=== PATIENT | male | born 1930 | race Caucasian/White ===

== ENCOUNTER 2016-12-23 16:12 | Emergency (ER) | payer MEDICARE, OTHER ==
[~2016-12-23] VITALS: Ht 170.2 cm; Wt 94.3 kg
--- NOTE | 2016-12-23 16:17 | ED Neurological Problem ---
General Stated Complaint: LOSING BALANCE/NAUSEA Source: patient Exam Limitations: no limitations History of Present Illness Time seen by provider: 16:16 Initial Comments This is external male presents with dizziness and nausea that began 2 days ago. The patient states that it is worse when he attempts to get out of bed. The patient's dizziness was so severe that he was unable to walk to the bathroom on Saturday morning (2 days ago). The patient has had 2 employer Walker for ambulation. He's had no chest pain, palpitations, shortness of breath, fever, chills, headache, stiff neck, or numbness or tingling in his extremities. Past medical history significant includes previous stent placement in the early . He has had no subsequent significant cardiac disease. To the best of his knowledge he has been in a regular rhythm. Allergies and Home Medications Allergies Coded Allergies: No Known Drug Allergies (Unverified , 12/23/16) Constitutional: No chills, No fever Eyes: Denies Blindness, Denies Blurred Vision Ears, Nose, Mouth, Throat: denies ear pain, denies nose discharge, denies epistaxis Respiratory: No cough Cardiovascular: No chest pain, Hx of Intervention (stent placement 2 in the early .), No palpitations Gastrointestinal: No abdominal pain, No diarrhea, nausea, No vomiting Genitourinary: no symptoms reported Musculoskeletal: joint pain Skin: No change in color, No rash Psychiatric/Neurological: No Symptoms Reported Endocrine: No Symptoms Reported Hematologic/Lymphatic: No Symptoms Reported Past Fkzymgy-Mcjyph-Yrljkb Hx Patient Social History Recent Foreign Travel: No Contact w/Someone Who Travel: No Reviewed Nursing Assessment Reviewed/Agree w Nursing PMH: Yes Physical Exam Vital Signs Vital Sign - Last 12Hours 12/23/16 16:25 Temp 97.2 Pulse 100 Resp 20 B/P (MAP) 183/100 Pulse Ox 98 O2 Delivery Room Air Capillary Refill : General Appearance: WD/WN, no apparent distress HEENT: other (lateral gaze nystatin [place] was noted to the patient's right.) Neck: non-tender, full range of motion, supple, No carotid bruit Respiratory: chest non-tender, lungs clear Cardiovascular: irregularly irregular Gastrointestinal: normal bowel sounds, non tender, soft Back: normal inspection, no CVA tenderness Extremities: normal range of motion, non-tender Neurologic/Psychiatric: no motor/sensory deficits, alert, normal mood/affect Crainal Nerves: normal hearing, normal speech, PERRL Motor/Sensory: no motor deficit, no sensory deficit Skin: normal color, warm/dry Stroke Onset of Symptoms Date of Onset of Symptoms: Dec 21, 2016 Time of Symptom Onset: 07:00 Onset of Symptoms: Yes NIH Stroke Scale Assessment Select: Initial Level of Consciousness: 0=Alert Level of Consciousness-Questio: 0=Answers both month/age LOC Commands: 0=Performs both tasks Gaze: 0=Normal Visual [place]: 0=No visual loss Facial Movement (Facial Paresi: 0=Normal symmetrical mnt Motor Function-Arms Right: 0=No drift Motor Function-Arms Left: 0=No drift Motor Function-Legs Right: 0=No drift Motor Function-Legs Left: 0=No drift Limb Ataxia: 0=Absent Sensory: 0=Normal:no loss Best Language: 0=No aphasia Dysarthria: 1=Mild to moderate loss Extinction & Inattention: 0=No abnormality NIH Stroke Scale Score: 0 Progress/Results/Core Measures Results/Orders Lab Results Laboratory Tests Test 12/23/16 16:40 12/23/16 17:01 Range/Units White Blood Count 10.4 4.3-11.0 10^3/uL Red Blood Count 4.24 L 4.35-5.85 10^6/uL Hemoglobin 11.7 L 13.3-17.7 G/DL Hematocrit 37 L 40-54 % Mean Corpuscular Volume 87 80-99 FL Mean Corpuscular Hemoglobin 28 25-34 PG Mean Corpuscular Hemoglobin Concent 32 32-36 G/DL Red Cell Distribution Width 13.7 10.0-14.5 % Platelet Count 143 130-400 10^3/uL Mean Platelet Volume 10.7 H 7.4-10.4 FL Neutrophils (%) (Auto) 77 H 42-75 % Lymphocytes (%) (Auto) 17 12-44 % Monocytes (%) (Auto) 6 0-12 % Eosinophils (%) (Auto) 0 0-10 % Basophils (%) (Auto) 0 0-10 % Neutrophils # (Auto) 8.0 H 1.8-7.8 X 10^3 Lymphocytes # (Auto) 1.8 1.0-4.0 X 10^3 Monocytes # (Auto) 0.6 0.0-1.0 X 10^3 Eosinophils # (Auto) 0.0 0.0-0.3 10^3/uL Basophils # (Auto) 0.0 0.0-0.1 10^3/uL Sodium Level 139 135-145 MMOL/L Potassium Level 4.5 3.6-5.0 MMOL/L Chloride Level 105 98-107 MMOL/L Carbon Dioxide Level 23 21-32 MMOL/L Anion Gap 11 5-14 MMOL/L Blood Urea Nitrogen 19 H 7-18 MG/DL Creatinine 0.96 0.60-1.30 MG/DL Estimat Glomerular Filtration Rate > 60 BUN/Creatinine Ratio 20 Glucose Level 154 H 70-105 MG/DL Calcium Level 9.6 8.5-10.1 MG/DL Total Bilirubin 0.6 0.1-1.0 MG/DL Aspartate Amino Transf (AST/SGOT) 21 5-34 U/L Alanine Aminotransferase (ALT/SGPT) 18 0-55 U/L Alkaline Phosphatase 102 40-136 U/L Troponin I < 0.30 <0.30 NG/ML Total Protein 7.3 6.4-8.2 GM/DL Albumin 3.9 3.2-4.5 GM/DL Urine Color YELLOW Urine Clarity CLEAR Urine pH 6.5 5-9 Urine Specific [place] 1.010 L 1.016-1.022 Urine Protein 3+ H NEGATIVE Urine Glucose (UA) NEGATIVE NEGATIVE Urine Ketones NEGATIVE NEGATIVE Urine Nitrite NEGATIVE NEGATIVE Urine Bilirubin NEGATIVE NEGATIVE Urine Urobilinogen NORMAL NORMAL MG/DL Urine Leukocyte Esterase NEGATIVE NEGATIVE Urine RBC (Auto) NEGATIVE NEGATIVE Urine RBC 0-2 /HPF Urine WBC 0-2 /HPF Urine Crystals NONE /LPF Urine Bacteria NEGATIVE /HPF Urine Casts NONE /LPF Urine Mucus NEGATIVE /LPF Urine Culture Indicated NO My Orders Orders - DAVID VALERIO MD Ct Head Wo (12/23/16 16:14) Cbc With Automated Diff (12/23/16 16:14) Comprehensive Metabolic Panel (12/23/16 16:14) Ua Culture If Indicated (12/23/16 16:14) Ekg Tracing (12/23/16 16:14) Chest Pa/Lat (2 View) (12/23/16 16:14) Troponin I (12/23/16 16:23) Apixaban Tablet (Eliquis Tablet) (12/23/16 17:45) Meclizine Tablet (Antivert Tablet) (12/23/16 17:45) Medications Given in ED Current Medications Medications Dose Ordered Sig/Lois Route Start Time Stop Time Status Last Admin Dose Admin Apixaban 2.5 mg ONCE ONCE PO 12/23/16 17:45 12/23/16 17:46 12/23/16 17:45 2.5 MG Meclizine HCl 12.5 mg ONCE PRN PO 12/23/16 17:45 12/23/16 17:45 12.5 MG Vital Signs/I&O Vital Sign - Last 12Hours 12/23/16 16:25 Temp 97.2 Pulse 100 Resp 20 B/P (MAP) 183/100 Pulse Ox 98 O2 Delivery Room Air Progress Note : Time: 17:40 Progress Note The patient's CT of the head was unremarkable. The patient's EKG demonstrated atrial fibrillation which is new from the patient's previous EKG tracing here and was new information for the patient as well. The patient is under the care of a medical imaging specialist, Dr. Robbins, in [place]. He last saw his medical imaging specialist approximately a year and a half ago. I recommended the patient that he stay in the hospital and had initiated an admission with Dr. Garcia in consultation with Dr. Kc and Dr. Noland. The patient however refused admission because he has to take care of his with Alzheimer's. I visit with Dr. Garcia again and we will initiate meclizine 12 and half milligrams every 6 hours as needed for dizziness and I placed the patient on [place] 2.5 mg twice a day. I will refer him to Ludin Pierson, and Yamini Departure Impression Impression: Primary Impression: Vertigo Additional Impression: Atrial fibrillation Qualified Codes: I48.91 - Unspecified atrial fibrillation Disposition: Condition: Against Medical Advice Departure-Patient Inst. Decision time for Depature: 17:47 Referrals: TIFFANY BRIAN MD (PCP) Primary Care Physician MILTON KC MD, M RIZWAN MD Patient Instructions: Atrial Fibrillation (DC), Vertigo (a Type of Dizziness) ( DC) Add. Discharge Instructions: Meclizine for dizziness. Eliquis for atrial fibrillation. Follow-up with Dr. Brian, cardiology, and ENT as needed. DAVID VALERIO MD 16, 2017 16:17
[2016-12-23 16:50] LABS: BASOPHILS % (AUTO) 0 % (0-10); EOSINOPHILS % (AUTO) 0 % (0-10); LYMPHOCYTES # (AUTO) 1.8 X 10^3 (1.0-4.0); LYMPHOCYTES % (AUTO) 17 % (12-44); MEAN CORPUSCULAR HEMOGLOBIN 28 PG (25-34); MEAN CORPUSCULAR HGB CONC 32 G/DL (32-36); MEAN CORPUSCULAR VOLUME 87 FL (80-99); MEAN PLATELET VOLUME 10.7 FL (7.4-10.4); MONOCYTES # (AUTO) 0.6 X 10^3 (0.0-1.0); MONOCYTES % (AUTO) 6 % (0-12); NEUTROPHILS % (AUTO) 77 % (42-75); PLATELET COUNT 143 10^3/uL (130-400); RED BLOOD COUNT 4.24 10^6/uL (4.35-5.85); RED CELL DISTRIBUTION WIDTH 13.7 % (10.0-14.5); WHITE BLOOD COUNT 10.4 10^3/uL (4.3-11.0)
--- NOTE | 2016-12-23 17:01 | Diagnostic Imaging Report ---
PROCEDURE: CT head without contrast. TECHNIQUE: Multiple contiguous axial images were obtained through the brain without the use of intravenous contrast. INDICATION: Dizziness. Unsteady gait. Nausea. COMPARISON: None. FINDINGS: No intracranial hemorrhage, mass effect, hydrocephalus or extra-axial fluid collections. Moderate generalized parenchymal volume loss. No CT evidence of acute infarction. Osseous structures are intact. The visualized paranasal sinuses and mastoids are clear. Orbits are unremarkable. IMPRESSION: No acute intracranial CT findings. Dictated by: Dictated on workstation # [id number]
--- NOTE | 2016-12-23 17:02 | Diagnostic Imaging Report ---
EXAM: CHEST PA/LAT (2 VIEW) INDICATION: Dizziness. Unsteady gait. Nausea. COMPARISON: None. FINDINGS: Normal heart size and pulmonary vascularity. Calcified aorta. Calcified granulomas in both lungs. No dense consolidation, pleural effusion, or pneumothorax. Sternotomy. CABG. Mediastinal clips. Moderate degenerative changes in the visualized spine. No acute osseous findings. IMPRESSION: No acute cardiopulmonary findings. Dictated by: Dictated on workstation # [id number]
[2016-12-23 17:09] LABS: BILIRUBIN,URINE NEGATIVE (NEGATIVE); KETONES,URINE NEGATIVE (NEGATIVE); LEUKOCYTE ESTERASE ,URINE NEGATIVE (NEGATIVE); NITRITE,URINE NEGATIVE (NEGATIVE); PH,URINE 6.5 (5-9); PROTEIN,URINE 3+ (NEGATIVE); UROBILINOGEN,URINE NORMAL (NORMAL)
[2016-12-23 17:12] LABS: ALANINE AMINOTRANSFERASE 18 U/L (0-55); ALBUMIN 3.9 GM/DL (3.2-4.5); ANION GAP 11 MMOL/L (5-14); ASPARTATE AMINO TRANSFERASE 21 U/L (5-34); BILIRUBIN,TOTAL 0.6 MG/DL (0.1-1.0); BLOOD UREA NITROGEN 19 MG/DL (7-18); BUN/CREATININE RATIO 20; CALCIUM 9.6 MG/DL (8.5-10.1); CARBON DIOXIDE 23 MMOL/L (21-32); CHLORIDE 105 MMOL/L (98-107); CREATININE SERUM 0.96 MG/DL (0.60-1.30); GFR ESTIMATED > 60; GLUCOSE 154 MG/DL (70-105); POTASSIUM 4.5 MMOL/L (3.6-5.0); SODIUM 139 MMOL/L (135-145); TOTAL PROTEIN 7.3 GM/DL (6.4-8.2)
[2016-12-23 17:13] LABS: TROPONIN I < 0.30 NG/ML (<0.30)
[2016-12-23 17:25] LABS: WBC,URINE 0-2 /HPF
[2016-12-23] MEDS ORDERED: ENOXAPARIN 100 MG/1 ML (LOVENOX) SYR SC ONE (17:30)
[2016-12-23] MEDS ORDERED: DIAZEPAM INJ 10 MG/2 ML (VALIUM) SYR IV ONE (17:30)
[2016-12-23] MEDS ORDERED: APIXABAN 2.5 MG (ELIQUIS) TABLET PO ONE (17:45)
[2016-12-23] MEDS ORDERED: MECLIZINE 25 MG (ANTIVERT) TAB PO PRN (17:45)
[2016-12-23 18:02] VITALS: BP 183/100
== END 2016-12-23 18:00 | disposition left against medical advice (07) ==
LOC: EDUNIT# 16:12 → ER 16:15
DX: I48.91 Unspecified atrial fibrillation (principal); Z95.5 Presence of coronary angioplasty implant and graft
CPT/HCPCS: 36415; 70450; 71020; 80053; 81000; 84484; 85025; 93005

== ENCOUNTER → 2017-03-19 | Outpatient (CLI) | payer MEDICARE, OTHER ==
--- NOTE | 2017-03-19 16:35 | Diagnostic Imaging Report ---
PROCEDURE: US Carotid Duplex Bilateral. TECHNIQUE: Multiple real-time grayscale images were obtained over the carotid arteries in various projections bilaterally. Additional duplex Doppler and color Doppler images were also obtained. INDICATION: Carotid artery stenosis. FINDINGS: There is mild atherosclerotic plaque seen in the carotid arteries based on grayscale images. There is color-flow demonstrating patency in the common, internal and external carotid arteries on both sides. The vertebral arteries demonstrate antegrade flow bilaterally. Peak systolic velocities in the right ICA are 90, 83 and 115 cm/s from proximal to distal and on the left 123, 73 and 82 cm/s. ICA/CCA ratios are up to 1.4 on the right side and up to 1.1 on the left. IMPRESSION: Atherosclerotic plaque in the proximal internal carotid arteries bilaterally are seen and around the bifurcation with estimated underlying stenosis in the range of 0-50% bilaterally. Dictated by: Dictated on workstation # [id number]
== END ==
LOC: RAD 14:58
PROVIDERS: ATTEND Family Medicine
DX: I65.23 Occlusion and stenosis of bilateral carotid arteries (principal); I48.2 Chronic atrial fibrillation
CPT/HCPCS: 93880

== ENCOUNTER → 2018-07-09 | Outpatient (CLI) | payer MEDICARE ==
[~2018-07-09] VITALS: Ht 167.6 cm; Wt 98.0 kg
[~2018-07-09] MED LIST: ACET325T38 PO; ALPR0.5T PO; ALPR0.5T7 PO; APIX2.5T PO; ATOR40TA70 PO; CATHETER FLUSH 10 ML SYR IV PRN; DILT180C54 PO; DILT240C97 PO; FURO40TA4 PO; LOSA100T57 PO; METO-387 PO; MULT-1029 PO; NYST15CR TOP; OMG1KC PO; POLY17PO31 PO; POTA-51 PO; RANI150T11 PO; REGADENOSON 0.4 MG/5 ML SYR (LEXISCAN) IV ONE; TRAM50TA2 PO
[2018-07-09 13:18] VITALS: BP 156/68
[2018-07-09 13:24] VITALS: BP 168/70
--- NOTE | 2018-07-09 20:08 | STRESS TEST ---
DATE OF SERVICE: 07/09/2018 LEXISCAN MYOVIEW STRESS TEST REPORT REFERRING PHYSICIAN: Carolyne Brian MD. Baseline heart rate is 78. Baseline blood pressure was 63/70. Baseline EKG is atrial fibrillation with right bundle branch block. In summary, the patient was injected with 10.49 mCi of technetium-99 Myoview and the resting images were obtained. Then, the patient received 0.4 mg of Lexiscan followed by 30.7 mCi of technetium-99 Myoview. Throughout the test, there were no EKG changes. The resting and stressed images were reviewed and compared in the short axis, horizontal long axis, and vertical long axis views. Review of the images showed reversible ischemia involving the mid to apical anterolateral wall, anterior wall and inferolateral wall. SSS is 6. SDS 6. TID value of 1.1. On the gated images, the left ventricle appeared to be in normal size with normal contractility. Calculated ejection fraction 65%, gated images are unreliable due to underlying atrial fibrillation. CONCLUSION: 1. The patient tolerated Lexiscan well. 2. Reversible ischemia involving the mid to apical anterior wall, anterolateral and inferolateral wall. 3. Normal left ventricular size with normal contractility. Calculated ejection fraction 65%, gated images are unreliable due to underlying atrial fibrillation. Job ID: [id number] DocumentID: [id number] Dictated Date: 07/09/2018 16:31:16 Transitional Studies Instructor Date: 07/09/2018 20:06:03 Dictated By: PAVEL BATISTA MD
== END ==
LOC: CARD 11:47
PROVIDERS: ATTEND Physician Assistant
DX: I48.2 Chronic atrial fibrillation (principal); I11.0 Hypertensive heart disease with heart failure; I50.32 Chronic diastolic (congestive) heart failure; I27.20 Pulmonary hypertension, unspecified; I45.10 Unspecified right bundle-branch block
CPT/HCPCS: 78452; 93017

== ENCOUNTER 2018-07-24 15:20 | Inpatient (IN) | payer MEDICARE ==
[~2018-07-24] VITALS: Ht 167.6 cm; Wt 96.2 kg
[2018-07-24] VITALS (9 sets, daily range): BP systolic 126–147; BP diastolic 58–71
[~2018-07-24 15:20] MED LIST changes: -CATHETER FLUSH 10 ML SYR IV PRN; -REGADENOSON 0.4 MG/5 ML SYR (LEXISCAN) IV ONE
[2018-07-24 15:57] LABS: BASOPHILS % (AUTO) 0 % (0-10); EOSINOPHILS # (AUTO) 0.1 10^3/uL (0.0-0.3); EOSINOPHILS % (AUTO) 1 % (0-10); HEMATOCRIT 23 % (40-54); LYMPHOCYTES # (AUTO) 2.5 X 10^3 (1.0-4.0); LYMPHOCYTES % (AUTO) 20 % (12-44); MEAN CORPUSCULAR HEMOGLOBIN 24 PG (25-34); MEAN CORPUSCULAR HGB CONC 30 G/DL (32-36); MEAN CORPUSCULAR VOLUME 81 FL (80-99); MEAN PLATELET VOLUME 11.1 FL (7.4-10.4); MONOCYTES # (AUTO) 1.1 X 10^3 (0.0-1.0); MONOCYTES % (AUTO) 9 % (0-12); NEUTROPHILS # (AUTO) 8.7 X 10^3 (1.8-7.8); NEUTROPHILS % (AUTO) 71 % (42-75); PLATELET COUNT 257 10^3/uL (130-400); RED CELL DISTRIBUTION WIDTH 16.4 % (10.0-14.5); WHITE BLOOD COUNT 12.4 10^3/uL (4.3-11.0)
[2018-07-24 16:00] LABS: HEMOGLOBIN 6.8 G/DL (13.3-17.7); INR 2.7 (0.8-1.4); PROTHROMBIN TIME PATIENT 28.9 SEC (12.2-14.7)
[2018-07-24 16:09] LABS: ALANINE AMINOTRANSFERASE 11 U/L (0-55); ALBUMIN 3.7 GM/DL (3.2-4.5); ALKALINE PHOSPHATASE 103 U/L (40-136); BILIRUBIN,TOTAL 0.7 MG/DL (0.1-1.0); BUN/CREATININE RATIO 17; CALCIUM 9.4 MG/DL (8.5-10.1); CARBON DIOXIDE 28 MMOL/L (21-32); CHLORIDE 95 MMOL/L (98-107); CREATININE SERUM 2.03 MG/DL (0.60-1.30); GFR ESTIMATED 31; GLUCOSE 198 MG/DL (70-105); MAGNESIUM 1.9 MG/DL (1.8-2.4); POTASSIUM 4.2 MMOL/L (3.6-5.0); SODIUM 132 MMOL/L (135-145); TOTAL PROTEIN 7.1 GM/DL (6.4-8.2)
--- NOTE | 2018-07-24 16:26 | ED General ---
General Chief Complaint: Respiratory Problems Stated Complaint: SOB Nursing Triage Note: PT PRESENTS TO ER WITHCOMPLAINT OF SOA FOR THE LAST 3 DAYS. PT STATES HE WAS IN THE HOSPITAL A MONTH AGO FOR PNEUMONIA. Nursing Sepsis Screen: No Definite Risk Source of Information: Patient Exam Limitations: No Limitations History of Present Illness Date Seen by Provider: Jul 24, 2018 Time Seen by Provider: 16:23 Initial Comments To ER with reports of shortness of breath for the past 3 days. He also has generalized fatigue. He was admitted to the hospital for over a month, released one month ago. He has a history of atrial fibrillation treated with Xarelto which according to external medication history it appears to me that he is still on. History of upper GI bleed evaluated with EGD by Dr. Ignacio last month. He denies chest pain but does have shortness of breath on exertion. Timing/Duration: 2-3 Days Severity: Moderate Associated Systoms: No Chest Pain, No Nausea/Vomiting; Shortness of Air, Weakness Allergies and Home Medications Allergies Coded Allergies: No Known Drug Allergies (Unverified , 12/23/16) Home Medications Acetaminophen 325 Mg Tablet, 650 MG PO TID, (Reported) Alprazolam 0.5 Mg Tablet, 0.5 MG PO BID PRN for ANXIETY, (Reported) Alprazolam 0.5 Mg Tablet, 0.5 MG PO HS, (Reported) Atorvastatin Calcium 40 Mg Tablet, 20 MG PO HS, (Reported) TAKES 1/2 (40MG) TABLET Diltiazem HCl 240 Mg Cap.er.24h, 240 MG PO DAILY Prescribed by: TIFFANY BRIAN on 05/21/18919 Furosemide 40 Mg Tablet, 40 MG PO UD take 1 pill in at 7am and 1/2 pill at 2pm Prescribed by: TIFFANY BRIAN on 05/21/18919 Metoprolol Succinate 25 Mg Tab.er.24h, 25 MG PO DAILY Prescribed by: TIFFANY BRIAN on 05/21/18919 Multivit-Min/FA/Lycopene/Lut 1 Each Tablet, 1 TAB PO DAILY, (Reported) Nystatin 15 Gm Cream..g., TOP TID PRN for RASH, (Reported) [place] 3 Polyunsat Fatty Acids 1,000 Mg Cap, 1,000 MG PO BID, (Reported) Polyethylene Glycol 3350 17 Gm Powd.pack, 17 GM PO DAILY hold if having loose stools Prescribed by: TIFFANY BRIAN on 05/21/18919 Potassium Chloride 20 Meq Tablet.er, 20 MEQ PO DAILY Prescribed by: TIFFANY BRIAN on 05/21/18919 Ranitidine HCl 150 Mg Tablet, 150 MG PO BID Prescribed by: TIFFANY BRIAN on 05/21/18922 Tramadol HCl 50 Mg Tablet, 50 MG PO Q4H PRN for PAIN-MODERATE, (Reported) Patient Home Medication List Home Medication List Reviewed: Yes Review of Systems Review of Systems Constitutional: see HPI EENTM: see HPI Respiratory: see HPI, dyspnea on exertion, short of breath Cardiovascular: no symptoms reported Genitourinary: no symptoms reported Musculoskeletal: no symptoms reported Skin: no symptoms reported Psychiatric/Neurological: No Symptoms Reported Past Xuaqnja-Hbhjbt-Czbbiw Hx Patient Social History Alcohol Use: Denies Use Recreational Drug Use: No Smoking Status: Former Smoker Recent Foreign Travel: No Contact w/Someone Who Travel: No Recent Infectious Disease Expo: No Recent Hopitalizations: No Immunizations Up To Date Tetanus Booster (TDap): Unknown PED Vaccines UTD: No Date of Pneumonia Vaccine: Apr 10, 2014 Date of Influenza Vaccine: Apr 10, 2018 Seasonal Allergies Seasonal Allergies: No Past Medical History Surgeries: Yes CABG Respiratory: No Currently Using CPAP: No Currently Using BIPAP: No Cardiac: Yes Atrial Fibrillation, Heart Attack, High Cholesterol, Hypertension Neurological: No Sexually Transmitted Disease: No HIV/AIDS: No Genitourinary: No Gastrointestinal: No Musculoskeletal: No Endocrine: No HEENT: No Cancer: No Psychosocial: No Integumentary: No Blood Disorders: No Adverse Reaction/Blood Tranf: No Family Medical History Myocardial infarction (FATHER) Heart Disease, Hypertension Physical Exam Vital Signs Vital Signs - First Documented 07/24/18 15:24 Temp 97.0 Pulse 95 Resp 20 B/P (MAP) 162/68 (99) Pulse Ox 100 O2 Delivery Room Air Capillary Refill : Less Than 3 Seconds Height, Weight, BMI Height: 5'6.00" Weight: 212lbs. 0.0oz. 96.332161ul; 34.9 BMI Method:Stated General Appearance: No Apparent Distress, WD/WN, Other (speaks in full sentences, no distress, alert and oriented very pleasant gentleman.) Eyes: Bilateral Eye Normal Inspection, Bilateral Eye PERRL, Bilateral Eye EOMI HEENT: PERRL/EOMI, TMs Normal Neck: Full Range of Motion, Normal Inspection Respiratory: No Accessory Muscle Use, No Respiratory Distress Cardiovascular: Regular Rate, Rhythm, Normal Peripheral Pulses Gastrointestinal: Normal Bowel Sounds, Non Tender, Soft Extremity: Normal Capillary Refill, Normal Inspection Neurologic/Psychiatric: Alert, Oriented x3, No Motor/Sensory Deficits Skin: Warm/Dry, Pallor Progress/Results/Core Measures Suspected Sepsis Recent Fever Within 48 Hours: No Infection Criteria Present: None New/Unexplained Altered Menta: No Sepsis Screen: No Definite Risk SIRS Temperature:97.0 Pulse: 95 Respiratory Rate: 20 Laboratory Tests 07/24/18 15:36: White Blood Count 12.4H Blood Pressure 162 /68 Mean: 99 Laboratory Tests 07/24/18 15:36: Creatinine 2.03H, INR Comment 2.7H, Platelet Count 257, Total Bilirubin 0.7 Results/Orders Lab Results Laboratory Tests Test 07/24/18 15:36 Range/Units White Blood Count 12.4 H 4.3-11.0 10^3/uL Red Blood Count 2.82 L 4.35-5.85 10^6/uL Hemoglobin 6.8 *L 13.3-17.7 G/DL Hematocrit 23 L 40-54 % Mean Corpuscular Volume 81 80-99 FL Mean Corpuscular Hemoglobin 24 L 25-34 PG Mean Corpuscular Hemoglobin Concent 30 L 32-36 G/DL Red Cell Distribution Width 16.4 H 10.0-14.5 % Platelet Count 257 130-400 10^3/uL Mean Platelet Volume 11.1 H 7.4-10.4 FL Neutrophils (%) (Auto) 71 42-75 % Lymphocytes (%) (Auto) 20 12-44 % Monocytes (%) (Auto) 9 0-12 % Eosinophils (%) (Auto) 1 0-10 % Basophils (%) (Auto) 0 0-10 % Neutrophils # (Auto) 8.7 H 1.8-7.8 X 10^3 Lymphocytes # (Auto) 2.5 1.0-4.0 X 10^3 Monocytes # (Auto) 1.1 H 0.0-1.0 X 10^3 Eosinophils # (Auto) 0.1 0.0-0.3 10^3/uL Basophils # (Auto) 0.0 0.0-0.1 10^3/uL Prothrombin Time 28.9 H 12.2-14.7 SEC INR Comment 2.7 H 0.8-1.4 Sodium Level 132 L 135-145 MMOL/L Potassium Level 4.2 3.6-5.0 MMOL/L Chloride Level 95 L 98-107 MMOL/L Carbon Dioxide Level 28 21-32 MMOL/L Anion Gap 9 5-14 MMOL/L Blood Urea Nitrogen 35 H 7-18 MG/DL Creatinine 2.03 H 0.60-1.30 MG/DL Estimat Glomerular Filtration Rate 31 BUN/Creatinine Ratio 17 Glucose Level 198 H 70-105 MG/DL Calcium Level 9.4 8.5-10.1 MG/DL Corrected Calcium 9.6 8.5-10.1 MG/DL Magnesium Level 1.9 1.8-2.4 MG/DL Total Bilirubin 0.7 0.1-1.0 MG/DL Aspartate Amino Transf (AST/SGOT) 24 5-34 U/L Alanine Aminotransferase (ALT/SGPT) 11 0-55 U/L Alkaline Phosphatase 103 40-136 U/L Troponin I < 0.028 <0.028 NG/ML B-Type Natriuretic Peptide 752.5 H <100.0 PG/ML Total Protein 7.1 6.4-8.2 GM/DL Albumin 3.7 3.2-4.5 GM/DL My Orders Orders - UZAIR LINARES APRN Ua Culture If Indicated (07/24/18 15:48) BNP (07/24/18 15:48) Troponin I (07/24/18 15:48) Ekg Tracing (07/24/18 15:48) Magnesium (07/24/18 15:48) Protime With Inr (07/24/18 15:48) Cbc With Automated Diff (07/24/18 15:48) Comprehensive Metabolic Panel (07/24/18 15:48) Blood Culture (07/24/18 15:48) Lactic Acid Analyzer (07/24/18 15:48) Red Cells Leukocytes Reduced (07/24/18 16:03) Type And Screen (07/24/18 16:03) Vital Signs/I&O 07/24/18 15:24 Temp 97.0 Pulse 95 Resp 20 B/P (MAP) 162/68 (99) Pulse Ox 100 O2 Delivery Room Air Capillary Refill : Less Than 3 Seconds Blood Pressure Mean: 99 Departure Communication (Admissions) Time/Spoke to Admitting Phy: 16:[address] Brian. We will admit, consult surgery. I spoke with Dr. Ignacio who saw this gentleman last month. He agrees to consult. Impression Primary Impression: Symptomatic anemia Additional Impression: Anemia in chronic kidney disease Qualified Codes: N18.9 - Chronic kidney disease, unspecified; D63.1 - Anemia in chronic kidney disease Disposition: ADMITTED INPATIENT Condition: Stable Admissions Decision to Admit Reason: Admit from ER (General) Decision to Admit/Date: Jul 24, 2018 Time/Decision to Admit Time: 17:34 Departure-Patient Inst. Referrals: TIFFANY BRIAN MD (PCP/Family) Primary Care Physician UZAIR LINARES APRN Jul 24, 2018 16:26
--- OUTSIDE RECORDS SUMMARY | 2018-07-24 16:38 | XMS REPORT | CCD ---
Author Author [facility] Organization [facility] Address [address] [place] [address] Phone Care Team Providers Care Balloon Tester Name Role Phone PP Unavailable CCM Unavailable Summary Purpose Interface Exchange Insurance Providers Payer name Policy type / Coverage type Covered republican ID Effective Begin Date Effective End Date [facility] Medicare Part B [id number] Unknown WPS Medicare Part B Medicare Part B [id number] Unknown Family history Father Diagnosis Age At Onset Heart Attack Unknown Son Diagnosis Age At Onset Alcoholism Unknown Social History Social History Element Codes Description Effective Dates Employment Unknown 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 Marital status Unknown [place] 08/08/2016 Number of children Unknown 2 12/08/[address]: 9309075 Former smoker quit 1990 12/08/[address]: 875677774 Never drinks alcohol 12/08/2014 Allergies, Adverse Reactions, Alerts Substance Reaction Codes Entered Date Inactivated Date Status * NO KNOWN FOOD ALLERGIES Unknown 12/08/2014 No Inactive Date Active CODEINE RxNorm: 2670 12/08/2014 No Inactive Date Active FERNANDO INHIBITORS cough Unknown 10/19/2015 No Inactive Date Active Past Medical History Illness Codes Condition Status Onset Date Resolved Date Chronic atrial fibrillation ICD-9: 427.31 ICD-10: I48.2 Active 01/01/2017 Unknown Encounter for follow-up examination after completed treatment for conditions other than malignant neoplasm ICD-9: V67.59 ICD-10: Z09 Active 06/04/2018 Unknown Essential (primary) hypertension ICD-9: 401.9 ICD-10: I10 Active 12/07/2014 Unknown Localized edema ICD-9 : 782.3 ICD-10: R60.0 Active 02/19/2018 Unknown Encounter for immunization ICD-9: V04.81 ICD-10: Z23 Active 03/13/2016 Unknown Other specified cardiac arrhythmias ICD-9: 427.89 ICD-10: I49.8 Active 02/19/2018 Unknown Chronic pain syndrome ICD-9: 338.4 ICD-10: G89.4 Active 04/17/2016 Unknown 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 Active 12/18/2017 Unknown Mixed hyperlipidemia ICD-9: 272.4 ICD-10: E78.2 Active 12/07/2014 Unknown 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 ICD-10: I65.23 Active 03/12/2017 Unknown Rash and other nonspecific skin eruption ICD-9: 782.1 ICD-10: R21 Active 03/12/2017 Unknown Generalized anxiety disorder ICD-9: 308.0 ICD-10: F41.1 Active 04/17/2016 Unknown Cough ICD-9: 786.2 ICD-10: R05 Active 10/18/2015 Unknown Myalgia ICD-9: 729.1 ICD-10: M79.1 Active 10/18/2015 Unknown Hyperlipidemia Unknown Active 12/08/2014 Unknown Hypertension Unknown Active 12/08/2014 Unknown ESSENTIAL HYPERTENSION ICD-9: 401.9 Active 12/07/2014 Unknown HYPERLIPIDEMIA ICD-9: 272.4 Active 12/07/2014 Unknown Problems Condition Codes Effective Dates Condition Status Chronic atrial fibrillation ICD-9: 427.31 ICD-10: I48.2 01/01/2017 Active Encounter for follow-up examination after completed treatment for conditions other than malignant neoplasm ICD-9: V67.59 ICD-10: Z09 06/04/2018 Active Essential (primary) hypertension ICD-9: 401.9 ICD-10: I10 12/07/2014 Active Localized edema ICD-9 : 782.3 ICD-10: R60.0 02/19/2018 Active Encounter for immunization ICD-9: V04.81 ICD-10: Z23 03/13/2016 Active Other specified cardiac arrhythmias ICD-9: 427.89 ICD-10: I49.8 02/19/2018 Active Chronic pain syndrome ICD-9: 338.4 ICD-10: G89.4 04/17/2016 Active 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 12/18/2017 Active Mixed hyperlipidemia ICD-9: 272.4 ICD-10: E78.2 12/07/2014 Active 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 ICD-10: I65.23 03/12/2017 Active Rash and other nonspecific skin eruption ICD-9: 782.1 ICD-10: R21 03/12/2017 Active Generalized anxiety disorder ICD-9: 308.0 ICD-10: F41.1 04/17/2016 Active Cough ICD-9: 786.2 ICD-10: R05 10/18/2015 Active Myalgia ICD-9: 729.1 ICD-10: M79.1 10/18/2015 Active Hyperlipidemia Unknown 12/08/2014 Active Hypertension Unknown 12/08/2014 Active ESSENTIAL HYPERTENSION ICD-9: 401.9 12/07/2014 Active HYPERLIPIDEMIA ICD-9: 272.4 12/07/2014 Active Medications Medication Codes Instructions Start Date Stop Date Status Fill Instructions tramadol 50 mg tablet RxNorm: 320338 Tablet(s) TAKE 1 TABLET BY MOUTH FOUR TIMES DAILY NEEDED 07/21/2018 09/02/2018 Active alprazolam 0.5 mg tablet RxNorm: 571454 Tablet(s) TAKE 1 TABLET BY MOUTH EVERY 8 HOURS NEEDED FOR ANXIETY 07/21/2018 Active alprazolam 0.5 mg tablet RxNorm: 610331 TAKE 1 TABLET BY MOUTH EVERY 8 HOURS NEEDED FOR ANXIETY 06/09/2018 06/27/2018 Inactive Lipitor 40 mg tablet RxNorm: 767595 TAKE 1/2 TABLET BY MOUTH ONCE DAILY 04/24/2018 04/18/2019 Active tramadol 50 mg tablet RxNorm: 038240 Tablet(s) TAKE 1 TABLET BY MOUTH FOUR TIMES DAILY NEEDED 04/17/2018 06/20/2018 Inactive Cardizem CD 180 mg capsule,extended release RxNorm: 500075 1 Capsule(s) PO daily 03/20/2018 10/15/2018 Active Eliquis 2.5 mg tablet RxNorm: 2934291 1 Tablet(s) PO BID 201704/16/2018 Inactive Eliquis 2.5 mg tablet RxNorm: 6794099 1 TABLET(S) PO BID 201701/15/2019 Active alprazolam 0.5 mg tablet RxNorm: 878080 Tablet(s) TAKE 1 TABLET BY MOUTH EVERY 8 HOURS NEEDED FOR ANXIETY OR INSOMNIA 02/20/2018 05/10/2018 Inactive losartan 100 mg tablet RxNorm: 534395 1/2 Tablet(s) 02/19/2018 02/13/2019 Active Cardizem CD 120 mg capsule,extended release RxNorm: 881697 1 Capsule(s) PO daily 02/19/2018 03/19/2018 Inactive nystatin 100,000 unit/gram topical cream RxNorm: 028068 APPLY TO THE SKIN THREE TIMES DAILY NEEDED FOR RASH Gram(s) TOP 12/23/2017 No Stop Date Active losartan 100 mg tablet RxNorm: 273321 TAKE 1 TABLET BY MOUTH EVERY DAY 11/05/2017 02/18/2018 Inactive alprazolam 0.5 mg tablet RxNorm: 787715 Tablet(s) TAKE 1 TABLET BY MOUTH EVERY 8 HOURS NEEDED FOR ANXIETY OR INSOMNIA 10/09/2017 12/26/2017 Inactive tramadol 50 mg tablet RxNorm: 797377 Tablet(s) TAKE 1 TABLET BY MOUTH FOUR TIMES DAILY NEEDED 09/17/2017 11/20/2017 Inactive Lipitor 40 mg tablet RxNorm: 652250 TAKE 1/2 TABLET BY MOUTH ONCE DAILY 07/30/2017 04/23/2018 Inactive tramadol 50 mg tablet RxNorm: 863278 Tablet(s) TAKE 1 TABLET BY MOUTH FOUR TIMES DAILY NEEDED 07/12/2017 04/16/2018 Inactive alprazolam 0.5 mg tablet RxNorm: 995332 TAKE 1 TABLET BY MOUTH EVERY 8 HOURS NEEDED FOR ANXIETY OR INSOMNIA 05/13/2017 12/17/2017 Inactive tramadol 50 mg tablet RxNorm: 007165 TAKE 1 TABLET BY MOUTH FOUR TIMES DAILY NEEDED 05/06/2017 09/16/2017 Inactive losartan 100 mg tablet RxNorm: 694019 TAKE 1 TABLET BY MOUTH EVERY DAY 04/09/2017 11/04/2017 Inactive betamethasone dipropionate 0.05 % topical ointment RxNorm: 720361 1 Application TOP BID 03/12/2017 03/11/2017 Inactive betamethasone dipropionate 0.05 % topical ointment RxNorm: 335538 1 Application TOP BID 03/12/2017 03/21/2017 Inactive alprazolam 0.5 mg tablet RxNorm: 557105 Tablet(s) TAKE 1 TABLET BY MOUTH EVERY 6 HOURS NEEDED FOR ANXIETY 02/20/201709/2016 Inactive tramadol 50 mg tablet RxNorm: 589211 1 Tablet(s) PO QID as needed 02/20/2017 04/29/2017 Inactive Eliquis 2.5 mg tablet RxNorm: 1253263 1 Tablet(s) PO BID 201601/25/2018 Inactive Eliquis 2.5 mg tablet RxNorm: 6348343 1 Tablet(s) PO BID 201601/30/2017 Inactive meclizine 12.5 mg tablet RxNorm: 419481 1 Tablet(s) PO Q6 as needed 01/01/2017 01/30/2017 Inactive alprazolam 0.5 mg tablet RxNorm: 702035 TAKE 1 TABLET BY MOUTH EVERY 6 HOURS NEEDED FOR ANXIETY 11/08/2016 11/19/2016 Inactive Lipitor 40 mg tablet RxNorm: 258465 TAKE 1/2 TABLET BY MOUTH ONCE DAILY 10/29/2016 10/28/2016 Inactive Lipitor 40 mg tablet RxNorm: 808118 TAKE 1/2 TABLET BY MOUTH ONCE DAILY 10/29/2016 12/17/2017 Inactive nystatin 100,000 unit/gram topical powder RxNorm: 657775 1 APPLICATION TOP TID NEEDED TO AFFECTED AREA 10/19/20162016 Inactive nystatin 100,000 unit/gram topical powder RxNorm: 215389 1 Application TOP TID as needed to affected area 10/17/20162016 Inactive nystatin 100,000 unit/gram topical powder RxNorm: 712024 1 Application TOP TID as needed to affected area 10/17/20162016 Inactive losartan 100 mg tablet RxNorm: 438281 TAKE 1 TABLET BY MOUTH EVERY DAY 09/06/2016 04/03/2017 Inactive Nitrostat 0.4 mg sublingual tablet RxNorm: 808729 1 Tablet(s) SL q 30 min PRN for chest pain max 3 in 2 hours 08/09/2016 No Stop Date Active Nitrostat 0.4 mg sublingual tablet RxNorm: 170737 1 Tablet(s) SL q 30 min PRN for chest pain max 3 in 2 hours 08/08/201606/2016 Inactive tramadol 50 mg tablet RxNorm: 801327 1 Tablet(s) PO QID as needed 08/08/2016 10/13/2016 Inactive Nitrostat 0.4 mg sublingual tablet RxNorm: 995819 1 Tablet(s) SL q 30 min PRN for chest pain max 3 in 2 hours 08/03/2016 Inactive losartan 100 mg tablet RxNorm: 204190 TAKE 1 TABLET BY MOUTH EVERY DAY 05/14/2016 09/05/2016 Inactive alprazolam 0.5 mg tablet RxNorm: 843656 1 Tablet(s) PO daily and q 6 hours prn anxiety 03/07/2016 11/08/2016 Inactive losartan 100 mg tablet RxNorm: 117438 1 Tablet(s) PO daily 04/201605/13/2016 Inactive Lipitor 40 mg tablet RxNorm: 805585 1/2 Tablet(s) PO daily 04/201610/28/2016 Inactive alprazolam 0.5 mg tablet RxNorm: 675699 1 Tablet(s) PO daily and q 6 hours prn anxiety 10/19/2015 02/19/2017 Inactive lisinopril 40 mg tablet RxNorm: 966964 1 Tablet(s) PO daily 10/18/2015 Inactive alprazolam 0.5 mg tablet RxNorm: 426896 1 Tablet(s) PO daily 10/18/2015 Inactive tramadol 50 mg tablet RxNorm: 908873 1 Tablet(s) PO QID as needed 04/20/2015 08/07/2016 Inactive tramadol 50 mg tablet RxNorm: 133446 1 Tablet(s) PO QID as needed 02/17/2015 04/19/2015 Inactive alprazolam 0.5 mg tablet RxNorm: 119977 1 Tablet(s) PO daily 07/11/2015 Inactive tramadol 50 mg tablet RxNorm: 306472 1 Tablet(s) PO QID as needed 01/05/2015 02/16/2015 Inactive tramadol 50 mg tablet RxNorm: 964388 2 Tablet(s) PO daily 201401/04/2015 Inactive aspirin 81 mg tablet RxNorm: 194330 1 Tablet(s) PO daily No Start Date Active Centrum Silver tablet RxNorm: oral No Start Date Active coenzyme Q10 200 mg capsule RxNorm: 471237 1 Capsule(s) PO daily No Start Date Active Fish Oil 360 mg-1,200 mg capsule RxNorm: 474559 2 Capsule(s) PO daily No Start Date Active Nitrostat 0.4 mg sublingual tablet RxNorm: 225924 1 Tablet(s) SL q 30 min PRN for chest pain max 3 in 2 hours No Start Date 08/02/2016 Inactive lisinopril 40 mg tablet RxNorm: 511242 1 Tablet(s) PO daily No Start Date 09/07/2015 Inactive meclizine 12.5 mg tablet RxNorm: 234551 1 Tablet(s) PO Q6 No Start Date 12/31/2016 Inactive alprazolam 0.5 mg tablet RxNorm: 472447 1/2 Tablet(s) PO daily No Start Date 02/02/2015 Inactive Ecotrin Low Strength 81 mg tablet,enteric coated RxNorm: 5234983 1 Tablet(s) PO daily No Start Date 01/30/2017 Inactive acetaminophen 650 mg tablet RxNorm: 006139 2 Tablet(s) PO BID No Start Date 05/14/2017 Inactive nystatin 100,000 unit/gram topical cream RxNorm: 515306 APPLY TO THE SKIN THREE TIMES DAILY NEEDED FOR RASH Gram(s) TOP No Start Date 12/22/2017 Inactive tramadol 50 mg tablet RxNorm: 093772 2 Tablet(s) PO daily No Start Date 01/03/2015 Inactive Eliquis 2.5 mg tablet RxNorm: 5683627 1 Tablet(s) PO daily No Start Date 12/31/2016 Inactive Lipitor 40 mg tablet RxNorm: 318694 1 Tablet(s) PO daily No Start Date 10/18/2015 Inactive Medication Administered No Medication Administered data Immunizations Vaccine Codes Date Status Influenza CVX: 141 03/31/2018 completed Influenza CVX: 141 03/12/2017 completed Influenza CVX: 141 03/14/2016 completed Assessments Condition Codes Effective Dates Chronic atrial fibrillation ICD-10: I48.2 ICD-9: 427.31 06/04/2018 Essential (primary) hypertension ICD-10: I10 ICD-9: 401.9 06/04/2018 Encounter for follow-up examination after completed treatment for conditions other than malignant neoplasm ICD-10: Z09 ICD-9: V67.59 06/04/2018 Encounter for immunization ICD-10: Z23 ICD-9: V04.81 03/31/2018 Localized edema ICD-10: R60.0 ICD-9: 782.3 03/20/2018 Other specified cardiac arrhythmias ICD-10: I49.8 ICD-9: 427.89 02/19/2018 Insomnia due to medical condition ICD-10: G47.01 ICD-9: 327.01 12/18/2017 Chronic pain syndrome ICD-10: G89.4 ICD-9: 338.4 12/18/2017 Mixed hyperlipidemia ICD-10: E78.2 ICD-9: 272.4 05/15/2017 Occlusion and stenosis of bilateral carotid arteries ICD-10 : I65.23 ICD-9: 433.10 03/12/2017 Rash and other nonspecific skin eruption ICD-10: R21 ICD-9: 782.1 03/12/2017 Generalized anxiety disorder ICD-10: F41.1 ICD-9: 308.0 08/08/2016 Cough ICD-10: R05 ICD-9: 786.2 10/19/2015 Myalgia ICD-10: M79.1 ICD-9: 729.1 10/19/2015 ESSENTIAL HYPERTENSION ICD-9: 401.9 12/08 HYPERLIPIDEMIA ICD-9: 272.4 12/08/2014 Reason For Visit Reason For Visit Effective Dates Notes hypertension 06/04/2018 vaccination against influenza 03/31/2018 arrhythmia 03/20/2018 shortness of breath 02/19/2018 hypertension 12/18/2017 hypertension 05/15/2017 vaccination against influenza 03/12/2017 hypertension 01/31/2017 Hospital Follow Up 01/01/2017 hypertension 08/08/2016 hypertension 04/18/2016 vaccination against influenza 03/14/2016 hypertension 10/19/2015 hypertension 12/08/2014 Results Observation Observation Code Item Item Code Result Date Comp Metabolic Kqc111 NA 135 mEq/L 05/27/2018 Comp Metabolic Hjx809 K 3.7 mEq/L 05/27/2018 Comp Metabolic Otb672 CL 97 mEq/L 05/27/2018 Comp Metabolic Vdm902 CO2 28.0 mEq/L 05/27/2018 Comp Metabolic Auv052 ANION GAP 14 05/27/2018 Comp Metabolic Fae973 GLUCOSE 128 mg/dL 05/27/2018 Comp Metabolic Zqz443 Creat 1.9 mg/dL 05/27/2018 Comp Metabolic Ugg267 eGFR 36 ml/min/1.73m2 05/27/2018 Comp Metabolic Cbx140 BUN 46 mg/dL 05/27/2018 Comp Metabolic Jpz663 B/C Ratio 24.5 Ratio 05/27/2018 Comp Metabolic Hug909 CALCIUM 8.7 mg/dL 05/27/2018 Comp Metabolic Vsp616 ALK PHOS 99 U/L 05/27/2018 Comp Metabolic Gcl447 AST(SGOT) 23 U/L 05/27/2018 Comp Metabolic Hbv995 ALT(SGPT) 20 U/L 05/27/2018 Comp Metabolic Tqv558 BILI T 0.7 mg/dL 05/27/2018 Comp Metabolic Pza477 ALBUMIN 3.6 g/dL 05/27/2018 Comp Metabolic Oot717 TPRO 6.2 g/dL 05/27/2018 Comp Metabolic Ixr779 GLOB 2.6 g/dL 05/27/2018 Comp Metabolic Lgt650 A/G Ratio 1.4 Ratio 05/27/2018 Comp Metabolic Yxo165 Osmo 284 mOsmo 05/27/2018 Cbc With Differential Ord2 WBC 7.92 K/ul 05/27/2018 Cbc With Differential Ord2 RBC 3.34 M/ul 05/27/2018 Cbc With Differential Ord2 HGB 8.9 g/dl 05/27/2018 Cbc With Differential Ord2 Neut% 71.2 % 05/27/2018 Cbc With Differential Ord2 HCT 29.2 % 05/27/2018 Cbc With Differential Ord2 MCV 87.4 fl 05/27/2018 Cbc With Differential Ord2 Lymph% 16.4 % 05/27/2018 Cbc With Differential Ord2 [place]% 9.6 % 05/27/2018 Cbc With Differential Ord2 MCH 26.6 pg 05/27/2018 Cbc With Differential Ord2 MCHC 30.5 pg 05/27/2018 Cbc With Differential Ord2 Eos% 2.5 % 05/27/2018 Cbc With Differential Ord2 PLT 233 K/ul 05/27/2018 Cbc With Differential Ord2 Baso% 0.3 % 05/27/2018 Cbc With Differential Ord2 RDW 20.9 % 05/27/2018 Cbc With Differential Ord2 Neut ABS# 5.64 K/ul 05/27/2018 Cbc With Differential Ord2 Lymph ABS# 1.30 K/ul 05/27/2018 Cbc With Differential Ord2 [place] ABS# 0.8 K/ul 05/27/2018 Cbc With Differential Ord2 Eos ABS# 0.2 K/ul 05/27/2018 Cbc With Differential Ord2 Baso ABS# 0.0 K/ul 05/27/2018 Tsh Ord6 hTSH II 2.54 uIU/mL 05/16/2017 Lipid Ord30 CHOL 135 mg/dL 05/16/2017 Lipid Ord30 HDL 45.0 mg/dl 05/16/2017 Lipid Ord30 TRIG 127 mg/dL 05/16/2017 Lipid Ord30 LDL 65 mg/dL 05/16/2017 Lipid Ord30 C/HDL 3.0 Ratio 05/16/2017 Cbc With Differential Ord2 WBC 8.83 K/ul 05/16/2017 Cbc With Differential Ord2 RBC 4.28 M/ul 05/16/2017 Cbc With Differential Ord2 HGB 12.2 g/dl 05/16/2017 Cbc With Differential Ord2 Neut% 53.7 % 05/16/2017 Cbc With Differential Ord2 HCT 38.7 % 05/16/2017 Cbc With Differential Ord2 MCV 90.4 fl 05/16/2017 Cbc With Differential Ord2 Lymph% 33.5 % 05/16/2017 Cbc With Differential Ord2 MCH 28.5 pg 05/16/2017 Cbc With Differential Ord2 [place]% 9.1 % 05/16/2017 Cbc With Differential Ord2 MCHC 31.5 pg 05/16/2017 Cbc With Differential Ord2 Eos% 3.5 % 05/16/2017 Cbc With Differential Ord2 Baso% 0.2 % 05/16/2017 Cbc With Differential Ord2 PLT 152 K/ul 05/16/2017 Cbc With Differential Ord2 RDW 14.8 % 05/16/2017 Cbc With Differential Ord2 Neut ABS# 4.74 K/ul 05/16/2017 Cbc With Differential Ord2 Lymph ABS# 2.96 K/ul 05/16/2017 Cbc With Differential Ord2 [place] ABS# 0.8 K/ul 05/16/2017 Cbc With Differential Ord2 Eos ABS# 0.3 K/ul 05/16/2017 Cbc With Differential Ord2 Baso ABS# 0.0 K/ul 05/16/2017 Comp Metabolic Rrt708 NA 140 mEq/L 05/16/2017 Comp Metabolic Wgt996 K 4.6 mEq/L 05/16/2017 Comp Metabolic Ava790 CL 106 mEq/L 05/16/2017 Comp Metabolic Yjo930 CO2 29.0 mEq/L 05/16/2017 Comp Metabolic Jcn885 ANION GAP 10 05/16/2017 Comp Metabolic Wsl151 GLUCOSE 119 mg/dL 05/16/2017 Comp Metabolic Etw352 Creat 1.1 mg/dL 05/16/2017 Comp Metabolic Uss014 eGFR 66 ml/min/1.73m2 05/16/2017 Comp Metabolic Dja353 BUN 23 mg/dL 05/16/2017 Comp Metabolic Xuz665 B/C Ratio 20.5 Ratio 05/16/2017 Comp Metabolic Zgt565 CALCIUM 9.5 mg/dL 05/16/2017 Comp Metabolic Yuj796 ALK PHOS 104 U/L 05/16/2017 Comp Metabolic Ibj539 AST(SGOT) 25 U/L 05/16/2017 Comp Metabolic Hxi726 ALT(SGPT) 16 U/L 05/16/2017 Comp Metabolic Ajj357 BILI T 0.5 mg/dL 05/16/2017 Comp Metabolic Ibd402 ALBUMIN 4.2 g/dL 05/16/2017 Comp Metabolic Esf250 TPRO 7.1 g/dL 05/16/2017 Comp Metabolic Oza231 GLOB 2.9 g/dL 05/16/2017 Comp Metabolic Tuf973 A/G Ratio 1.5 Ratio 05/16/2017 Comp Metabolic Hue669 Osmo 284 mOsmo 05/16/2017 Lipid Ord30 CHOL 128 mg/dL 10/17/2015 Lipid Ord30 HDL 46.0 mg/dl 10/17/2015 Lipid Ord30 TRIG 100 mg/dL 10/17/2015 Lipid Ord30 LDL 62 mg/dL 10/17/2015 Lipid Ord30 C/HDL 2.8 Ratio 10/17/2015 Tsh Ord6 hTSH II 1.13 uIU/mL 10/17/2015 Cbc With Differential Ord2 WBC 7.71 K/ul 10/17/2015 Cbc With Differential Ord2 RBC 3.86 M/ul 10/17/2015 Cbc With Differential Ord2 HGB 11.2 g/dl 10/17/2015 Cbc With Differential Ord2 Neut% 59.0 % 10/17/2015 Cbc With Differential Ord2 HCT 35.0 % 10/17/2015 Cbc With Differential Ord2 Lymph% 28.7 % 10/17/2015 Cbc With Differential Ord2 MCV 90.7 fl 10/17/2015 Cbc With Differential Ord2 MCH 29.0 pg 10/17/2015 Cbc With Differential Ord2 [place]% 7.0 % 10/17/2015 Cbc With Differential Ord2 Eos% 5.2 % 10/17/2015 Cbc With Differential Ord2 MCHC 32.0 pg 10/17/2015 Cbc With Differential Ord2 Baso% 0.1 % 10/17/2015 Cbc With Differential Ord2 PLT 161 K/ul 10/17/2015 Cbc With Differential Ord2 RDW 14.0 % 10/17/2015 Cbc With Differential Ord2 Neut ABS# 4.55 K/ul 10/17/2015 Cbc With Differential Ord2 Lymph ABS# 2.21 K/ul 10/17/2015 Cbc With Differential Ord2 [place] ABS# 0.5 K/ul 10/17/2015 Cbc With Differential Ord2 Eos ABS# 0.4 K/ul 10/17/2015 Cbc With Differential Ord2 Baso ABS# 0.0 K/ul 10/17/2015 Cbc With Differential Ord2 New Analyzer Notice Please note new ref ranges starting 06-22-2015 due to implemntation of new five part differential hematolgy analyzer. 10/17/2015 Comp Metabolic Erv820 NA 139 mEq/L 10/17/2015 Comp Metabolic Vfj661 K 5.1 mEq/L 10/17/2015 Comp Metabolic Rgb780 CL 109 mEq/L 10/17/2015 Comp Metabolic Ycz476 CO2 23.0 mEq/L 10/17/2015 Comp Metabolic Zjj019 ANION GAP 12 10/17/2015 Comp Metabolic Dtj472 GLUCOSE 103 mg/dL 10/17/2015 Comp Metabolic Iik956 Creat 1.2 mg/dL 10/17/2015 Comp Metabolic Jnc934 eGFR 62 ml/min/1.73m2 10/17/2015 Comp Metabolic Phy889 BUN 30 mg/dL 10/17/2015 Comp Metabolic Bmf408 B/C Ratio 25.4 Ratio 10/17/2015 Comp Metabolic Kis018 CALCIUM 8.9 mg/dL 10/17/2015 Comp Metabolic Mpf918 ALK PHOS 71 U/L 10/17/2015 Comp Metabolic Vwn305 AST(SGOT) 21 U/L 10/17/2015 Comp Metabolic Vib279 ALT(SGPT) 18 U/L 10/17/2015 Comp Metabolic Lug612 BILI T 0.3 mg/dL 10/17/2015 Comp Metabolic Bnu082 ALBUMIN 4.2 g/dL 10/17/2015 Comp Metabolic Rly013 TPRO 6.7 g/dL 10/17/2015 Comp Metabolic Uud210 GLOB 2.6 g/dL 10/17/2015 Comp Metabolic Tau621 A/G Ratio 1.6 Ratio 10/17/2015 Comp Metabolic Jaj479 Osmo 284 mOsmo 10/17/2015 Review of Systems System Result Effective Dates Constitutional No recent illness 2017 Constitutional No chills 06/04/2018 Constitutional fatigue 06/04/2018 Constitutional No fever 06/04/2018 Constitutional No insomnia 06/04/2018 Constitutional No malaise 06/04/2018 Eyes No eye erythema 06/04/2018 Eyes No vision change 06/04/2018 Ears/Nose/Throat/Neck No dental pain Ears/Nose/Throat/Neck No dizziness 2017 Ears/Nose/Throat/Neck No dysphagia 2017 Ears/Nose/Throat/Neck No headache 2017 Ears/Nose/Throat/Neck No hearing loss Ears/Nose/Throat/Neck No nasal allergies 06/04/2018 Ears/Nose/Throat/Neck No sore throat Ears/Nose/Throat/Neck No postnasal drip 06/04/2018 Ears/Nose/Throat/Neck No sinus congestion 06/04/2018 Cardiovascular No chest pain/pressure Cardiovascular No dyspnea 06/04/2018 Cardiovascular edema 06/04/2018 Cardiovascular No exercise intolerance Cardiovascular fatigue 06/04/2018 Cardiovascular hypertension 06/04/2018 Respiratory No chest tightness 2017 Respiratory No cough 06/04/2018 Respiratory No dyspnea 06/04/2018 Respiratory No pedal edema 06/04/2018 Gastrointestinal No abdominal pain 2017 Gastrointestinal No constipation 2017 Gastrointestinal No diarrhea 06/04/2018 Gastrointestinal No gastroesophageal reflux 06/04/2018 Gastrointestinal No nausea 06/04/2018 Gastrointestinal No vomiting 06/04/2018 Musculoskeletal No stiffness 06/04/2018 Musculoskeletal No swelling 06/04/2018 Musculoskeletal No muscle weakness 2017 Musculoskeletal No myalgias 06/04/2018 Dermatologic No rash 06/04/2018 Dermatologic No sores 06/04/2018 Dermatologic No scar 06/04/2018 Neurologic No dizziness 06/04/2018 Neurologic No headache 06/04/2018 Neurologic No neck pain 06/04/2018 Neurologic No syncope 06/04/2018 Psychiatric No anxiety 06/04/2018 Psychiatric No depression 06/04/2018 Constitutional No recent illness 2017 Constitutional No chills 03/20/2018 Constitutional fatigue 03/20/2018 Constitutional No fever 03/20/2018 Constitutional No insomnia 03/20/2018 Constitutional No malaise 03/20/2018 Eyes No blindness 03/20/2018 Eyes No vision change 03/20/2018 Ears/Nose/Throat/Neck No dental pain 04/2018 Ears/Nose/Throat/Neck No dizziness 2017 Ears/Nose/Throat/Neck No dysphagia 2017 Ears/Nose/Throat/Neck No headache 2017 Ears/Nose/Throat/Neck No hearing loss 04/2018 Ears/Nose/Throat/Neck No nasal allergies 03/20/2018 Ears/Nose/Throat/Neck No sore throat 04/2018 Ears/Nose/Throat/Neck No postnasal drip 03/20/2018 Ears/Nose/Throat/Neck No sinus congestion 03/20/2018 Cardiovascular No chest pain/pressure 04/2018 Cardiovascular No dyspnea 03/20/2018 Cardiovascular edema 03/20/2018 Cardiovascular No exercise intolerance Cardiovascular fatigue 03/20/2018 Cardiovascular hypertension 03/20/2018 Respiratory No chest tightness 2017 Respiratory No cough 03/20/2018 Respiratory No dyspnea 03/20/2018 Respiratory No pedal edema 03/20/2018 Gastrointestinal No abdominal pain 2017 Gastrointestinal No constipation 2017 Gastrointestinal No diarrhea 03/20/2018 Gastrointestinal No gastroesophageal reflux 03/20/2018 Gastrointestinal No nausea 03/20/2018 Gastrointestinal No vomiting 03/20/2018 Musculoskeletal No stiffness 03/20/2018 Musculoskeletal No swelling 03/20/2018 Musculoskeletal No muscle weakness 2017 Musculoskeletal No myalgias 03/20/2018 Dermatologic No rash 03/20/2018 Dermatologic No sores 03/20/2018 Dermatologic No scar 03/20/2018 Neurologic No dizziness 03/20/2018 Neurologic No headache 03/20/2018 Neurologic No neck pain 03/20/2018 Neurologic No syncope 03/20/2018 Psychiatric No anxiety 03/20/2018 Psychiatric No depression 03/20/2018 Constitutional No recent illness 2017 Constitutional fatigue 02/19/2018 Constitutional No fever 02/19/2018 Constitutional No insomnia 02/19/2018 Constitutional No malaise 02/19/2018 Constitutional obesity 02/19/2018 Ears/Nose/Throat/Neck No dizziness 2017 Ears/Nose/Throat/Neck No hearing loss 05/2018 Ears/Nose/Throat/Neck No nasal allergies 02/19/2018 Ears/Nose/Throat/Neck No sinus congestion 02/19/2018 Cardiovascular No chest pain/pressure 05/2018 Cardiovascular dyspnea 02/19/2018 Cardiovascular edema 02/19/2018 Cardiovascular exercise intolerance 02/19 Cardiovascular fatigue 02/19/2018 Cardiovascular hypertension 02/19/2018 Cardiovascular No near-syncope/dizziness 02/19/2018 Respiratory No chest tightness 2017 Respiratory No cough 02/19/2018 Respiratory dyspnea 02/19/2018 Respiratory pedal edema 02/19/2018 Gastrointestinal No abdominal pain 2017 Gastrointestinal No constipation 2017 Gastrointestinal No diarrhea 02/19/2018 Gastrointestinal No gastroesophageal reflux 02/19/2018 Musculoskeletal No stiffness 02/19/2018 Musculoskeletal No swelling 02/19/2018 Musculoskeletal No muscle weakness 2017 Musculoskeletal No myalgias 02/19/2018 Dermatologic No rash 02/19/2018 Dermatologic No sores 02/19/2018 Neurologic No dizziness 02/19/2018 Neurologic No headache 02/19/2018 Neurologic No neck pain 02/19/2018 Neurologic No syncope 02/19/2018 Psychiatric No anxiety 02/19/2018 Psychiatric No depression 02/19/2018 Dermatologic scar 02/19/2018 Constitutional obesity 12/18/2017 Cardiovascular exercise intolerance 12/18 Cardiovascular fatigue 12/18/2017 Cardiovascular hypertension 12/18/2017 Constitutional No recent illness 2017 Constitutional No chills 12/18/2017 Constitutional No fatigue 12/18/2017 Constitutional No fever 12/18/2017 Constitutional insomnia 12/18/2017 Constitutional No malaise 12/18/2017 Ears/Nose/Throat/Neck No dental pain 04/2018 Ears/Nose/Throat/Neck No dizziness 2017 Ears/Nose/Throat/Neck No dysphagia 2017 Ears/Nose/Throat/Neck No headache 2017 Ears/Nose/Throat/Neck No hearing loss 04/2018 Ears/Nose/Throat/Neck No nasal allergies 12/18/2017 Ears/Nose/Throat/Neck No sore throat 04/2018 Ears/Nose/Throat/Neck No postnasal drip 12/18/2017 Ears/Nose/Throat/Neck No sinus congestion 12/18/2017 Cardiovascular No chest pain/pressure 04/2018 Cardiovascular No dyspnea 12/18/2017 Cardiovascular No edema 12/18/2017 Cardiovascular No near-syncope/dizziness 12/18/2017 Respiratory No chest tightness 2017 Respiratory No cigarette smoking 2017 Respiratory No cough 12/18/2017 Respiratory No dyspnea 12/18/2017 Respiratory No pedal edema 12/18/2017 Respiratory No snoring 12/18/2017 Respiratory No wheezing 12/18/2017 Gastrointestinal No hemorrhoids 2017 Gastrointestinal No abdominal pain 2017 Gastrointestinal No constipation 2017 Gastrointestinal No diarrhea 12/18/2017 Gastrointestinal No gastroesophageal reflux 12/18/2017 Gastrointestinal No melena 12/18/2017 Gastrointestinal No nausea 12/18/2017 Gastrointestinal No vomiting 12/18/2017 Musculoskeletal No stiffness 12/18/2017 Musculoskeletal No swelling 12/18/2017 Musculoskeletal No muscle weakness 2017 Musculoskeletal No myalgias 12/18/2017 Dermatologic No rash 12/18/2017 Dermatologic No sores 12/18/2017 Dermatologic No scar 12/18/2017 Neurologic No dizziness 12/18/2017 Neurologic No headache 12/18/2017 Neurologic No neck pain 12/18/2017 Neurologic No syncope 12/18/2017 Psychiatric No anxiety 12/18/2017 Psychiatric No depression 12/18/2017 Constitutional No recent illness 2016 Constitutional No chills 05/15/2017 Constitutional No fatigue 05/15/2017 Constitutional No fever 05/15/2017 Constitutional No insomnia 05/15/2017 Constitutional No malaise 05/15/2017 Constitutional obesity 05/15/2017 Ears/Nose/Throat/Neck No dental pain 11/2016 Ears/Nose/Throat/Neck No dizziness 2016 Ears/Nose/Throat/Neck No dysphagia 2016 Ears/Nose/Throat/Neck No headache 2016 Ears/Nose/Throat/Neck No hearing loss 11/2016 Ears/Nose/Throat/Neck No nasal allergies 05/15/2017 Ears/Nose/Throat/Neck No sore throat 11/2016 Ears/Nose/Throat/Neck No postnasal drip 05/15/2017 Ears/Nose/Throat/Neck No sinus congestion 05/15/2017 Cardiovascular No chest pain/pressure 11/2016 Cardiovascular No dyspnea 05/15/2017 Cardiovascular No edema 05/15/2017 Cardiovascular exercise intolerance 05/15 Cardiovascular fatigue 05/15/2017 Cardiovascular hypertension 05/15/2017 Cardiovascular No near-syncope/dizziness 05/15/2017 Respiratory No chest tightness 2016 Respiratory No cigarette smoking 2016 Respiratory No cough 05/15/2017 Respiratory No dyspnea 05/15/2017 Respiratory No pedal edema 05/15/2017 Respiratory No snoring 05/15/2017 Respiratory No wheezing 05/15/2017 Gastrointestinal No hemorrhoids 2016 Gastrointestinal No abdominal pain 2016 Gastrointestinal No constipation 2016 Gastrointestinal No diarrhea 05/15/2017 Gastrointestinal No gastroesophageal reflux 05/15/2017 Gastrointestinal No melena 05/15/2017 Gastrointestinal No nausea 05/15/2017 Gastrointestinal No vomiting 05/15/2017 Musculoskeletal No stiffness 05/15/2017 Musculoskeletal No swelling 05/15/2017 Musculoskeletal No muscle weakness 2016 Musculoskeletal No myalgias 05/15/2017 Dermatologic No rash 05/15/2017 Dermatologic No sores 05/15/2017 Dermatologic No scar 05/15/2017 Neurologic No dizziness 05/15/2017 Neurologic No headache 05/15/2017 Neurologic No neck pain 05/15/2017 Neurologic No syncope 05/15/2017 Psychiatric No anxiety 05/15/2017 Psychiatric No depression 05/15/2017 Constitutional No recent illness 2016 Constitutional No chills 03/12/2017 Constitutional No fatigue 03/12/2017 Constitutional No fever 03/12/2017 Constitutional No insomnia 03/12/2017 Constitutional No malaise 03/12/2017 Dermatologic No rash 03/12/2017 Psychiatric No anxiety 03/12/2017 Psychiatric No depression 03/12/2017 Cardiovascular No chest pain/pressure 08/2016 Cardiovascular No dyspnea 03/12/2017 Cardiovascular No edema 03/12/2017 Cardiovascular exercise intolerance 03/12 Cardiovascular fatigue 03/12/2017 Cardiovascular No near-syncope/dizziness 03/12/2017 Constitutional obesity 03/12/2017 Respiratory No chest tightness 2016 Respiratory No cigarette smoking 2016 Respiratory No cough 03/12/2017 Respiratory No dyspnea 03/12/2017 Respiratory No pedal edema 03/12/2017 Respiratory No snoring 03/12/2017 Respiratory No wheezing 03/12/2017 Gastrointestinal No hemorrhoids 2016 Gastrointestinal No abdominal pain 2016 Gastrointestinal No constipation 2016 Gastrointestinal No diarrhea 03/12/2017 Gastrointestinal No gastroesophageal reflux 03/12/2017 Gastrointestinal No melena 03/12/2017 Gastrointestinal No nausea 03/12/2017 Gastrointestinal No vomiting 03/12/2017 Musculoskeletal No stiffness 03/12/2017 Musculoskeletal No swelling 03/12/2017 Musculoskeletal No muscle weakness 2016 Musculoskeletal No myalgias 03/12/2017 Ears/Nose/Throat/Neck No dental pain 08/2016 Ears/Nose/Throat/Neck No dizziness 2016 Ears/Nose/Throat/Neck No dysphagia 2016 Ears/Nose/Throat/Neck No headache 2016 Ears/Nose/Throat/Neck No hearing loss 08/2016 Ears/Nose/Throat/Neck No nasal allergies 03/12/2017 Ears/Nose/Throat/Neck No sore throat 08/2016 Ears/Nose/Throat/Neck No postnasal drip 03/12/2017 Ears/Nose/Throat/Neck No sinus congestion 03/12/2017 Cardiovascular hypertension 03/12/2017 Dermatologic No sores 03/12/2017 Dermatologic No scar 03/12/2017 Neurologic No dizziness 03/12/2017 Neurologic No headache 03/12/2017 Neurologic No neck pain 03/12/2017 Neurologic No syncope 03/12/2017 Constitutional No recent illness 2016 Constitutional No chills 01/31/2017 Constitutional No fatigue 01/31/2017 Constitutional No fever 01/31/2017 Constitutional No insomnia 01/31/2017 Constitutional No malaise 01/31/2017 Eyes No blindness 01/31/2017 Eyes No vision change 01/31/2017 Ears/Nose/Throat/Neck No dental pain Ears/Nose/Throat/Neck No dizziness 2016 Ears/Nose/Throat/Neck No dysphagia 2016 Ears/Nose/Throat/Neck No headache 2016 Ears/Nose/Throat/Neck No hearing loss Ears/Nose/Throat/Neck No nasal allergies 01/31/2017 Ears/Nose/Throat/Neck No sore throat Ears/Nose/Throat/Neck No postnasal drip 01/31/2017 Ears/Nose/Throat/Neck No sinus congestion 01/31/2017 Cardiovascular No chest pain/pressure Cardiovascular No dyspnea 01/31/2017 Cardiovascular No edema 01/31/2017 Cardiovascular No exercise intolerance Cardiovascular No fatigue 01/31/2017 Cardiovascular No near-syncope/dizziness 01/31/2017 Respiratory No chest tightness 2016 Respiratory No cough 01/31/2017 Respiratory No dyspnea 01/31/2017 Respiratory No pedal edema 01/31/2017 Gastrointestinal No abdominal pain 2016 Gastrointestinal No constipation 2016 Gastrointestinal No diarrhea 01/31/2017 Gastrointestinal No gastroesophageal reflux 01/31/2017 Gastrointestinal No nausea 01/31/2017 Gastrointestinal No vomiting 01/31/2017 Genitourinary/Nephrology No dysuria 01/31 Genitourinary/Nephrology No nocturia Genitourinary/Nephrology No urinary incontinence 01/31/2017 Musculoskeletal No stiffness 01/31/2017 Musculoskeletal No swelling 01/31/2017 Musculoskeletal No muscle weakness 2016 Musculoskeletal No myalgias 01/31/2017 Dermatologic No rash 01/31/2017 Dermatologic No sores 01/31/2017 Dermatologic No scar 01/31/2017 Neurologic No dizziness 01/31/2017 Neurologic No headache 01/31/2017 Neurologic No neck pain 01/31/2017 Neurologic No syncope 01/31/2017 Psychiatric No anxiety 01/31/2017 Psychiatric No depression 01/31/2017 Constitutional No recent illness 2016 Constitutional No chills 01/01/2017 Constitutional No fatigue 01/01/2017 Constitutional No fever 01/01/2017 Constitutional No insomnia 01/01/2017 Constitutional No malaise 01/01/2017 Eyes No blindness 01/01/2017 Eyes No vision change 01/01/2017 Ears/Nose/Throat/Neck No dental pain Ears/Nose/Throat/Neck No dizziness 2016 Ears/Nose/Throat/Neck No dysphagia 2016 Ears/Nose/Throat/Neck No headache 2016 Ears/Nose/Throat/Neck No hearing loss Ears/Nose/Throat/Neck No nasal allergies 01/01/2017 Ears/Nose/Throat/Neck No sore throat Ears/Nose/Throat/Neck No postnasal drip 01/01/2017 Ears/Nose/Throat/Neck No sinus congestion 01/01/2017 Cardiovascular No chest pain/pressure Cardiovascular No dyspnea 01/01/2017 Cardiovascular No edema 01/01/2017 Cardiovascular No exercise intolerance Cardiovascular fatigue 01/01/2017 Cardiovascular No near-syncope/dizziness 01/01/2017 Respiratory No chest tightness 2016 Respiratory No cough 01/01/2017 Respiratory No dyspnea 01/01/2017 Respiratory No pedal edema 01/01/2017 Gastrointestinal No abdominal pain 2016 Gastrointestinal No constipation 2016 Gastrointestinal No diarrhea 01/01/2017 Gastrointestinal No gastroesophageal reflux 01/01/2017 Gastrointestinal No nausea 01/01/2017 Gastrointestinal No vomiting 01/01/2017 Musculoskeletal No stiffness 01/01/2017 Musculoskeletal No swelling 01/01/2017 Musculoskeletal No muscle weakness 2016 Musculoskeletal No myalgias 01/01/2017 Dermatologic No rash 01/01/2017 Dermatologic No sores 01/01/2017 Dermatologic No scar 01/01/2017 Neurologic No dizziness 01/01/2017 Neurologic No headache 01/01/2017 Neurologic No neck pain 01/01/2017 Neurologic No syncope 01/01/2017 Psychiatric No anxiety 01/01/2017 Psychiatric No depression 01/01/2017 Cardiovascular hypertension 01/01/2017 Constitutional No recent illness 2016 Constitutional No chills 08/08/2016 Constitutional No fatigue 08/08/2016 Constitutional No fever 08/08/2016 Constitutional No insomnia 08/08/2016 Constitutional No malaise 08/08/2016 Eyes No blindness 08/08/2016 Eyes No vision change 08/08/2016 Ears/Nose/Throat/Neck No dental pain 06/2016 Ears/Nose/Throat/Neck No dizziness 2016 Ears/Nose/Throat/Neck No dysphagia 2016 Ears/Nose/Throat/Neck No headache 2016 Ears/Nose/Throat/Neck No hearing loss 06/2016 Ears/Nose/Throat/Neck No nasal allergies 08/08/2016 Ears/Nose/Throat/Neck No sore throat 06/2016 Ears/Nose/Throat/Neck No postnasal drip 08/08/2016 Ears/Nose/Throat/Neck No sinus congestion 08/08/2016 Cardiovascular No chest pain/pressure 06/2016 Cardiovascular No dyspnea 08/08/2016 Cardiovascular No edema 08/08/2016 Cardiovascular No exercise intolerance Cardiovascular No fatigue 08/08/2016 Cardiovascular No near-syncope/dizziness 08/08/2016 Respiratory No chest tightness 2016 Respiratory No cough 08/08/2016 Respiratory No dyspnea 08/08/2016 Respiratory No pedal edema 08/08/2016 Gastrointestinal No abdominal pain 2016 Gastrointestinal No constipation 2016 Gastrointestinal No diarrhea 08/08/2016 Gastrointestinal No gastroesophageal reflux 08/08/2016 Gastrointestinal No nausea 08/08/2016 Gastrointestinal No vomiting 08/08/2016 Genitourinary/Nephrology No dysuria 08/08 Genitourinary/Nephrology No nocturia 06/2016 Genitourinary/Nephrology No urinary incontinence 08/08/2016 Musculoskeletal No stiffness 08/08/2016 Musculoskeletal No swelling 08/08/2016 Musculoskeletal No muscle weakness 2016 Musculoskeletal No myalgias 08/08/2016 Dermatologic No rash 08/08/2016 Dermatologic No sores 08/08/2016 Dermatologic No scar 08/08/2016 Neurologic No dizziness 08/08/2016 Neurologic No headache 08/08/2016 Neurologic No neck pain 08/08/2016 Neurologic No syncope 08/08/2016 Psychiatric No anxiety 08/08/2016 Psychiatric No depression 08/08/2016 Constitutional No recent illness 2015 Constitutional No chills 04/18/2016 Constitutional No fatigue 04/18/2016 Constitutional No fever 04/18/2016 Constitutional No insomnia 04/18/2016 Constitutional No malaise 04/18/2016 Eyes No blindness 04/18/2016 Eyes No vision change 04/18/2016 Ears/Nose/Throat/Neck No dental pain 02/2016 Ears/Nose/Throat/Neck No dizziness 2015 Ears/Nose/Throat/Neck No dysphagia 2015 Ears/Nose/Throat/Neck No headache 2015 Ears/Nose/Throat/Neck No hearing loss 02/2016 Ears/Nose/Throat/Neck No nasal allergies 04/18/2016 Ears/Nose/Throat/Neck No sore throat 02/2016 Ears/Nose/Throat/Neck No postnasal drip 04/18/2016 Ears/Nose/Throat/Neck No sinus congestion 04/18/2016 Cardiovascular No chest pain/pressure 02/2016 Cardiovascular No dyspnea 04/18/2016 Cardiovascular No edema 04/18/2016 Cardiovascular No exercise intolerance Cardiovascular No fatigue 04/18/2016 Cardiovascular No near-syncope/dizziness 04/18/2016 Respiratory No chest tightness 2015 Respiratory No cough 04/18/2016 Respiratory No dyspnea 04/18/2016 Respiratory No pedal edema 04/18/2016 Gastrointestinal No abdominal pain 2015 Gastrointestinal No constipation 2015 Gastrointestinal No diarrhea 04/18/2016 Gastrointestinal No gastroesophageal reflux 04/18/2016 Gastrointestinal No nausea 04/18/2016 Gastrointestinal No vomiting 04/18/2016 Genitourinary/Nephrology No dysuria 04/18 Genitourinary/Nephrology No nocturia 02/2016 Genitourinary/Nephrology No urinary incontinence 04/18/2016 Musculoskeletal No stiffness 04/18/2016 Musculoskeletal No swelling 04/18/2016 Musculoskeletal No muscle weakness 2015 Musculoskeletal No myalgias 04/18/2016 Dermatologic No rash 04/18/2016 Dermatologic No sores 04/18/2016 Dermatologic No scar 04/18/2016 Neurologic No dizziness 04/18/2016 Neurologic No headache 04/18/2016 Neurologic No neck pain 04/18/2016 Neurologic No syncope 04/18/2016 Psychiatric No anxiety 04/18/2016 Psychiatric No depression 04/18/2016 Constitutional No recent illness 2015 Constitutional No chills 10/19/2015 Constitutional No fatigue 10/19/2015 Constitutional No fever 10/19/2015 Constitutional No insomnia 10/19/2015 Constitutional No malaise 10/19/2015 Eyes No blindness 10/19/2015 Eyes No vision change 10/19/2015 Ears/Nose/Throat/Neck No dental pain 04/2016 Ears/Nose/Throat/Neck No dizziness 2015 Ears/Nose/Throat/Neck No dysphagia 2015 Ears/Nose/Throat/Neck No headache 2015 Ears/Nose/Throat/Neck No hearing loss 04/2016 Ears/Nose/Throat/Neck No nasal allergies 10/19/2015 Ears/Nose/Throat/Neck No sore throat 04/2016 Ears/Nose/Throat/Neck No postnasal drip 10/19/2015 Ears/Nose/Throat/Neck No sinus congestion 10/19/2015 Cardiovascular No chest pain/pressure 04/2016 Cardiovascular No dyspnea 10/19/2015 Cardiovascular No edema 10/19/2015 Cardiovascular No exercise intolerance Cardiovascular No fatigue 10/19/2015 Cardiovascular No near-syncope/dizziness 10/19/2015 Respiratory No chest tightness 2015 Respiratory cough 10/19/2015 Respiratory No dyspnea 10/19/2015 Respiratory No pedal edema 10/19/2015 Gastrointestinal No abdominal pain 2015 Gastrointestinal No constipation 2015 Gastrointestinal No diarrhea 10/19/2015 Gastrointestinal No gastroesophageal reflux 10/19/2015 Gastrointestinal No nausea 10/19/2015 Gastrointestinal No vomiting 10/19/2015 Genitourinary/Nephrology No dysuria 10/18 Genitourinary/Nephrology No nocturia 04/2016 Genitourinary/Nephrology No urinary incontinence 10/19/2015 Musculoskeletal No stiffness 10/19/2015 Musculoskeletal No swelling 10/19/2015 Musculoskeletal No muscle weakness 2015 Musculoskeletal myalgias 10/19/2015 Dermatologic No rash 10/19/2015 Dermatologic No sores 10/19/2015 Dermatologic No scar 10/19/2015 Neurologic No dizziness 10/19/2015 Neurologic No headache 10/19/2015 Neurologic No neck pain 10/19/2015 Neurologic No syncope 10/19/2015 Psychiatric No anxiety 10/19/2015 Psychiatric No depression 10/19/2015 Constitutional No recent illness 2014 Constitutional No chills 12/08/2014 Constitutional No fatigue 12/08/2014 Constitutional No fever 12/08/2014 Constitutional No insomnia 12/08/2014 Constitutional No malaise 12/08/2014 Eyes No blindness 12/08/2014 Eyes No vision change 12/08/2014 Ears/Nose/Throat/Neck No dental pain 06/2014 Ears/Nose/Throat/Neck No dizziness 2014 Ears/Nose/Throat/Neck No dysphagia 2014 Ears/Nose/Throat/Neck No headache 2014 Ears/Nose/Throat/Neck No hearing loss 06/2014 Ears/Nose/Throat/Neck No nasal allergies 12/08/2014 Ears/Nose/Throat/Neck No sore throat 06/2014 Ears/Nose/Throat/Neck No postnasal drip 12/08/2014 Ears/Nose/Throat/Neck No sinus congestion 12/08/2014 Cardiovascular No chest pain/pressure 06/2014 Cardiovascular No dyspnea 12/08/2014 Cardiovascular No edema 12/08/2014 Cardiovascular No exercise intolerance Cardiovascular No fatigue 12/08/2014 Cardiovascular No near-syncope/dizziness 12/08/2014 Respiratory No chest tightness 2014 Respiratory No cough 12/08/2014 Respiratory No dyspnea 12/08/2014 Respiratory No pedal edema 12/08/2014 Gastrointestinal No abdominal pain 2014 Gastrointestinal No constipation 2014 Gastrointestinal No diarrhea 12/08/2014 Gastrointestinal No gastroesophageal reflux 12/08/2014 Gastrointestinal No nausea 12/08/2014 Gastrointestinal No vomiting 12/08/2014 Genitourinary/Nephrology No dysuria 12/08 Genitourinary/Nephrology No nocturia 06/2014 Genitourinary/Nephrology No urinary incontinence 12/08/2014 Musculoskeletal No stiffness 12/08/2014 Musculoskeletal No swelling 12/08/2014 Musculoskeletal No muscle weakness 2014 Musculoskeletal No myalgias 12/08/2014 Dermatologic No rash 12/08/2014 Dermatologic No sores 12/08/2014 Dermatologic No scar 12/08/2014 Neurologic No dizziness 12/08/2014 Neurologic No headache 12/08/2014 Neurologic No neck pain 12/08/2014 Neurologic No syncope 12/08/2014 Psychiatric No anxiety 12/08/2014 Psychiatric No depression 12/08/2014 Physical Exam Exam Name System Name Item Name Status Result Effective Dates Notes Full Exam - General 1994 Constitutional general appearance Hygiene/Attention to Grooming: good hygiene 06/04/2018 None Full Exam - General 1994 Eyes conjunctiva /eyelids Overall: conjunctiva clear 06/04/2018 None Full Exam - General 1994 Eyes conjunctiva /eyelids Overall: cornea clear 06/04/2018 None Full Exam - General 1994 Eyes conjunctiva /eyelids Overall: eyelids normal 06/04/2018 None Full Exam - General 1994 Eyes pupils and irises Overall: pupils equal, round, reactive to light and accomodation 06/04/2018 None Full Exam - General 1994 Ears/Nose/Throat lips/teeth/gingiva Overall: benign lips 06/04/2018 None Full Exam - General 1994 Ears/Nose/Throat oral cavity/pharynx/larynx Overall: oral mucosa clear 06/04/2018 None Full Exam - General 1994 Respiratory auscultation Overall: breath sounds clear bilaterally 06/04/2018 None Full Exam - General 1994 Respiratory respiratory effort/rhythm Overall: no retractions 06/04/2018 None Full Exam - General 1994 Respiratory respiratory effort/rhythm Overall: normal rate 06/04/2018 None Full Exam - General 1994 Cardiovascular extremities Edema present: pitting 06/04/2018 2+ pitting at ankles Full Exam - General 1994 Cardiovascular auscultation of heart Rate: tachycardia 06/04/2018 None Full Exam - General 1994 Cardiovascular auscultation of heart Rhythm: irregularly irregular rhythm 06/04/2018 None Full Exam - General 1994 Cardiovascular auscultation of heart Systolic murmur grade: II/ 06/04/2018 None Full Exam - General 1994 Abdomen abdominal exam Overall: no tenderness 06/04/2018 None Full Exam - General 1994 Abdomen abdominal exam Overall: normal bowel sounds 06/04/2018 None Full Exam - General 1994 Musculoskeletal spine, ribs and pelvis Overall: good posture 06/04/2018 None Full Exam - General 1994 Musculoskeletal head and neck Overall: head atraumatic 06/04/2018 None Full Exam - General 1994 Neurologic cranial nerves Overall: crainial nerves 2 - 12 grossly intact 06/04/2018 None Full Exam - General 1994 Psychiatric orientation/consciousness Overall: oriented to person, place and time 06/04/2018 None Full Exam - General 1994 Psychiatric mood and affect Overall: normal mood and affect 06/04/2018 None Full Exam - General 1994 Constitutional general appearance Overall: well developed 06/04/2018 None Full Exam - General 1994 Constitutional general appearance Overall: in no acute distress 06/04/2018 None Full Exam - General 1994 Constitutional general appearance Overall: well nourished 06/04/2018 None Full Exam - General 1994 Ears/Nose/Throat oral cavity/pharynx/larynx Overall: oropharyngeal mucosa clear 06/04/2018 None Full Exam - General 1994 Constitutional general appearance Development: well developed 03/20/2018 None Full Exam - General 1994 Constitutional general appearance Development: appears stated age 1003/20/2018 None Full Exam - General 1994 Constitutional general appearance Hygiene/Attention to Grooming: good hygiene 03/20/2018 None Full Exam - General 1994 Eyes conjunctiva /eyelids Overall: conjunctiva clear 03/20/2018 None Full Exam - General 1994 Eyes conjunctiva /eyelids Overall: cornea clear 03/20/2018 None Full Exam - General 1994 Eyes conjunctiva /eyelids Overall: eyelids normal 03/20/2018 None Full Exam - General 1994 Eyes pupils and irises Overall: pupils equal, round, reactive to light and accomodation 03/20/2018 None Full Exam - General 1994 Ears/Nose/Throat otoscopic exam Overall: external auditory canals clear 03/20/2018 None Full Exam - General 1994 Ears/Nose/Throat otoscopic exam Overall: tympanic membranes clear 03/20/2018 None Full Exam - General 1994 Ears/Nose/Throat lips/teeth/gingiva Overall: benign lips 03/20/2018 None Full Exam - General 1994 Ears/Nose/Throat lips/teeth/gingiva Overall: normal dentition 03/20/2018 None Full Exam - General 1994 Ears/Nose/Throat oral cavity/pharynx/larynx Overall: oral mucosa clear 03/20/2018 None Full Exam - General 1994 Ears/Nose/Throat oral cavity/pharynx/larynx Overall: oropharyngeal mucosa clear 03/20/2018 None Full Exam - General 1994 Ears/Nose/Throat oral cavity/pharynx/larynx Overall: hypopharynx benign 03/20/2018 None Full Exam - General 1994 Ears/Nose/Throat oral cavity/pharynx/larynx Overall: no masses 03/20/2018 None Full Exam - General 1994 Respiratory auscultation Overall: breath sounds clear bilaterally 03/20/2018 None Full Exam - General 1994 Respiratory respiratory effort/rhythm Overall: no retractions 03/20/2018 None Full Exam - General 1994 Respiratory respiratory effort/rhythm Overall: normal rate 03/20/2018 None Full Exam - General 1994 Abdomen abdominal exam Overall: no tenderness 03/20/2018 None Full Exam - General 1994 Abdomen abdominal exam Overall: normal bowel sounds 03/20/2018 None Full Exam - General 1994 Musculoskeletal spine, ribs and pelvis Overall: spine benign 03/20/2018 None Full Exam - General 1994 Musculoskeletal spine, ribs and pelvis Overall: sacroiliac joint benign 03/20/2018 None Full Exam - General 1994 Musculoskeletal spine, ribs and pelvis Overall: good posture 03/20/2018 None Full Exam - General 1994 Musculoskeletal head and neck Overall: head atraumatic 03/20/2018 None Full Exam - General 1994 Musculoskeletal head and neck Overall: cervical spine benign 03/20/2018 None Full Exam - General 1994 Integument inspection of skin Overall: few scattered moles, no gross abnormalities 03/20/2018 None Full Exam - General 1994 Neurologic cranial nerves Overall: crainial nerves 2 - 12 grossly intact 03/20/2018 None Full Exam - General 1994 Psychiatric orientation/consciousness Overall: oriented to person, place and time 03/20/2018 None Full Exam - General 1994 Psychiatric mood and affect Overall: normal mood and affect 03/20/2018 None Full Exam - General 1994 Cardiovascular auscultation of heart Rate: tachycardia 03/20/2018 None Full Exam - General 1994 Cardiovascular auscultation of heart Rhythm: irregularly irregular rhythm 03/20/2018 None Full Exam - General 1994 Cardiovascular auscultation of heart Systolic murmur grade: II/ 03/20/2018 None Full Exam - General 1994 Cardiovascular extremities Edema present: pitting 03/20/2018 2+ pitting at ankles Full Exam - General 1994 Constitutional general appearance Development: well developed 02/19/2018 None Full Exam - General 1994 Constitutional general appearance Development: appears stated age 0902/19/2018 None Full Exam - General 1994 Constitutional general appearance Hygiene/Attention to Grooming: good hygiene 02/19/2018 None Full Exam - General 1994 Eyes pupils and irises Overall: pupils equal, round, reactive to light and accomodation 02/19/2018 None Full Exam - General 1994 Ears/Nose/Throat lips/teeth/gingiva Overall: benign lips 02/19/2018 None Full Exam - General 1994 Ears/Nose/Throat lips/teeth/gingiva Overall: normal dentition 02/19/2018 None Full Exam - General 1994 Ears/Nose/Throat oral cavity/pharynx/larynx Overall: oral mucosa clear 02/19/2018 None Full Exam - General 1994 Ears/Nose/Throat oral cavity/pharynx/larynx Overall: oropharyngeal mucosa clear 02/19/2018 None Full Exam - General 1994 Ears/Nose/Throat oral cavity/pharynx/larynx Overall: hypopharynx benign 02/19/2018 None Full Exam - General 1994 Ears/Nose/Throat oral cavity/pharynx/larynx Overall: no masses 02/19/2018 None Full Exam - General 1994 Respiratory auscultation Overall: breath sounds clear bilaterally 02/19/2018 None Full Exam - General 1994 Respiratory respiratory effort/rhythm Overall: no retractions 02/19/2018 None Full Exam - General 1994 Respiratory respiratory effort/rhythm Overall: normal rate 02/19/2018 None Full Exam - General 1994 Cardiovascular extremities Overall: no clubbing 02/19/2018 None Full Exam - General 1994 Cardiovascular auscultation of heart Overall: normal heart sounds 02/19/2018 None Full Exam - General 1994 Musculoskeletal spine, ribs and pelvis Overall: good posture 02/19/2018 None Full Exam - General 1994 Musculoskeletal head and neck Overall: head atraumatic 02/19/2018 None Full Exam - General 1994 Musculoskeletal head and neck Overall: cervical spine benign 02/19/2018 None Full Exam - General 1994 Psychiatric orientation/consciousness Overall: oriented to person, place and time 02/19/2018 None Full Exam - General 1994 Psychiatric mood and affect Overall: normal mood and affect 02/19/2018 None Full Exam - General 1994 Cardiovascular auscultation of heart Rhythm: irregularly irregular rhythm 02/19/2018 None Full Exam - General 1994 Cardiovascular auscultation of heart Systolic murmur: midsystolic 02/19/2018 None Full Exam - General 1994 Cardiovascular extremities Edema present: pitting 02/19/2018 None Full Exam - General 1994 Cardiovascular extremities Edema present: severity 2+ 02/19/2018 None Full Exam - General 1994 Lymphatic neck nodes Overall: anterior cervical chain benign 02/19/2018 None Full Exam - General 1994 Lymphatic neck nodes Overall: posterior cervical chain benign 02/19/2018 None Full Exam - General 1994 Constitutional general appearance Development: well developed 12/18/2017 None Full Exam - General 1994 Constitutional general appearance Development: appears stated age 0712/18/2017 None Full Exam - General 1994 Constitutional general appearance Hygiene/Attention to Grooming: good hygiene 12/18/2017 None Full Exam - General 1994 Eyes pupils and irises Overall: pupils equal, round, reactive to light and accomodation 12/18/2017 None Full Exam - General 1994 Ears/Nose/Throat lips/teeth/gingiva Overall: benign lips 12/18/2017 None Full Exam - General 1994 Ears/Nose/Throat lips/teeth/gingiva Overall: normal dentition 12/18/2017 None Full Exam - General 1994 Ears/Nose/Throat oral cavity/pharynx/larynx Overall: oral mucosa clear 12/18/2017 None Full Exam - General 1994 Ears/Nose/Throat oral cavity/pharynx/larynx Overall: oropharyngeal mucosa clear 12/18/2017 None Full Exam - General 1994 Ears/Nose/Throat oral cavity/pharynx/larynx Overall: hypopharynx benign 12/18/2017 None Full Exam - General 1994 Ears/Nose/Throat oral cavity/pharynx/larynx Overall: no masses 12/18/2017 None Full Exam - General 1994 Respiratory auscultation Overall: breath sounds clear bilaterally 12/18/2017 None Full Exam - General 1994 Respiratory respiratory effort/rhythm Overall: no retractions 12/18/2017 None Full Exam - General 1994 Respiratory respiratory effort/rhythm Overall: normal rate 12/18/2017 None Full Exam - General 1994 Cardiovascular extremities Overall: no clubbing 12/18/2017 None Full Exam - General 1994 Cardiovascular auscultation of heart Overall: regular rate 12/18/2017 None Full Exam - General 1994 Cardiovascular auscultation of heart Overall: normal heart sounds 12/18/2017 None Full Exam - General 1994 Abdomen abdominal exam Overall: no tenderness 12/18/2017 None Full Exam - General 1994 Abdomen abdominal exam Overall: normal bowel sounds 12/18/2017 None Full Exam - General 1994 Musculoskeletal spine, ribs and pelvis Overall: good posture 12/18/2017 None Full Exam - General 1994 Musculoskeletal head and neck Overall: head atraumatic 12/18/2017 None Full Exam - General 1994 Musculoskeletal head and neck Overall: cervical spine benign 12/18/2017 None Full Exam - General 1994 Neurologic gait Overall: no ataxia, no unsteadiness 12/18/2017 None Full Exam - General 1994 Psychiatric orientation/consciousness Overall: oriented to person, place and time 12/18/2017 None Full Exam - General 1994 Psychiatric mood and affect Overall: normal mood and affect 12/18/2017 None Full Exam - General 1994 Constitutional general appearance Development: well developed 05/15/2017 None Full Exam - General 1994 Constitutional general appearance Development: appears stated age 1205/15/2017 None Full Exam - General 1994 Constitutional general appearance Hygiene/Attention to Grooming: good hygiene 05/15/2017 None Full Exam - General 1994 Eyes pupils and irises Overall: pupils equal, round, reactive to light and accomodation 05/15/2017 None Full Exam - General 1994 Ears/Nose/Throat lips/teeth/gingiva Overall: benign lips 05/15/2017 None Full Exam - General 1994 Ears/Nose/Throat lips/teeth/gingiva Overall: normal dentition 05/15/2017 None Full Exam - General 1994 Ears/Nose/Throat oral cavity/pharynx/larynx Overall: oral mucosa clear 05/15/2017 None Full Exam - General 1994 Ears/Nose/Throat oral cavity/pharynx/larynx Overall: oropharyngeal mucosa clear 05/15/2017 None Full Exam - General 1994 Ears/Nose/Throat oral cavity/pharynx/larynx Overall: hypopharynx benign 05/15/2017 None Full Exam - General 1994 Ears/Nose/Throat oral cavity/pharynx/larynx Overall: no masses 05/15/2017 None Full Exam - General 1994 Respiratory auscultation Overall: breath sounds clear bilaterally 05/15/2017 None Full Exam - General 1994 Respiratory respiratory effort/rhythm Overall: no retractions 05/15/2017 None Full Exam - General 1994 Respiratory respiratory effort/rhythm Overall: normal rate 05/15/2017 None Full Exam - General 1994 Cardiovascular extremities Overall: no clubbing 05/15/2017 None Full Exam - General 1994 Cardiovascular auscultation of heart Overall: regular rate 05/15/2017 None Full Exam - General 1994 Cardiovascular auscultation of heart Overall: normal heart sounds 05/15/2017 None Full Exam - General 1994 Musculoskeletal spine, ribs and pelvis Overall: good posture 05/15/2017 None Full Exam - General 1994 Musculoskeletal head and neck Overall: head atraumatic 05/15/2017 None Full Exam - General 1994 Musculoskeletal head and neck Overall: cervical spine benign 05/15/2017 None Full Exam - General 1994 Psychiatric orientation/consciousness Overall: oriented to person, place and time 05/15/2017 None Full Exam - General 1994 Psychiatric mood and affect Overall: normal mood and affect 05/15/2017 None Full Exam - General 1994 Abdomen abdominal exam Overall: no tenderness 05/15/2017 None Full Exam - General 1994 Abdomen abdominal exam Overall: normal bowel sounds 05/15/2017 None Full Exam - General 1994 Integument inspection of skin Overall: no rash, lesions 05/15/2017 None Full Exam - General 1994 Neurologic gait Overall: no ataxia, no unsteadiness 05/15/2017 None Full Exam - General 1994 Constitutional general appearance Development: well developed 03/12/2017 None Full Exam - General 1994 Constitutional general appearance Development: appears stated age 1003/12/2017 None Full Exam - General 1994 Constitutional general appearance Hygiene/Attention to Grooming: good hygiene 03/12/2017 None Full Exam - General 1994 Eyes pupils and irises Overall: pupils equal, round, reactive to light and accomodation 03/12/2017 None Full Exam - General 1994 Ears/Nose/Throat lips/teeth/gingiva Overall: benign lips 03/12/2017 None Full Exam - General 1994 Ears/Nose/Throat lips/teeth/gingiva Overall: normal dentition 03/12/2017 None Full Exam - General 1994 Ears/Nose/Throat oral cavity/pharynx/larynx Overall: oral mucosa clear 03/12/2017 None Full Exam - General 1994 Ears/Nose/Throat oral cavity/pharynx/larynx Overall: oropharyngeal mucosa clear 03/12/2017 None Full Exam - General 1994 Ears/Nose/Throat oral cavity/pharynx/larynx Overall: hypopharynx benign 03/12/2017 None Full Exam - General 1994 Ears/Nose/Throat oral cavity/pharynx/larynx Overall: no masses 03/12/2017 None Full Exam - General 1994 Respiratory auscultation Overall: breath sounds clear bilaterally 03/12/2017 None Full Exam - General 1994 Respiratory respiratory effort/rhythm Overall: no retractions 03/12/2017 None Full Exam - General 1994 Respiratory respiratory effort/rhythm Overall: normal rate 03/12/2017 None Full Exam - General 1994 Cardiovascular extremities Overall: no clubbing 03/12/2017 None Full Exam - General 1994 Cardiovascular auscultation of heart Overall: regular rate 03/12/2017 None Full Exam - General 1994 Cardiovascular auscultation of heart Overall: normal heart sounds 03/12/2017 None Full Exam - General 1994 Musculoskeletal spine, ribs and pelvis Overall: good posture 03/12/2017 None Full Exam - General 1994 Musculoskeletal head and neck Overall: head atraumatic 03/12/2017 None Full Exam - General 1994 Musculoskeletal head and neck Overall: cervical spine benign 03/12/2017 None Full Exam - General 1994 Psychiatric orientation/consciousness Overall: oriented to person, place and time 03/12/2017 None Full Exam - General 1994 Psychiatric mood and affect Overall: normal mood and affect 03/12/2017 None Full Exam - General 1994 Integument inspection of skin Rash/Lesions: patch 03/12/2017 on left hand - irritated skin lesion over entire dorsum of left hand Full Exam - General 1994 Constitutional general appearance Development: well developed 01/31/2017 None Full Exam - General 1994 Constitutional general appearance Development: appears stated age 0801/31/2017 None Full Exam - General 1994 Constitutional general appearance Hygiene/Attention to Grooming: good hygiene 01/31/2017 None Full Exam - General 1994 Eyes conjunctiva /eyelids Overall: conjunctiva clear 01/31/2017 None Full Exam - General 1994 Eyes conjunctiva /eyelids Overall: cornea clear 01/31/2017 None Full Exam - General 1994 Eyes conjunctiva /eyelids Overall: eyelids normal 01/31/2017 None Full Exam - General 1994 Eyes pupils and irises Overall: pupils equal, round, reactive to light and accomodation 01/31/2017 None Full Exam - General 1994 Ears/Nose/Throat otoscopic exam Overall: external auditory canals clear 01/31/2017 None Full Exam - General 1994 Ears/Nose/Throat otoscopic exam Overall: tympanic membranes clear 01/31/2017 None Full Exam - General 1994 Ears/Nose/Throat lips/teeth/gingiva Overall: benign lips 01/31/2017 None Full Exam - General 1994 Ears/Nose/Throat lips/teeth/gingiva Overall: normal dentition 01/31/2017 None Full Exam - General 1994 Ears/Nose/Throat oral cavity/pharynx/larynx Overall: oral mucosa clear 01/31/2017 None Full Exam - General 1994 Ears/Nose/Throat oral cavity/pharynx/larynx Overall: oropharyngeal mucosa clear 01/31/2017 None Full Exam - General 1994 Ears/Nose/Throat oral cavity/pharynx/larynx Overall: hypopharynx benign 01/31/2017 None Full Exam - General 1994 Ears/Nose/Throat oral cavity/pharynx/larynx Overall: no masses 01/31/2017 None Full Exam - General 1994 Respiratory auscultation Overall: breath sounds clear bilaterally 01/31/2017 None Full Exam - General 1994 Respiratory respiratory effort/rhythm Overall: no retractions 01/31/2017 None Full Exam - General 1994 Respiratory respiratory effort/rhythm Overall: normal rate 01/31/2017 None Full Exam - General 1994 Cardiovascular extremities Overall: no clubbing 01/31/2017 None Full Exam - General 1994 Cardiovascular auscultation of heart Overall: regular rate 01/31/2017 None Full Exam - General 1994 Cardiovascular auscultation of heart Overall: normal heart sounds 01/31/2017 None Full Exam - General 1994 Abdomen abdominal exam Overall: no tenderness 01/31/2017 None Full Exam - General 1994 Abdomen abdominal exam Overall: normal bowel sounds 01/31/2017 None Full Exam - General 1994 Musculoskeletal spine, ribs and pelvis Overall: good posture 01/31/2017 None Full Exam - General 1994 Musculoskeletal head and neck Overall: head atraumatic 01/31/2017 None Full Exam - General 1994 Musculoskeletal head and neck Overall: cervical spine benign 01/31/2017 None Full Exam - General 1994 Psychiatric orientation/consciousness Overall: oriented to person, place and time 01/31/2017 None Full Exam - General 1994 Psychiatric mood and affect Overall: normal mood and affect 01/31/2017 None Full Exam - General 1994 Constitutional general appearance Development: well developed 01/01/2017 None Full Exam - General 1994 Constitutional general appearance Development: appears stated age 0701/01/2017 None Full Exam - General 1994 Constitutional general appearance Hygiene/Attention to Grooming: good hygiene 01/01/2017 None Full Exam - General 1994 Eyes conjunctiva /eyelids Overall: conjunctiva clear 01/01/2017 None Full Exam - General 1994 Eyes conjunctiva /eyelids Overall: cornea clear 01/01/2017 None Full Exam - General 1994 Eyes conjunctiva /eyelids Overall: eyelids normal 01/01/2017 None Full Exam - General 1994 Eyes pupils and irises Overall: pupils equal, round, reactive to light and accomodation 01/01/2017 None Full Exam - General 1994 Ears/Nose/Throat otoscopic exam Overall: external auditory canals clear 01/01/2017 None Full Exam - General 1994 Ears/Nose/Throat otoscopic exam Overall: tympanic membranes clear 01/01/2017 None Full Exam - General 1994 Ears/Nose/Throat lips/teeth/gingiva Overall: benign lips 01/01/2017 None Full Exam - General 1994 Ears/Nose/Throat lips/teeth/gingiva Overall: normal dentition 01/01/2017 None Full Exam - General 1994 Ears/Nose/Throat oral cavity/pharynx/larynx Overall: oral mucosa clear 01/01/2017 None Full Exam - General 1994 Ears/Nose/Throat oral cavity/pharynx/larynx Overall: oropharyngeal mucosa clear 01/01/2017 None Full Exam - General 1994 Ears/Nose/Throat oral cavity/pharynx/larynx Overall: hypopharynx benign 01/01/2017 None Full Exam - General 1994 Ears/Nose/Throat oral cavity/pharynx/larynx Overall: no masses 01/01/2017 None Full Exam - General 1994 Respiratory auscultation Overall: breath sounds clear bilaterally 01/01/2017 None Full Exam - General 1994 Respiratory respiratory effort/rhythm Overall: no retractions 01/01/2017 None Full Exam - General 1994 Respiratory respiratory effort/rhythm Overall: normal rate 01/01/2017 None Full Exam - General 1994 Cardiovascular extremities Overall: no clubbing 01/01/2017 None Full Exam - General 1994 Cardiovascular auscultation of heart Overall: regular rate 01/01/2017 None Full Exam - General 1994 Cardiovascular auscultation of heart Overall: normal heart sounds 01/01/2017 None Full Exam - General 1994 Abdomen abdominal exam Overall: no tenderness 01/01/2017 None Full Exam - General 1994 Abdomen abdominal exam Overall: normal bowel sounds 01/01/2017 None Full Exam - General 1994 Lymphatic neck nodes Overall: anterior cervical chain benign 01/01/2017 None Full Exam - General 1994 Lymphatic neck nodes Overall: posterior cervical chain benign 01/01/2017 None Full Exam - General 1994 Musculoskeletal spine, ribs and pelvis Overall: spine benign 01/01/2017 None Full Exam - General 1994 Musculoskeletal spine, ribs and pelvis Overall: sacroiliac joint benign 01/01/2017 None Full Exam - General 1994 Musculoskeletal spine, ribs and pelvis Overall: good posture 01/01/2017 None Full Exam - General 1994 Musculoskeletal head and neck Overall: head atraumatic 01/01/2017 None Full Exam - General 1994 Musculoskeletal head and neck Overall: cervical spine benign 01/01/2017 None Full Exam - General 1994 Integument inspection of skin Overall: few scattered moles, no gross abnormalities 01/01/2017 None Full Exam - General 1994 Neurologic deep tendon reflexes Overall: deep tendon reflexes intact 01/01/2017 None Full Exam - General 1994 Neurologic cranial nerves Overall: crainial nerves 2 - 12 grossly intact 01/01/2017 None Full Exam - General 1994 Psychiatric orientation/consciousness Overall: oriented to person, place and time 01/01/2017 None Full Exam - General 1994 Psychiatric mood and affect Overall: normal mood and affect 01/01/2017 None Full Exam - General 1994 Constitutional general appearance Development: well developed 08/08/2016 None Full Exam - General 1994 Constitutional general appearance Development: appears stated age 0308/08/2016 None Full Exam - General 1994 Constitutional general appearance Hygiene/Attention to Grooming: good hygiene 08/08/2016 None Full Exam - General 1994 Eyes conjunctiva /eyelids Overall: conjunctiva clear 08/08/2016 None Full Exam - General 1994 Eyes conjunctiva /eyelids Overall: cornea clear 08/08/2016 None Full Exam - General 1994 Eyes conjunctiva /eyelids Overall: eyelids normal 08/08/2016 None Full Exam - General 1994 Eyes pupils and irises Overall: pupils equal, round, reactive to light and accomodation 08/08/2016 None Full Exam - General 1995 Ears/Nose/Throat otoscopic exam Overall: external auditory canals clear 08/08/2016 None Full Exam - General 1995 Ears/Nose/Throat otoscopic exam Overall: tympanic membranes clear 08/08/2016 None Full Exam - General 1995 Ears/Nose/Throat lips/teeth/gingiva Overall: benign lips 08/08/2016 None Full Exam - General 1995 Ears/Nose/Throat lips/teeth/gingiva Overall: normal dentition 08/08/2016 None Full Exam - General 1994 Ears/Nose/Throat oral cavity/pharynx/larynx Overall: oral mucosa clear 08/08/2016 None Full Exam - General 1995 Ears/Nose/Throat oral cavity/pharynx/larynx Overall: oropharyngeal mucosa clear 08/08/2016 None Full Exam - General 1995 Ears/Nose/Throat oral cavity/pharynx/larynx Overall: hypopharynx benign 08/08/2016 None Full Exam - General 1994 Ears/Nose/Throat oral cavity/pharynx/larynx Overall: no masses 08/08/2016 None Full Exam - General 1994 Respiratory auscultation Overall: breath sounds clear bilaterally 08/08/2016 None Full Exam - General 1994 Respiratory respiratory effort/rhythm Overall: no retractions 08/08/2016 None Full Exam - General 1994 Respiratory respiratory effort/rhythm Overall: normal rate 08/08/2016 None Full Exam - General 1994 Cardiovascular extremities Overall: no clubbing 08/08/2016 None Full Exam - General 1994 Cardiovascular auscultation of heart Overall: regular rate 08/08/2016 None Full Exam - General 1994 Cardiovascular auscultation of heart Overall: normal heart sounds 08/08/2016 None Full Exam - General 1994 Abdomen abdominal exam Overall: no tenderness 08/08/2016 None Full Exam - General 1994 Abdomen abdominal exam Overall: normal bowel sounds 08/08/2016 None Full Exam - General 1994 Lymphatic neck nodes Overall: anterior cervical chain benign 08/08/2016 None Full Exam - General 1994 Lymphatic neck nodes Overall: posterior cervical chain benign 08/08/2016 None Full Exam - General 1994 Musculoskeletal spine, ribs and pelvis Overall: spine benign 08/08/2016 None Full Exam - General 1994 Musculoskeletal spine, ribs and pelvis Overall: sacroiliac joint benign 08/08/2016 None Full Exam - General 1994 Musculoskeletal spine, ribs and pelvis Overall: good posture 08/08/2016 None Full Exam - General 1994 Musculoskeletal head and neck Overall: head atraumatic 08/08/2016 None Full Exam - General 1994 Musculoskeletal head and neck Overall: cervical spine benign 08/08/2016 None Full Exam - General 1994 Integument inspection of skin Overall: few scattered moles, no gross abnormalities 08/08/2016 None Full Exam - General 1994 Neurologic deep tendon reflexes Overall: deep tendon reflexes intact 08/08/2016 None Full Exam - General 1994 Neurologic cranial nerves Overall: crainial nerves 2 - 12 grossly intact 08/08/2016 None Full Exam - General 1994 Psychiatric orientation/consciousness Overall: oriented to person, place and time 08/08/2016 None Full Exam - General 1994 Psychiatric mood and affect Overall: normal mood and affect 08/08/2016 None Full Exam - General 1994 Constitutional general appearance Development: well developed 04/18/2016 None Full Exam - General 1994 Constitutional general appearance Development: appears stated age 1104/18/2016 None Full Exam - General 1994 Constitutional general appearance Hygiene/Attention to Grooming: good hygiene 04/18/2016 None Full Exam - General 1994 Eyes conjunctiva /eyelids Overall: conjunctiva clear 04/18/2016 None Full Exam - General 1994 Eyes conjunctiva /eyelids Overall: cornea clear 04/18/2016 None Full Exam - General 1994 Eyes conjunctiva /eyelids Overall: eyelids normal 04/18/2016 None Full Exam - General 1994 Eyes pupils and irises Overall: pupils equal, round, reactive to light and accomodation 04/18/2016 None Full Exam - General 1994 Ears/Nose/Throat otoscopic exam Overall: external auditory canals clear 04/18/2016 None Full Exam - General 1994 Ears/Nose/Throat otoscopic exam Overall: tympanic membranes clear 04/18/2016 None Full Exam - General 1994 Ears/Nose/Throat lips/teeth/gingiva Overall: benign lips 04/18/2016 None Full Exam - General 1994 Ears/Nose/Throat lips/teeth/gingiva Overall: normal dentition 04/18/2016 None Full Exam - General 1994 Ears/Nose/Throat oral cavity/pharynx/larynx Overall: oral mucosa clear 04/18/2016 None Full Exam - General 1994 Ears/Nose/Throat oral cavity/pharynx/larynx Overall: oropharyngeal mucosa clear 04/18/2016 None Full Exam - General 1994 Ears/Nose/Throat oral cavity/pharynx/larynx Overall: hypopharynx benign 04/18/2016 None Full Exam - General 1994 Ears/Nose/Throat oral cavity/pharynx/larynx Overall: no masses 04/18/2016 None Full Exam - General 1994 Respiratory auscultation Overall: breath sounds clear bilaterally 04/18/2016 None Full Exam - General 1994 Respiratory respiratory effort/rhythm Overall: no retractions 04/18/2016 None Full Exam - General 1994 Respiratory respiratory effort/rhythm Overall: normal rate 04/18/2016 None Full Exam - General 1994 Cardiovascular extremities Overall: no clubbing 04/18/2016 None Full Exam - General 1994 Cardiovascular auscultation of heart Overall: regular rate 04/18/2016 None Full Exam - General 1994 Cardiovascular auscultation of heart Overall: normal heart sounds 04/18/2016 None Full Exam - General 1994 Abdomen abdominal exam Overall: no tenderness 04/18/2016 None Full Exam - General 1994 Abdomen abdominal exam Overall: normal bowel sounds 04/18/2016 None Full Exam - General 1994 Lymphatic neck nodes Overall: anterior cervical chain benign 04/18/2016 None Full Exam - General 1994 Lymphatic neck nodes Overall: posterior cervical chain benign 04/18/2016 None Full Exam - General 1994 Musculoskeletal spine, ribs and pelvis Overall: spine benign 04/18/2016 None Full Exam - General 1994 Musculoskeletal spine, ribs and pelvis Overall: sacroiliac joint benign 04/18/2016 None Full Exam - General 1994 Musculoskeletal spine, ribs and pelvis Overall: good posture 04/18/2016 None Full Exam - General 1994 Musculoskeletal head and neck Overall: head atraumatic 04/18/2016 None Full Exam - General 1994 Musculoskeletal head and neck Overall: cervical spine benign 04/18/2016 None Full Exam - General 1994 Integument inspection of skin Overall: few scattered moles, no gross abnormalities 04/18/2016 None Full Exam - General 1994 Neurologic deep tendon reflexes Overall: deep tendon reflexes intact 04/18/2016 None Full Exam - General 1994 Neurologic cranial nerves Overall: crainial nerves 2 - 12 grossly intact 04/18/2016 None Full Exam - General 1994 Psychiatric orientation/consciousness Overall: oriented to person, place and time 04/18/2016 None Full Exam - General 1994 Psychiatric mood and affect Overall: normal mood and affect 04/18/2016 None Full Exam - General 1994 Constitutional general appearance Development: well developed 10/19/2015 None Full Exam - General 1994 Constitutional general appearance Development: appears stated age 0510/19/2015 None Full Exam - General 1994 Constitutional general appearance Hygiene/Attention to Grooming: good hygiene 10/19/2015 None Full Exam - General 1994 Eyes conjunctiva /eyelids Overall: conjunctiva clear 10/19/2015 None Full Exam - General 1994 Eyes conjunctiva /eyelids Overall: cornea clear 10/19/2015 None Full Exam - General 1994 Eyes conjunctiva /eyelids Overall: eyelids normal 10/19/2015 None Full Exam - General 1994 Eyes pupils and irises Overall: pupils equal, round, reactive to light and accomodation 10/19/2015 None Full Exam - General 1994 Ears/Nose/Throat otoscopic exam Overall: external auditory canals clear 10/19/2015 None Full Exam - General 1994 Ears/Nose/Throat otoscopic exam Overall: tympanic membranes clear 10/19/2015 None Full Exam - General 1994 Ears/Nose/Throat lips/teeth/gingiva Overall: benign lips 10/19/2015 None Full Exam - General 1994 Ears/Nose/Throat lips/teeth/gingiva Overall: normal dentition 10/19/2015 None Full Exam - General 1994 Ears/Nose/Throat oral cavity/pharynx/larynx Overall: oral mucosa clear 10/19/2015 None Full Exam - General 1994 Ears/Nose/Throat oral cavity/pharynx/larynx Overall: oropharyngeal mucosa clear 10/19/2015 None Full Exam - General 1994 Ears/Nose/Throat oral cavity/pharynx/larynx Overall: hypopharynx benign 10/19/2015 None Full Exam - General 1994 Ears/Nose/Throat oral cavity/pharynx/larynx Overall: no masses 10/19/2015 None Full Exam - General 1994 Respiratory auscultation Overall: breath sounds clear bilaterally 10/19/2015 None Full Exam - General 1994 Respiratory respiratory effort/rhythm Overall: no retractions 10/19/2015 None Full Exam - General 1994 Respiratory respiratory effort/rhythm Overall: normal rate 10/19/2015 None Full Exam - General 1994 Cardiovascular extremities Overall: no clubbing 10/19/2015 None Full Exam - General 1994 Cardiovascular auscultation of heart Overall: regular rate 10/19/2015 None Full Exam - General 1994 Cardiovascular auscultation of heart Overall: normal heart sounds 10/19/2015 None Full Exam - General 1994 Abdomen abdominal exam Overall: no tenderness 10/19/2015 None Full Exam - General 1994 Abdomen abdominal exam Overall: normal bowel sounds 10/19/2015 None Full Exam - General 1994 Lymphatic neck nodes Overall: anterior cervical chain benign 10/19/2015 None Full Exam - General 1994 Lymphatic neck nodes Overall: posterior cervical chain benign 10/19/2015 None Full Exam - General 1994 Musculoskeletal spine, ribs and pelvis Overall: spine benign 10/19/2015 None Full Exam - General 1994 Musculoskeletal spine, ribs and pelvis Overall: sacroiliac joint benign 10/19/2015 None Full Exam - General 1994 Musculoskeletal spine, ribs and pelvis Overall: good posture 10/19/2015 None Full Exam - General 1994 Musculoskeletal head and neck Overall: head atraumatic 10/19/2015 None Full Exam - General 1994 Musculoskeletal head and neck Overall: cervical spine benign 10/19/2015 None Full Exam - General 1994 Integument inspection of skin Overall: few scattered moles, no gross abnormalities 10/19/2015 None Full Exam - General 1994 Neurologic deep tendon reflexes Overall: deep tendon reflexes intact 10/19/2015 None Full Exam - General 1994 Neurologic cranial nerves Overall: crainial nerves 2 - 12 grossly intact 10/19/2015 None Full Exam - General 1994 Psychiatric orientation/consciousness Overall: oriented to person, place and time 10/19/2015 None Full Exam - General 1994 Psychiatric mood and affect Overall: normal mood and affect 10/19/2015 None Full Exam - General 1994 Constitutional general appearance Development: well developed 12/08/2014 None Full Exam - General 1994 Constitutional general appearance Development: appears stated age 0712/08/2014 None Full Exam - General 1994 Constitutional general appearance Hygiene/Attention to Grooming: good hygiene 12/08/2014 None Full Exam - General 1994 Eyes conjunctiva /eyelids Overall: conjunctiva clear 12/08/2014 None Full Exam - General 1994 Eyes conjunctiva /eyelids Overall: cornea clear 12/08/2014 None Full Exam - General 1994 Eyes conjunctiva /eyelids Overall: eyelids normal 12/08/2014 None Full Exam - General 1994 Eyes pupils and irises Overall: pupils equal, round, reactive to light and accomodation 12/08/2014 None Full Exam - General 1994 Ears/Nose/Throat otoscopic exam Overall: external auditory canals clear 12/08/2014 None Full Exam - General 1994 Ears/Nose/Throat otoscopic exam Overall: tympanic membranes clear 12/08/2014 None Full Exam - General 1994 Ears/Nose/Throat lips/teeth/gingiva Overall: benign lips 12/08/2014 None Full Exam - General 1994 Ears/Nose/Throat lips/teeth/gingiva Overall: normal dentition 12/08/2014 None Full Exam - General 1994 Ears/Nose/Throat oral cavity/pharynx/larynx Overall: oral mucosa clear 12/08/2014 None Full Exam - General 1994 Ears/Nose/Throat oral cavity/pharynx/larynx Overall: oropharyngeal mucosa clear 12/08/2014 None Full Exam - General 1994 Ears/Nose/Throat oral cavity/pharynx/larynx Overall: hypopharynx benign 12/08/2014 None Full Exam - General 1994 Ears/Nose/Throat oral cavity/pharynx/larynx Overall: no masses 12/08/2014 None Full Exam - General 1994 Respiratory auscultation Overall: breath sounds clear bilaterally 12/08/2014 None Full Exam - General 1994 Respiratory respiratory effort/rhythm Overall: no retractions 12/08/2014 None Full Exam - General 1994 Respiratory respiratory effort/rhythm Overall: normal rate 12/08/2014 None Full Exam - General 1994 Cardiovascular extremities Overall: no clubbing 12/08/2014 None Full Exam - General 1994 Cardiovascular auscultation of heart Overall: regular rate 12/08/2014 None Full Exam - General 1994 Cardiovascular auscultation of heart Overall: normal heart sounds 12/08/2014 None Full Exam - General 1994 Abdomen abdominal exam Overall: no tenderness 12/08/2014 None Full Exam - General 1994 Abdomen abdominal exam Overall: normal bowel sounds 12/08/2014 None Full Exam - General 1994 Lymphatic neck nodes Overall: anterior cervical chain benign 12/08/2014 None Full Exam - General 1994 Lymphatic neck nodes Overall: posterior cervical chain benign 12/08/2014 None Full Exam - General 1994 Musculoskeletal spine, ribs and pelvis Overall: spine benign 12/08/2014 None Full Exam - General 1994 Musculoskeletal spine, ribs and pelvis Overall: sacroiliac joint benign 12/08/2014 None Full Exam - General 1994 Musculoskeletal spine, ribs and pelvis Overall: good posture 12/08/2014 None Full Exam - General 1994 Musculoskeletal head and neck Overall: head atraumatic 12/08/2014 None Full Exam - General 1994 Musculoskeletal head and neck Overall: cervical spine benign 12/08/2014 None Full Exam - General 1994 Integument inspection of skin Overall: few scattered moles, no gross abnormalities 12/08/2014 None Full Exam - General 1994 Neurologic deep tendon reflexes Overall: deep tendon reflexes intact 12/08/2014 None Full Exam - General 1994 Neurologic cranial nerves Overall: crainial nerves 2 - 12 grossly intact 12/08/2014 None Full Exam - General 1994 Psychiatric orientation/consciousness Overall: oriented to person, place and time 12/08/2014 None Full Exam - General 1994 Psychiatric mood and affect Overall: normal mood and affect 12/08/2014 None Procedures Procedure Codes Date ADMIN INFLUENZA VIRUS VAC CPT-4: G0008 03/31/2018 FLU VACC PRSV FREE INC ANTIG CPT-4: 37762 03/31/2018 ADMIN INFLUENZA VIRUS VAC CPT-4: G0008 03/12/2017 FLU VACC PRSV FREE INC ANTIG CPT-4: 78773 03/12/2017 PRESCRIP TRANSMIT VIA ERX SY CPT-4: G8553 01/31/2017 PRESCRIP TRANSMIT VIA ERX SY CPT-4: G8553 01/01/2017 PRESCRIP TRANSMIT VIA ERX SY CPT-4: G8553 08/08/2016 ADMIN INFLUENZA VIRUS VAC CPT-4: G0008 03/14/2016 FLU VACC 4 KRANTHI 3 YRS PLUS IM Formatting Model/CDA Sections, Assigned to/Fiordaliza Tadeo CT: [id number] CPT-4: [id number] 03/14/2016 Vital Signs Date Vital 06/04/2018 Blood Pressure 1: 138/62 Code : 8480-6 BMI: 43.6 Code : 70210-5 Heart Rate 1 : 78 bpm Height: 5' SpO2: 94% Weight: 223 lbs 03/20/2018 Blood Pressure 1: 146/76 Code : 8480-6 BMI: 46.7 Code : 01292-9 Heart Rate 1 : 107 bpm Height: 5' SpO2: 98% Weight: 239 lbs 02/19/2018 Blood Pressure 1: 116/60 Code : 8480-6 BMI: 46.9 Code : 68775-4 Heart Rate 1 : 113 bpm Height: 5' SpO2: 96% Weight: 240 lbs 12/18/2017 Blood Pressure 1: 110/66 Code : 8480-6 BMI: 46.5 Code : 29055-4 Heart Rate 1 : 89 bpm Height: 5' SpO2: 98% Weight: 238 lbs 05/15/2017 Blood Pressure 1: 126/78 Code : 8480-6 BMI: 44.9 Code : 94158-7 Heart Rate 1 : 76 bpm Height: 5' SpO2: 98% Weight: 230 lbs 03/12/2017 Blood Pressure 1: 132/72 Code : 8480-6 BMI: 44.9 Code : 33118-2 Heart Rate 1 : 88 bpm Height: 5' SpO2: 96% Weight: 230 lbs 01/31/2017 Blood Pressure 1: 128/68 Code : 8480-6 BMI: 44.7 Code : 65452-3 Heart Rate 1 : 90 bpm Height: 5' SpO2: 96% Weight: 229 lbs 01/01/2017 Blood Pressure 1: 138/88 Code : 8480-6 BMI: 44.1 Code : 87482-0 Heart Rate 1 : 89 bpm Height: 5' SpO2: 93% Weight: 226 lbs 08/08/2016 Blood Pressure 1: 130/78 Code : 8480-6 BMI: 45.1 Code : 38562-7 Heart Rate 1 : 97 bpm Height: 5' SpO2: 97% Weight: 231 lbs 04/18/2016 Blood Pressure 1: 128/62 Code : 8480-6 BMI: 44.3 Code : 42739-4 Heart Rate 1 : 94 bpm Height: 5' SpO2: 98% Weight: 227 lbs 10/19/2015 Blood Pressure 1: 128/70 Code : 8480-6 BMI: 44.7 Code : 83015-5 Heart Rate 1 : 76 bpm Height: 5' SpO2: 97% Weight: 229 lbs 12/08/2014 Blood Pressure 1: 132/68 Code : 8480-6 BMI: 42.6 Code : 08742-6 Heart Rate 1 : 80 bpm Height: 5' Weight: 218 lbs Functional Status No Functional Status data History of Present Illness Symptom Name Status Result Effective Date Notes Quality chronic 06/04 None Onset and Resolution ongoing 06/04/2018 None _ pneumonia 2017 None Quality acute illness 06/04/2018 None Onset and Resolution resolved 06/04/2018 None Pertinent Findings Denies fever 06/04/2018 None arrhythmia Quality chronic 03/20/2018 None arrhythmia Quality irregular beats 03/20/2018 (atrial fibrillation) arrhythmia Alleviating Factors medication 03/20/2018 None edema Location on both legs 03/20/2018 None hypertension Quality primary hypertension 03/20/2018 None hypertension Quality chronic 03/20/2018 None hypertension Onset and Resolution ongoing 03/20/2018 None hypertension Onset of Symptom during adulthood 03/20/2018 None hypertension Blood Pressure Values patient checking blood pressure at home - did not bring in readings 03/20/2018 None hypertension Alleviating Factors medication 03/20/2018 None hypertension Pertinent Findings dyspnea 03/20/2018 None hypertension Pertinent Findings edema 03/20/2018 -improved edema Quality improving 03/20/2018 None edema Alleviating Factors medication 03/20/2018 None hypertension Severity mild 03/20/2018 None shortness of breath Quality breathlessness 02/19/2018 None shortness of breath Quality intermittent 02/19/2018 None shortness of breath Onset and Resolution sudden in onset 02/19/2018 None shortness of breath Onset of Symptom 2 weeks ago 02/19/2018 None shortness of breath Frequency of Episodes increasing 02/19/2018 None edema Quality constant 02/19/2018 None edema Onset and Resolution sudden in onset 02/19/2018 None edema Onset of Symptom 2 weeks ago 02/19/2018 None edema Frequency of Episodes daily 02/19/2018 None shortness of breath Alleviating Factors rest 02/19/2018 None shortness of breath Exacerbating Factors exertion 02/19/2018 None edema Triggers no known associated factors 02/19/2018 None edema Alleviating Factors recumbency 02/19/2018 None hypertension Quality chronic 12/18/2017 None hypertension Quality primary hypertension 12/18/2017 None hypertension Onset and Resolution ongoing 12/18/2017 None hypertension Onset of Symptom during adulthood 12/18/2017 None hypertension Severity mild 12/18/2017 None hypertension Alleviating Factors medication 12/18/2017 None hypertension Exacerbating Factors stress 12/18/2017 None hypertension Pertinent Findings Denies dizziness 12/18/2017 None hypertension Pertinent Findings Denies dyspnea 12/18/2017 None hypertension Pertinent Findings Denies edema 12/18/2017 None hyperlipidemia Onset and Resolution gradual in onset 12/18/2017 None hyperlipidemia Onset of Symptom during adulthood 12/18/2017 None hyperlipidemia Alleviating Factors medication 12/18/2017 None hyperlipidemia Exacerbating Factors diet 12/18/2017 None insomnia Quality difficulty falling asleep 12/18/2017 None insomnia Quality disrupted sleep 12/18/2017 None insomnia Onset and Resolution ongoing 12/18/2017 None insomnia Onset of Symptom 1-1.5 months ago 12/18/2017 None insomnia Quality acute 12/18/2017 None hypertension Quality chronic 05/15/2017 None hypertension Onset and Resolution ongoing 05/15/2017 None hypertension Onset of Symptom during adulthood 05/15/2017 None hypertension Severity mild 05/15/2017 None hypertension Alleviating Factors medication 05/15/2017 None hypertension Exacerbating Factors stress 05/15/2017 None hypertension Pertinent Findings Denies dizziness 05/15/2017 None hypertension Pertinent Findings Denies dyspnea 05/15/2017 None hypertension Pertinent Findings Denies edema 05/15/2017 None hypertension Quality primary hypertension 05/15/2017 None rash Location-Major on the hands 03/12/2017 None rash Color erythematous 03/12/2017 None rash Quality acute 08/2016 None rash Quality worsening 03/12/2017 None rash Quality burning 03/12/2017 None rash Quality enlarging 03/12/2017 None rash Onset and Resolution gradual in onset 03/12/2017 None hypertension Quality chronic 01/31/2017 None hypertension Onset and Resolution ongoing 01/31/2017 None hypertension Onset of Symptom during adulthood 01/31/2017 None hypertension Severity mild 01/31/2017 None hypertension Alleviating Factors medication 01/31/2017 None hypertension Exacerbating Factors stress 01/31/2017 None hypertension Pertinent Findings Denies dizziness 01/31/2017 None hypertension Pertinent Findings Denies dyspnea 01/31/2017 None hypertension Pertinent Findings Denies edema 01/31/2017 None hyperlipidemia Onset and Resolution gradual in onset 01/31/2017 None hyperlipidemia Onset and Resolution ongoing 01/31/2017 None hyperlipidemia Onset of Symptom during adulthood 01/31/2017 None hyperlipidemia Alleviating Factors medication 01/31/2017 None hyperlipidemia Exacerbating Factors diet 01/31/2017 None Hospital Follow Up _ cardiac disease 01/01/2017 None Hospital Follow Up Quality acute 01/01/2017 None Hospital Follow Up Onset of Symptom 1 weeks ago 01/01/2017 None Hospital Follow Up Pertinent Findings Denies pain 01/01/2017 None hypertension Quality chronic 08/08/2016 None hypertension Onset and Resolution ongoing 08/08/2016 None hypertension Onset of Symptom during adulthood 08/08/2016 None hypertension Severity mild 08/08/2016 None hypertension Alleviating Factors medication 08/08/2016 None hypertension Exacerbating Factors stress 08/08/2016 None hypertension Pertinent Findings Denies dizziness 08/08/2016 None hypertension Pertinent Findings Denies dyspnea 08/08/2016 None hypertension Pertinent Findings Denies edema 08/08/2016 None hyperlipidemia Onset and Resolution gradual in onset 08/08/2016 None hyperlipidemia Onset and Resolution ongoing 08/08/2016 None hyperlipidemia Onset of Symptom during adulthood 08/08/2016 None hyperlipidemia Alleviating Factors medication 08/08/2016 None hyperlipidemia Exacerbating Factors diet 08/08/2016 None joint complaint Location diffusely 08/08/2016 None joint complaint Location in both hips 08/08/2016 None joint complaint Quality intermittent 08/08/2016 None joint complaint Onset and Resolution ongoing 08/08/2016 None joint complaint Alleviating Factors medication 08/08/2016 None hypertension Quality chronic 04/18/2016 None hypertension Onset and Resolution ongoing 04/18/2016 None hypertension Onset of Symptom during adulthood 04/18/2016 None hypertension Severity mild 04/18/2016 None hypertension Alleviating Factors medication 04/18/2016 None hypertension Exacerbating Factors stress 04/18/2016 None hypertension Pertinent Findings Denies dizziness 04/18/2016 None hypertension Pertinent Findings Denies dyspnea 04/18/2016 None hypertension Pertinent Findings Denies edema 04/18/2016 None hyperlipidemia Onset and Resolution ongoing 04/18/2016 None hyperlipidemia Onset of Symptom during adulthood 04/18/2016 None hyperlipidemia Alleviating Factors medication 04/18/2016 None hyperlipidemia Exacerbating Factors diet 04/18/2016 None joint complaint Location diffusely 04/18/2016 None joint complaint Quality intermittent 04/18/2016 None joint complaint Onset and Resolution ongoing 04/18/2016 None hyperlipidemia Onset and Resolution gradual in onset 04/18/2016 None joint complaint Location in both hips 04/18/2016 None joint complaint Onset of Symptom months ago 04/18/2016 None joint complaint Alleviating Factors medication 04/18/2016 None hypertension Quality chronic 10/19/2015 None hypertension Onset and Resolution ongoing 10/19/2015 None hypertension Severity mild 10/19/2015 None hypertension Triggers no known associated factors 10/19/2015 None hypertension Alleviating Factors medication 10/19/2015 None hypertension Exacerbating Factors stress 10/19/2015 None hyperlipidemia Onset and Resolution ongoing 10/19/2015 None insomnia Quality difficulty falling asleep 10/19/2015 None insomnia Onset and Resolution ongoing 10/19/2015 None insomnia Onset of Symptom 2 months ago 10/19/2015 None insomnia Alleviating Factors medication 10/19/2015 alprazolam joint complaint Onset and Resolution ongoing 10/19/2015 None joint complaint Onset of Symptom 2-3 months ago 10/19/2015 None myalgias Location on both legs 10/19/2015 None myalgias Quality cramping 10/19/2015 None myalgias Quality intermittent 10/19/2015 None myalgias Onset and Resolution ongoing 10/19/2015 None myalgias Onset of Symptom 6 weeks ago 10/19/2015 None myalgias Frequency of Episodes weekly 10/19/2015 None myalgias Alleviating Factors position change 10/19/2015 None myalgias Alleviating Factors activity 10/19/2015 None hypertension Onset of Symptom during adulthood 10/19/2015 None hypertension Pertinent Findings Denies dizziness 10/19/2015 None hypertension Pertinent Findings Denies dyspnea 10/19/2015 None hypertension Pertinent Findings Denies edema 10/19/2015 None hyperlipidemia Onset of Symptom during adulthood 10/19/2015 None hyperlipidemia Alleviating Factors medication 10/19/2015 None hyperlipidemia Exacerbating Factors diet 10/19/2015 None joint complaint Location diffusely 10/19/2015 None joint complaint Quality intermittent 10/19/2015 None hypertension Onset and Resolution ongoing 12/08/2014 None hyperlipidemia Onset and Resolution ongoing 12/08/2014 None hypertension Quality chronic 12/08/2014 None hypertension Severity mild 12/08/2014 None hypertension Triggers no known associated factors 12/08/2014 None hypertension Alleviating Factors medication 12/08/2014 None hypertension Exacerbating Factors stress 12/08/2014 None hypertension Exacerbating Factors change in dietary habits 12/08/2014 None Advance Directives No Advance Directive data Encounters Encounter Performer Location Codes Date 03025 EST. PATIENT, LEVEL III Diagnosis: Chronic atrial fibrillation[ICD10: I48.2] Diagnosis: Essential (primary) hypertension[ICD10: I10] Diagnosis: Encounter for follow-up examination after completed treatment for conditions other than malignant neoplasm[ICD10: Z09] [facility] CPT-4: 79249 06/04/2018 [id number]) [id number] EST. PATIENT, LEVEL IV Diagnosis: Chronic atrial fibrillation[ICD10: I48.2] Diagnosis: Essential (primary) hypertension[ICD10: I10] Diagnosis: Localized edema[ICD10: R60.0] Carolyne Brian MD [facility] CPT- 4: 36760 03/20/2018 ([id number]) [id number] EST. PATIENT, LEVEL IV Diagnosis: Chronic atrial fibrillation[ICD10: I48.2] Diagnosis: Localized edema[ICD10: R60.0] Diagnosis: Other specified cardiac arrhythmias[ICD10: I49.8] Carolyne Brian MD [facility] CPT-4: 01805 02/19/2018 ([id number]) [id number] EST. 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 PATIENT, LEVEL IV Diagnosis: Essential (primary) hypertension[ICD10: I10] Diagnosis: Mixed hyperlipidemia[ICD10: E78.2] Diagnosis: Chronic atrial fibrillation[ICD10: I48.2] Carolyne Brian MD [facility] CPT-4: 66982 05/15/2017 ([id number]) [id number] EST. PATIENT, LEVEL IV Diagnosis: Chronic atrial fibrillation[ICD10: I48.2] Diagnosis: Rash and other nonspecific skin eruption[ICD10: R21] Diagnosis: Occlusion and stenosis of bilateral carotid arteries[ICD10: I65.23] Diagnosis: Encounter for immunization[ICD10: Z23] Carolyne Brian MD, [facility] CPT-4: 96925 03/12/2017 [id number]) 63873 EST. PATIENT, LEVEL III Diagnosis: Essential (primary) hypertension[ICD10: I10] Diagnosis: Chronic atrial fibrillation[ICD10: I48.2] Carolyne Brian MD [facility] CPT-4: 73688 01/31/2017 [id number]) [id number] EST. PATIENT, LEVEL IV Diagnosis: Essential (primary) hypertension[ICD10: I10] Diagnosis: Chronic atrial fibrillation[ICD10: I48.2] Carolyne Brian MD, [facility] CPT-4: 55922 01/01/2017 ([id number]) [id number] EST. PATIENT, LEVEL IV Diagnosis: Essential (primary) hypertension[ICD10: I10] Diagnosis: Chronic pain syndrome[ICD10: G89.4] Diagnosis: Generalized anxiety disorder[ICD10: F41.1] Carolyne Brian MD, [facility] CPT-4: 79650 08/08/2016 ([id number]) 73675 EST. PATIENT, LEVEL IV Diagnosis: Essential (primary) hypertension[ICD10: I10] Diagnosis: Mixed hyperlipidemia[ICD10: E78.2] Diagnosis: Chronic pain syndrome[ICD10: G89.4] Diagnosis: Generalized anxiety disorder[ICD10: F41.1] Carolyne Brian MD, [facility] CPT-4: 16596 04/18/2016 ([id number]) 22665 EST. PATIENT, LEVEL IV Diagnosis: Essential (primary) hypertension[ICD10: I10] Diagnosis: Mixed hyperlipidemia[ICD10: E78.2] Diagnosis: Myalgia[ICD10: M79.1] Diagnosis: Cough[ICD10: R05] Carolyne Brian MD, [facility] CPT-4: 36471 10/19/2015 ([id number]) OFFICE VISIT, NEW - LEVEL 4 Diagnosis: ESSENTIAL HYPERTENSION[ICD9: 401.9] Diagnosis: HYPERLIPIDEMIA[ICD9: 272.4] Carolyne Brian MD, [facility] CPT- 4: 26881 12/08/2014 Plan of Care Planned Activity Notes Codes Status Date Visit Plan: Hypertension - well controlled - continue with current medications, continue with no added salt diet. Pt has been encouraged to exercise daily. The pt has been advised to call the office if there are any acute concerns about change in blood pressure readings at home. Atrial Fibrillation - pt on chronic anticoagulation and is currently rate controlled. The pt is to have labs done as appropriate to monitor medication levels and is to report if they start to feel as if their heart rate is becoming uncontrolled. Hospital follow up - This was a follow up appointment from the patient's hospitalization during which time Dr. Brian formulated the assessment and plan for the follow up on this patient's medical condition. 06/04/2018 Appointment: Keara Brown WPtel: [address] [place], [place] [phone] [place] (30 min) Complex 06/04/2018 Patient Education: Patient Medication Summary Completed 06/04/2018 Patient Education: Hypertension Completed 06/04/2018 Appointment: [facility] Brian [facility] [phone] [id number] [place] (15 min) Moderate 04/23/2018 Appointment: Carolyne Brian [facility]Ptel: [id number] (15 min) Moderate 04/08/2018 Appointment: Injection 03/31/2018 Patient Education: Patient Medication Summary Completed 03/31/2018 Visit Plan: Atrial Fibrillation - pt on chronic anticoagulation and is currently rate controlled. The pt is to have labs done as appropriate to monitor medication levels and is to report if they start to feel as if their heart rate is becoming uncontrolled. Hypertension - uncontrolled - the patient's medications have been modified as documented in the visit note. The patient has been counseled to cut back on salt in diet for a no added salt diet, low fat diet, start an exercise program with low weight bearing exercises and higher aerobic activity for heart health. The patient is to check blood pressure readings as an outpatient and either fax, call, or email the readings to the office next week for practitioner to review. The pt is to call for acute concerns. Increase cardizem from 120mg to 180mg daily, continue with eliquis. Edema - compression of legs and elevation. 03/20/2018 Visit Plan: Atrial Fibrillation - pt on chronic anticoagulation and is currently rate controlled. The pt is to have labs done as appropriate to monitor medication levels and is to report if they start to feel as if their heart rate is becoming uncontrolled. Hypertension - uncontrolled - the patient's medications have been modified as documented in the visit note. The patient has been counseled to cut back on salt in diet for a no added salt diet, low fat diet, start an exercise program with low weight bearing exercises and higher aerobic activity for heart health. The patient is to check blood pressure readings as an outpatient and either fax, call, or email the readings to the office next week for practitioner to review. The pt is to call for acute concerns. Increase cardizem from 120mg to 180mg daily, continue with eliquis. Edema - compression of legs and elevation. 03/20/2018 Appointment: Carolyne Brian WPtel: [id number] (15 min) Moderate 03/20/2018 Patient Education: Patient Medication Summary Completed 03/20/2018 Patient Education: Hypertension Completed 03/20/2018 Appointment: Carolyne Brian WPtel: [id number] (15 min) Moderate 03/11/2018 Visit Plan: Atrial Fibrillation - pt on chronic anticoagulation and is currently not optimally rate controlled. The pt is to have labs done as appropriate to monitor medication levels and is to report if they start to feel as if their heart rate is becoming uncontrolled. Start on Cardizem CD 120mg daily. HTN - controlled - however due to low blood pressure and need for Calcium Channel Sunil - I have recommended pt to decrease dose of losartan to 50mg daily. Monitor blood pressure. Edema - due to tachycardia - control heart rate and the edema should improve. Discussed flu shot today - pt to wait until appt in 2 weeks for flu shot - he can get the shot at the same time as his . 02/19/2018 Visit Plan: Atrial Fibrillation - pt on chronic anticoagulation and is currently not optimally rate controlled. The pt is to have labs done as appropriate to monitor medication levels and is to report if they start to feel as if their heart rate is becoming uncontrolled. Start on Cardizem CD 120mg daily. HTN - controlled - however due to low blood pressure and need for Calcium Channel Sunil - I have recommended pt to decrease dose of losartan to 50mg daily. Monitor blood pressure. Edema - due to tachycardia - control heart rate and the edema should improve. Discussed flu shot today - pt to wait until appt in 2 weeks for flu shot - he can get the shot at the same time as his . 02/19/2018 Appointment: Carolyne Brian WPtel: [id number] (15 min) Moderate 02/19/2018 Patient Education: Patient Medication Summary Completed 02/19/2018 Visit Plan: Hypertension - well controlled - continue with current medications, continue with no added salt diet. Pt has been encouraged to exercise daily. The pt has been advised to call the office if there are any acute concerns about change in blood pressure readings at home. Atrial Fibrillation - pt on chronic anticoagulation and is currently rate controlled. The pt is to have labs done as appropriate to monitor medication levels and is to report if they start to feel as if their heart rate is becoming uncontrolled. Insomnia - Pt has been advised to increase the light in the house during the day, and start dimming the lights during the evening hours. Pt has been advised to cut out caffeine after 5pm. Daytime napping worsens night time insomnia. Chronic Pain Syndrome - pt has chronic pain - has been maintained on current medications, has not sought out other medications, only uses PRN pain medications as directed, and understands the consequences of over-medication. 12/18/2017 Appointment: Carolyne Brian WPtel: [id number] (15 min) Moderate 12/18/2017 Patient Education: Patient Medication Summary Completed 12/18/2017 Visit Plan: Hypertension - well controlled - continue with current medications, continue with no added salt diet. Pt has been encouraged to exercise daily. The pt has been advised to call the office if there are any acute concerns about change in blood pressure readings at home. Hyperlipidemia - pt has been counseled about appropriate diet, exercise, and need for low fat food choices. I have discussed the need for the patient to take medications as prescribed. If the patient has negative side effects from the medication, they are to CALL the office and not abruptly discontinue the medication without discussion with a practitioner in the office. We will check labs in 3-6 months for follow up on the patient's chronic medical problem and to assure normal liver response to medications. Chronic Afib - monitor symptoms - continue current medication. 05/15/2017 Appointment: Carolyne Brian WPtel: [phone] [id number] [place] (15 min) Moderate 05/15/2017 Patient Education: Patient Medication Summary Completed 05/15/2017 Patient Education: Obesity Completed 05/15/2017 Patient Education: Hypertension Completed 05/15/2017 Visit Plan: Atrial Fibrillation - pt on chronic anticoagulation and is currently rate controlled. The pt is to have labs done as appropriate to monitor medication levels and is to report if they start to feel as if their heart rate is becoming uncontrolled. hx carotid stenosis - orders for ultrasound Rash on hand - rx for betamethasone cream flu shot today 03/12/2017 Patient Education: Patient Medication Summary Completed 03/12/2017 Patient Education: Obesity Completed 03/12/2017 Care Plan: US EXAM OF HEAD AND NECK Pending 03/12/2017 Visit Plan: Hypertension - well controlled - continue with current medications, continue with no added salt diet. Pt has been encouraged to exercise daily. The pt has been advised to call the office if there are any acute concerns about change in blood pressure readings at home. Atrial Fibrillation - pt on chronic anticoagulation and is currently rate controlled. The pt is to have labs done as appropriate to monitor medication levels and is to report if they start to feel as if their heart rate is becoming uncontrolled. Refilled eliquis today 01/31/2017 Appointment: Carolyne Brian WPtel: [phone] [facility] (15 min) Moderate 01/31/2017 Patient Education: Patient Medication Summary Completed 01/31/2017 Visit Plan: Hypertension - well controlled - continue with current medications, continue with no added salt diet. Pt has been encouraged to exercise daily. The pt has been advised to call the office if there are any acute concerns about change in blood pressure readings at home. Atrial Fibrillation - called to Dr. Wang office to see if we can get Sandro scheduled for an Echo since he recently went into atrial fibrillation. - he would like to have this done at [facility] in [place]. Continue with Eliquis , rate controlling medication. 01/01/2017 Appointment: Carolyne Brian WPtel: [id number] [place] (15 min) Moderate 01/01/2017 Patient Education: Patient Medication Summary Completed 01/01/2017 Patient Education: Obesity Completed 01/01/2017 Patient Education: Hypertension Completed 01/01/2017 Appointment: Carolyne Brian WPtel: [phone] [id number] [place] (30 min) Complex 12/24/2016 Visit Plan: Hypertension - well controlled - continue with current medications, continue with no added salt diet. Pt has been encouraged to exercise daily. The pt has been advised to call the office if there are any acute concerns about change in blood pressure readings at home. Hyperlipidemia - pt has been counseled about appropriate diet, exercise, and need for low fat food choices. I have discussed the need for the patient to take medications as prescribed. If the patient has negative side effects from the medication, they are to CALL the office and not abruptly discontinue the medication without discussion with a practitioner in the office. We will check labs in 3-6 months for follow up on the patient's chronic medical problem and to assure normal liver response to medications. Chronic Pain Syndrome - pt has chronic pain - has been maintained on current medications, has not sought out other medications , only uses PRN pain medications as directed, and understands the consequences of over-medication. - Anxiety - refilled alprazolam 08/08/2016 Appointment: Carolyne Brian WPtel: [phone] [facility] (15 min) Moderate 08/08/2016 Patient Education: Patient Medication Summary Completed 08/08/2016 Patient Education: Obesity Completed 08/08/2016 Patient Education: Hypertension Completed 08/08/2016 Visit Plan: Hypertension - well controlled - continue with current medications, continue with no added salt diet. Pt has been encouraged to exercise daily. The pt has been advised to call the office if there are any acute concerns about change in blood pressure readings at home. Hyperlipidemia - pt has been counseled about appropriate diet, exercise, and need for low fat food choices. I have discussed the need for the patient to take medications as prescribed. If the patient has negative side effects from the medication, they are to CALL the office and not abruptly discontinue the medication without discussion with a practitioner in the office. We will check labs in 3-6 months for follow up on the patient's chronic medical problem and to assure normal liver response to medications. Chronic Pain Syndrome - pt has chronic pain - has been maintained on current medications, has not sought out other medications , only uses PRN pain medications as directed, and understands the consequences of over-medication. - Refilled Tramadol. Anxiety - refilled alprazolam 04/18/2016 Appointment: Carolyne Brian WPtel: [phone] [facility] (15 min) Moderate 04/18/2016 Patient Education: Patient Medication Summary Completed 04/18/2016 Patient Education: Obesity Completed 04/18/2016 Patient Education: Hypertension Completed 04/18/2016 Appointment: Injection 03/14/2016 Patient Education: Patient Medication Summary Completed 03/14/2016 Appointment: Keara Brown WPtel: [phone] - Annual Wellness Visit 11/17/2015 Visit Plan: Hypertension - well controlled - however, due to cough, must change lisinopril to losartan and monitor pressure closely at home., continue with no added salt diet. Pt has been encouraged to exercise daily. The pt has been advised to call the office if there are any acute concerns about change in blood pressure readings at home. Cough - due to lisinopril - this medication was stopped and pt was started on losartan. Myalgia - hold the lipitor x 1 week then when you restart it, start it at a decreased dose - the lipitor to 1/2 of the 40mg pill daily - START co enzyme Q10 - take this pill daily - it is over the counter - and should help to decrease the aching in the muscle and joints that the cholesterol medication can cause. Hyperlipidemia - controlled - started decreased dose of lipitor. 10/19/2015 Patient Education: Patient Medication Summary Completed 10/19/2015 Patient Education: Obesity Completed 10/19/2015 Patient Education: Hypertension Completed 10/19/2015 Appointment: (30 min) Complex 08/30/2015 Appointment: Carolyne Brian WPtel: [facility] (15 min) Moderate 04/13/2015 Visit Plan: Hypertension - well controlled - continue with current medications, continue with no added salt diet. Pt has been encouraged to exercise daily. The pt has been advised to call the office if there are any acute concerns about change in blood pressure readings at home. Hyperlipidemia - pt has been counseled about appropriate diet, exercise, and need for low fat food choices. I have discussed the need for the patient to take medications as prescribed. If the patient has negative side effects from the medication, they are to CALL the office and not abruptly discontinue the medication without discussion with a practitioner in the office. We will check labs in 3-6 months for follow up on the patient's chronic medical problem and to assure normal liver response to medications. 12/08/2014 Appointment: Carolyne Brian WPtel: [id number] [place] (S) New Patient 12/08/2014 Patient Education: Patient Medication Summary Completed 12/08/2014 Patient Education: Hypertension Completed 12/08/2014 Instructions Comment . Hypertension - well controlled - continue with current medications, continue with no added salt diet. Pt has been encouraged to exercise daily. The pt has been advised to call the office if there are any acute concerns about change in blood pressure readings at home. Atrial Fibrillation - pt on chronic anticoagulation and is currently rate controlled. The pt is to have labs done as appropriate to monitor medication levels and is to report if they start to feel as if their heart rate is becoming uncontrolled. Refilled eliquis today try EXTENDED RELEASE MELATONIN . Hypertension - well controlled - continue with current medications, continue with no added salt diet. Pt has been encouraged to exercise daily. The pt has been advised to call the office if there are any acute concerns about change in blood pressure readings at home. Atrial Fibrillation - pt on chronic anticoagulation and is currently rate controlled. The pt is to have labs done as appropriate to monitor medication levels and is to report if they start to feel as if their heart rate is becoming uncontrolled. Insomnia - Pt has been advised to increase the light in the house during the day , and start dimming the lights during the evening hours. Pt has been advised to cut out caffeine after 5pm. Daytime napping worsens night time insomnia. Chronic Pain Syndrome - pt has chronic pain - has been maintained on current medications, has not sought out other medications, only uses PRN pain medications as directed, and understands the consequences of over-medication. . Atrial Fibrillation - pt on chronic anticoagulation and is currently rate controlled. The pt is to have labs done as appropriate to monitor medication levels and is to report if they start to feel as if their heart rate is becoming uncontrolled. hx carotid stenosis - orders for ultrasound Rash on hand - rx for betamethasone cream flu shot today have your kids help you get on the [employer] website for Eliquis and they may send you the Eliquis for FREE!!! . Atrial Fibrillation - pt on chronic anticoagulation and is currently rate controlled. The pt is to have labs done as appropriate to monitor medication levels and is to report if they start to feel as if their heart rate is becoming uncontrolled. Hypertension - uncontrolled - the patient's medications have been modified as documented in the visit note. The patient has been counseled to cut back on salt in diet for a no added salt diet, low fat diet, start an exercise program with low weight bearing exercises and higher aerobic activity for heart health. The patient is to check blood pressure readings as an outpatient and either fax , call, or email the readings to the office next week for practitioner to review. The pt is to call for acute concerns. Increase cardizem from 120mg to 180mg daily, continue with eliquis. Edema - compression of legs and elevation. have your kids help you get on the [employer] website for Eliquis and they may send you the Eliquis for FREE!!! . Atrial Fibrillation - pt on chronic anticoagulation and is currently rate controlled. The pt is to have labs done as appropriate to monitor medication levels and is to report if they start to feel as if their heart rate is becoming uncontrolled. Hypertension - uncontrolled - the patient's medications have been modified as documented in the visit note. The patient has been counseled to cut back on salt in diet for a no added salt diet, low fat diet, start an exercise program with low weight bearing exercises and higher aerobic activity for heart health. The patient is to check blood pressure readings as an outpatient and either fax , call, or email the readings to the office next week for practitioner to review. The pt is to call for acute concerns. Increase cardizem from 120mg to 180mg daily, continue with eliquis. Edema - compression of legs and elevation. . Hypertension - well controlled - continue with current medications, continue with no added salt diet. Pt has been encouraged to exercise daily. The pt has been advised to call the office if there are any acute concerns about change in blood pressure readings at home. Atrial Fibrillation - called to Dr. Wang office to see if we can get Sandro scheduled for an Echo since he recently went into atrial fibrillation. - he would like to have this done at [facility] in [place]. Continue with Eliquis, rate controlling medication. . Hypertension - well controlled - continue with current medications, continue with no added salt diet. Pt has been encouraged to exercise daily. The pt has been advised to call the office if there are any acute concerns about change in blood pressure readings at home. Hyperlipidemia - pt has been counseled about appropriate diet, exercise, and need for low fat food choices. I have discussed the need for the patient to take medications as prescribed. If the patient has negative side effects from the medication, they are to CALL the office and not abruptly discontinue the medication without discussion with a practitioner in the office. We will check labs in 3-6 months for follow up on the patient's chronic medical problem and to assure normal liver response to medications. Chronic Afib - monitor symptoms - continue current medication. . Hypertension - well controlled - continue with current medications, continue with no added salt diet. Pt has been encouraged to exercise daily. The pt has been advised to call the office if there are any acute concerns about change in blood pressure readings at home. Atrial Fibrillation - pt on chronic anticoagulation and is currently rate controlled. The pt is to have labs done as appropriate to monitor medication levels and is to report if they start to feel as if their heart rate is becoming uncontrolled. Hospital follow up - This was a follow up appointment from the patient's hospitalization during which time Dr. Brian formulated the assessment and plan for the follow up on this patient's medical condition. . Hypertension - well controlled - continue with current medications, continue with no added salt diet. Pt has been encouraged to exercise daily. The pt has been advised to call the office if there are any acute concerns about change in blood pressure readings at home. Hyperlipidemia - pt has been counseled about appropriate diet, exercise, and need for low fat food choices. I have discussed the need for the patient to take medications as prescribed. If the patient has negative side effects from the medication, they are to CALL the office and not abruptly discontinue the medication without discussion with a practitioner in the office. We will check labs in 3-6 months for follow up on the patient's chronic medical problem and to assure normal liver response to medications. Chronic Pain Syndrome - pt has chronic pain - has been maintained on current medications, has not sought out other medications, only uses PRN pain medications as directed, and understands the consequences of over-medication. - Refilled Tramadol. Anxiety - refilled alprazolam decrease losartan to 50mg daily (1/2 of your current pill) - Cardizem CD 120mg daily . Atrial Fibrillation - pt on chronic anticoagulation and is currently not optimally rate controlled. The pt is to have labs done as appropriate to monitor medication levels and is to report if they start to feel as if their heart rate is becoming uncontrolled. Start on Cardizem CD 120mg daily. HTN - controlled - however due to low blood pressure and need for Calcium Channel Sunil - I have recommended pt to decrease dose of losartan to 50mg daily. Monitor blood pressure. Edema - due to tachycardia - control heart rate and the edema should improve. Discussed flu shot today - pt to wait until appt in 2 weeks for flu shot - he can get the shot at the same time as his . decrease losartan to 50mg daily (1/2 of your current pill) - Cardizem CD 120mg daily . Atrial Fibrillation - pt on chronic anticoagulation and is currently not optimally rate controlled. The pt is to have labs done as appropriate to monitor medication levels and is to report if they start to feel as if their heart rate is becoming uncontrolled. Start on Cardizem CD 120mg daily. HTN - controlled - however due to low blood pressure and need for Calcium Channel Sunil - I have recommended pt to decrease dose of losartan to 50mg daily. Monitor blood pressure. Edema - due to tachycardia - control heart rate and the edema should improve. Discussed flu shot today - pt to wait until appt in 2 weeks for flu shot - he can get the shot at the same time as his . do labs the week before next appt . Hypertension - well controlled - continue with current medications, continue with no added salt diet. Pt has been encouraged to exercise daily. The pt has been advised to call the office if there are any acute concerns about change in blood pressure readings at home. Hyperlipidemia - pt has been counseled about appropriate diet, exercise, and need for low fat food choices. I have discussed the need for the patient to take medications as prescribed. If the patient has negative side effects from the medication, they are to CALL the office and not abruptly discontinue the medication without discussion with a practitioner in the office. We will check labs in 3-6 months for follow up on the patient's chronic medical problem and to assure normal liver response to medications. Chronic Pain Syndrome - pt has chronic pain - has been maintained on current medications, has not sought out other medications, only uses PRN pain medications as directed, and understands the consequences of over-medication. - Anxiety - refilled alprazolam hold the lipitor x 1 week then when you restart it, start it at a decreased dose - the lipitor to 1/2 of the 40mg pill daily - START co enzyme Q10 - take this pill daily - it is over the counter - and should help to decrease the aching in the muscle and joints that the cholesterol medication can cause. STOP lisinopril start losartan 100mg daily - for blood pressure control . Hypertension - well controlled - however, due to cough, must change lisinopril to losartan and monitor pressure closely at home., continue with no added salt diet. Pt has been encouraged to exercise daily. The pt has been advised to call the office if there are any acute concerns about change in blood pressure readings at home. Cough - due to lisinopril - this medication was stopped and pt was started on losartan. Myalgia - hold the lipitor x 1 week then when you restart it, start it at a decreased dose - the lipitor to 1/2 of the 40mg pill daily - START co enzyme Q10 - take this pill daily - it is over the counter - and should help to decrease the aching in the muscle and joints that the cholesterol medication can cause. Hyperlipidemia - controlled - started decreased dose of lipitor. . Hypertension - well controlled - continue with current medications, continue with no added salt diet. Pt has been encouraged to exercise daily. The pt has been advised to call the office if there are any acute concerns about change in blood pressure readings at home. Hyperlipidemia - pt has been counseled about appropriate diet, exercise, and need for low fat food choices. I have discussed the need for the patient to take medications as prescribed. If the patient has negative side effects from the medication, they are to CALL the office and not abruptly discontinue the medication without discussion with a practitioner in the office. We will check labs in 3-6 months for follow up on the patient's chronic medical problem and to assure normal liver response to medications.
--- OUTSIDE RECORDS SUMMARY | 2018-07-24 16:39 | XMS REPORT | CCD ---
Author Author [facility] Organization [facility] Address [address] [place] [address] Phone Care Team Providers Care Sound Effects Technician Name Role Phone PP Unavailable CCM Unavailable Summary Purpose Interface Exchange Insurance Providers Payer name Policy type / Coverage type Covered republican ID Effective Begin Date Effective End Date [facility] Medicare Part B [id number] Unknown WPS Medicare Part B Medicare Part B [id number] Unknown Family history Father Diagnosis Age At Onset Heart Attack Unknown Son Diagnosis Age At Onset Alcoholism Unknown Social History Social History Element Codes Description Effective Dates Employment Unknown 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 Marital status Unknown [place] 08/08/2016 Number of children Unknown 2 12/08/[address]: 5007528 Former smoker quit 1990 12/08/[address]: 689524233 Never drinks alcohol 12/08/2014 Allergies, Adverse Reactions, [...] Start Date Stop Date Status Fill Instructions alprazolam 0.5 mg tablet RxNorm: 976545 TAKE 1 TABLET BY MOUTH EVERY 8 HOURS NEEDED FOR ANXIETY 06/09/2018 06/28/2018 Active Lipitor 40 mg tablet RxNorm: 827356 TAKE 1/2 TABLET BY MOUTH ONCE DAILY 04/24/2018 04/18/2019 Active tramadol 50 mg tablet RxNorm: 101120 Tablet(s) TAKE 1 TABLET BY MOUTH FOUR TIMES DAILY NEEDED 04/17/2018 06/21/2018 Active Cardizem CD 180 mg capsule,extended release RxNorm: 357085 1 Capsule(s) PO daily 03/20/2018 10/15/2018 Active Eliquis 2.5 mg tablet RxNorm: 4825326 1 Tablet(s) PO BID 201704/16/2018 Inactive Eliquis 2.5 mg tablet RxNorm: 5786973 1 TABLET(S) PO BID 201701/15/2019 Active alprazolam 0.5 mg tablet RxNorm: 543997 Tablet(s) TAKE 1 TABLET BY MOUTH EVERY 8 HOURS NEEDED FOR ANXIETY OR INSOMNIA 02/20/2018 05/10/2018 Inactive losartan 100 mg tablet RxNorm: 882158 1/2 Tablet(s) 02/19/2018 02/13/2019 Active Cardizem CD 120 mg capsule,extended release RxNorm: 205335 1 Capsule(s) PO daily 02/19/2018 03/19/2018 Inactive nystatin 100,000 unit/gram topical cream RxNorm: 831058 APPLY TO THE SKIN THREE TIMES DAILY NEEDED FOR RASH Gram(s) TOP 12/23/2017 No Stop Date Active losartan 100 mg tablet RxNorm: 292910 TAKE 1 TABLET BY MOUTH EVERY DAY 11/05/2017 02/18/2018 Inactive alprazolam 0.5 mg tablet RxNorm: 771328 Tablet(s) TAKE 1 TABLET BY MOUTH EVERY 8 HOURS NEEDED FOR ANXIETY OR INSOMNIA 10/09/2017 12/26/2017 Inactive tramadol 50 mg tablet RxNorm: 609759 Tablet(s) TAKE 1 TABLET BY MOUTH FOUR TIMES DAILY NEEDED 09/17/2017 11/20/2017 Inactive Lipitor 40 mg tablet RxNorm: 745061 TAKE 1/2 TABLET BY MOUTH ONCE DAILY 07/30/2017 04/23/2018 Inactive tramadol 50 mg tablet RxNorm: 659802 Tablet(s) TAKE 1 TABLET BY MOUTH FOUR TIMES DAILY NEEDED 07/12/2017 04/16/2018 Inactive alprazolam 0.5 mg tablet RxNorm: 105026 TAKE 1 TABLET BY MOUTH EVERY 8 HOURS NEEDED FOR ANXIETY OR INSOMNIA 05/13/2017 12/17/2017 Inactive tramadol 50 mg tablet RxNorm: 107302 TAKE 1 TABLET BY MOUTH FOUR TIMES DAILY NEEDED 05/06/2017 09/16/2017 Inactive losartan 100 mg tablet RxNorm: 193095 TAKE 1 TABLET BY MOUTH EVERY DAY 04/09/2017 11/04/2017 Inactive betamethasone dipropionate 0.05 % topical ointment RxNorm: 843730 1 Application TOP BID 03/12/2017 03/11/2017 Inactive betamethasone dipropionate 0.05 % topical ointment RxNorm: 169260 1 Application TOP BID 03/12/2017 03/21/2017 Inactive alprazolam 0.5 mg tablet RxNorm: 535939 Tablet(s) TAKE 1 TABLET BY MOUTH EVERY 6 HOURS NEEDED FOR ANXIETY 02/20/201709/2016 Inactive tramadol 50 mg tablet RxNorm: 066849 1 Tablet(s) PO QID as needed 02/20/2017 04/29/2017 Inactive Eliquis 2.5 mg tablet RxNorm: 9530231 1 Tablet(s) PO BID 201601/25/2018 Inactive Eliquis 2.5 mg tablet RxNorm: 3027997 1 Tablet(s) PO BID 201601/30/2017 Inactive meclizine 12.5 mg tablet RxNorm: 170339 1 Tablet(s) PO Q6 as needed 01/01/2017 01/30/2017 Inactive alprazolam 0.5 mg tablet RxNorm: 305333 TAKE 1 TABLET BY MOUTH EVERY 6 HOURS NEEDED FOR ANXIETY 11/08/2016 11/19/2016 Inactive Lipitor 40 mg tablet RxNorm: 003421 TAKE 1/2 TABLET BY MOUTH ONCE DAILY 10/29/2016 10/28/2016 Inactive Lipitor 40 mg tablet RxNorm: 043600 TAKE 1/2 TABLET BY MOUTH ONCE DAILY 10/29/2016 12/17/2017 Inactive nystatin 100,000 unit/gram topical powder RxNorm: 430653 1 APPLICATION TOP TID NEEDED TO AFFECTED AREA 10/19/20162016 Inactive nystatin 100,000 unit/gram topical powder RxNorm: 395616 1 Application TOP TID as needed to affected area 10/17/20162016 Inactive nystatin 100,000 unit/gram topical powder RxNorm: 001195 1 Application TOP TID as needed to affected area 10/17/20162016 Inactive losartan 100 mg tablet RxNorm: 593963 TAKE 1 TABLET BY MOUTH EVERY DAY 09/06/2016 04/03/2017 Inactive Nitrostat 0.4 mg sublingual tablet RxNorm: 331368 1 Tablet(s) SL q 30 min PRN for chest pain max 3 in 2 hours 08/09/2016 No Stop Date Active Nitrostat 0.4 mg sublingual tablet RxNorm: 566641 1 Tablet(s) SL q 30 min PRN for chest pain max 3 in 2 hours 08/08/201606/2016 Inactive tramadol 50 mg tablet RxNorm: 287557 1 Tablet(s) PO QID as needed 08/08/2016 10/13/2016 Inactive Nitrostat 0.4 mg sublingual tablet RxNorm: 823001 1 Tablet(s) SL q 30 min PRN for chest pain max 3 in 2 hours 08/03/2016 Inactive losartan 100 mg tablet RxNorm: 758844 TAKE 1 TABLET BY MOUTH EVERY DAY 05/14/2016 09/05/2016 Inactive alprazolam 0.5 mg tablet RxNorm: 399175 1 Tablet(s) PO daily and q 6 hours prn anxiety 03/07/2016 11/08/2016 Inactive losartan 100 mg tablet RxNorm: 853594 1 Tablet(s) PO daily 04/201605/13/2016 Inactive Lipitor 40 mg tablet RxNorm: 737153 1/2 Tablet(s) PO daily 04/201610/28/2016 Inactive alprazolam 0.5 mg tablet RxNorm: 642117 1 Tablet(s) PO daily and q 6 hours prn anxiety 10/19/2015 02/19/2017 Inactive lisinopril 40 mg tablet RxNorm: 590005 1 Tablet(s) PO daily 10/18/2015 Inactive alprazolam 0.5 mg tablet RxNorm: 779335 1 Tablet(s) PO daily 10/18/2015 Inactive tramadol 50 mg tablet RxNorm: 288935 1 Tablet(s) PO QID as needed 04/20/2015 08/07/2016 Inactive tramadol 50 mg tablet RxNorm: 669532 1 Tablet(s) PO QID as needed 02/17/2015 04/19/2015 Inactive alprazolam 0.5 mg tablet RxNorm: 209873 1 Tablet(s) PO daily 07/11/2015 Inactive tramadol 50 mg tablet RxNorm: 479635 1 Tablet(s) PO QID as needed 01/05/2015 02/16/2015 Inactive tramadol 50 mg tablet RxNorm: 669389 2 Tablet(s) PO daily 201401/04/2015 Inactive aspirin 81 mg tablet RxNorm: 154935 1 Tablet(s) PO daily No Start Date Active Centrum Silver tablet RxNorm: oral No Start Date Active coenzyme Q10 200 mg capsule RxNorm: 100451 1 Capsule(s) PO daily No Start Date Active Fish Oil 360 mg-1,200 mg capsule RxNorm: 771128 2 Capsule(s) PO daily No Start Date Active Nitrostat 0.4 mg sublingual tablet RxNorm: 065960 1 Tablet(s) SL q 30 min PRN for chest pain max 3 in 2 hours No Start Date 08/02/2016 Inactive lisinopril 40 mg tablet RxNorm: 986259 1 Tablet(s) PO daily No Start Date 09/07/2015 Inactive meclizine 12.5 mg tablet RxNorm: 214323 1 Tablet(s) PO Q6 No Start Date 12/31/2016 Inactive alprazolam 0.5 mg tablet RxNorm: 617169 1/2 Tablet(s) PO daily No Start Date 02/02/2015 Inactive Ecotrin Low Strength 81 mg tablet,enteric coated RxNorm: 8471213 1 Tablet(s) PO daily No Start Date 01/30/2017 Inactive acetaminophen 650 mg tablet RxNorm: 542207 2 Tablet(s) PO BID No Start Date 05/14/2017 Inactive nystatin 100,000 unit/gram topical cream RxNorm: 135081 APPLY TO THE SKIN THREE TIMES DAILY NEEDED FOR RASH Gram(s) TOP No Start Date 12/22/2017 Inactive tramadol 50 mg tablet RxNorm: 984140 2 Tablet(s) PO daily No Start Date 01/03/2015 Inactive Eliquis 2.5 mg tablet RxNorm: 5376436 1 Tablet(s) PO daily No Start Date 12/31/2016 Inactive Lipitor 40 mg tablet RxNorm: 482645 1 Tablet(s) PO daily No Start Date [...] Observation Code Item Item Code Result Date Cbc With Differential Ord2 WBC 7.92 K/ul 05/27/2018 Cbc With Differential Ord2 RBC 3.34 M/ul 05/27/2018 Cbc With Differential Ord2 HGB 8.9 g/dl 05/27/2018 Cbc With Differential Ord2 Neut% 71.2 % 05/27/2018 Cbc With Differential Ord2 HCT 29.2 % 05/27/2018 Cbc With Differential Ord2 Lymph% 16.4 % 05/27/2018 Cbc With Differential Ord2 MCV 87.4 fl 05/27/2018 Cbc With Differential Ord2 MCH 26.6 pg 05/27/2018 Cbc With Differential Ord2 Kleberg% 9.6 % 05/27/2018 Cbc With Differential Ord2 Eos% 2.5 % 05/27/2018 Cbc With Differential Ord2 MCHC 30.5 pg 05/27/2018 Cbc With Differential Ord2 Baso% 0.3 % 05/27/2018 Cbc With Differential Ord2 PLT 233 K/ul 05/27/2018 Cbc With Differential Ord2 Neut ABS# 5.64 K/ul 05/27/2018 Cbc With Differential Ord2 RDW 20.9 % 05/27/2018 Cbc With Differential Ord2 Lymph ABS# 1.30 K/ul 05/27/2018 Cbc With Differential Ord2 Kleberg ABS# 0.8 K/ul 05/27/2018 Cbc With Differential Ord2 Eos ABS# 0.2 K/ul 05/27/2018 Cbc With Differential Ord2 Baso ABS# 0.0 K/ul 05/27/2018 Comp Metabolic Xga210 NA 135 mEq/L 05/27/2018 Comp Metabolic Zhn446 K 3.7 mEq/L 05/27/2018 Comp Metabolic Hmy817 CL 97 mEq/L 05/27/2018 Comp Metabolic Dlm499 CO2 28.0 mEq/L 05/27/2018 Comp Metabolic Mps768 ANION GAP 14 05/27/2018 Comp Metabolic Jbp787 GLUCOSE 128 mg/dL 05/27/2018 Comp Metabolic Ubo536 Creat 1.9 mg/dL 05/27/2018 Comp Metabolic Mwr805 eGFR 36 ml/min/1.73m2 05/27/2018 Comp Metabolic Rii172 BUN 46 mg/dL 05/27/2018 Comp Metabolic Azc796 B/C Ratio 24.5 Ratio 05/27/2018 Comp Metabolic Kna111 CALCIUM 8.7 mg/dL 05/27/2018 Comp Metabolic Ihz413 ALK PHOS 99 U/L 05/27/2018 Comp Metabolic Gyo537 AST(SGOT) 23 U/L 05/27/2018 Comp Metabolic Reg857 ALT(SGPT) 20 U/L 05/27/2018 Comp Metabolic Iqd131 BILI T 0.7 mg/dL 05/27/2018 Comp Metabolic Dfm639 ALBUMIN 3.6 g/dL 05/27/2018 Comp Metabolic Dsi448 TPRO 6.2 g/dL 05/27/2018 Comp Metabolic Gzi562 GLOB 2.6 g/dL 05/27/2018 Comp Metabolic Izp045 A/G Ratio 1.4 Ratio 05/27/2018 Comp Metabolic Yoz833 Osmo 284 mOsmo 05/27/2018 Tsh Ord6 hTSH II 2.54 uIU/mL [...] 12.2 g/dl 05/16/2017 Cbc With Differential Ord2 HCT 38.7 % 05/16/2017 Cbc With Differential Ord2 Neut% 53.7 % 05/16/2017 Cbc With Differential Ord2 Lymph% 33.5 % 05/16/2017 Cbc With Differential Ord2 MCV 90.4 fl 05/16/2017 Cbc With Differential Ord2 MCH 28.5 pg 05/16/2017 Cbc With Differential Ord2 Kleberg% 9.1 % 05/16/2017 Cbc With Differential Ord2 MCHC 31.5 pg 05/16/2017 Cbc With Differential Ord2 Eos% 3.5 % 05/16/2017 Cbc With Differential Ord2 PLT 152 K/ul 05/16/2017 Cbc With Differential Ord2 Baso% 0.2 % 05/16/2017 Cbc With Differential Ord2 RDW 14.8 % 05/16/2017 Cbc With Differential Ord2 Neut ABS# 4.74 K/ul 05/16/2017 Cbc With Differential Ord2 Lymph ABS# 2.96 K/ul 05/16/2017 Cbc With Differential Ord2 Kleberg ABS# 0.8 K/ul 05/16/2017 Cbc With Differential Ord2 Eos ABS# 0.3 K/ul 05/16/2017 Cbc With Differential Ord2 Baso ABS# 0.0 K/ul 05/16/2017 Comp Metabolic Joc209 NA 140 mEq/L 05/16/2017 Comp Metabolic Vje801 K 4.6 mEq/L 05/16/2017 Comp Metabolic Kxu384 CL 106 mEq/L 05/16/2017 Comp Metabolic Bgn334 CO2 29.0 mEq/L 05/16/2017 Comp Metabolic Kbd931 ANION GAP 10 05/16/2017 Comp Metabolic Tuu034 GLUCOSE 119 mg/dL 05/16/2017 Comp Metabolic Dxj736 Creat 1.1 mg/dL 05/16/2017 Comp Metabolic Lwo756 eGFR 66 ml/min/1.73m2 05/16/2017 Comp Metabolic Jlk780 BUN 23 mg/dL 05/16/2017 Comp Metabolic Aem213 B/C Ratio 20.5 Ratio 05/16/2017 Comp Metabolic Ypw857 CALCIUM 9.5 mg/dL 05/16/2017 Comp Metabolic Kai947 ALK PHOS 104 U/L 05/16/2017 Comp Metabolic Dag045 AST(SGOT) 25 U/L 05/16/2017 Comp Metabolic Npc283 ALT(SGPT) 16 U/L 05/16/2017 Comp Metabolic Hgh571 BILI T 0.5 mg/dL 05/16/2017 Comp Metabolic Pui749 ALBUMIN 4.2 g/dL 05/16/2017 Comp Metabolic Ptd249 TPRO 7.1 g/dL 05/16/2017 Comp Metabolic Pdd081 GLOB 2.9 g/dL 05/16/2017 Comp Metabolic Mye255 A/G Ratio 1.5 Ratio 05/16/2017 Comp Metabolic Tyy977 Osmo 284 mOsmo 05/16/2017 Comp Metabolic Evu477 NA 139 mEq/L 10/17/2015 Comp Metabolic Sev704 K 5.1 mEq/L 10/17/2015 Comp Metabolic Iec730 CL 109 mEq/L 10/17/2015 Comp Metabolic Jrx020 CO2 23.0 mEq/L 10/17/2015 Comp Metabolic Xnr431 ANION GAP 12 10/17/2015 Comp Metabolic Toy679 GLUCOSE 103 mg/dL 10/17/2015 Comp Metabolic Fpg946 Creat 1.2 mg/dL 10/17/2015 Comp Metabolic Mux350 eGFR 62 ml/min/1.73m2 10/17/2015 Comp Metabolic Ywd087 BUN 30 mg/dL 10/17/2015 Comp Metabolic Osk655 B/C Ratio 25.4 Ratio 10/17/2015 Comp Metabolic Rcf899 CALCIUM 8.9 mg/dL 10/17/2015 Comp Metabolic Jhs429 ALK PHOS 71 U/L 10/17/2015 Comp Metabolic Rpf670 AST(SGOT) 21 U/L 10/17/2015 Comp Metabolic Ayl441 ALT(SGPT) 18 U/L 10/17/2015 Comp Metabolic Log188 BILI T 0.3 mg/dL 10/17/2015 Comp Metabolic Rze069 ALBUMIN 4.2 g/dL 10/17/2015 Comp Metabolic Cnm697 TPRO 6.7 g/dL 10/17/2015 Comp Metabolic Bzs433 GLOB 2.6 g/dL 10/17/2015 Comp Metabolic Okr323 A/G Ratio 1.6 Ratio 10/17/2015 Comp Metabolic Wgf278 Osmo 284 mOsmo 10/17/2015 Cbc With Differential Ord2 WBC 7.71 K/ul 10/17/2015 Cbc With Differential Ord2 RBC 3.86 M/ul 10/17/2015 Cbc With Differential Ord2 HGB 11.2 g/dl 10/17/2015 Cbc With Differential Ord2 HCT 35.0 % 10/17/2015 Cbc With Differential Ord2 Neut% 59.0 % 10/17/2015 Cbc With Differential Ord2 MCV 90.7 fl 10/17/2015 Cbc With Differential Ord2 Lymph% 28.7 % 10/17/2015 Cbc With Differential Ord2 MCH 29.0 pg 10/17/2015 Cbc With Differential Ord2 Kleberg% 7.0 % 10/17/2015 Cbc With Differential Ord2 MCHC 32.0 pg 10/17/2015 Cbc With Differential Ord2 Eos% 5.2 % 10/17/2015 Cbc With Differential Ord2 Baso% 0.1 % 10/17/2015 Cbc With Differential Ord2 PLT 161 K/ul 10/17/2015 Cbc With Differential Ord2 Neut ABS# 4.55 K/ul 10/17/2015 Cbc With Differential Ord2 RDW 14.0 % 10/17/2015 Cbc With Differential Ord2 Lymph ABS# 2.21 K/ul 10/17/2015 Cbc With Differential Ord2 Kleberg ABS# 0.5 K/ul 10/17/2015 Cbc With Differential Ord2 Eos ABS# 0.4 K/ul 10/17/2015 Cbc With Differential Ord2 Baso ABS# 0.0 K/ul 10/17/2015 Cbc With Differential Ord2 New Analyzer Notice Please note new ref ranges starting 06-22-2015 due to implemntation of new five part differential hematolgy analyzer. 10/17/2015 Lipid Ord30 CHOL 128 mg/dL 10/17/2015 Lipid Ord30 HDL 46.0 mg/dl 10/17/2015 Lipid Ord30 TRIG 100 mg/dL 10/17/2015 Lipid Ord30 LDL 62 mg/dL 10/17/2015 Lipid Ord30 C/HDL 2.8 Ratio 10/17/2015 Tsh Ord6 hTSH II 1.13 uIU/mL 10/17/2015 Review of Systems System Result Effective [...] accomodation 08/08/2016 None Full Exam - General 1994 Ears/Nose/Throat otoscopic exam Overall: external auditory canals clear 08/08/2016 None Full Exam - General 1994 Ears/Nose/Throat otoscopic exam Overall: tympanic membranes clear 08/08/2016 None Full Exam - General 1994 Ears/Nose/Throat lips/teeth/gingiva Overall: benign lips 08/08/2016 None Full Exam - General 1994 Ears/Nose/Throat lips/teeth/gingiva Overall: normal dentition 08/08/2016 None Full Exam - General 1994 Ears/Nose/Throat oral cavity/pharynx/larynx Overall: oral mucosa clear 08/08/2016 None Full Exam - General 1994 Ears/Nose/Throat oral cavity/pharynx/larynx Overall: oropharyngeal mucosa clear 08/08/2016 None Full Exam - General 1994 Ears/Nose/Throat oral cavity/pharynx/larynx Overall: hypopharynx benign 08/08/2016 [...] FLU VACC PRSV FREE INC ANTIG CPT-4: 09197 03/31/2018 ADMIN INFLUENZA VIRUS VAC CPT-4: G0008 03/12/2017 FLU VACC PRSV FREE INC ANTIG CPT-4: 10835 03/12/2017 PRESCRIP TRANSMIT VIA ERX SY CPT-4: G8553 01/31/2017 PRESCRIP TRANSMIT VIA ERX SY CPT-4: G8553 01/01/2017 PRESCRIP TRANSMIT VIA ERX SY CPT-4: G8553 08/08/2016 ADMIN INFLUENZA VIRUS VAC CPT-4: G0008 03/14/2016 FLU VACC 4 KRANTHI 3 YRS PLUS IM Formatting Model/CDA Sections, Assigned to/Fiordaliza Tadeo CT: [id number] CPT-4: 42076Rdqlqoa 03/14/2016 Vital Signs Date Vital 06/04/2018 Blood Pressure 1: 138/62 Code : 8480-6 BMI: 43.6 Code : 50442-3 Heart Rate 1 : 78 bpm Height: 5' SpO2: 94% Weight: 223 lbs 03/20/2018 Blood Pressure 1: 146/76 Code : 8480-6 BMI: 46.7 Code : 36335-2 Heart Rate 1 : 107 bpm Height: 5' SpO2: 98% Weight: 239 lbs 02/19/2018 Blood Pressure 1: 116/60 Code : 8480-6 BMI: 46.9 Code : 69616-5 Heart Rate 1 : 113 bpm Height: 5' SpO2: 96% Weight: 240 lbs 12/18/2017 Blood Pressure 1: 110/66 Code : 8480-6 BMI: 46.5 Code : 76606-2 Heart Rate 1 : 89 bpm Height: 5' SpO2: 98% Weight: 238 lbs 05/15/2017 Blood Pressure 1: 126/78 Code : 8480-6 BMI: 44.9 Code : 87251-4 Heart Rate 1 : 76 bpm Height: 5' SpO2: 98% Weight: 230 lbs 03/12/2017 Blood Pressure 1: 132/72 Code : 8480-6 BMI: 44.9 Code : 77804-4 Heart Rate 1 : 88 bpm Height: 5' SpO2: 96% Weight: 230 lbs 01/31/2017 Blood Pressure 1: 128/68 Code : 8480-6 BMI: 44.7 Code : 63477-4 Heart Rate 1 : 90 bpm Height: 5' SpO2: 96% Weight: 229 lbs 01/01/2017 Blood Pressure 1: 138/88 Code : 8480-6 BMI: 44.1 Code : 86969-7 Heart Rate 1 : 89 bpm Height: 5' SpO2: 93% Weight: 226 lbs 08/08/2016 Blood Pressure 1: 130/78 Code : 8480-6 BMI: 45.1 Code : 28490-9 Heart Rate 1 : 97 bpm Height: 5' SpO2: 97% Weight: 231 lbs 04/18/2016 Blood Pressure 1: 128/62 Code : 8480-6 BMI: 44.3 Code : 57995-5 Heart Rate 1 : 94 bpm Height: 5' SpO2: 98% Weight: 227 lbs 10/19/2015 Blood Pressure 1: 128/70 Code : 8480-6 BMI: 44.7 Code : 21416-2 Heart Rate 1 : 76 bpm Height: 5' SpO2: 97% Weight: 229 lbs 12/08/2014 Blood Pressure 1: 132/68 Code : 8480-6 BMI: 42.6 Code : 97618-0 Heart Rate 1 : 80 bpm Height: [...] data Encounters Encounter Performer Location Codes Date EST. PATIENT, LEVEL III Diagnosis: Chronic atrial fibrillation[ICD10: I48.2] Diagnosis: Essential (primary) hypertension[ICD10: I10] Diagnosis: Encounter for follow-up examination after completed treatment for conditions other than malignant neoplasm[ICD10: Z09] Keara Brian MD, [facility] CPT-4: 14676 06/04/2018 ([id number]) 88344 EST. PATIENT, LEVEL IV Diagnosis: Chronic atrial fibrillation[ICD10: I48.2] Diagnosis: Essential (primary) hypertension[ICD10: I10] Diagnosis: Localized edema[ICD10: R60.0] Carolyne Brian MD, [facility] CPT- 4: 52802 03/20/2018 ([id number]) 39118 EST. PATIENT, LEVEL IV Diagnosis: Chronic atrial fibrillation[ICD10: I48.2] Diagnosis: Localized edema[ICD10: R60.0] Diagnosis: Other specified cardiac arrhythmias[ICD10: I49.8] Carolyne Brian MD [facility] CPT-4: 59317 02/19/2018 ([id number]) 30342 EST. 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 PATIENT, LEVEL IV Diagnosis: Essential (primary) hypertension[ICD10: I10] Diagnosis: Mixed hyperlipidemia[ICD10: E78.2] Diagnosis: Chronic atrial fibrillation[ICD10: I48.2] Carolyne Brian MD [facility] CPT-4: 38682 05/15/2017 ([id number]) 75136 EST. 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 PATIENT, LEVEL III Diagnosis: Essential (primary) hypertension[ICD10: I10] Diagnosis: Chronic atrial fibrillation[ICD10: I48.2] Carolyne Brian MD [facility] CPT-4: 93901 01/31/2017 ([id number]) 97720 EST. PATIENT, LEVEL IV Diagnosis: Essential (primary) hypertension[ICD10: I10] Diagnosis: Chronic atrial fibrillation[ICD10: I48.2] Carolyne Brian MD [facility] CPT-4: 80553 01/01/2017 ([id number]) 85977 EST. PATIENT, LEVEL IV Diagnosis: Essential (primary) hypertension[ICD10: I10] Diagnosis: Chronic pain syndrome[ICD10: G89.4] Diagnosis: Generalized anxiety disorder[ICD10: F41.1] Carolyne Brian MD, [facility] CPT-4: 72665 08/08/2016 ([id number]) 87701 EST. PATIENT, LEVEL IV Diagnosis: Essential (primary) hypertension[ICD10: I10] Diagnosis: Mixed hyperlipidemia[ICD10: E78.2] Diagnosis: Chronic pain syndrome[ICD10: G89.4] Diagnosis: Generalized anxiety disorder[ICD10: F41.1] [facility] CPT-4: 54765 04/18/2016 ([id number]) 35976 EST. PATIENT, LEVEL IV Diagnosis: Essential (primary) hypertension[ICD10: I10] Diagnosis: Mixed hyperlipidemia[ICD10: E78.2] Diagnosis: Myalgia[ICD10: M79.1] Diagnosis: Cough[ICD10: R05] Carolyne Brian MD, [facility] CPT-4: 04771 10/19/2015 ([id number]) OFFICE VISIT, NEW - LEVEL 4 Diagnosis: ESSENTIAL HYPERTENSION[ICD9: 401.9] Diagnosis: HYPERLIPIDEMIA[ICD9: 272.4] Carolyne Brian MD, [facility] CPT- 4: 85066 12/08/2014 Plan of Care Planned Activity Notes [...] medical condition. 06/04/2018 [facility]ment[phone] [facility] ([facility] min[facility] Complex 06/04/2018 Patient Education: Patient Medication Summary Completed 06/04/2018 Patient Education: Hypertension Completed 06/04/2018 [facility] [phone] [facility] (15 min) Moderate 04/23/2018 [facility]ment: [facility] [phone] [facility] (15 min) Moderate 04/08/2018 Appointment: [place] 03/31/2018 Patient Education: Patient Medication Summary Completed [...] and elevation. 03/20/2018 Appointment: Carolyne Brian [facility] (15 min) Moderate 03/20/2018 Patient Education: Patient Medication Summary Completed 03/20/2018 Patient Education: Hypertension Completed 03/20/2018 [facility]: [facility] [phone] [facility] (15 min) Moderate 03/11/2018 Visit Plan: Atrial [...] his . 02/19/2018 App[facility]ment: [facility] [phone] [facility] (15 min) Moderate 02/19/2018 Patient Education: Patient [...] of over-medication. 12/18/2017 App[facility]ment: [facility] [phone] [facility] (15 min) Moderate 12/18/2017 Patient Education: Patient [...] current medication. 05/15/2017 App[facility]ment: [facility] [phone] [facility] (15 min) Moderate 05/15/2017 Patient Education: Patient [...] eliquis today 01/31/2017 App[facility]ment: [facility] [phone] [facility] (15 min) Moderate 01/31/2017 Patient Education: Patient [...] would like to have this done at [facility] in [place]. Continue with Eliquis , rate controlling medication. 01/01/2017 Appointment: Carolyne Brian [facility] [phone] [facility] (15 min) Moderate 01/01/2017 Patient Education: Patient Medication Summary Completed 01/01/2017 Patient Education: Obesity Completed 01/01/2017 Patient Education: Hypertension Completed 01/01/2017 App[facility]ment: [facility] Brian [facility] [phone] [facility] (30 min) Complex 12/24/2016 Visit Plan: Hypertension [...] alprazolam 08/08/2016 App[facility]ment: [facility] [phone] [facility] (15 min) Moderate 08/08/2016 Patient Education: Patient [...] alprazolam 04/18/2016 [facility]ment: [facility] [phone] [facility] (15 min) Moderate 04/18/2016 Patient Education: Patient Medication Summary Completed 04/18/2016 Patient Education: Obesity Completed 04/18/2016 Patient Education: Hypertension Completed 04/18/2016 Appointment: Injection 03/14/2016 Patient Education: Patient Medication Summary Completed 03/14/2016 [facility] [phone] [facility] [facility] - Annual Wellness Visit 11/17/2015 Visit Plan: [...] min) Complex 08/30/2015 Appointment: Carolyne Brian WPtel: [phone] [facility] (15 min) Moderate 04/13/2015 Visit Plan: Hypertension [...] to medications. 12/08/2014 Appointment: [facility] [phone] [facility] [place] New Patient 12/08/2014 Patient Education: [...] your kids help you get on the [employer] website for Eliquis and they may send [...] your kids help you get on the [employer] website for Eliquis and they may send [...] would like to have this done at [facility] in [place]. Continue with Eliquis, rate controlling medication. . [...]
--- OUTSIDE RECORDS SUMMARY | 2018-07-24 16:41 | XMS REPORT | CCD ---
Author Author [facility]yne Brian Organization [facility] Address [address] [place] [address] Phone Care Team Providers Care Insights Manager Name Role Phone PP Unavailable CCM Unavailable Summary Purpose Interface Exchange Insurance Providers Payer name Policy type / Coverage type Covered republican ID Effective Begin Date Effective End Date [facility] Medicare Part B [id number] Unknown WPS Medicare Part B Medicare Part B [id number] Unknown Family history Father Diagnosis Age At Onset Heart Attack Unknown Son Diagnosis Age At Onset Alcoholism Unknown Social History Social History Element Codes Description Effective Dates Employment Unknown 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 Marital status Unknown [place] 08/08/2016 Number of children Unknown 2 12/08/[address]: 5264322 Former smoker quit 1990 12/08/[address]: 012126716 Never drinks alcohol 12/08/2014 Allergies, Adverse Reactions, [...] Start Date Stop Date Status Fill Instructions Lipitor 40 mg tablet RxNorm: 067134 TAKE 1/2 TABLET BY MOUTH ONCE DAILY 04/24/2018 04/18/2019 Active tramadol 50 mg tablet RxNorm: 698605 Tablet(s) TAKE 1 TABLET BY MOUTH FOUR TIMES DAILY NEEDED 04/17/2018 06/21/2018 Active Cardizem CD 180 mg capsule,extended release RxNorm: 530195 1 Capsule(s) PO daily 03/20/2018 10/15/2018 Active Eliquis 2.5 mg tablet RxNorm: 0171193 1 Tablet(s) PO BID 201704/16/2018 Inactive alprazolam 0.5 mg tablet RxNorm: 118449 Tablet(s) TAKE 1 TABLET BY MOUTH EVERY 8 HOURS NEEDED FOR ANXIETY OR INSOMNIA 02/20/2018 05/10/2018 Inactive Eliquis 2.5 mg tablet RxNorm: 7647469 1 TABLET(S) PO BID 201701/15/2019 Active losartan 100 mg tablet RxNorm: 444361 1/2 Tablet(s) 02/19/2018 02/13/2019 Active Cardizem CD 120 mg capsule,extended release RxNorm: 214717 1 Capsule(s) PO daily 02/19/2018 03/19/2018 Inactive nystatin 100,000 unit/gram topical cream RxNorm: 263787 APPLY TO THE SKIN THREE TIMES DAILY NEEDED FOR RASH Gram(s) TOP 12/23/2017 No Stop Date Active losartan 100 mg tablet RxNorm: 234965 TAKE 1 TABLET BY MOUTH EVERY DAY 11/05/2017 02/18/2018 Inactive alprazolam 0.5 mg tablet RxNorm: 937118 Tablet(s) TAKE 1 TABLET BY MOUTH EVERY 8 HOURS NEEDED FOR ANXIETY OR INSOMNIA 10/09/2017 12/26/2017 Inactive tramadol 50 mg tablet RxNorm: 994092 Tablet(s) TAKE 1 TABLET BY MOUTH FOUR TIMES DAILY NEEDED 09/17/2017 11/20/2017 Inactive Lipitor 40 mg tablet RxNorm: 244267 TAKE 1/2 TABLET BY MOUTH ONCE DAILY 07/30/2017 04/23/2018 Inactive tramadol 50 mg tablet RxNorm: 331502 Tablet(s) TAKE 1 TABLET BY MOUTH FOUR TIMES DAILY NEEDED 07/12/2017 04/16/2018 Inactive alprazolam 0.5 mg tablet RxNorm: 260611 TAKE 1 TABLET BY MOUTH EVERY 8 HOURS NEEDED FOR ANXIETY OR INSOMNIA 05/13/2017 12/17/2017 Inactive tramadol 50 mg tablet RxNorm: 803343 TAKE 1 TABLET BY MOUTH FOUR TIMES DAILY NEEDED 05/06/2017 09/16/2017 Inactive losartan 100 mg tablet RxNorm: 575437 TAKE 1 TABLET BY MOUTH EVERY DAY 04/09/2017 11/04/2017 Inactive betamethasone dipropionate 0.05 % topical ointment RxNorm: 775680 1 Application TOP BID 03/12/2017 03/11/2017 Inactive betamethasone dipropionate 0.05 % topical ointment RxNorm: 280408 1 Application TOP BID 03/12/2017 03/21/2017 Inactive alprazolam 0.5 mg tablet RxNorm: 289361 Tablet(s) TAKE 1 TABLET BY MOUTH EVERY 6 HOURS NEEDED FOR ANXIETY 02/20/201709/2016 Inactive tramadol 50 mg tablet RxNorm: 962127 1 Tablet(s) PO QID as needed 02/20/2017 04/29/2017 Inactive Eliquis 2.5 mg tablet RxNorm: 9090613 1 Tablet(s) PO BID 201601/25/2018 Inactive Eliquis 2.5 mg tablet RxNorm: 5994640 1 Tablet(s) PO BID 201601/30/2017 Inactive meclizine 12.5 mg tablet RxNorm: 563003 1 Tablet(s) PO Q6 as needed 01/01/2017 01/30/2017 Inactive alprazolam 0.5 mg tablet RxNorm: 497429 TAKE 1 TABLET BY MOUTH EVERY 6 HOURS NEEDED FOR ANXIETY 11/08/2016 11/19/2016 Inactive Lipitor 40 mg tablet RxNorm: 220821 TAKE 1/2 TABLET BY MOUTH ONCE DAILY 10/29/2016 10/28/2016 Inactive Lipitor 40 mg tablet RxNorm: 867692 TAKE 1/2 TABLET BY MOUTH ONCE DAILY 10/29/2016 12/17/2017 Inactive nystatin 100,000 unit/gram topical powder RxNorm: 274840 1 APPLICATION TOP TID NEEDED TO AFFECTED AREA 10/19/20162016 Inactive nystatin 100,000 unit/gram topical powder RxNorm: 247544 1 Application TOP TID as needed to affected area 10/17/20162016 Inactive nystatin 100,000 unit/gram topical powder RxNorm: 449255 1 Application TOP TID as needed to affected area 10/17/20162016 Inactive losartan 100 mg tablet RxNorm: 960214 TAKE 1 TABLET BY MOUTH EVERY DAY 09/06/2016 04/03/2017 Inactive Nitrostat 0.4 mg sublingual tablet RxNorm: 127166 1 Tablet(s) SL q 30 min PRN for chest pain max 3 in 2 hours 08/09/2016 No Stop Date Active Nitrostat 0.4 mg sublingual tablet RxNorm: 311863 1 Tablet(s) SL q 30 min PRN for chest pain max 3 in 2 hours 08/08/201606/2016 Inactive tramadol 50 mg tablet RxNorm: 171758 1 Tablet(s) PO QID as needed 08/08/2016 10/13/2016 Inactive Nitrostat 0.4 mg sublingual tablet RxNorm: 366037 1 Tablet(s) SL q 30 min PRN for chest pain max 3 in 2 hours 08/03/2016 Inactive losartan 100 mg tablet RxNorm: 683471 TAKE 1 TABLET BY MOUTH EVERY DAY 05/14/2016 09/05/2016 Inactive alprazolam 0.5 mg tablet RxNorm: 121191 1 Tablet(s) PO daily and q 6 hours prn anxiety 03/07/2016 11/08/2016 Inactive losartan 100 mg tablet RxNorm: 133571 1 Tablet(s) PO daily 04/201605/13/2016 Inactive Lipitor 40 mg tablet RxNorm: 975631 1/2 Tablet(s) PO daily 04/201610/28/2016 Inactive alprazolam 0.5 mg tablet RxNorm: 373820 1 Tablet(s) PO daily and q 6 hours prn anxiety 10/19/2015 02/19/2017 Inactive lisinopril 40 mg tablet RxNorm: 636724 1 Tablet(s) PO daily 10/18/2015 Inactive alprazolam 0.5 mg tablet RxNorm: 001895 1 Tablet(s) PO daily 10/18/2015 Inactive tramadol 50 mg tablet RxNorm: 027484 1 Tablet(s) PO QID as needed 04/20/2015 08/07/2016 Inactive tramadol 50 mg tablet RxNorm: 193250 1 Tablet(s) PO QID as needed 02/17/2015 04/19/2015 Inactive alprazolam 0.5 mg tablet RxNorm: 208585 1 Tablet(s) PO daily 07/11/2015 Inactive tramadol 50 mg tablet RxNorm: 639125 1 Tablet(s) PO QID as needed 01/05/2015 02/16/2015 Inactive tramadol 50 mg tablet RxNorm: 444234 2 Tablet(s) PO daily 201401/04/2015 Inactive aspirin 81 mg tablet RxNorm: 873397 1 Tablet(s) PO daily No Start Date Active Centrum Silver tablet RxNorm: oral No Start Date Active coenzyme Q10 200 mg capsule RxNorm: 585690 1 Capsule(s) PO daily No Start Date Active Fish Oil 360 mg-1,200 mg capsule RxNorm: 646109 2 Capsule(s) PO daily No Start Date Active Nitrostat 0.4 mg sublingual tablet RxNorm: 094958 1 Tablet(s) SL q 30 min PRN for chest pain max 3 in 2 hours No Start Date 08/02/2016 Inactive lisinopril 40 mg tablet RxNorm: 262357 1 Tablet(s) PO daily No Start Date 09/07/2015 Inactive meclizine 12.5 mg tablet RxNorm: 643134 1 Tablet(s) PO Q6 No Start Date 12/31/2016 Inactive alprazolam 0.5 mg tablet RxNorm: 663832 1/2 Tablet(s) PO daily No Start Date 02/02/2015 Inactive Ecotrin Low Strength 81 mg tablet,enteric coated RxNorm: 3961409 1 Tablet(s) PO daily No Start Date 01/30/2017 Inactive acetaminophen 650 mg tablet RxNorm: 216480 2 Tablet(s) PO BID No Start Date 05/14/2017 Inactive nystatin 100,000 unit/gram topical cream RxNorm: 782210 APPLY TO THE SKIN THREE TIMES DAILY NEEDED FOR RASH Gram(s) TOP No Start Date 12/22/2017 Inactive tramadol 50 mg tablet RxNorm: 518649 2 Tablet(s) PO daily No Start Date 01/03/2015 Inactive Eliquis 2.5 mg tablet RxNorm: 8740762 1 Tablet(s) PO daily No Start Date 12/31/2016 Inactive Lipitor 40 mg tablet RxNorm: 914462 1 Tablet(s) PO daily No Start Date [...] 26.6 pg 05/27/2018 Cbc With Differential Ord2 [place]% 9.6 % 05/27/2018 Cbc With Differential Ord2 [...] 1.30 K/ul 05/27/2018 Cbc With Differential Ord2 [place] ABS# 0.8 K/ul 05/27/2018 Cbc With Differential Ord2 Eos ABS# 0.2 K/ul 05/27/2018 Cbc With Differential Ord2 Baso ABS# 0.0 K/ul 05/27/2018 Comp Metabolic Pmn924 NA 135 mEq/L 05/27/2018 Comp Metabolic Dud776 K 3.7 mEq/L 05/27/2018 Comp Metabolic Xij922 CL 97 mEq/L 05/27/2018 Comp Metabolic Wpd417 CO2 28.0 mEq/L 05/27/2018 Comp Metabolic Rqr141 ANION GAP 14 05/27/2018 Comp Metabolic Qlz340 GLUCOSE 128 mg/dL 05/27/2018 Comp Metabolic Ncx319 Creat 1.9 mg/dL 05/27/2018 Comp Metabolic Bql842 eGFR 36 ml/min/1.73m2 05/27/2018 Comp Metabolic Xfx993 BUN 46 mg/dL 05/27/2018 Comp Metabolic Thb556 B/C Ratio 24.5 Ratio 05/27/2018 Comp Metabolic Rbe824 CALCIUM 8.7 mg/dL 05/27/2018 Comp Metabolic Nho671 ALK PHOS 99 U/L 05/27/2018 Comp Metabolic Vik251 AST(SGOT) 23 U/L 05/27/2018 Comp Metabolic Bgb134 ALT(SGPT) 20 U/L 05/27/2018 Comp Metabolic Vve938 BILI T 0.7 mg/dL 05/27/2018 Comp Metabolic Saf929 ALBUMIN 3.6 g/dL 05/27/2018 Comp Metabolic Hdj295 TPRO 6.2 g/dL 05/27/2018 Comp Metabolic Ahs211 GLOB 2.6 g/dL 05/27/2018 Comp Metabolic Til453 A/G Ratio 1.4 Ratio 05/27/2018 Comp Metabolic Ngg297 Osmo 284 mOsmo 05/27/2018 Tsh Ord6 hTSH [...] 28.5 pg 05/16/2017 Cbc With Differential Ord2 [place]% 9.1 % 05/16/2017 Cbc With Differential Ord2 [...] 2.96 K/ul 05/16/2017 Cbc With Differential Ord2 [place] ABS# 0.8 K/ul 05/16/2017 Cbc With Differential Ord2 Eos ABS# 0.3 K/ul 05/16/2017 Cbc With Differential Ord2 Baso ABS# 0.0 K/ul 05/16/2017 Comp Metabolic Ujo161 NA 140 mEq/L 05/16/2017 Comp Metabolic Mvc737 K 4.6 mEq/L 05/16/2017 Comp Metabolic Isv508 CL 106 mEq/L 05/16/2017 Comp Metabolic Yfw894 CO2 29.0 mEq/L 05/16/2017 Comp Metabolic Psj413 ANION GAP 10 05/16/2017 Comp Metabolic Wqz937 GLUCOSE 119 mg/dL 05/16/2017 Comp Metabolic Qbn254 Creat 1.1 mg/dL 05/16/2017 Comp Metabolic Ixi871 eGFR 66 ml/min/1.73m2 05/16/2017 Comp Metabolic Gnx469 BUN 23 mg/dL 05/16/2017 Comp Metabolic Sjk567 B/C Ratio 20.5 Ratio 05/16/2017 Comp Metabolic Eqh708 CALCIUM 9.5 mg/dL 05/16/2017 Comp Metabolic Iwy762 ALK PHOS 104 U/L 05/16/2017 Comp Metabolic Ldz732 AST(SGOT) 25 U/L 05/16/2017 Comp Metabolic Qbm092 ALT(SGPT) 16 U/L 05/16/2017 Comp Metabolic Rub635 BILI T 0.5 mg/dL 05/16/2017 Comp Metabolic Vmv247 ALBUMIN 4.2 g/dL 05/16/2017 Comp Metabolic Amf001 TPRO 7.1 g/dL 05/16/2017 Comp Metabolic Lzp654 GLOB 2.9 g/dL 05/16/2017 Comp Metabolic Uds848 A/G Ratio 1.5 Ratio 05/16/2017 Comp Metabolic Vsj601 Osmo 284 mOsmo 05/16/2017 Comp Metabolic Fgt891 NA 139 mEq/L 10/17/2015 Comp Metabolic Caw200 K 5.1 mEq/L 10/17/2015 Comp Metabolic Amr891 CL 109 mEq/L 10/17/2015 Comp Metabolic Tin141 CO2 23.0 mEq/L 10/17/2015 Comp Metabolic Hfn848 ANION GAP 12 10/17/2015 Comp Metabolic Nwb467 GLUCOSE 103 mg/dL 10/17/2015 Comp Metabolic Frm276 Creat 1.2 mg/dL 10/17/2015 Comp Metabolic Rcm560 eGFR 62 ml/min/1.73m2 10/17/2015 Comp Metabolic Jtf312 BUN 30 mg/dL 10/17/2015 Comp Metabolic Joz185 B/C Ratio 25.4 Ratio 10/17/2015 Comp Metabolic Hlt397 CALCIUM 8.9 mg/dL 10/17/2015 Comp Metabolic Lmp242 ALK PHOS 71 U/L 10/17/2015 Comp Metabolic Ftx494 AST(SGOT) 21 U/L 10/17/2015 Comp Metabolic Arx183 ALT(SGPT) 18 U/L 10/17/2015 Comp Metabolic Hpq965 BILI T 0.3 mg/dL 10/17/2015 Comp Metabolic Tyw415 ALBUMIN 4.2 g/dL 10/17/2015 Comp Metabolic Qui092 TPRO 6.7 g/dL 10/17/2015 Comp Metabolic Ypv760 GLOB 2.6 g/dL 10/17/2015 Comp Metabolic Duk418 A/G Ratio 1.6 Ratio 10/17/2015 Comp Metabolic Hfw883 Osmo 284 mOsmo 10/17/2015 Cbc With Differential [...] 29.0 pg 10/17/2015 Cbc With Differential Ord2 [place]% 7.0 % 10/17/2015 Cbc With Differential Ord2 [...] 2.21 K/ul 10/17/2015 Cbc With Differential Ord2 [place] ABS# 0.5 K/ul 10/17/2015 Cbc With Differential [...] FLU VACC PRSV FREE INC ANTIG CPT-4: 40727 03/31/2018 ADMIN INFLUENZA VIRUS VAC CPT-4: G0008 03/12/2017 FLU VACC PRSV FREE INC ANTIG CPT-4: 31788 03/12/2017 PRESCRIP TRANSMIT VIA ERX SY CPT-4: G8553 01/31/2017 PRESCRIP TRANSMIT VIA ERX SY CPT-4: G8553 01/01/2017 PRESCRIP TRANSMIT VIA ERX SY CPT-4: G8553 08/08/2016 ADMIN INFLUENZA VIRUS VAC CPT-4: G0008 03/14/2016 FLU VACC 4 KRANTHI 3 YRS PLUS IM Formatting Model/CDA Sections, Assigned to/Fiordaliza Tadeo SNBEAU CT: [id number] CPT-4: 08655Wjofirl 03/14/2016 Vital Signs Date Vital 06/04/2018 Blood Pressure 1: 138/62 Code : 8480-6 BMI: 43.6 Code : 99430-2 Heart Rate 1 : 78 bpm Height: 5' SpO2: 94% Weight: 223 lbs 03/20/2018 Blood Pressure 1: 146/76 Code : 8480-6 BMI: 46.7 Code : 60050-3 Heart Rate 1 : 107 bpm Height: 5' SpO2: 98% Weight: 239 lbs 02/19/2018 Blood Pressure 1: 116/60 Code : 8480-6 BMI: 46.9 Code : 06431-9 Heart Rate 1 : 113 bpm Height: 5' SpO2: 96% Weight: 240 lbs 12/18/2017 Blood Pressure 1: 110/66 Code : 8480-6 BMI: 46.5 Code : 85430-1 Heart Rate 1 : 89 bpm Height: 5' SpO2: 98% Weight: 238 lbs 05/15/2017 Blood Pressure 1: 126/78 Code : 8480-6 BMI: 44.9 Code : 82524-6 Heart Rate 1 : 76 bpm Height: 5' SpO2: 98% Weight: 230 lbs 03/12/2017 Blood Pressure 1: 132/72 Code : 8480-6 BMI: 44.9 Code : 51579-9 Heart Rate 1 : 88 bpm Height: 5' SpO2: 96% Weight: 230 lbs 01/31/2017 Blood Pressure 1: 128/68 Code : 8480-6 BMI: 44.7 Code : 12328-2 Heart Rate 1 : 90 bpm Height: 5' SpO2: 96% Weight: 229 lbs 01/01/2017 Blood Pressure 1: 138/88 Code : 8480-6 BMI: 44.1 Code : 18730-5 Heart Rate 1 : 89 bpm Height: 5' SpO2: 93% Weight: 226 lbs 08/08/2016 Blood Pressure 1: 130/78 Code : 8480-6 BMI: 45.1 Code : 20286-4 Heart Rate 1 : 97 bpm Height: 5' SpO2: 97% Weight: 231 lbs 04/18/2016 Blood Pressure 1: 128/62 Code : 8480-6 BMI: 44.3 Code : 09921-4 Heart Rate 1 : 94 bpm Height: 5' SpO2: 98% Weight: 227 lbs 10/19/2015 Blood Pressure 1: 128/70 Code : 8480-6 BMI: 44.7 Code : 52345-1 Heart Rate 1 : 76 bpm Height: 5' SpO2: 97% Weight: 229 lbs 12/08/2014 Blood Pressure 1: 132/68 Code : 8480-6 BMI: 42.6 Code : 31025-0 Heart Rate 1 : 80 bpm Height: [...] than malignant neoplasm[ICD10: Z09] Keara Brian MD, [facility] CPT-4: 89285 06/04/2018 ([id number]) 83974 EST. PATIENT, LEVEL IV Diagnosis: Chronic atrial fibrillation[ICD10: I48.2] Diagnosis: Essential (primary) hypertension[ICD10: I10] Diagnosis: Localized edema[ICD10: R60.0] [facility] CPT- 4: 55387 03/20/2018 ([id number]) 50070 EST. PATIENT, LEVEL IV Diagnosis: Chronic atrial fibrillation[ICD10: I48.2] Diagnosis: Localized edema[ICD10: R60.0] Diagnosis: Other specified cardiac arrhythmias[ICD10: I49.8] Carolyne Brian MD, [facility] CPT-4: 43040 02/19/2018 ([id number]) 51492 EST. 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 PATIENT, LEVEL IV Diagnosis: Essential (primary) hypertension[ICD10: I10] Diagnosis: Mixed hyperlipidemia[ICD10: E78.2] Diagnosis: Chronic atrial fibrillation[ICD10: I48.2] [facility] CPT-4: 68864 05/15/2017 ([id number]) 03482 EST. 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 PATIENT, LEVEL III Diagnosis: Essential (primary) hypertension[ICD10: I10] Diagnosis: Chronic atrial fibrillation[ICD10: I48.2] [facility]yne Brian MD, [facility] CPT-4: 44973 01/31/2017 [id number]) 20819 EST. PATIENT, LEVEL IV Diagnosis: Essential (primary) hypertension[ICD10: I10] Diagnosis: Chronic atrial fibrillation[ICD10: I48.2] Carolyne Brian MD, [facility] CPT-4: 22629 01/01/2017 [id number]) 18212 EST. PATIENT, LEVEL IV Diagnosis: Essential (primary) hypertension[ICD10: I10] Diagnosis: Chronic pain syndrome[ICD10: G89.4] Diagnosis: Generalized anxiety disorder[ICD10: F41.1] Carolyne Brian MD, [facility] CPT-4: 88474 08/08/2016 [id number] 83403 EST. PATIENT, LEVEL IV Diagnosis: Essential (primary) hypertension[ICD10: I10] Diagnosis: Mixed hyperlipidemia[ICD10: E78.2] Diagnosis: Chronic pain syndrome[ICD10: G89.4] Diagnosis: Generalized anxiety disorder[ICD10: F41.1] [facility] CPT-4: 48286 04/18/2016 ([id number]) 89615 EST. PATIENT, LEVEL IV Diagnosis: Essential (primary) hypertension[ICD10: I10] Diagnosis: Mixed hyperlipidemia[ICD10: E78.2] Diagnosis: Myalgia[ICD10: M79.1] Diagnosis: Cough[ICD10: R05] [facility] CPT-4: 01213 10/19/2015 ([id number]) OFFICE VISIT, NEW - LEVEL 4 Diagnosis: ESSENTIAL HYPERTENSION[ICD9: 401.9] Diagnosis: HYPERLIPIDEMIA[ICD9: 272.4] [facility] CPT- 4: 38885 12/08/2014 Plan of Care Planned Activity Notes [...] condition. 06/04/2018 Appointment[facility] [facility] [place] (30 min) Complex 06/04/2018 Patient Education: Patient Medication Summary Completed 06/04/2018 Patient Education: Hypertension Completed 06/04/2018 Appointment: [facility] [phone] [facility] [place] (15 min) Moderate 04/23/2018 Appointment: Carolyne Brian WPtel: [facility] [place] (15 min) Moderate 04/08/2018 Appointment: Injection 03/31/2018 [...] and elevation. 03/20/2018 Appointment: Carolyne Brian WPtel: [facility] [place] (15 min) Moderate 03/20/2018 Patient Education: Patient Medication Summary Completed 03/20/2018 Patient Education: Hypertension Completed 03/20/2018 Appointment: Carolyne Brian WPtel: [facility] [place] (15 min) Moderate 03/11/2018 Visit Plan: Atrial [...] his . 02/19/2018 Appointment: Carolyne Brian WPtel: [address] [place] [id number] (15 min) Moderate 02/19/2018 Patient Education: Patient [...] over-medication. 12/18/2017 Appointment: Carolyne Brian [facility]Ptel[facility] [phone] [facility] (15 min) Moderate 12/18/2017 Patient Education: Patient [...] medication. 05/15/2017 Appointment: Carolyne Brian WPtel[facility] [phone] [facility] (15 min) Moderate 05/15/2017 Patient Education: Patient [...] eliquis today 01/31/2017 Appointment: Carolyne Brian WPtel[facility] [phone] [facility] (15 min) Moderate 01/31/2017 Patient Education: Patient [...] would like to have this done at [facility] in [place]. Continue with Eliquis , rate controlling medication. 01/01/2017 Appointment: Carolyne Brian WPtel: [phone] [facility] (15 min) Moderate 01/01/2017 Patient Education: Patient Medication Summary Completed 01/01/2017 Patient Education: Obesity Completed 01/01/2017 Patient Education: Hypertension Completed 01/01/2017 Appointment: Carolyne Brian WPtel[facility] [phone] [facility] (30 min) Complex 12/24/2016 Visit Plan: Hypertension [...] refilled alprazolam 08/08/2016 Appointment: Carolyne Brian WPtel: [address] [place] [address] (15 min) Moderate 08/08/2016 Patient Education: Patient [...] refilled alprazolam 04/18/2016 Appointment: Carolyne Brian WPtel: [address] [place] [address] (15 min) Moderate 04/18/2016 Patient Education: Patient Medication Summary Completed 04/18/2016 Patient Education: Obesity Completed 04/18/2016 Patient Education: Hypertension Completed 04/18/2016 Appointment: Injection 03/14/2016 Patient Education: Patient Medication Summary Completed 03/14/2016 Appointment: Keara Brown WPtel: [address] [place], [place] [phone] [place] [address] - Annual Wellness Visit 11/17/2015 Visit Plan: [...] min) Complex 08/30/2015 Appointment: Carolyne Brian WPtel[facility] [phone] [facility] (15 min) Moderate 04/13/2015 Visit Plan: Hypertension [...] to medications. 12/08/2014 Appointment: Carolyne Brian WPtel: [phone] [facility] [place] ([place] New Patient 12/08/2014 Patient Education: [...] your kids help you get on the [employer] website for Eliquis and they may send [...] your kids help you get on the [employer] website for Eliquis and they may send [...] would like to have this done at [facility] in [place]. Continue with Eliquis, rate controlling medication. . [...]
--- OUTSIDE RECORDS SUMMARY | 2018-07-24 16:43 | XMS REPORT | CCD ---
Author Author [facility]yne [facility] Organization [facility] Address [address] [place] [address] Phone Care Team Providers Care Fire Sprinkler Fitter Name Role Phone PP Unavailable CCM Unavailable Summary Purpose Interface Exchange Insurance Providers Payer name Policy type / Coverage type Covered republican ID Effective Begin Date Effective End Date [facility] Medicare Part B [id number] Unknown WPS Medicare Part B Medicare Part B [id number] Unknown Family history Father Diagnosis Age At Onset Heart Attack Unknown Son Diagnosis Age At Onset Alcoholism Unknown Social History Social History Element Codes Description Effective Dates Employment Unknown 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 Marital status Unknown [place] 08/08/2016 Number of children Unknown 2 12/08/[address]: 3303474 Former smoker quit 1990 12/08/[address]: 037476226 Never drinks alcohol 12/08/2014 Allergies, Adverse Reactions, [...] Fill Instructions Lipitor 40 mg tablet RxNorm: 296587 TAKE 1/2 TABLET BY MOUTH ONCE DAILY 04/24/2018 04/18/2019 Active tramadol 50 mg tablet RxNorm: 568915 Tablet(s) TAKE 1 TABLET BY MOUTH FOUR TIMES DAILY NEEDED 04/17/2018 06/21/2018 Active Cardizem CD 180 mg capsule,extended release RxNorm: 371420 1 Capsule(s) PO daily 03/20/2018 10/15/2018 Active Eliquis 2.5 mg tablet RxNorm: 2432837 1 Tablet(s) PO BID 201704/16/2018 Inactive alprazolam 0.5 mg tablet RxNorm: 227729 Tablet(s) TAKE 1 TABLET BY MOUTH EVERY 8 HOURS NEEDED FOR ANXIETY OR INSOMNIA 02/20/2018 05/10/2018 Inactive Eliquis 2.5 mg tablet RxNorm: 7859444 1 TABLET(S) PO BID 201701/15/2019 Active losartan 100 mg tablet RxNorm: 087391 1/2 Tablet(s) 02/19/2018 02/13/2019 Active Cardizem CD 120 mg capsule,extended release RxNorm: 061047 1 Capsule(s) PO daily 02/19/2018 03/19/2018 Inactive nystatin 100,000 unit/gram topical cream RxNorm: 197901 APPLY TO THE SKIN THREE TIMES DAILY NEEDED FOR RASH Gram(s) TOP 12/23/2017 No Stop Date Active losartan 100 mg tablet RxNorm: 934014 TAKE 1 TABLET BY MOUTH EVERY DAY 11/05/2017 02/18/2018 Inactive alprazolam 0.5 mg tablet RxNorm: 924227 Tablet(s) TAKE 1 TABLET BY MOUTH EVERY 8 HOURS NEEDED FOR ANXIETY OR INSOMNIA 10/09/2017 12/26/2017 Inactive tramadol 50 mg tablet RxNorm: 770652 Tablet(s) TAKE 1 TABLET BY MOUTH FOUR TIMES DAILY NEEDED 09/17/2017 11/20/2017 Inactive Lipitor 40 mg tablet RxNorm: 421055 TAKE 1/2 TABLET BY MOUTH ONCE DAILY 07/30/2017 04/23/2018 Inactive tramadol 50 mg tablet RxNorm: 084162 Tablet(s) TAKE 1 TABLET BY MOUTH FOUR TIMES DAILY NEEDED 07/12/2017 04/16/2018 Inactive alprazolam 0.5 mg tablet RxNorm: 855768 TAKE 1 TABLET BY MOUTH EVERY 8 HOURS NEEDED FOR ANXIETY OR INSOMNIA 05/13/2017 12/17/2017 Inactive tramadol 50 mg tablet RxNorm: 575279 TAKE 1 TABLET BY MOUTH FOUR TIMES DAILY NEEDED 05/06/2017 09/16/2017 Inactive losartan 100 mg tablet RxNorm: 162734 TAKE 1 TABLET BY MOUTH EVERY DAY 04/09/2017 11/04/2017 Inactive betamethasone dipropionate 0.05 % topical ointment RxNorm: 486579 1 Application TOP BID 03/12/2017 03/11/2017 Inactive betamethasone dipropionate 0.05 % topical ointment RxNorm: 693664 1 Application TOP BID 03/12/2017 03/21/2017 Inactive alprazolam 0.5 mg tablet RxNorm: 658262 Tablet(s) TAKE 1 TABLET BY MOUTH EVERY 6 HOURS NEEDED FOR ANXIETY 02/20/201709/2016 Inactive tramadol 50 mg tablet RxNorm: 411101 1 Tablet(s) PO QID as needed 02/20/2017 04/29/2017 Inactive Eliquis 2.5 mg tablet RxNorm: 1576858 1 Tablet(s) PO BID 201601/25/2018 Inactive Eliquis 2.5 mg tablet RxNorm: 5843910 1 Tablet(s) PO BID 201601/30/2017 Inactive meclizine 12.5 mg tablet RxNorm: 106521 1 Tablet(s) PO Q6 as needed 01/01/2017 01/30/2017 Inactive alprazolam 0.5 mg tablet RxNorm: 432706 TAKE 1 TABLET BY MOUTH EVERY 6 HOURS NEEDED FOR ANXIETY 11/08/2016 11/19/2016 Inactive Lipitor 40 mg tablet RxNorm: 481574 TAKE 1/2 TABLET BY MOUTH ONCE DAILY 10/29/2016 10/28/2016 Inactive Lipitor 40 mg tablet RxNorm: 614941 TAKE 1/2 TABLET BY MOUTH ONCE DAILY 10/29/2016 12/17/2017 Inactive nystatin 100,000 unit/gram topical powder RxNorm: 057221 1 APPLICATION TOP TID NEEDED TO AFFECTED AREA 10/19/20162016 Inactive nystatin 100,000 unit/gram topical powder RxNorm: 819582 1 Application TOP TID as needed to affected area 10/17/20162016 Inactive nystatin 100,000 unit/gram topical powder RxNorm: 639140 1 Application TOP TID as needed to affected area 10/17/20162016 Inactive losartan 100 mg tablet RxNorm: 784274 TAKE 1 TABLET BY MOUTH EVERY DAY 09/06/2016 04/03/2017 Inactive Nitrostat 0.4 mg sublingual tablet RxNorm: 013947 1 Tablet(s) SL q 30 min PRN for chest pain max 3 in 2 hours 08/09/2016 No Stop Date Active Nitrostat 0.4 mg sublingual tablet RxNorm: 027835 1 Tablet(s) SL q 30 min PRN for chest pain max 3 in 2 hours 08/08/201606/2016 Inactive tramadol 50 mg tablet RxNorm: 675228 1 Tablet(s) PO QID as needed 08/08/2016 10/13/2016 Inactive Nitrostat 0.4 mg sublingual tablet RxNorm: 918740 1 Tablet(s) SL q 30 min PRN for chest pain max 3 in 2 hours 08/03/2016 Inactive losartan 100 mg tablet RxNorm: 881404 TAKE 1 TABLET BY MOUTH EVERY DAY 05/14/2016 09/05/2016 Inactive alprazolam 0.5 mg tablet RxNorm: 787879 1 Tablet(s) PO daily and q 6 hours prn anxiety 03/07/2016 11/08/2016 Inactive losartan 100 mg tablet RxNorm: 554334 1 Tablet(s) PO daily 04/201605/13/2016 Inactive Lipitor 40 mg tablet RxNorm: 392102 1/2 Tablet(s) PO daily 04/201610/28/2016 Inactive alprazolam 0.5 mg tablet RxNorm: 571201 1 Tablet(s) PO daily and q 6 hours prn anxiety 10/19/2015 02/19/2017 Inactive lisinopril 40 mg tablet RxNorm: 002052 1 Tablet(s) PO daily 10/18/2015 Inactive alprazolam 0.5 mg tablet RxNorm: 853293 1 Tablet(s) PO daily 10/18/2015 Inactive tramadol 50 mg tablet RxNorm: 762572 1 Tablet(s) PO QID as needed 04/20/2015 08/07/2016 Inactive tramadol 50 mg tablet RxNorm: 637060 1 Tablet(s) PO QID as needed 02/17/2015 04/19/2015 Inactive alprazolam 0.5 mg tablet RxNorm: 068053 1 Tablet(s) PO daily 07/11/2015 Inactive tramadol 50 mg tablet RxNorm: 471222 1 Tablet(s) PO QID as needed 01/05/2015 02/16/2015 Inactive tramadol 50 mg tablet RxNorm: 828514 2 Tablet(s) PO daily 201401/04/2015 Inactive aspirin 81 mg tablet RxNorm: 714969 1 Tablet(s) PO daily No Start Date Active Centrum Silver tablet RxNorm: oral No Start Date Active coenzyme Q10 200 mg capsule RxNorm: 175176 1 Capsule(s) PO daily No Start Date Active Fish Oil 360 mg-1,200 mg capsule RxNorm: 711531 2 Capsule(s) PO daily No Start Date Active Nitrostat 0.4 mg sublingual tablet RxNorm: 120320 1 Tablet(s) SL q 30 min PRN for chest pain max 3 in 2 hours No Start Date 08/02/2016 Inactive lisinopril 40 mg tablet RxNorm: 768529 1 Tablet(s) PO daily No Start Date 09/07/2015 Inactive meclizine 12.5 mg tablet RxNorm: 690904 1 Tablet(s) PO Q6 No Start Date 12/31/2016 Inactive alprazolam 0.5 mg tablet RxNorm: 417701 1/2 Tablet(s) PO daily No Start Date 02/02/2015 Inactive Ecotrin Low Strength 81 mg tablet,enteric coated RxNorm: 0639447 1 Tablet(s) PO daily No Start Date 01/30/2017 Inactive acetaminophen 650 mg tablet RxNorm: 077155 2 Tablet(s) PO BID No Start Date 05/14/2017 Inactive nystatin 100,000 unit/gram topical cream RxNorm: 295075 APPLY TO THE SKIN THREE TIMES DAILY NEEDED FOR RASH Gram(s) TOP No Start Date 12/22/2017 Inactive tramadol 50 mg tablet RxNorm: 894797 2 Tablet(s) PO daily No Start Date 01/03/2015 Inactive Eliquis 2.5 mg tablet RxNorm: 1252748 1 Tablet(s) PO daily No Start Date 12/31/2016 Inactive Lipitor 40 mg tablet RxNorm: 831971 1 Tablet(s) PO daily No Start Date [...] 26.6 pg 05/27/2018 Cbc With Differential Ord2 [place]% 9.6 % 05/27/2018 Cbc With Differential Ord2 [...] 1.30 K/ul 05/27/2018 Cbc With Differential Ord2 [place] ABS# 0.8 K/ul 05/27/2018 Cbc With Differential Ord2 Eos ABS# 0.2 K/ul 05/27/2018 Cbc With Differential Ord2 Baso ABS# 0.0 K/ul 05/27/2018 Comp Metabolic Cjg327 NA 135 mEq/L 05/27/2018 Comp Metabolic Cfd342 K 3.7 mEq/L 05/27/2018 Comp Metabolic Gpf442 CL 97 mEq/L 05/27/2018 Comp Metabolic Hpc501 CO2 28.0 mEq/L 05/27/2018 Comp Metabolic Cye212 ANION GAP 14 05/27/2018 Comp Metabolic Blh076 GLUCOSE 128 mg/dL 05/27/2018 Comp Metabolic Fin523 Creat 1.9 mg/dL 05/27/2018 Comp Metabolic Jna386 eGFR 36 ml/min/1.73m2 05/27/2018 Comp Metabolic Kui253 BUN 46 mg/dL 05/27/2018 Comp Metabolic Ihk804 B/C Ratio 24.5 Ratio 05/27/2018 Comp Metabolic Adv234 CALCIUM 8.7 mg/dL 05/27/2018 Comp Metabolic Pjo366 ALK PHOS 99 U/L 05/27/2018 Comp Metabolic Iwm419 AST(SGOT) 23 U/L 05/27/2018 Comp Metabolic Tzq346 ALT(SGPT) 20 U/L 05/27/2018 Comp Metabolic Jdl342 BILI T 0.7 mg/dL 05/27/2018 Comp Metabolic Qef943 ALBUMIN 3.6 g/dL 05/27/2018 Comp Metabolic Dim087 TPRO 6.2 g/dL 05/27/2018 Comp Metabolic Xof244 GLOB 2.6 g/dL 05/27/2018 Comp Metabolic Uhg412 A/G Ratio 1.4 Ratio 05/27/2018 Comp Metabolic Jeh545 Osmo 284 mOsmo 05/27/2018 Tsh Ord6 hTSH [...] 28.5 pg 05/16/2017 Cbc With Differential Ord2 [place]% 9.1 % 05/16/2017 Cbc With Differential Ord2 [...] 2.96 K/ul 05/16/2017 Cbc With Differential Ord2 [place] ABS# 0.8 K/ul 05/16/2017 Cbc With Differential Ord2 Eos ABS# 0.3 K/ul 05/16/2017 Cbc With Differential Ord2 Baso ABS# 0.0 K/ul 05/16/2017 Comp Metabolic Dqf260 NA 140 mEq/L 05/16/2017 Comp Metabolic Rsk711 K 4.6 mEq/L 05/16/2017 Comp Metabolic Ukq328 CL 106 mEq/L 05/16/2017 Comp Metabolic Xae523 CO2 29.0 mEq/L 05/16/2017 Comp Metabolic Lhp779 ANION GAP 10 05/16/2017 Comp Metabolic Tmq101 GLUCOSE 119 mg/dL 05/16/2017 Comp Metabolic Zyn231 Creat 1.1 mg/dL 05/16/2017 Comp Metabolic Hws383 eGFR 66 ml/min/1.73m2 05/16/2017 Comp Metabolic Fht571 BUN 23 mg/dL 05/16/2017 Comp Metabolic Qmr123 B/C Ratio 20.5 Ratio 05/16/2017 Comp Metabolic Ncs220 CALCIUM 9.5 mg/dL 05/16/2017 Comp Metabolic Kym653 ALK PHOS 104 U/L 05/16/2017 Comp Metabolic Qoo587 AST(SGOT) 25 U/L 05/16/2017 Comp Metabolic Wvj810 ALT(SGPT) 16 U/L 05/16/2017 Comp Metabolic Nrz894 BILI T 0.5 mg/dL 05/16/2017 Comp Metabolic Wfu201 ALBUMIN 4.2 g/dL 05/16/2017 Comp Metabolic Cjl600 TPRO 7.1 g/dL 05/16/2017 Comp Metabolic Avm732 GLOB 2.9 g/dL 05/16/2017 Comp Metabolic Jng361 A/G Ratio 1.5 Ratio 05/16/2017 Comp Metabolic Xqk610 Osmo 284 mOsmo 05/16/2017 Comp Metabolic Fxh455 NA 139 mEq/L 10/17/2015 Comp Metabolic Bhr260 K 5.1 mEq/L 10/17/2015 Comp Metabolic Zed650 CL 109 mEq/L 10/17/2015 Comp Metabolic Wjq946 CO2 23.0 mEq/L 10/17/2015 Comp Metabolic Kfv785 ANION GAP 12 10/17/2015 Comp Metabolic Ibg221 GLUCOSE 103 mg/dL 10/17/2015 Comp Metabolic Fqh409 Creat 1.2 mg/dL 10/17/2015 Comp Metabolic Nyu191 eGFR 62 ml/min/1.73m2 10/17/2015 Comp Metabolic Inq063 BUN 30 mg/dL 10/17/2015 Comp Metabolic Yju958 B/C Ratio 25.4 Ratio 10/17/2015 Comp Metabolic Auv647 CALCIUM 8.9 mg/dL 10/17/2015 Comp Metabolic Dft850 ALK PHOS 71 U/L 10/17/2015 Comp Metabolic Nvy959 AST(SGOT) 21 U/L 10/17/2015 Comp Metabolic Kcm585 ALT(SGPT) 18 U/L 10/17/2015 Comp Metabolic Vym003 BILI T 0.3 mg/dL 10/17/2015 Comp Metabolic Obq427 ALBUMIN 4.2 g/dL 10/17/2015 Comp Metabolic Lll898 TPRO 6.7 g/dL 10/17/2015 Comp Metabolic Igm176 GLOB 2.6 g/dL 10/17/2015 Comp Metabolic Qkk998 A/G Ratio 1.6 Ratio 10/17/2015 Comp Metabolic Zqo308 Osmo 284 mOsmo 10/17/2015 Cbc With Differential [...] 29.0 pg 10/17/2015 Cbc With Differential Ord2 [place]% 7.0 % 10/17/2015 Cbc With Differential Ord2 [...] 2.21 K/ul 10/17/2015 Cbc With Differential Ord2 [place] ABS# 0.5 K/ul 10/17/2015 Cbc With Differential [...] FLU VACC PRSV FREE INC ANTIG CPT-4: 27651 03/31/2018 ADMIN INFLUENZA VIRUS VAC CPT-4: G0008 03/12/2017 FLU VACC PRSV FREE INC ANTIG CPT-4: 45777 03/12/2017 PRESCRIP TRANSMIT VIA ERX SY CPT-4: G8553 01/31/2017 PRESCRIP TRANSMIT VIA ERX SY CPT-4: G8553 01/01/2017 PRESCRIP TRANSMIT VIA ERX SY CPT-4: G8553 08/08/2016 ADMIN INFLUENZA VIRUS VAC CPT-4: G0008 03/14/2016 FLU VACC 4 KRANTHI 3 YRS PLUS IM Formatting Model/CDA Sections, Assigned to/Fiordaliza Tadeo SNBEAU CT: [id number] CPT-4: 93993Nqcyepc 03/14/2016 Vital Signs Date Vital 06/04/2018 Blood Pressure 1: 138/62 Code : 8480-6 BMI: 43.6 Code : 16554-7 Heart Rate 1 : 78 bpm Height: 5' SpO2: 94% Weight: 223 lbs 03/20/2018 Blood Pressure 1: 146/76 Code : 8480-6 BMI: 46.7 Code : 16506-7 Heart Rate 1 : 107 bpm Height: 5' SpO2: 98% Weight: 239 lbs 02/19/2018 Blood Pressure 1: 116/60 Code : 8480-6 BMI: 46.9 Code : 67914-9 Heart Rate 1 : 113 bpm Height: 5' SpO2: 96% Weight: 240 lbs 12/18/2017 Blood Pressure 1: 110/66 Code : 8480-6 BMI: 46.5 Code : 12139-9 Heart Rate 1 : 89 bpm Height: 5' SpO2: 98% Weight: 238 lbs 05/15/2017 Blood Pressure 1: 126/78 Code : 8480-6 BMI: 44.9 Code : 29772-1 Heart Rate 1 : 76 bpm Height: 5' SpO2: 98% Weight: 230 lbs 03/12/2017 Blood Pressure 1: 132/72 Code : 8480-6 BMI: 44.9 Code : 30549-0 Heart Rate 1 : 88 bpm Height: 5' SpO2: 96% Weight: 230 lbs 01/31/2017 Blood Pressure 1: 128/68 Code : 8480-6 BMI: 44.7 Code : 69691-9 Heart Rate 1 : 90 bpm Height: 5' SpO2: 96% Weight: 229 lbs 01/01/2017 Blood Pressure 1: 138/88 Code : 8480-6 BMI: 44.1 Code : 83809-2 Heart Rate 1 : 89 bpm Height: 5' SpO2: 93% Weight: 226 lbs 08/08/2016 Blood Pressure 1: 130/78 Code : 8480-6 BMI: 45.1 Code : 91909-1 Heart Rate 1 : 97 bpm Height: 5' SpO2: 97% Weight: 231 lbs 04/18/2016 Blood Pressure 1: 128/62 Code : 8480-6 BMI: 44.3 Code : 37223-0 Heart Rate 1 : 94 bpm Height: 5' SpO2: 98% Weight: 227 lbs 10/19/2015 Blood Pressure 1: 128/70 Code : 8480-6 BMI: 44.7 Code : 57706-8 Heart Rate 1 : 76 bpm Height: 5' SpO2: 97% Weight: 229 lbs 12/08/2014 Blood Pressure 1: 132/68 Code : 8480-6 BMI: 42.6 Code : 65232-7 Heart Rate 1 : 80 bpm Height: [...] than malignant neoplasm[ICD10: Z09] Keara Brian MD, [facility] CPT-4: 85941 06/04/2018 ([id number]) 45347 EST. PATIENT, LEVEL IV Diagnosis: Chronic atrial fibrillation[ICD10: I48.2] Diagnosis: Essential (primary) hypertension[ICD10: I10] Diagnosis: Localized edema[ICD10: R60.0] [facility] CPT- 4: 51670 03/20/2018 ([id number]) 76620 EST. PATIENT, LEVEL IV Diagnosis: Chronic atrial fibrillation[ICD10: I48.2] Diagnosis: Localized edema[ICD10: R60.0] Diagnosis: Other specified cardiac arrhythmias[ICD10: I49.8] [facility] MD, [facility] CPT-4: 44281 02/19/2018 ([id number]) 58179 EST. 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 PATIENT, LEVEL IV Diagnosis: Essential (primary) hypertension[ICD10: I10] Diagnosis: Mixed hyperlipidemia[ICD10: E78.2] Diagnosis: Chronic atrial fibrillation[ICD10: I48.2] [facility] CPT-4: 12189 05/15/2017 ([id number]) 54374 EST. 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 PATIENT, LEVEL III Diagnosis: Essential (primary) hypertension[ICD10: I10] Diagnosis: Chronic atrial fibrillation[ICD10: I48.2] Carolyne Brian MD, [facility] CPT-4: 52591 01/31/2017 [id number]) 25515 EST. PATIENT, LEVEL IV Diagnosis: Essential (primary) hypertension[ICD10: I10] Diagnosis: Chronic atrial fibrillation[ICD10: I48.2] Carolyne Brian MD, [facility] CPT-4: 49101 01/01/2017 [id number]) 34473 EST. PATIENT, LEVEL IV Diagnosis: Essential (primary) hypertension[ICD10: I10] Diagnosis: Chronic pain syndrome[ICD10: G89.4] Diagnosis: Generalized anxiety disorder[ICD10: F41.1] Carolyne Brian MD, [facility] CPT-4: 84051 08/08/2016 [id number] 59456 EST. PATIENT, LEVEL IV Diagnosis: Essential (primary) hypertension[ICD10: I10] Diagnosis: Mixed hyperlipidemia[ICD10: E78.2] Diagnosis: Chronic pain syndrome[ICD10: G89.4] Diagnosis: Generalized anxiety disorder[ICD10: F41.1] [facility] CPT-4: 43105 04/18/2016 ([id number]) 71744 EST. PATIENT, LEVEL IV Diagnosis: Essential (primary) hypertension[ICD10: I10] Diagnosis: Mixed hyperlipidemia[ICD10: E78.2] Diagnosis: Myalgia[ICD10: M79.1] Diagnosis: Cough[ICD10: R05] [facility] CPT-4: 02082 10/19/2015 ([id number]) OFFICE VISIT, NEW - LEVEL 4 Diagnosis: ESSENTIAL HYPERTENSION[ICD9: 401.9] Diagnosis: HYPERLIPIDEMIA[ICD9: 272.4] [facility] CPT- 4: 67886 12/08/2014 Plan of Care Planned Activity Notes [...] condition. 06/04/2018 App[facility]ment[facility] [phone] [facility] [place] (30 min) Complex 06/04/2018 Patient Education: Patient Medication Summary Completed 06/04/2018 Patient Education: Hypertension Completed 06/04/2018 [phone] [facility] [place] ([facility] min) Moderate 04/23/2018 Appointment: Carolyne Brian [facility] [place] (15 min) Moderate 04/08/2018 Appointment: Injection [...] elevation. 03/20/2018 Appointment: Carolyne Brian [facility]Ptel[facility] [place] (15 min) Moderate 03/20/2018 Patient Education: Patient Medication Summary Completed 03/20/2018 Patient Education: Hypertension Completed 03/20/2018 Appointment: Carolyne Brian [facility]Ptel[facility] [place] (15 min) Moderate 03/11/2018 Visit Plan: [...] his . 02/19/2018 Appointment: Carolyne Brian WPtel: [address] [place], [place] [address] (15 min) Moderate 02/19/2018 Patient Education: Patient [...] over-medication. 12/18/2017 [facility]ment: [facility] [phone] [facility] (15 min) Moderate 12/18/2017 Patient Education: [...] medication. 05/15/2017 [facility]ment: [facility] [phone] [facility] (15 min) Moderate 05/15/2017 Patient Education: [...] eliquis today 01/31/2017 App[facility]ment: [facility] [phone] [facility] (15 min) Moderate 01/31/2017 Patient Education: [...] would like to have this done at [facility] in [place]. Continue with Eliquis , rate controlling medication. 01/01/2017 Appointment: Carolyne Brian WPtel: [phone] [facility] (15 min) Moderate 01/01/2017 Patient Education: Patient Medication Summary Completed 01/01/2017 Patient Education: Obesity Completed 01/01/2017 Patient Education: Hypertension Completed 01/01/2017 [facility]ment: [facility] [phone] [facility] (30 min) Complex 12/24/2016 Visit Plan: [...] refilled alprazolam 08/08/2016 Appointment: Carolyne Brian WPtel: [address] [place] [address] (15 min) Moderate 08/08/2016 Patient Education: Patient [...] refilled alprazolam 04/18/2016 Appointment: Carolyne Brian WPtel: [address] [place] [address] (15 min) Moderate 04/18/2016 Patient Education: Patient Medication Summary Completed 04/18/2016 Patient Education: Obesity Completed 04/18/2016 Patient Education: Hypertension Completed 04/18/2016 Appointment: Injection 03/14/2016 Patient Education: Patient Medication Summary Completed 03/14/2016 Appointment: Keara Brown WPtel: [address] [place], [place] [id number] [place] [address] - Annual Wellness Visit 11/17/2015 Visit Plan: [...] Complex 08/30/2015 App[facility]ment: [phone] [facility] (15 min) Moderate 04/13/2015 Visit Plan: Hypertension [...] medications. 12/08/2014 Appointment: [phone] [facility] [place] ([place] New Patient 12/08/2014 Patient [...] your kids help you get on the GitHub website for Eliquis and they may send [...] your kids help you get on the GitHub website for Eliquis and they may send [...] would like to have this done at [facility] in [place]. Continue with Eliquis, rate controlling medication. . [...]
--- OUTSIDE RECORDS SUMMARY | 2018-07-24 16:45 | XMS REPORT | CCD ---
Author Author [facility]yne Brian Organization [facility] Address [address] [place] [address] Phone Care Team Providers Care Industrial Hygenist Name Role Phone PP Unavailable CCM Unavailable Summary Purpose Interface Exchange Insurance Providers Payer name Policy type / Coverage type Covered republican ID Effective Begin Date Effective End Date [facility] Medicare Part B [id number] 2017 Unknown WPS Medicare Part B Medicare Part B [id number] 2017 Unknown Family history Father Diagnosis Age At Onset Heart Attack Unknown Son Diagnosis Age At Onset Alcoholism Unknown Social History Social History Element Codes Description Effective Dates Employment Unknown 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 Marital status Unknown [place] 08/08/2016 Number of children Unknown 2 12/08/[address]: 3207935 Former smoker quit 1990 12/08/[address]: 026916388 Never drinks alcohol 12/08/2014 Allergies, Adverse Reactions, Alerts Substance Reaction Codes Entered Date Inactivated Date Status * NO KNOWN FOOD ALLERGIES Unknown 12/08/2014 No Inactive Date Active CODEINE RxNorm: 2670 12/08/2014 No Inactive Date Active FERNANDO INHIBITORS cough Unknown 10/19/2015 No Inactive Date Active Past Medical History Illness Codes Condition Status Onset Date Resolved Date Encounter for immunization ICD-9: V04.81 ICD-10: Z23 Active 03/13/2016 Unknown Chronic atrial fibrillation ICD-9: 427.31 ICD-10: I48.2 Active 01/01/2017 Unknown Essential (primary) hypertension ICD-9: 401.9 ICD-10: I10 Active 12/07/2014 Unknown Localized edema ICD-9 : 782.3 ICD-10: R60.0 Active 02/19/2018 Unknown Other specified cardiac arrhythmias ICD-9: 427.89 [...] Problems Condition Codes Effective Dates Condition Status Encounter for immunization ICD-9: V04.81 ICD-10: Z23 03/13/2016 Active Chronic atrial fibrillation ICD-9: 427.31 ICD-10: I48.2 01/01/2017 Active Essential (primary) hypertension ICD-9: 401.9 ICD-10: I10 12/07/2014 Active Localized edema ICD-9 : 782.3 ICD-10: R60.0 02/19/2018 Active Other specified cardiac arrhythmias ICD-9: 427.89 [...] Fill Instructions Lipitor 40 mg tablet RxNorm: 379916 TAKE 1/2 TABLET BY MOUTH ONCE DAILY 04/24/2018 04/18/2019 Active tramadol 50 mg tablet RxNorm: 008444 Tablet(s) TAKE 1 TABLET BY MOUTH FOUR TIMES DAILY NEEDED 04/17/2018 06/21/2018 Active Cardizem CD 180 mg capsule,extended release RxNorm: 335288 1 Capsule(s) PO daily 03/20/2018 10/15/2018 Active Eliquis 2.5 mg tablet RxNorm: 1202639 1 Tablet(s) PO BID 201704/16/2018 Inactive alprazolam 0.5 mg tablet RxNorm: 400548 Tablet(s) TAKE 1 TABLET BY MOUTH EVERY 8 HOURS NEEDED FOR ANXIETY OR INSOMNIA 02/20/2018 05/10/2018 Inactive Eliquis 2.5 mg tablet RxNorm: 2973914 1 TABLET(S) PO BID 201701/15/2019 Active losartan 100 mg tablet RxNorm: 696070 1/2 Tablet(s) 02/19/2018 02/13/2019 Active Cardizem CD 120 mg capsule,extended release RxNorm: 494837 1 Capsule(s) PO daily 02/19/2018 03/19/2018 Inactive nystatin 100,000 unit/gram topical cream RxNorm: 763072 APPLY TO THE SKIN THREE TIMES DAILY NEEDED FOR RASH Gram(s) TOP 12/23/2017 No Stop Date Active losartan 100 mg tablet RxNorm: 827818 TAKE 1 TABLET BY MOUTH EVERY DAY 11/05/2017 02/18/2018 Inactive alprazolam 0.5 mg tablet RxNorm: 877822 Tablet(s) TAKE 1 TABLET BY MOUTH EVERY 8 HOURS NEEDED FOR ANXIETY OR INSOMNIA 10/09/2017 12/26/2017 Inactive tramadol 50 mg tablet RxNorm: 810325 Tablet(s) TAKE 1 TABLET BY MOUTH FOUR TIMES DAILY NEEDED 09/17/2017 11/20/2017 Inactive Lipitor 40 mg tablet RxNorm: 605941 TAKE 1/2 TABLET BY MOUTH ONCE DAILY 07/30/2017 04/23/2018 Inactive tramadol 50 mg tablet RxNorm: 716292 Tablet(s) TAKE 1 TABLET BY MOUTH FOUR TIMES DAILY NEEDED 07/12/2017 04/16/2018 Inactive alprazolam 0.5 mg tablet RxNorm: 106955 TAKE 1 TABLET BY MOUTH EVERY 8 HOURS NEEDED FOR ANXIETY OR INSOMNIA 05/13/2017 12/17/2017 Inactive tramadol 50 mg tablet RxNorm: 362655 TAKE 1 TABLET BY MOUTH FOUR TIMES DAILY NEEDED 05/06/2017 09/16/2017 Inactive losartan 100 mg tablet RxNorm: 468952 TAKE 1 TABLET BY MOUTH EVERY DAY 04/09/2017 11/04/2017 Inactive betamethasone dipropionate 0.05 % topical ointment RxNorm: 638703 1 Application TOP BID 03/12/2017 03/11/2017 Inactive betamethasone dipropionate 0.05 % topical ointment RxNorm: 029247 1 Application TOP BID 03/12/2017 03/21/2017 Inactive alprazolam 0.5 mg tablet RxNorm: 667531 Tablet(s) TAKE 1 TABLET BY MOUTH EVERY 6 HOURS NEEDED FOR ANXIETY 02/20/201709/2016 Inactive tramadol 50 mg tablet RxNorm: 785900 1 Tablet(s) PO QID as needed 02/20/2017 04/29/2017 Inactive Eliquis 2.5 mg tablet RxNorm: 8778625 1 Tablet(s) PO BID 201601/25/2018 Inactive Eliquis 2.5 mg tablet RxNorm: 5053010 1 Tablet(s) PO BID 201601/30/2017 Inactive meclizine 12.5 mg tablet RxNorm: 845983 1 Tablet(s) PO Q6 as needed 01/01/2017 01/30/2017 Inactive alprazolam 0.5 mg tablet RxNorm: 091951 TAKE 1 TABLET BY MOUTH EVERY 6 HOURS NEEDED FOR ANXIETY 11/08/2016 11/19/2016 Inactive Lipitor 40 mg tablet RxNorm: 349067 TAKE 1/2 TABLET BY MOUTH ONCE DAILY 10/29/2016 10/28/2016 Inactive Lipitor 40 mg tablet RxNorm: 874502 TAKE 1/2 TABLET BY MOUTH ONCE DAILY 10/29/2016 12/17/2017 Inactive nystatin 100,000 unit/gram topical powder RxNorm: 429413 1 APPLICATION TOP TID NEEDED TO AFFECTED AREA 10/19/20162016 Inactive nystatin 100,000 unit/gram topical powder RxNorm: 273860 1 Application TOP TID as needed to affected area 10/17/20162016 Inactive nystatin 100,000 unit/gram topical powder RxNorm: 668401 1 Application TOP TID as needed to affected area 10/17/20162016 Inactive losartan 100 mg tablet RxNorm: 442548 TAKE 1 TABLET BY MOUTH EVERY DAY 09/06/2016 04/03/2017 Inactive Nitrostat 0.4 mg sublingual tablet RxNorm: 634020 1 Tablet(s) SL q 30 min PRN for chest pain max 3 in 2 hours 08/09/2016 No Stop Date Active Nitrostat 0.4 mg sublingual tablet RxNorm: 495938 1 Tablet(s) SL q 30 min PRN for chest pain max 3 in 2 hours 08/08/201606/2016 Inactive tramadol 50 mg tablet RxNorm: 635156 1 Tablet(s) PO QID as needed 08/08/2016 10/13/2016 Inactive Nitrostat 0.4 mg sublingual tablet RxNorm: 944337 1 Tablet(s) SL q 30 min PRN for chest pain max 3 in 2 hours 08/03/2016 Inactive losartan 100 mg tablet RxNorm: 913472 TAKE 1 TABLET BY MOUTH EVERY DAY 05/14/2016 09/05/2016 Inactive alprazolam 0.5 mg tablet RxNorm: 724062 1 Tablet(s) PO daily and q 6 hours prn anxiety 03/07/2016 11/08/2016 Inactive losartan 100 mg tablet RxNorm: 561582 1 Tablet(s) PO daily 04/201605/13/2016 Inactive Lipitor 40 mg tablet RxNorm: 792443 1/2 Tablet(s) PO daily 04/201610/28/2016 Inactive alprazolam 0.5 mg tablet RxNorm: 177090 1 Tablet(s) PO daily and q 6 hours prn anxiety 10/19/2015 02/19/2017 Inactive lisinopril 40 mg tablet RxNorm: 486836 1 Tablet(s) PO daily 10/18/2015 Inactive alprazolam 0.5 mg tablet RxNorm: 811877 1 Tablet(s) PO daily 10/18/2015 Inactive tramadol 50 mg tablet RxNorm: 144232 1 Tablet(s) PO QID as needed 04/20/2015 08/07/2016 Inactive tramadol 50 mg tablet RxNorm: 689926 1 Tablet(s) PO QID as needed 02/17/2015 04/19/2015 Inactive alprazolam 0.5 mg tablet RxNorm: 170834 1 Tablet(s) PO daily 07/11/2015 Inactive tramadol 50 mg tablet RxNorm: 702222 1 Tablet(s) PO QID as needed 01/05/2015 02/16/2015 Inactive tramadol 50 mg tablet RxNorm: 859492 2 Tablet(s) PO daily 201401/04/2015 Inactive aspirin 81 mg tablet RxNorm: 197768 1 Tablet(s) PO daily No Start Date Active Centrum Silver tablet RxNorm: oral No Start Date Active coenzyme Q10 200 mg capsule RxNorm: 837528 1 Capsule(s) PO daily No Start Date Active Fish Oil 360 mg-1,200 mg capsule RxNorm: 097357 2 Capsule(s) PO daily No Start Date Active Nitrostat 0.4 mg sublingual tablet RxNorm: 569513 1 Tablet(s) SL q 30 min PRN for chest pain max 3 in 2 hours No Start Date 08/02/2016 Inactive lisinopril 40 mg tablet RxNorm: 161005 1 Tablet(s) PO daily No Start Date 09/07/2015 Inactive meclizine 12.5 mg tablet RxNorm: 934965 1 Tablet(s) PO Q6 No Start Date 12/31/2016 Inactive alprazolam 0.5 mg tablet RxNorm: 758027 1/2 Tablet(s) PO daily No Start Date 02/02/2015 Inactive Ecotrin Low Strength 81 mg tablet,enteric coated RxNorm: 2135643 1 Tablet(s) PO daily No Start Date 01/30/2017 Inactive acetaminophen 650 mg tablet RxNorm: 515380 2 Tablet(s) PO BID No Start Date 05/14/2017 Inactive nystatin 100,000 unit/gram topical cream RxNorm: 342797 APPLY TO THE SKIN THREE TIMES DAILY NEEDED FOR RASH Gram(s) TOP No Start Date 12/22/2017 Inactive tramadol 50 mg tablet RxNorm: 921033 2 Tablet(s) PO daily No Start Date 01/03/2015 Inactive Eliquis 2.5 mg tablet RxNorm: 9674448 1 Tablet(s) PO daily No Start Date 12/31/2016 Inactive Lipitor 40 mg tablet RxNorm: 823515 1 Tablet(s) PO daily No Start Date 10/18/2015 Inactive Medication Administered No Medication Administered data Immunizations Vaccine Codes Date Status Influenza CVX: 141 03/31/2018 completed Influenza CVX: 141 03/12/2017 completed Influenza CVX: 141 03/14/2016 completed Assessments Condition Codes Effective Dates Encounter for immunization ICD-10: Z23 ICD-9: V04.81 03/31/2018 Essential (primary) hypertension ICD-10: I10 ICD-9: 401.9 03/20/2018 Chronic atrial fibrillation ICD-10: I48.2 ICD-9: 427.31 03/20/2018 Localized edema ICD-10: R60.0 ICD-9: 782.3 03/20/2018 [...] Visit Reason For Visit Effective Dates Notes vaccination against influenza 03/31/2018 arrhythmia 03/20/2018 shortness [...] 26.6 pg 05/27/2018 Cbc With Differential Ord2 [place]% 9.6 % 05/27/2018 Cbc With Differential Ord2 [...] 1.30 K/ul 05/27/2018 Cbc With Differential Ord2 [place] ABS# 0.8 K/ul 05/27/2018 Cbc With Differential [...] 28.5 pg 05/16/2017 Cbc With Differential Ord2 [place]% 9.1 % 05/16/2017 Cbc With Differential Ord2 [...] 2.96 K/ul 05/16/2017 Cbc With Differential Ord2 [place] ABS# 0.8 K/ul 05/16/2017 Cbc With Differential Ord2 Eos ABS# 0.3 K/ul 05/16/2017 Cbc With Differential Ord2 Baso ABS# 0.0 K/ul 05/16/2017 Comp Metabolic Emv209 NA 140 mEq/L 05/16/2017 Comp Metabolic Qmo316 K 4.6 mEq/L 05/16/2017 Comp Metabolic Miz810 CL 106 mEq/L 05/16/2017 Comp Metabolic Fqa000 CO2 29.0 mEq/L 05/16/2017 Comp Metabolic Qgh502 ANION GAP 10 05/16/2017 Comp Metabolic Xjk075 GLUCOSE 119 mg/dL 05/16/2017 Comp Metabolic Xen744 Creat 1.1 mg/dL 05/16/2017 Comp Metabolic Zkd802 eGFR 66 ml/min/1.73m2 05/16/2017 Comp Metabolic Iqs541 BUN 23 mg/dL 05/16/2017 Comp Metabolic Jao630 B/C Ratio 20.5 Ratio 05/16/2017 Comp Metabolic Sxq412 CALCIUM 9.5 mg/dL 05/16/2017 Comp Metabolic Bbl787 ALK PHOS 104 U/L 05/16/2017 Comp Metabolic Uvw703 AST(SGOT) 25 U/L 05/16/2017 Comp Metabolic Ysa427 ALT(SGPT) 16 U/L 05/16/2017 Comp Metabolic Fga681 BILI T 0.5 mg/dL 05/16/2017 Comp Metabolic Cll359 ALBUMIN 4.2 g/dL 05/16/2017 Comp Metabolic Ajx994 TPRO 7.1 g/dL 05/16/2017 Comp Metabolic Wxd109 GLOB 2.9 g/dL 05/16/2017 Comp Metabolic Qus438 A/G Ratio 1.5 Ratio 05/16/2017 Comp Metabolic Fkn987 Osmo 284 mOsmo 05/16/2017 Comp Metabolic Ygu853 NA 139 mEq/L 10/17/2015 Comp Metabolic Hjv730 K 5.1 mEq/L 10/17/2015 Comp Metabolic Tgg840 CL 109 mEq/L 10/17/2015 Comp Metabolic Adp377 CO2 23.0 mEq/L 10/17/2015 Comp Metabolic Hkz140 ANION GAP 12 10/17/2015 Comp Metabolic Bmj415 GLUCOSE 103 mg/dL 10/17/2015 Comp Metabolic Wom317 Creat 1.2 mg/dL 10/17/2015 Comp Metabolic Rrb223 eGFR 62 ml/min/1.73m2 10/17/2015 Comp Metabolic Rtu906 BUN 30 mg/dL 10/17/2015 Comp Metabolic Ial156 B/C Ratio 25.4 Ratio 10/17/2015 Comp Metabolic Wpu059 CALCIUM 8.9 mg/dL 10/17/2015 Comp Metabolic Qmb319 ALK PHOS 71 U/L 10/17/2015 Comp Metabolic Ffq219 AST(SGOT) 21 U/L 10/17/2015 Comp Metabolic Ant188 ALT(SGPT) 18 U/L 10/17/2015 Comp Metabolic Wda836 BILI T 0.3 mg/dL 10/17/2015 Comp Metabolic Wnd262 ALBUMIN 4.2 g/dL 10/17/2015 Comp Metabolic Tyf191 TPRO 6.7 g/dL 10/17/2015 Comp Metabolic Vqe581 GLOB 2.6 g/dL 10/17/2015 Comp Metabolic Sky700 A/G Ratio 1.6 Ratio 10/17/2015 Comp Metabolic Qhc881 Osmo 284 mOsmo 10/17/2015 Cbc With Differential [...] 29.0 pg 10/17/2015 Cbc With Differential Ord2 [place]% 7.0 % 10/17/2015 Cbc With Differential Ord2 [...] 2.21 K/ul 10/17/2015 Cbc With Differential Ord2 [place] ABS# 0.5 K/ul 10/17/2015 Cbc With Differential [...] FLU VACC PRSV FREE INC ANTIG CPT-4: 38803 03/31/2018 ADMIN INFLUENZA VIRUS VAC CPT-4: G0008 03/12/2017 FLU VACC PRSV FREE INC ANTIG CPT-4: 22802 03/12/2017 PRESCRIP TRANSMIT VIA ERX SY CPT-4: G8553 01/31/2017 PRESCRIP TRANSMIT VIA ERX SY CPT-4: G8553 01/01/2017 PRESCRIP TRANSMIT VIA ERX SY CPT-4: G8553 08/08/2016 ADMIN INFLUENZA VIRUS VAC CPT-4: G0008 03/14/2016 FLU VACC 4 KRANTHI 3 YRS PLUS IM Formatting Model/CDA Sections, Assigned to/Fiordaliza Tadeo CT: [id number] CPT-4: 96869Xeqnssl 03/14/2016 Vital Signs Date Vital 03/20/2018 Blood Pressure 1: 146/76 Code : 8480-6 BMI: 46.7 Code : 63057-1 Heart Rate 1 : 107 bpm Height: 5' SpO2: 98% Weight: 239 lbs 02/19/2018 Blood Pressure 1: 116/60 Code : 8480-6 BMI: 46.9 Code : 27603-3 Heart Rate 1 : 113 bpm Height: 5' SpO2: 96% Weight: 240 lbs 12/18/2017 Blood Pressure 1: 110/66 Code : 8480-6 BMI: 46.5 Code : 49672-1 Heart Rate 1 : 89 bpm Height: 5' SpO2: 98% Weight: 238 lbs 05/15/2017 Blood Pressure 1: 126/78 Code : 8480-6 BMI: 44.9 Code : 86741-5 Heart Rate 1 : 76 bpm Height: 5' SpO2: 98% Weight: 230 lbs 03/12/2017 Blood Pressure 1: 132/72 Code : 8480-6 BMI: 44.9 Code : 47576-3 Heart Rate 1 : 88 bpm Height: 5' SpO2: 96% Weight: 230 lbs 01/31/2017 Blood Pressure 1: 128/68 Code : 8480-6 BMI: 44.7 Code : 81047-7 Heart Rate 1 : 90 bpm Height: 5' SpO2: 96% Weight: 229 lbs 01/01/2017 Blood Pressure 1: 138/88 Code : 8480-6 BMI: 44.1 Code : 37709-0 Heart Rate 1 : 89 bpm Height: 5' SpO2: 93% Weight: 226 lbs 08/08/2016 Blood Pressure 1: 130/78 Code : 8480-6 BMI: 45.1 Code : 68015-8 Heart Rate 1 : 97 bpm Height: 5' SpO2: 97% Weight: 231 lbs 04/18/2016 Blood Pressure 1: 128/62 Code : 8480-6 BMI: 44.3 Code : 87924-8 Heart Rate 1 : 94 bpm Height: 5' SpO2: 98% Weight: 227 lbs 10/19/2015 Blood Pressure 1: 128/70 Code : 8480-6 BMI: 44.7 Code : 05394-1 Heart Rate 1 : 76 bpm Height: 5' SpO2: 97% Weight: 229 lbs 12/08/2014 Blood Pressure 1: 132/68 Code : 8480-6 BMI: 42.6 Code : 32969-0 Heart Rate 1 : 80 bpm Height: 5' Weight: 218 lbs Functional Status No Functional Status data History of Present Illness Symptom Name Status Result Effective Date Notes arrhythmia Quality chronic 03/20/2018 None arrhythmia Quality [...] data Encounters Encounter Performer Location Codes Date ([id number]) [id number] EST. PATIENT, LEVEL IV Diagnosis: Chronic atrial fibrillation[ICD10: I48.2] Diagnosis: Essential (primary) hypertension[ICD10: I10] Diagnosis: Localized edema[ICD10: R60.0] Carolyne Brian MD, [facility] CPT- 4: 07803 03/20/2018 ([id number]) 72959 EST. PATIENT, LEVEL IV Diagnosis: Chronic atrial fibrillation[ICD10: I48.2] Diagnosis: Localized edema[ICD10: R60.0] Diagnosis: Other specified cardiac arrhythmias[ICD10: I49.8] Carolyne Brain MD, [facility] CPT-4: 98813 02/19/2018 ([id number]) 19349 EST. 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 PATIENT, LEVEL IV Diagnosis: Essential (primary) hypertension[ICD10: I10] Diagnosis: Mixed hyperlipidemia[ICD10: E78.2] Diagnosis: Chronic atrial fibrillation[ICD10: I48.2] Carolyne Brian MD [facility] CPT-4: 15590 05/15/2017 ([id number]) 23204 EST. 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 PATIENT, LEVEL III Diagnosis: Essential (primary) hypertension[ICD10: I10] Diagnosis: Chronic atrial fibrillation[ICD10: I48.2] Carolyne Brian MD [facility] CPT-4: 21154 01/31/2017 ([id number]) 54323 EST. PATIENT, LEVEL IV Diagnosis: Essential (primary) hypertension[ICD10: I10] Diagnosis: Chronic atrial fibrillation[ICD10: I48.2] Carolyne Brian MD [facility] CPT-4: 60704 01/01/2017 ([id number]) 80866 EST. PATIENT, LEVEL IV Diagnosis: Essential (primary) hypertension[ICD10: I10] Diagnosis: Chronic pain syndrome[ICD10: G89.4] Diagnosis: Generalized anxiety disorder[ICD10: F41.1] Caroylne Brian MD [facility] CPT-4: 19180 08/08/2016 ([id number]) 98103 EST. PATIENT, LEVEL IV Diagnosis: Essential (primary) hypertension[ICD10: I10] Diagnosis: Mixed hyperlipidemia[ICD10: E78.2] Diagnosis: Chronic pain syndrome[ICD10: G89.4] Diagnosis: Generalized anxiety disorder[ICD10: F41.1] Carolyne Brian MD [facility] CPT-4: 01457 04/18/2016 ([id number]) 58363 EST. PATIENT, LEVEL IV Diagnosis: Essential (primary) hypertension[ICD10: I10] Diagnosis: Mixed hyperlipidemia[ICD10: E78.2] Diagnosis: Myalgia[ICD10: M79.1] Diagnosis: Cough[ICD10: R05] Carolyne Brian MD [facility] CPT-4: 08786 10/19/2015 ([id number]) OFFICE VISIT, NEW - LEVEL 4 Diagnosis: ESSENTIAL HYPERTENSION[ICD9: 401.9] Diagnosis: HYPERLIPIDEMIA[ICD9: 272.4] [facility] CPT- 4: 52385 12/08/2014 Plan of Care Planned Activity Notes Codes Status Date App[facility]ment: [phone] [facility] [place] ([facility] min) Moderate 04/23/2018 App[facility]: [phone] [facility] [place] (15 min) Moderate 04/08/2018 Appointment: Injection [...] and elevation. 03/20/2018 Appointment: Carolyne Brian WPtel: [address] [place], [place] [phone] (15 min) Moderate 03/20/2018 Patient Education: Patient Medication Summary Completed 03/20/2018 Patient Education: Hypertension Completed 03/20/2018 Appointment: Carolyne Brian WPtel: [address] [place], [place] [address] (15 min) Moderate 03/11/2018 Visit Plan: Atrial [...] his . 02/19/2018 Appointment: Carolyne Brian WPtel: [facility] (15 min) Moderate 02/19/2018 Patient Education: Patient [...] of over-medication. 12/18/2017 Appointment: Carolyne Brian WPtel: [facility] (15 min) Moderate 12/18/2017 Patient Education: Patient [...] current medication. 05/15/2017 Appointment: Carolyne Brian WPtel: [facility] (15 min) Moderate 05/15/2017 Patient Education: Patient [...] today 01/31/2017 Appointment: [facility] [phone] [facility] [place] (15 min) Moderate 01/31/2017 Patient Education: Patient [...] would like to have this done at [facility] in [place]. Continue with Eliquis , rate controlling medication. 01/01/2017 Appointment: [facility] [phone] [facility] [place] (15 min) Moderate 01/01/2017 Patient Education: Patient Medication Summary Completed 01/01/2017 Patient Education: Obesity Completed 01/01/2017 Patient Education: Hypertension Completed 01/01/2017 [facility]ment: [phone] [facility] [place] (30 min) Complex 12/24/2016 Visit Plan: [...] refilled alprazolam 08/08/2016 Appointment: Carolyne Brian WPtel: [phone] [facility] (15 min) Moderate 08/08/2016 Patient Education: Patient [...] alprazolam 04/18/2016 Appointment: Carolyne Brian WPtel: [phone] [facility] [place] (15 min) Moderate 04/18/2016 Patient Education: Patient Medication Summary Completed 04/18/2016 Patient Education: Obesity Completed 04/18/2016 Patient Education: Hypertension Completed 04/18/2016 Appointment: Injection 03/14/2016 Patient Education: Patient Medication Summary Completed 03/14/2016 Appointment: Keara Brown WPtel: [phone] - Annual Wellness Visit 11/17/2015 Visit [...] Appointment: (30 min) Complex 08/30/2015 Appointment: Carolyne Biran WPtel: [facility] [address] (15 min) Moderate 04/13/2015 Visit Plan: Hypertension [...] normal liver response to medications. 12/08/2014 Appointment: [phone] [facility] [place] ([place] New Patient 12/08/2014 Patient Education: [...] your kids help you get on the [employer] website for Eliquis and they may send [...] your kids help you get on the [employer] website for Eliquis and they may send [...] would like to have this done at [facility] in [place]. Continue with Eliquis, rate controlling medication. . [...]
--- OUTSIDE RECORDS SUMMARY | 2018-07-24 16:46 | XMS REPORT | CCD ---
Author Author Carolyne Brian Organization [facility] Address [address] [place] [address] Phone Care Team Providers Care Senior Cost Estimator Name Role Phone PP Unavailable CCM Unavailable Summary Purpose Interface Exchange Insurance Providers Payer name Policy type / Coverage type Covered libertarian ID Effective Begin Date Effective End Date [facility] Medicare Part B [id number] 2017 Unknown [employer]PS Medicare Part B Medicare Part B [id number] 2017 Unknown Family history Father Diagnosis Age At Onset Heart Attack Unknown Son Diagnosis Age At Onset Alcoholism Unknown Social History Social History Element Codes Description Effective Dates Employment Unknown 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 Marital status Unknown [place] 08/08/2016 Number of children Unknown 2 12/08/[address]: 7831803 Former smoker quit 1990 12/08/[address]: 854550305 Never drinks alcohol 12/08/2014 Allergies, Adverse Reactions, [...] Fill Instructions Lipitor 40 mg tablet RxNorm: 064001 TAKE 1/2 TABLET BY MOUTH ONCE DAILY 04/24/2018 04/18/2019 Active tramadol 50 mg tablet RxNorm: 053870 Tablet(s) TAKE 1 TABLET BY MOUTH FOUR TIMES DAILY NEEDED 04/17/2018 06/21/2018 Active Cardizem CD 180 mg capsule,extended release RxNorm: 836852 1 Capsule(s) PO daily 03/20/2018 10/15/2018 Active Eliquis 2.5 mg tablet RxNorm: 8453537 1 Tablet(s) PO BID 201704/16/2018 Inactive alprazolam 0.5 mg tablet RxNorm: 539123 Tablet(s) TAKE 1 TABLET BY MOUTH EVERY 8 HOURS NEEDED FOR ANXIETY OR INSOMNIA 02/20/2018 05/10/2018 Active Eliquis 2.5 mg tablet RxNorm: 3099174 1 TABLET(S) PO BID 201701/15/2019 Active losartan 100 mg tablet RxNorm: 694181 1/2 Tablet(s) 02/19/2018 02/13/2019 Active Cardizem CD 120 mg capsule,extended release RxNorm: 471517 1 Capsule(s) PO daily 02/19/2018 03/19/2018 Inactive nystatin 100,000 unit/gram topical cream RxNorm: 757784 APPLY TO THE SKIN THREE TIMES DAILY NEEDED FOR RASH Gram(s) TOP 12/23/2017 No Stop Date Active losartan 100 mg tablet RxNorm: 783105 TAKE 1 TABLET BY MOUTH EVERY DAY 11/05/2017 02/18/2018 Inactive alprazolam 0.5 mg tablet RxNorm: 650275 Tablet(s) TAKE 1 TABLET BY MOUTH EVERY 8 HOURS NEEDED FOR ANXIETY OR INSOMNIA 10/09/2017 12/26/2017 Inactive tramadol 50 mg tablet RxNorm: 454549 Tablet(s) TAKE 1 TABLET BY MOUTH FOUR TIMES DAILY NEEDED 09/17/2017 11/20/2017 Inactive Lipitor 40 mg tablet RxNorm: 234078 TAKE 1/2 TABLET BY MOUTH ONCE DAILY 07/30/2017 04/23/2018 Inactive tramadol 50 mg tablet RxNorm: 504217 Tablet(s) TAKE 1 TABLET BY MOUTH FOUR TIMES DAILY NEEDED 07/12/2017 04/16/2018 Inactive alprazolam 0.5 mg tablet RxNorm: 890431 TAKE 1 TABLET BY MOUTH EVERY 8 HOURS NEEDED FOR ANXIETY OR INSOMNIA 05/13/2017 12/17/2017 Inactive tramadol 50 mg tablet RxNorm: 738392 TAKE 1 TABLET BY MOUTH FOUR TIMES DAILY NEEDED 05/06/2017 09/16/2017 Inactive losartan 100 mg tablet RxNorm: 085047 TAKE 1 TABLET BY MOUTH EVERY DAY 04/09/2017 11/04/2017 Inactive betamethasone dipropionate 0.05 % topical ointment RxNorm: 513897 1 Application TOP BID 03/12/2017 03/11/2017 Inactive betamethasone dipropionate 0.05 % topical ointment RxNorm: 588396 1 Application TOP BID 03/12/2017 03/21/2017 Inactive alprazolam 0.5 mg tablet RxNorm: 949293 Tablet(s) TAKE 1 TABLET BY MOUTH EVERY 6 HOURS NEEDED FOR ANXIETY 02/20/201709/2016 Inactive tramadol 50 mg tablet RxNorm: 671099 1 Tablet(s) PO QID as needed 02/20/2017 04/29/2017 Inactive Eliquis 2.5 mg tablet RxNorm: 5507581 1 Tablet(s) PO BID 201601/25/2018 Inactive Eliquis 2.5 mg tablet RxNorm: 8200601 1 Tablet(s) PO BID 201601/30/2017 Inactive meclizine 12.5 mg tablet RxNorm: 516645 1 Tablet(s) PO Q6 as needed 01/01/2017 01/30/2017 Inactive alprazolam 0.5 mg tablet RxNorm: 589841 TAKE 1 TABLET BY MOUTH EVERY 6 HOURS NEEDED FOR ANXIETY 11/08/2016 11/19/2016 Inactive Lipitor 40 mg tablet RxNorm: 160909 TAKE 1/2 TABLET BY MOUTH ONCE DAILY 10/29/2016 10/28/2016 Inactive Lipitor 40 mg tablet RxNorm: 246480 TAKE 1/2 TABLET BY MOUTH ONCE DAILY 10/29/2016 12/17/2017 Inactive nystatin 100,000 unit/gram topical powder RxNorm: 742736 1 APPLICATION TOP TID NEEDED TO AFFECTED AREA 10/19/20162016 Inactive nystatin 100,000 unit/gram topical powder RxNorm: 149651 1 Application TOP TID as needed to affected area 10/17/20162016 Inactive nystatin 100,000 unit/gram topical powder RxNorm: 833982 1 Application TOP TID as needed to affected area 10/17/20162016 Inactive losartan 100 mg tablet RxNorm: 220764 TAKE 1 TABLET BY MOUTH EVERY DAY 09/06/2016 04/03/2017 Inactive Nitrostat 0.4 mg sublingual tablet RxNorm: 205272 1 Tablet(s) SL q 30 min PRN for chest pain max 3 in 2 hours 08/09/2016 No Stop Date Active Nitrostat 0.4 mg sublingual tablet RxNorm: 972431 1 Tablet(s) SL q 30 min PRN for chest pain max 3 in 2 hours 08/08/201606/2016 Inactive tramadol 50 mg tablet RxNorm: 293558 1 Tablet(s) PO QID as needed 08/08/2016 10/13/2016 Inactive Nitrostat 0.4 mg sublingual tablet RxNorm: 863564 1 Tablet(s) SL q 30 min PRN for chest pain max 3 in 2 hours 08/03/2016 Inactive losartan 100 mg tablet RxNorm: 094892 TAKE 1 TABLET BY MOUTH EVERY DAY 05/14/2016 09/05/2016 Inactive alprazolam 0.5 mg tablet RxNorm: 918080 1 Tablet(s) PO daily and q 6 hours prn anxiety 03/07/2016 11/08/2016 Inactive losartan 100 mg tablet RxNorm: 070302 1 Tablet(s) PO daily 04/201605/13/2016 Inactive Lipitor 40 mg tablet RxNorm: 008462 1/2 Tablet(s) PO daily 04/201610/28/2016 Inactive alprazolam 0.5 mg tablet RxNorm: 723756 1 Tablet(s) PO daily and q 6 hours prn anxiety 10/19/2015 02/19/2017 Inactive lisinopril 40 mg tablet RxNorm: 886541 1 Tablet(s) PO daily 10/18/2015 Inactive alprazolam 0.5 mg tablet RxNorm: 051236 1 Tablet(s) PO daily 10/18/2015 Inactive tramadol 50 mg tablet RxNorm: 914326 1 Tablet(s) PO QID as needed 04/20/2015 08/07/2016 Inactive tramadol 50 mg tablet RxNorm: 969529 1 Tablet(s) PO QID as needed 02/17/2015 04/19/2015 Inactive alprazolam 0.5 mg tablet RxNorm: 059209 1 Tablet(s) PO daily 07/11/2015 Inactive tramadol 50 mg tablet RxNorm: 049723 1 Tablet(s) PO QID as needed 01/05/2015 02/16/2015 Inactive tramadol 50 mg tablet RxNorm: 086582 2 Tablet(s) PO daily 201401/04/2015 Inactive aspirin 81 mg tablet RxNorm: 769888 1 Tablet(s) PO daily No Start Date Active Centrum Silver tablet RxNorm: oral No Start Date Active coenzyme Q10 200 mg capsule RxNorm: 476569 1 Capsule(s) PO daily No Start Date Active Fish Oil 360 mg-1,200 mg capsule RxNorm: 524833 2 Capsule(s) PO daily No Start Date Active Nitrostat 0.4 mg sublingual tablet RxNorm: 062956 1 Tablet(s) SL q 30 min PRN for chest pain max 3 in 2 hours No Start Date 08/02/2016 Inactive lisinopril 40 mg tablet RxNorm: 670716 1 Tablet(s) PO daily No Start Date 09/07/2015 Inactive meclizine 12.5 mg tablet RxNorm: 273529 1 Tablet(s) PO Q6 No Start Date 12/31/2016 Inactive alprazolam 0.5 mg tablet RxNorm: 043942 1/2 Tablet(s) PO daily No Start Date 02/02/2015 Inactive Ecotrin Low Strength 81 mg tablet,enteric coated RxNorm: 7835907 1 Tablet(s) PO daily No Start Date 01/30/2017 Inactive acetaminophen 650 mg tablet RxNorm: 750132 2 Tablet(s) PO BID No Start Date 05/14/2017 Inactive nystatin 100,000 unit/gram topical cream RxNorm: 647043 APPLY TO THE SKIN THREE TIMES DAILY NEEDED FOR RASH Gram(s) TOP No Start Date 12/22/2017 Inactive tramadol 50 mg tablet RxNorm: 030491 2 Tablet(s) PO daily No Start Date 01/03/2015 Inactive Eliquis 2.5 mg tablet RxNorm: 5832179 1 Tablet(s) PO daily No Start Date 12/31/2016 Inactive Lipitor 40 mg tablet RxNorm: 825178 1 Tablet(s) PO daily No Start Date [...] Observation Code Item Item Code Result Date Tsh Ord6 hTSH II 2.54 uIU/mL 05/16/2017 [...] 28.5 pg 05/16/2017 Cbc With Differential Ord2 [place]% 9.1 % 05/16/2017 Cbc With Differential Ord2 Eos% 3.5 % 05/16/2017 Cbc With Differential Ord2 MCHC 31.5 pg 05/16/2017 Cbc With Differential Ord2 Baso% 0.2 % 05/16/2017 Cbc With Differential Ord2 PLT 152 K/ul 05/16/2017 Cbc With Differential Ord2 RDW 14.8 % 05/16/2017 Cbc With Differential Ord2 Neut ABS# 4.74 K/ul 05/16/2017 Cbc With Differential Ord2 Lymph ABS# 2.96 K/ul 05/16/2017 Cbc With Differential Ord2 [place] ABS# 0.8 K/ul 05/16/2017 Cbc With Differential Ord2 Eos ABS# 0.3 K/ul 05/16/2017 Cbc With Differential Ord2 Baso ABS# 0.0 K/ul 05/16/2017 Comp Metabolic Gwk961 NA 140 mEq/L 05/16/2017 Comp Metabolic Kpc530 K 4.6 mEq/L 05/16/2017 Comp Metabolic Euj782 CL 106 mEq/L 05/16/2017 Comp Metabolic Dmf394 CO2 29.0 mEq/L 05/16/2017 Comp Metabolic Krw828 ANION GAP 10 05/16/2017 Comp Metabolic Aja255 GLUCOSE 119 mg/dL 05/16/2017 Comp Metabolic Qlh848 Creat 1.1 mg/dL 05/16/2017 Comp Metabolic Okk108 eGFR 66 ml/min/1.73m2 05/16/2017 Comp Metabolic Ysq631 BUN 23 mg/dL 05/16/2017 Comp Metabolic Qqm671 B/C Ratio 20.5 Ratio 05/16/2017 Comp Metabolic Vem359 CALCIUM 9.5 mg/dL 05/16/2017 Comp Metabolic Ngr546 ALK PHOS 104 U/L 05/16/2017 Comp Metabolic Eyu969 AST(SGOT) 25 U/L 05/16/2017 Comp Metabolic Ste314 ALT(SGPT) 16 U/L 05/16/2017 Comp Metabolic Xmc173 BILI T 0.5 mg/dL 05/16/2017 Comp Metabolic Xso695 ALBUMIN 4.2 g/dL 05/16/2017 Comp Metabolic Ugb449 TPRO 7.1 g/dL 05/16/2017 Comp Metabolic Edw936 GLOB 2.9 g/dL 05/16/2017 Comp Metabolic Hjx536 A/G Ratio 1.5 Ratio 05/16/2017 Comp Metabolic Llx425 Osmo 284 mOsmo 05/16/2017 Comp Metabolic Blg082 NA 139 mEq/L 10/17/2015 Comp Metabolic Oxp544 K 5.1 mEq/L 10/17/2015 Comp Metabolic Djw288 CL 109 mEq/L 10/17/2015 Comp Metabolic Anx009 CO2 23.0 mEq/L 10/17/2015 Comp Metabolic Qiq528 ANION GAP 12 10/17/2015 Comp Metabolic Abh052 GLUCOSE 103 mg/dL 10/17/2015 Comp Metabolic Pdz538 Creat 1.2 mg/dL 10/17/2015 Comp Metabolic Chn243 eGFR 62 ml/min/1.73m2 10/17/2015 Comp Metabolic Zgg136 BUN 30 mg/dL 10/17/2015 Comp Metabolic Xny547 B/C Ratio 25.4 Ratio 10/17/2015 Comp Metabolic Yks755 CALCIUM 8.9 mg/dL 10/17/2015 Comp Metabolic Pac816 ALK PHOS 71 U/L 10/17/2015 Comp Metabolic Wni265 AST(SGOT) 21 U/L 10/17/2015 Comp Metabolic Hac003 ALT(SGPT) 18 U/L 10/17/2015 Comp Metabolic Act645 BILI T 0.3 mg/dL 10/17/2015 Comp Metabolic Rky961 ALBUMIN 4.2 g/dL 10/17/2015 Comp Metabolic Jlv492 TPRO 6.7 g/dL 10/17/2015 Comp Metabolic Gut544 GLOB 2.6 g/dL 10/17/2015 Comp Metabolic Vjn002 A/G Ratio 1.6 Ratio 10/17/2015 Comp Metabolic Uda989 Osmo 284 mOsmo 10/17/2015 Cbc With Differential [...] 29.0 pg 10/17/2015 Cbc With Differential Ord2 [place]% 7.0 % 10/17/2015 Cbc With Differential Ord2 MCHC 32.0 pg 10/17/2015 Cbc With Differential Ord2 Eos% 5.2 % 10/17/2015 Cbc With Differential Ord2 PLT 161 K/ul 10/17/2015 Cbc With Differential Ord2 Baso% 0.1 % 10/17/2015 Cbc With Differential Ord2 Neut ABS# 4.55 K/ul 10/17/2015 Cbc With Differential Ord2 RDW 14.0 % 10/17/2015 Cbc With Differential Ord2 Lymph ABS# 2.21 K/ul 10/17/2015 Cbc With Differential Ord2 [place] ABS# 0.5 K/ul 10/17/2015 Cbc With Differential [...] clear 02/19/2018 None Full Exam - General 1995 Ears/Nose/Throat [...] FLU VACC PRSV FREE INC ANTIG CPT-4: 52493 03/31/2018 ADMIN INFLUENZA VIRUS VAC CPT-4: G0008 03/12/2017 FLU VACC PRSV FREE INC ANTIG CPT-4: 91707 03/12/2017 PRESCRIP TRANSMIT VIA ERX SY CPT-4: G8553 01/31/2017 PRESCRIP TRANSMIT VIA ERX SY CPT-4: G8553 01/01/2017 PRESCRIP TRANSMIT VIA ERX SY CPT-4: G8553 08/08/2016 ADMIN INFLUENZA VIRUS VAC CPT-4: G0008 03/14/2016 FLU VACC 4 KRANTHI 3 YRS PLUS IM Formatting Model/CDA Sections, Assigned to/Fiordaliza Tadeo CT: 87172760 CPT-4: 72208Sgxdpub 03/14/2016 Vital Signs Date Vital 03/20/2018 Blood Pressure 1: 146/76 Code : 8480-6 BMI: 46.7 Code : 04044-0 Heart Rate 1 : 107 bpm Height: 5' SpO2: 98% Weight: 239 lbs 02/19/2018 Blood Pressure 1: 116/60 Code : 8480-6 BMI: 46.9 Code : 92460-6 Heart Rate 1 : 113 bpm Height: 5' SpO2: 96% Weight: 240 lbs 12/18/2017 Blood Pressure 1: 110/66 Code : 8480-6 BMI: 46.5 Code : 16886-7 Heart Rate 1 : 89 bpm Height: 5' SpO2: 98% Weight: 238 lbs 05/15/2017 Blood Pressure 1: 126/78 Code : 8480-6 BMI: 44.9 Code : 46604-4 Heart Rate 1 : 76 bpm Height: 5' SpO2: 98% Weight: 230 lbs 03/12/2017 Blood Pressure 1: 132/72 Code : 8480-6 BMI: 44.9 Code : 12449-8 Heart Rate 1 : 88 bpm Height: 5' SpO2: 96% Weight: 230 lbs 01/31/2017 Blood Pressure 1: 128/68 Code : 8480-6 BMI: 44.7 Code : 33536-5 Heart Rate 1 : 90 bpm Height: 5' SpO2: 96% Weight: 229 lbs 01/01/2017 Blood Pressure 1: 138/88 Code : 8480-6 BMI: 44.1 Code : 67893-1 Heart Rate 1 : 89 bpm Height: 5' SpO2: 93% Weight: 226 lbs 08/08/2016 Blood Pressure 1: 130/78 Code : 8480-6 BMI: 45.1 Code : 80304-0 Heart Rate 1 : 97 bpm Height: 5' SpO2: 97% Weight: 231 lbs 04/18/2016 Blood Pressure 1: 128/62 Code : 8480-6 BMI: 44.3 Code : 84529-5 Heart Rate 1 : 94 bpm Height: 5' SpO2: 98% Weight: 227 lbs 10/19/2015 Blood Pressure 1: 128/70 Code : 8480-6 BMI: 44.7 Code : 95750-0 Heart Rate 1 : 76 bpm Height: 5' SpO2: 97% Weight: 229 lbs 12/08/2014 Blood Pressure 1: 132/68 Code : 8480-6 BMI: 42.6 Code : 60571-6 Heart Rate 1 : 80 bpm Height: [...] data Encounters Encounter Performer Location Codes Date ([id number]) [id number] EST. PATIENT, LEVEL IV Diagnosis: Chronic atrial fibrillation[ICD10: I48.2] Diagnosis: Essential (primary) hypertension[ICD10: I10] Diagnosis: Localized edema[ICD10: R60.0] [facility] CPT- 4: 49702 03/20/2018 ([id number]) 36735 EST. PATIENT, LEVEL IV Diagnosis: Chronic atrial fibrillation[ICD10: I48.2] Diagnosis: Localized edema[ICD10: R60.0] Diagnosis: Other specified cardiac arrhythmias[ICD10: I49.8] Carolyne Brina MD [facility] CPT-4: 91115 02/19/2018 [id number]) 67814 EST. 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 PATIENT, LEVEL IV Diagnosis: Essential (primary) hypertension[ICD10: I10] Diagnosis: Mixed hyperlipidemia[ICD10: E78.2] Diagnosis: Chronic atrial fibrillation[ICD10: I48.2] Carolyne Brian MD [facility] CPT-4: 42964 05/15/2017 [id number]) 78605 EST. 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 PATIENT, LEVEL III Diagnosis: Essential (primary) hypertension[ICD10: I10] Diagnosis: Chronic atrial fibrillation[ICD10: I48.2] Carolyne Brian MD [facility] CPT-4: 72756 01/31/2017 [id number]) 57723 EST. PATIENT, LEVEL IV Diagnosis: Essential (primary) hypertension[ICD10: I10] Diagnosis: Chronic atrial fibrillation[ICD10: I48.2] Carolyne Brian MD [facility] CPT-4: 74363 01/01/2017 [id number]) 90948 EST. PATIENT, LEVEL IV Diagnosis: Essential (primary) hypertension[ICD10: I10] Diagnosis: Chronic pain syndrome[ICD10: G89.4] Diagnosis: Generalized anxiety disorder[ICD10: F41.1] Carolyne Brian MD, [facility] CPT-4: 02782 08/08/2016 ([id number]) 15634 EST. PATIENT, LEVEL IV Diagnosis: Essential (primary) hypertension[ICD10: I10] Diagnosis: Mixed hyperlipidemia[ICD10: E78.2] Diagnosis: Chronic pain syndrome[ICD10: G89.4] Diagnosis: Generalized anxiety disorder[ICD10: F41.1] Carolyne Brian MD, [facility] CPT-4: 79631 04/18/2016 ([id number]) 39492 EST. PATIENT, LEVEL IV Diagnosis: Essential (primary) hypertension[ICD10: I10] Diagnosis: Mixed hyperlipidemia[ICD10: E78.2] Diagnosis: Myalgia[ICD10: M79.1] Diagnosis: Cough[ICD10: R05] Carolyne Brian MD, [facility] CPT-4: 46763 10/19/2015 ([id number]) OFFICE VISIT, NEW - LEVEL 4 Diagnosis: ESSENTIAL HYPERTENSION[ICD9: 401.9] Diagnosis: HYPERLIPIDEMIA[ICD9: 272.4] Carolyne Brian MD, [facility] CPT- 4: 10238 12/08/2014 Plan of Care Planned Activity Notes Codes Status Date Appointment: [facility] (15 min) Moderate 04/23/2018 Appointment: Carolyne Brian [facility] (15 min) Moderate 04/08/2018 Appointment: Injection 03/31/2018 [...] elevation. 03/20/2018 Appointment: Carolyne Brian [facility]el[facility] (15 min) Moderate 03/20/2018 Patient Education: Patient Medication Summary Completed 03/20/2018 Patient Education: Hypertension Completed 03/20/2018 [facility]ment: [facility] [phone] [facility] (15 min) Moderate 03/11/2018 Visit Plan: [...] same time as his . 02/19/2018 Appointment: aCrolyne Brian [facility] [phone] [facility] (15 min) Moderate 02/19/2018 Patient Education: [...] over-medication. 12/18/2017 [facility]ment: [facility] [phone] [facility] (15 min) Moderate 12/18/2017 Patient Education: [...] medication. 05/15/2017 App[facility]ment: [facility] [phone] [facility] [place] (15 min) Moderate 05/15/2017 Patient Education: [...] today 01/31/2017 App[facility]ment: [facility] [phone] [facility] [place] (15 min) Moderate 01/31/2017 Patient Education: [...] would like to have this done at [facility] in [place]. Continue with Eliquis , rate controlling medication. 01/01/2017 Appointment: Panther Carolyne WPtel: [phone] [facility] (15 min) Moderate 01/01/2017 Patient Education: Patient Medication Summary Completed 01/01/2017 Patient Education: Obesity Completed 01/01/2017 Patient Education: Hypertension Completed 01/01/2017 Appointment: Carolyne Brian WPtel: [phone] [facility] (30 min) Complex 12/24/2016 Visit Plan: Hypertension [...] refilled alprazolam 08/08/2016 [facility]ment: [facility] [phone] [facility] (15 min) Moderate 08/08/2016 Patient Education: [...] refilled alprazolam 04/18/2016 Appointment: Carolyne Brian WPtel: [phone] [facility] (15 min) Moderate 04/18/2016 Patient Education: Patient Medication Summary Completed 04/18/2016 Patient Education: Obesity Completed 04/18/2016 Patient Education: Hypertension Completed 04/18/2016 Appointment: Injection 03/14/2016 Patient Education: Patient Medication Summary Completed 03/14/2016 Appointment: Keara Brown [facility]el[facility] [phone] [facility] [facility] - Annual Wellness Visit 11/17/2015 Visit Plan: [...] min) Complex 08/30/2015 Appointment: Carolyne Brian WPtel: [phone] [facility] (15 min) Moderate 04/13/2015 Visit Plan: [...] to medications. 12/08/2014 App[facility]ment: [facility] [phone] [facility] ([facility] New Patient 12/08/2014 Patient Education: Patient [...] your kids help you get on the [employer] website for Eliquis and they may send [...] your kids help you get on the [employer] website for Eliquis and they may send [...] would like to have this done at [facility] in [place]. Continue with Eliquis, rate controlling medication. . [...]
--- OUTSIDE RECORDS SUMMARY | 2018-07-24 16:48 | XMS REPORT | CCD ---
Author Author [facility] Organization [facility] Address [address] [place] [address] Phone Care Team Providers Care Electrical/Instrument Technician Name Role Phone PP Unavailable CCM Unavailable Summary Purpose Interface Exchange Insurance Providers Payer name Policy type / Coverage type Covered libertarian ID Effective Begin Date Effective End Date [facility] Medicare Part B [id number] 2017 Unknown WPS Medicare Part B Medicare Part B [id number] 2017 Unknown Family history Father Diagnosis Age At Onset Heart Attack Unknown Son Diagnosis Age At Onset Alcoholism Unknown Social History Social History Element Codes Description Effective Dates Employment Unknown 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 Marital status Unknown [place] 08/08/2016 Number of children Unknown 2 12/08/[address]: 7615751 Former smoker quit 1990 12/08/[address]: 580538025 Never drinks alcohol 12/08/2014 Allergies, Adverse Reactions, [...] Fill Instructions tramadol 50 mg tablet RxNorm: 656152 Tablet(s) TAKE 1 TABLET BY MOUTH FOUR TIMES DAILY NEEDED 04/17/2018 06/21/2018 Active Cardizem CD 180 mg capsule,extended release RxNorm: 788134 1 Capsule(s) PO daily 03/20/2018 10/15/2018 Active Eliquis 2.5 mg tablet RxNorm: 6747312 1 Tablet(s) PO BID 201704/16/2018 Inactive alprazolam 0.5 mg tablet RxNorm: 569618 Tablet(s) TAKE 1 TABLET BY MOUTH EVERY 8 HOURS NEEDED FOR ANXIETY OR INSOMNIA 02/20/2018 05/10/2018 Active Eliquis 2.5 mg tablet RxNorm: 4015648 1 TABLET(S) PO BID 201701/15/2019 Active losartan 100 mg tablet RxNorm: 226449 1/2 Tablet(s) 02/19/2018 02/13/2019 Active Cardizem CD 120 mg capsule,extended release RxNorm: 003330 1 Capsule(s) PO daily 02/19/2018 03/19/2018 Inactive nystatin 100,000 unit/gram topical cream RxNorm: 718534 APPLY TO THE SKIN THREE TIMES DAILY NEEDED FOR RASH Gram(s) TOP 12/23/2017 No Stop Date Active losartan 100 mg tablet RxNorm: 678364 TAKE 1 TABLET BY MOUTH EVERY DAY 11/05/2017 02/18/2018 Inactive alprazolam 0.5 mg tablet RxNorm: 505204 Tablet(s) TAKE 1 TABLET BY MOUTH EVERY 8 HOURS NEEDED FOR ANXIETY OR INSOMNIA 10/09/2017 12/26/2017 Inactive tramadol 50 mg tablet RxNorm: 627141 Tablet(s) TAKE 1 TABLET BY MOUTH FOUR TIMES DAILY NEEDED 09/17/2017 11/21/2017 Inactive Lipitor 40 mg tablet RxNorm: 286317 TAKE 1/2 TABLET BY MOUTH ONCE DAILY 07/30/2017 04/25/2018 Active tramadol 50 mg tablet RxNorm: 348258 Tablet(s) TAKE 1 TABLET BY MOUTH FOUR TIMES DAILY NEEDED 07/12/2017 04/16/2018 Inactive alprazolam 0.5 mg tablet RxNorm: 568221 TAKE 1 TABLET BY MOUTH EVERY 8 HOURS NEEDED FOR ANXIETY OR INSOMNIA 05/13/2017 12/17/2017 Inactive tramadol 50 mg tablet RxNorm: 786602 TAKE 1 TABLET BY MOUTH FOUR TIMES DAILY NEEDED 05/06/2017 09/16/2017 Inactive losartan 100 mg tablet RxNorm: 256378 TAKE 1 TABLET BY MOUTH EVERY DAY 04/09/2017 11/04/2017 Inactive betamethasone dipropionate 0.05 % topical ointment RxNorm: 804894 1 Application TOP BID 03/12/2017 03/11/2017 Inactive betamethasone dipropionate 0.05 % topical ointment RxNorm: 348650 1 Application TOP BID 03/12/2017 03/21/2017 Inactive alprazolam 0.5 mg tablet RxNorm: 761310 Tablet(s) TAKE 1 TABLET BY MOUTH EVERY 6 HOURS NEEDED FOR ANXIETY 02/20/201709/2016 Inactive tramadol 50 mg tablet RxNorm: 413955 1 Tablet(s) PO QID as needed 02/20/2017 04/29/2017 Inactive Eliquis 2.5 mg tablet RxNorm: 6023861 1 Tablet(s) PO BID 201601/25/2018 Inactive Eliquis 2.5 mg tablet RxNorm: 6405952 1 Tablet(s) PO BID 201601/30/2017 Inactive meclizine 12.5 mg tablet RxNorm: 138975 1 Tablet(s) PO Q6 as needed 01/01/2017 01/30/2017 Inactive alprazolam 0.5 mg tablet RxNorm: 566786 TAKE 1 TABLET BY MOUTH EVERY 6 HOURS NEEDED FOR ANXIETY 11/08/2016 11/19/2016 Inactive Lipitor 40 mg tablet RxNorm: 689887 TAKE 1/2 TABLET BY MOUTH ONCE DAILY 10/29/2016 10/28/2016 Inactive Lipitor 40 mg tablet RxNorm: 337294 TAKE 1/2 TABLET BY MOUTH ONCE DAILY 10/29/2016 12/17/2017 Inactive nystatin 100,000 unit/gram topical powder RxNorm: 919073 1 APPLICATION TOP TID NEEDED TO AFFECTED AREA 10/19/20162016 Inactive nystatin 100,000 unit/gram topical powder RxNorm: 995520 1 Application TOP TID as needed to affected area 10/17/20162016 Inactive nystatin 100,000 unit/gram topical powder RxNorm: 544610 1 Application TOP TID as needed to affected area 10/17/20162016 Inactive losartan 100 mg tablet RxNorm: 328537 TAKE 1 TABLET BY MOUTH EVERY DAY 09/06/2016 04/03/2017 Inactive Nitrostat 0.4 mg sublingual tablet RxNorm: 752387 1 Tablet(s) SL q 30 min PRN for chest pain max 3 in 2 hours 08/09/2016 No Stop Date Active Nitrostat 0.4 mg sublingual tablet RxNorm: 161163 1 Tablet(s) SL q 30 min PRN for chest pain max 3 in 2 hours 08/08/201606/2016 Inactive tramadol 50 mg tablet RxNorm: 830569 1 Tablet(s) PO QID as needed 08/08/2016 10/13/2016 Inactive Nitrostat 0.4 mg sublingual tablet RxNorm: 297834 1 Tablet(s) SL q 30 min PRN for chest pain max 3 in 2 hours 08/03/2016 Inactive losartan 100 mg tablet RxNorm: 596819 TAKE 1 TABLET BY MOUTH EVERY DAY 05/14/2016 09/05/2016 Inactive alprazolam 0.5 mg tablet RxNorm: 909838 1 Tablet(s) PO daily and q 6 hours prn anxiety 03/07/2016 11/08/2016 Inactive losartan 100 mg tablet RxNorm: 115406 1 Tablet(s) PO daily 04/201605/13/2016 Inactive Lipitor 40 mg tablet RxNorm: 630343 1/2 Tablet(s) PO daily 04/201610/28/2016 Inactive alprazolam 0.5 mg tablet RxNorm: 398133 1 Tablet(s) PO daily and q 6 hours prn anxiety 10/19/2015 02/19/2017 Inactive lisinopril 40 mg tablet RxNorm: 735452 1 Tablet(s) PO daily 10/18/2015 Inactive alprazolam 0.5 mg tablet RxNorm: 437847 1 Tablet(s) PO daily 10/18/2015 Inactive tramadol 50 mg tablet RxNorm: 351795 1 Tablet(s) PO QID as needed 04/20/2015 08/07/2016 Inactive tramadol 50 mg tablet RxNorm: 783637 1 Tablet(s) PO QID as needed 02/17/2015 04/19/2015 Inactive alprazolam 0.5 mg tablet RxNorm: 836976 1 Tablet(s) PO daily 07/11/2015 Inactive tramadol 50 mg tablet RxNorm: 435629 1 Tablet(s) PO QID as needed 01/05/2015 02/16/2015 Inactive tramadol 50 mg tablet RxNorm: 545562 2 Tablet(s) PO daily 201401/04/2015 Inactive aspirin 81 mg tablet RxNorm: 345630 1 Tablet(s) PO daily No Start Date Active Centrum Silver tablet RxNorm: oral No Start Date Active coenzyme Q10 200 mg capsule RxNorm: 171475 1 Capsule(s) PO daily No Start Date Active Fish Oil 360 mg-1,200 mg capsule RxNorm: 412797 2 Capsule(s) PO daily No Start Date Active Nitrostat 0.4 mg sublingual tablet RxNorm: 370676 1 Tablet(s) SL q 30 min PRN for chest pain max 3 in 2 hours No Start Date 08/02/2016 Inactive lisinopril 40 mg tablet RxNorm: 938724 1 Tablet(s) PO daily No Start Date 09/07/2015 Inactive meclizine 12.5 mg tablet RxNorm: 995698 1 Tablet(s) PO Q6 No Start Date 12/31/2016 Inactive alprazolam 0.5 mg tablet RxNorm: 173516 1/2 Tablet(s) PO daily No Start Date 02/02/2015 Inactive Ecotrin Low Strength 81 mg tablet,enteric coated RxNorm: 5706008 1 Tablet(s) PO daily No Start Date 01/30/2017 Inactive acetaminophen 650 mg tablet RxNorm: 987592 2 Tablet(s) PO BID No Start Date 05/14/2017 Inactive nystatin 100,000 unit/gram topical cream RxNorm: 570486 APPLY TO THE SKIN THREE TIMES DAILY NEEDED FOR RASH Gram(s) TOP No Start Date 12/22/2017 Inactive tramadol 50 mg tablet RxNorm: 423265 2 Tablet(s) PO daily No Start Date 01/03/2015 Inactive Eliquis 2.5 mg tablet RxNorm: 7047197 1 Tablet(s) PO daily No Start Date 12/31/2016 Inactive Lipitor 40 mg tablet RxNorm: 669066 1 Tablet(s) PO daily No Start Date [...] 28.5 pg 05/16/2017 Cbc With Differential Ord2 Braxton% 9.1 % 05/16/2017 Cbc With Differential Ord2 MCHC 31.5 pg 05/16/2017 Cbc With Differential Ord2 Eos% 3.5 % 05/16/2017 Cbc With Differential Ord2 PLT 152 K/ul 05/16/2017 Cbc With Differential Ord2 Baso% 0.2 % 05/16/2017 Cbc With Differential Ord2 Neut ABS# 4.74 K/ul 05/16/2017 Cbc With Differential Ord2 RDW 14.8 % 05/16/2017 Cbc With Differential Ord2 Lymph ABS# 2.96 K/ul 05/16/2017 Cbc With Differential Ord2 Braxton ABS# 0.8 K/ul 05/16/2017 Cbc With Differential Ord2 Eos ABS# 0.3 K/ul 05/16/2017 Cbc With Differential Ord2 Baso ABS# 0.0 K/ul 05/16/2017 Comp Metabolic Wet462 NA 140 mEq/L 05/16/2017 Comp Metabolic Rwf217 K 4.6 mEq/L 05/16/2017 Comp Metabolic Fyl856 CL 106 mEq/L 05/16/2017 Comp Metabolic Ozg109 CO2 29.0 mEq/L 05/16/2017 Comp Metabolic Qvh838 ANION GAP 10 05/16/2017 Comp Metabolic Xrl233 GLUCOSE 119 mg/dL 05/16/2017 Comp Metabolic Ywr167 Creat 1.1 mg/dL 05/16/2017 Comp Metabolic Cpw329 eGFR 66 ml/min/1.73m2 05/16/2017 Comp Metabolic Bgx965 BUN 23 mg/dL 05/16/2017 Comp Metabolic Rsc264 B/C Ratio 20.5 Ratio 05/16/2017 Comp Metabolic Akz808 CALCIUM 9.5 mg/dL 05/16/2017 Comp Metabolic Bsc871 ALK PHOS 104 U/L 05/16/2017 Comp Metabolic Rlw145 AST(SGOT) 25 U/L 05/16/2017 Comp Metabolic Mgk983 ALT(SGPT) 16 U/L 05/16/2017 Comp Metabolic Ygl666 BILI T 0.5 mg/dL 05/16/2017 Comp Metabolic Iyw261 ALBUMIN 4.2 g/dL 05/16/2017 Comp Metabolic Adc245 TPRO 7.1 g/dL 05/16/2017 Comp Metabolic Sud552 GLOB 2.9 g/dL 05/16/2017 Comp Metabolic Ozj348 A/G Ratio 1.5 Ratio 05/16/2017 Comp Metabolic Yhl397 Osmo 284 mOsmo 05/16/2017 Comp Metabolic Xsy197 NA 139 mEq/L 10/17/2015 Comp Metabolic Dtm505 K 5.1 mEq/L 10/17/2015 Comp Metabolic Ofm015 CL 109 mEq/L 10/17/2015 Comp Metabolic Fif452 CO2 23.0 mEq/L 10/17/2015 Comp Metabolic Syo054 ANION GAP 12 10/17/2015 Comp Metabolic Alj616 GLUCOSE 103 mg/dL 10/17/2015 Comp Metabolic Tuy638 Creat 1.2 mg/dL 10/17/2015 Comp Metabolic Hbx434 eGFR 62 ml/min/1.73m2 10/17/2015 Comp Metabolic Nin156 BUN 30 mg/dL 10/17/2015 Comp Metabolic Yhn028 B/C Ratio 25.4 Ratio 10/17/2015 Comp Metabolic Kfu609 CALCIUM 8.9 mg/dL 10/17/2015 Comp Metabolic Qkw398 ALK PHOS 71 U/L 10/17/2015 Comp Metabolic Otu497 AST(SGOT) 21 U/L 10/17/2015 Comp Metabolic Nep015 ALT(SGPT) 18 U/L 10/17/2015 Comp Metabolic Yvh812 BILI T 0.3 mg/dL 10/17/2015 Comp Metabolic Oqr281 ALBUMIN 4.2 g/dL 10/17/2015 Comp Metabolic Mnn363 TPRO 6.7 g/dL 10/17/2015 Comp Metabolic Bfb758 GLOB 2.6 g/dL 10/17/2015 Comp Metabolic Oxg344 A/G Ratio 1.6 Ratio 10/17/2015 Comp Metabolic Rir881 Osmo 284 mOsmo 10/17/2015 Cbc With Differential [...] 29.0 pg 10/17/2015 Cbc With Differential Ord2 Braxton% 7.0 % 10/17/2015 Cbc With Differential Ord2 [...] 2.21 K/ul 10/17/2015 Cbc With Differential Ord2 Braxton ABS# 0.5 K/ul 10/17/2015 Cbc With Differential [...] 1995 Ears/Nose/Throat oral cavity/pharynx/larynx Overall: hypopharynx benign 02/19/2018 [...] FLU VACC PRSV FREE INC ANTIG CPT-4: 48190 03/31/2018 ADMIN INFLUENZA VIRUS VAC CPT-4: G0008 03/12/2017 FLU VACC PRSV FREE INC ANTIG CPT-4: 74004 03/12/2017 PRESCRIP TRANSMIT VIA ERX SY CPT-4: G8553 01/31/2017 PRESCRIP TRANSMIT VIA ERX SY CPT-4: G8553 01/01/2017 PRESCRIP TRANSMIT VIA ERX SY CPT-4: G8553 08/08/2016 ADMIN INFLUENZA VIRUS VAC CPT-4: G0008 03/14/2016 FLU VACC 4 KRANTHI 3 YRS PLUS IM Formatting Model/CDA Sections, Assigned to/Fiordaliza Tadeo CT: [id number] CPT-4: 01486Yhgtehr 03/14/2016 Vital Signs Date Vital 03/20/2018 Blood Pressure 1: 146/76 Code : 8480-6 BMI: 46.7 Code : 16864-8 Heart Rate 1 : 107 bpm Height: 5' SpO2: 98% Weight: 239 lbs 02/19/2018 Blood Pressure 1: 116/60 Code : 8480-6 BMI: 46.9 Code : 78969-6 Heart Rate 1 : 113 bpm Height: 5' SpO2: 96% Weight: 240 lbs 12/18/2017 Blood Pressure 1: 110/66 Code : 8480-6 BMI: 46.5 Code : 19372-7 Heart Rate 1 : 89 bpm Height: 5' SpO2: 98% Weight: 238 lbs 05/15/2017 Blood Pressure 1: 126/78 Code : 8480-6 BMI: 44.9 Code : 83012-8 Heart Rate 1 : 76 bpm Height: 5' SpO2: 98% Weight: 230 lbs 03/12/2017 Blood Pressure 1: 132/72 Code : 8480-6 BMI: 44.9 Code : 57209-6 Heart Rate 1 : 88 bpm Height: 5' SpO2: 96% Weight: 230 lbs 01/31/2017 Blood Pressure 1: 128/68 Code : 8480-6 BMI: 44.7 Code : 58180-2 Heart Rate 1 : 90 bpm Height: 5' SpO2: 96% Weight: 229 lbs 01/01/2017 Blood Pressure 1: 138/88 Code : 8480-6 BMI: 44.1 Code : 42697-9 Heart Rate 1 : 89 bpm Height: 5' SpO2: 93% Weight: 226 lbs 08/08/2016 Blood Pressure 1: 130/78 Code : 8480-6 BMI: 45.1 Code : 61534-5 Heart Rate 1 : 97 bpm Height: 5' SpO2: 97% Weight: 231 lbs 04/18/2016 Blood Pressure 1: 128/62 Code : 8480-6 BMI: 44.3 Code : 07412-0 Heart Rate 1 : 94 bpm Height: 5' SpO2: 98% Weight: 227 lbs 10/19/2015 Blood Pressure 1: 128/70 Code : 8480-6 BMI: 44.7 Code : 91895-6 Heart Rate 1 : 76 bpm Height: 5' SpO2: 97% Weight: 229 lbs 12/08/2014 Blood Pressure 1: 132/68 Code : 8480-6 BMI: 42.6 Code : 96568-7 Heart Rate 1 : 80 bpm Height: [...] data Encounters Encounter Performer Location Codes Date ([id number]) 35289 EST. PATIENT, LEVEL IV Diagnosis: Chronic atrial fibrillation[ICD10: I48.2] Diagnosis: Essential (primary) hypertension[ICD10: I10] Diagnosis: Localized edema[ICD10: R60.0] [facility]yne Brian MD, [facility] CPT- 4: 07962 03/20/2018 ([id number]) 94778 EST. PATIENT, LEVEL IV Diagnosis: Chronic atrial fibrillation[ICD10: I48.2] Diagnosis: Localized edema[ICD10: R60.0] Diagnosis: Other specified cardiac arrhythmias[ICD10: I49.8] Carolyne Brian MD, [facility] CPT-4: 20167 02/19/2018 ([id number]) 89290 EST. 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 PATIENT, LEVEL IV Diagnosis: Essential (primary) hypertension[ICD10: I10] Diagnosis: Mixed hyperlipidemia[ICD10: E78.2] Diagnosis: Chronic atrial fibrillation[ICD10: I48.2] [facility] CPT-4: 50604 05/15/2017 ([id number]) 95406 EST. 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 PATIENT, LEVEL III Diagnosis: Essential (primary) hypertension[ICD10: I10] Diagnosis: Chronic atrial fibrillation[ICD10: I48.2] [facility]yne Brian MD, [facility] CPT-4: 08711 01/31/2017 [id number]) 14188 EST. PATIENT, LEVEL IV Diagnosis: Essential (primary) hypertension[ICD10: I10] Diagnosis: Chronic atrial fibrillation[ICD10: I48.2] [facility]yne Brian MD, [facility] CPT-4: 72525 01/01/2017 [id number]) 51062 EST. PATIENT, LEVEL IV Diagnosis: Essential (primary) hypertension[ICD10: I10] Diagnosis: Chronic pain syndrome[ICD10: G89.4] Diagnosis: Generalized anxiety disorder[ICD10: F41.1] Carolyne Brian MD, [facility] CPT-4: 05493 08/08/2016 [id number]) 82061 EST. PATIENT, LEVEL IV Diagnosis: Essential (primary) hypertension[ICD10: I10] Diagnosis: Mixed hyperlipidemia[ICD10: E78.2] Diagnosis: Chronic pain syndrome[ICD10: G89.4] Diagnosis: Generalized anxiety disorder[ICD10: F41.1] [facility] CPT-4: 99466 04/18/2016 ([id number]) 46092 EST. PATIENT, LEVEL IV Diagnosis: Essential (primary) hypertension[ICD10: I10] Diagnosis: Mixed hyperlipidemia[ICD10: E78.2] Diagnosis: Myalgia[ICD10: M79.1] Diagnosis: Cough[ICD10: R05] [facility] CPT-4: 48644 10/19/2015 ([id number]) OFFICE VISIT, NEW - LEVEL 4 Diagnosis: ESSENTIAL HYPERTENSION[ICD9: 401.9] Diagnosis: HYPERLIPIDEMIA[ICD9: 272.4] [facility] CPT- 4: 89791 12/08/2014 Plan of Care Planned Activity Notes Codes Status Date Appointment: Carolyne Brian WPtel: [address] [place], [place] [address] (15 min) Moderate 04/08/2018 Appointment: Injection 03/31/2018 [...] and elevation. 03/20/2018 Appointment: Carolyne Brian WPtel: [phone] [facility] (15 min) Moderate 03/20/2018 Patient Education: Patient Medication Summary Completed 03/20/2018 Patient Education: Hypertension Completed 03/20/2018 Appointment: Carolyne Brian WPtel: [phone] [facility] (15 min) Moderate 03/11/2018 Visit Plan: Atrial [...] . 02/19/2018 [phone] ([facility] Moderate 02/19/2018 Patient Education: [...] over-medication. 12/18/2017 [phone] ([facility] min) Moderate 12/18/2017 Patient Education: [...] current medication. 05/15/2017 [phone] [place] (15 min) Moderate 05/15/2017 Patient [...] today 01/31/2017 [facility]: [phone] [place] (15 min) Moderate 01/31/2017 Patient [...] would like to have this done at [facility] in [place]. Continue with Eliquis , rate controlling medication. 01/01/2017 App[phone] [place] (15 min) Moderate 01/01/2017 Patient Education: Patient Medication Summary Completed 01/01/2017 Patient Education: Obesity Completed 01/01/2017 Patient Education: Hypertension Completed 01/01/2017 Appointment: Carolyne Brian WPtel: [phone] [facility] (30 min) Complex 12/24/2016 Visit Plan: Hypertension [...] alprazolam 08/08/2016 [facility]ment[phone] [facility] (15 min) Moderate 08/08/2016 Patient Education: [...] refilled alprazolam 04/18/2016 Appointment: Carolyne Brian WPtel: [facility] (15 min) Moderate 04/18/2016 Patient Education: Patient Medication Summary Completed 04/18/2016 Patient Education: Obesity Completed 04/18/2016 Patient Education: Hypertension Completed 04/18/2016 Appointment: Injection 03/14/2016 Patient Education: Patient Medication Summary Completed 03/14/2016 Appointment: Keara Brown WPtel: [facility] [place] [address] - Annual Wellness Visit 11/17/2015 Visit Plan: [...] min) Complex 08/30/2015 Appointment: Carolyne Brian WPtel: [facility] (15 min) Moderate 04/13/2015 Visit Plan: Hypertension [...] to medications. 12/08/2014 Appointment: [facility]el[facility] [place] [facility] New Patient 12/08/2014 Patient [...] your kids help you get on the [employer] for Eliquis and they may send you [...] your kids help you get on the [employer] website for Eliquis and they may send [...] would like to have this done at [facility] in [place]. Continue with Eliquis, rate controlling medication. . [...]
--- OUTSIDE RECORDS SUMMARY | 2018-07-24 16:50 | XMS REPORT | CCD ---
Author Author [facility]yne [facility] Organization [facility] Address [address] [place] [address] Phone Care Team Providers Care Auto Air Conditioning Installer Name Role Phone PP Unavailable CCM Unavailable Summary Purpose Interface Exchange Insurance Providers Payer name Policy type / Coverage type Covered republican ID Effective Begin Date Effective End Date [facility] Medicare Part B [id number] 2017 Unknown WPS Medicare Part B Medicare Part B [id number] 2017 Unknown Family history Father Diagnosis Age At Onset Heart Attack Unknown Son Diagnosis Age At Onset Alcoholism Unknown Social History Social History Element Codes Description Effective Dates Employment Unknown 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 Marital status Unknown [place] 08/08/2016 Number of children Unknown 2 12/08/[address]: 7372373 Former smoker quit 1990 12/08/[address]: 080719714 Never drinks alcohol 12/08/2014 Allergies, Adverse Reactions, [...] Start Date Stop Date Status Fill Instructions Cardizem CD 180 mg capsule,extended release RxNorm: 119168 1 Capsule(s) PO daily 03/20/2018 10/15/2018 Active Eliquis 2.5 mg tablet RxNorm: 1465570 1 Tablet(s) PO BID 201704/16/2018 Inactive alprazolam 0.5 mg tablet RxNorm: 900716 Tablet(s) TAKE 1 TABLET BY MOUTH EVERY 8 HOURS NEEDED FOR ANXIETY OR INSOMNIA 02/20/2018 05/10/2018 Active Eliquis 2.5 mg tablet RxNorm: 6404347 1 TABLET(S) PO BID 201701/15/2019 Active losartan 100 mg tablet RxNorm: 960658 1/2 Tablet(s) 02/19/2018 02/13/2019 Active Cardizem CD 120 mg capsule,extended release RxNorm: 935138 1 Capsule(s) PO daily 02/19/2018 03/19/2018 Inactive nystatin 100,000 unit/gram topical cream RxNorm: 100181 APPLY TO THE SKIN THREE TIMES DAILY NEEDED FOR RASH Gram(s) TOP 12/23/2017 No Stop Date Active losartan 100 mg tablet RxNorm: 028719 TAKE 1 TABLET BY MOUTH EVERY DAY 11/05/2017 02/18/2018 Inactive alprazolam 0.5 mg tablet RxNorm: 239046 Tablet(s) TAKE 1 TABLET BY MOUTH EVERY 8 HOURS NEEDED FOR ANXIETY OR INSOMNIA 10/09/2017 12/26/2017 Inactive tramadol 50 mg tablet RxNorm: 051543 Tablet(s) TAKE 1 TABLET BY MOUTH FOUR TIMES DAILY NEEDED 09/17/2017 11/21/2017 Inactive Lipitor 40 mg tablet RxNorm: 490192 TAKE 1/2 TABLET BY MOUTH ONCE DAILY 07/30/2017 04/25/2018 Active tramadol 50 mg tablet RxNorm: 993941 Tablet(s) TAKE 1 TABLET BY MOUTH FOUR TIMES DAILY NEEDED 07/12/2017 08/23/2017 Inactive alprazolam 0.5 mg tablet RxNorm: 243452 TAKE 1 TABLET BY MOUTH EVERY 8 HOURS NEEDED FOR ANXIETY OR INSOMNIA 05/13/2017 12/17/2017 Inactive tramadol 50 mg tablet RxNorm: 521103 TAKE 1 TABLET BY MOUTH FOUR TIMES DAILY NEEDED 05/06/2017 09/16/2017 Inactive losartan 100 mg tablet RxNorm: 835565 TAKE 1 TABLET BY MOUTH EVERY DAY 04/09/2017 11/04/2017 Inactive betamethasone dipropionate 0.05 % topical ointment RxNorm: 125794 1 Application TOP BID 03/12/2017 03/11/2017 Inactive betamethasone dipropionate 0.05 % topical ointment RxNorm: 135755 1 Application TOP BID 03/12/2017 03/21/2017 Inactive alprazolam 0.5 mg tablet RxNorm: 983190 Tablet(s) TAKE 1 TABLET BY MOUTH EVERY 6 HOURS NEEDED FOR ANXIETY 02/20/201709/2016 Inactive tramadol 50 mg tablet RxNorm: 214421 1 Tablet(s) PO QID as needed 02/20/2017 04/29/2017 Inactive Eliquis 2.5 mg tablet RxNorm: 8187473 1 Tablet(s) PO BID 201601/25/2018 Inactive Eliquis 2.5 mg tablet RxNorm: 8380387 1 Tablet(s) PO BID 201601/30/2017 Inactive meclizine 12.5 mg tablet RxNorm: 617212 1 Tablet(s) PO Q6 as needed 01/01/2017 01/30/2017 Inactive alprazolam 0.5 mg tablet RxNorm: 982917 TAKE 1 TABLET BY MOUTH EVERY 6 HOURS NEEDED FOR ANXIETY 11/08/2016 11/19/2016 Inactive Lipitor 40 mg tablet RxNorm: 932663 TAKE 1/2 TABLET BY MOUTH ONCE DAILY 10/29/2016 10/28/2016 Inactive Lipitor 40 mg tablet RxNorm: 349954 TAKE 1/2 TABLET BY MOUTH ONCE DAILY 10/29/2016 12/17/2017 Inactive nystatin 100,000 unit/gram topical powder RxNorm: 992653 1 APPLICATION TOP TID NEEDED TO AFFECTED AREA 10/19/20162016 Inactive nystatin 100,000 unit/gram topical powder RxNorm: 500905 1 Application TOP TID as needed to affected area 10/17/20162016 Inactive nystatin 100,000 unit/gram topical powder RxNorm: 512872 1 Application TOP TID as needed to affected area 10/17/20162016 Inactive losartan 100 mg tablet RxNorm: 753460 TAKE 1 TABLET BY MOUTH EVERY DAY 09/06/2016 04/03/2017 Inactive Nitrostat 0.4 mg sublingual tablet RxNorm: 055306 1 Tablet(s) SL q 30 min PRN for chest pain max 3 in 2 hours 08/09/2016 No Stop Date Active Nitrostat 0.4 mg sublingual tablet RxNorm: 013417 1 Tablet(s) SL q 30 min PRN for chest pain max 3 in 2 hours 08/08/201606/2016 Inactive tramadol 50 mg tablet RxNorm: 188151 1 Tablet(s) PO QID as needed 08/08/2016 10/13/2016 Inactive Nitrostat 0.4 mg sublingual tablet RxNorm: 627368 1 Tablet(s) SL q 30 min PRN for chest pain max 3 in 2 hours 08/03/2016 Inactive losartan 100 mg tablet RxNorm: 579588 TAKE 1 TABLET BY MOUTH EVERY DAY 05/14/2016 09/05/2016 Inactive alprazolam 0.5 mg tablet RxNorm: 478279 1 Tablet(s) PO daily and q 6 hours prn anxiety 03/07/2016 11/08/2016 Inactive losartan 100 mg tablet RxNorm: 374460 1 Tablet(s) PO daily 04/201605/13/2016 Inactive Lipitor 40 mg tablet RxNorm: 130249 1/2 Tablet(s) PO daily 04/201610/28/2016 Inactive alprazolam 0.5 mg tablet RxNorm: 411652 1 Tablet(s) PO daily and q 6 hours prn anxiety 10/19/2015 02/19/2017 Inactive lisinopril 40 mg tablet RxNorm: 063459 1 Tablet(s) PO daily 10/18/2015 Inactive alprazolam 0.5 mg tablet RxNorm: 529631 1 Tablet(s) PO daily 10/18/2015 Inactive tramadol 50 mg tablet RxNorm: 145618 1 Tablet(s) PO QID as needed 04/20/2015 08/07/2016 Inactive tramadol 50 mg tablet RxNorm: 199279 1 Tablet(s) PO QID as needed 02/17/2015 04/19/2015 Inactive alprazolam 0.5 mg tablet RxNorm: 741321 1 Tablet(s) PO daily 07/11/2015 Inactive tramadol 50 mg tablet RxNorm: 844850 1 Tablet(s) PO QID as needed 01/05/2015 02/16/2015 Inactive tramadol 50 mg tablet RxNorm: 640638 2 Tablet(s) PO daily 201401/04/2015 Inactive aspirin 81 mg tablet RxNorm: 886487 1 Tablet(s) PO daily No Start Date Active Centrum Silver tablet RxNorm: oral No Start Date Active coenzyme Q10 200 mg capsule RxNorm: 883378 1 Capsule(s) PO daily No Start Date Active Fish Oil 360 mg-1,200 mg capsule RxNorm: 938200 2 Capsule(s) PO daily No Start Date Active Nitrostat 0.4 mg sublingual tablet RxNorm: 838971 1 Tablet(s) SL q 30 min PRN for chest pain max 3 in 2 hours No Start Date 08/02/2016 Inactive lisinopril 40 mg tablet RxNorm: 458383 1 Tablet(s) PO daily No Start Date 09/07/2015 Inactive meclizine 12.5 mg tablet RxNorm: 186800 1 Tablet(s) PO Q6 No Start Date 12/31/2016 Inactive alprazolam 0.5 mg tablet RxNorm: 318085 1/2 Tablet(s) PO daily No Start Date 02/02/2015 Inactive Ecotrin Low Strength 81 mg tablet,enteric coated RxNorm: 0751656 1 Tablet(s) PO daily No Start Date 01/30/2017 Inactive acetaminophen 650 mg tablet RxNorm: 973851 2 Tablet(s) PO BID No Start Date 05/14/2017 Inactive nystatin 100,000 unit/gram topical cream RxNorm: 127211 APPLY TO THE SKIN THREE TIMES DAILY NEEDED FOR RASH Gram(s) TOP No Start Date 12/22/2017 Inactive tramadol 50 mg tablet RxNorm: 277129 2 Tablet(s) PO daily No Start Date 01/03/2015 Inactive Eliquis 2.5 mg tablet RxNorm: 1628006 1 Tablet(s) PO daily No Start Date 12/31/2016 Inactive Lipitor 40 mg tablet RxNorm: 244245 1 Tablet(s) PO daily No Start Date [...] 28.5 pg 05/16/2017 Cbc With Differential Ord2 [place]% 9.1 % 05/16/2017 Cbc With Differential Ord2 [...] 2.96 K/ul 05/16/2017 Cbc With Differential Ord2 [place] ABS# 0.8 K/ul 05/16/2017 Cbc With Differential Ord2 Eos ABS# 0.3 K/ul 05/16/2017 Cbc With Differential Ord2 Baso ABS# 0.0 K/ul 05/16/2017 Comp Metabolic Lla767 NA 140 mEq/L 05/16/2017 Comp Metabolic Wid038 K 4.6 mEq/L 05/16/2017 Comp Metabolic Bqy567 CL 106 mEq/L 05/16/2017 Comp Metabolic Ebd187 CO2 29.0 mEq/L 05/16/2017 Comp Metabolic Ajn840 ANION GAP 10 05/16/2017 Comp Metabolic Yzt637 GLUCOSE 119 mg/dL 05/16/2017 Comp Metabolic Vbv573 Creat 1.1 mg/dL 05/16/2017 Comp Metabolic Kfa791 eGFR 66 ml/min/1.73m2 05/16/2017 Comp Metabolic Blj321 BUN 23 mg/dL 05/16/2017 Comp Metabolic Pci622 B/C Ratio 20.5 Ratio 05/16/2017 Comp Metabolic Ees754 CALCIUM 9.5 mg/dL 05/16/2017 Comp Metabolic Hso201 ALK PHOS 104 U/L 05/16/2017 Comp Metabolic Ywm595 AST(SGOT) 25 U/L 05/16/2017 Comp Metabolic Xza166 ALT(SGPT) 16 U/L 05/16/2017 Comp Metabolic Sou334 BILI T 0.5 mg/dL 05/16/2017 Comp Metabolic Bjj791 ALBUMIN 4.2 g/dL 05/16/2017 Comp Metabolic Pfj442 TPRO 7.1 g/dL 05/16/2017 Comp Metabolic Rqc856 GLOB 2.9 g/dL 05/16/2017 Comp Metabolic Cvq648 A/G Ratio 1.5 Ratio 05/16/2017 Comp Metabolic Woo669 Osmo 284 mOsmo 05/16/2017 Comp Metabolic Tvo652 NA 139 mEq/L 10/17/2015 Comp Metabolic Cwc401 K 5.1 mEq/L 10/17/2015 Comp Metabolic Vcy493 CL 109 mEq/L 10/17/2015 Comp Metabolic Gjc880 CO2 23.0 mEq/L 10/17/2015 Comp Metabolic Xrx493 ANION GAP 12 10/17/2015 Comp Metabolic Iie968 GLUCOSE 103 mg/dL 10/17/2015 Comp Metabolic Akm388 Creat 1.2 mg/dL 10/17/2015 Comp Metabolic Nyf324 eGFR 62 ml/min/1.73m2 10/17/2015 Comp Metabolic Vzr830 BUN 30 mg/dL 10/17/2015 Comp Metabolic Cid871 B/C Ratio 25.4 Ratio 10/17/2015 Comp Metabolic Tlo599 CALCIUM 8.9 mg/dL 10/17/2015 Comp Metabolic Ifc828 ALK PHOS 71 U/L 10/17/2015 Comp Metabolic Dkj507 AST(SGOT) 21 U/L 10/17/2015 Comp Metabolic Wci073 ALT(SGPT) 18 U/L 10/17/2015 Comp Metabolic Mio232 BILI T 0.3 mg/dL 10/17/2015 Comp Metabolic Kxr900 ALBUMIN 4.2 g/dL 10/17/2015 Comp Metabolic Ism382 TPRO 6.7 g/dL 10/17/2015 Comp Metabolic Ztg396 GLOB 2.6 g/dL 10/17/2015 Comp Metabolic Xxn073 A/G Ratio 1.6 Ratio 10/17/2015 Comp Metabolic Rtn448 Osmo 284 mOsmo 10/17/2015 Cbc With Differential [...] 29.0 pg 10/17/2015 Cbc With Differential Ord2 [place]% 7.0 % 10/17/2015 Cbc With Differential Ord2 [...] 2.21 K/ul 10/17/2015 Cbc With Differential Ord2 [place] ABS# 0.5 K/ul 10/17/2015 Cbc With Differential [...] FLU VACC PRSV FREE INC ANTIG CPT-4: 43470 03/31/2018 ADMIN INFLUENZA VIRUS VAC CPT-4: G0008 03/12/2017 FLU VACC PRSV FREE INC ANTIG CPT-4: 94586 03/12/2017 PRESCRIP TRANSMIT VIA ERX SY CPT-4: G8553 01/31/2017 PRESCRIP TRANSMIT VIA ERX SY CPT-4: G8553 01/01/2017 PRESCRIP TRANSMIT VIA ERX SY CPT-4: G8553 08/08/2016 ADMIN INFLUENZA VIRUS VAC CPT-4: G0008 03/14/2016 FLU VACC 4 KRANTHI 3 YRS PLUS IM Assigned to/Fiordaliza Tadeo, Formatting Model/CDA Sections SNOMED CT: 36639635 CPT-4: 50428Dukaogm 03/14/2016 Vital Signs Date Vital 03/20/2018 Blood Pressure 1: 146/76 Code : 8480-6 BMI: 46.7 Code : 45048-9 Heart Rate 1 : 107 bpm Height: 5' SpO2: 98% Weight: 239 lbs 02/19/2018 Blood Pressure 1: 116/60 Code : 8480-6 BMI: 46.9 Code : 90714-6 Heart Rate 1 : 113 bpm Height: 5' SpO2: 96% Weight: 240 lbs 12/18/2017 Blood Pressure 1: 110/66 Code : 8480-6 BMI: 46.5 Code : 47984-5 Heart Rate 1 : 89 bpm Height: 5' SpO2: 98% Weight: 238 lbs 05/15/2017 Blood Pressure 1: 126/78 Code : 8480-6 BMI: 44.9 Code : 12771-8 Heart Rate 1 : 76 bpm Height: 5' SpO2: 98% Weight: 230 lbs 03/12/2017 Blood Pressure 1: 132/72 Code : 8480-6 BMI: 44.9 Code : 97132-5 Heart Rate 1 : 88 bpm Height: 5' SpO2: 96% Weight: 230 lbs 01/31/2017 Blood Pressure 1: 128/68 Code : 8480-6 BMI: 44.7 Code : 57198-9 Heart Rate 1 : 90 bpm Height: 5' SpO2: 96% Weight: 229 lbs 01/01/2017 Blood Pressure 1: 138/88 Code : 8480-6 BMI: 44.1 Code : 45796-2 Heart Rate 1 : 89 bpm Height: 5' SpO2: 93% Weight: 226 lbs 08/08/2016 Blood Pressure 1: 130/78 Code : 8480-6 BMI: 45.1 Code : 03496-7 Heart Rate 1 : 97 bpm Height: 5' SpO2: 97% Weight: 231 lbs 04/18/2016 Blood Pressure 1: 128/62 Code : 8480-6 BMI: 44.3 Code : 04790-7 Heart Rate 1 : 94 bpm Height: 5' SpO2: 98% Weight: 227 lbs 10/19/2015 Blood Pressure 1: 128/70 Code : 8480-6 BMI: 44.7 Code : 30783-1 Heart Rate 1 : 76 bpm Height: 5' SpO2: 97% Weight: 229 lbs 12/08/2014 Blood Pressure 1: 132/68 Code : 8480-6 BMI: 42.6 Code : 53050-8 Heart Rate 1 : 80 bpm Height: [...] data Encounters Encounter Performer Location Codes Date ([id number]) [id number] EST. PATIENT, LEVEL IV Diagnosis: Chronic atrial fibrillation[ICD10: I48.2] Diagnosis: Essential (primary) hypertension[ICD10: I10] Diagnosis: Localized edema[ICD10: R60.0] Carolyne Brian MD, [facility] CPT- 4: 30045 03/20/2018 ([id number]) 13441 EST. PATIENT, LEVEL IV Diagnosis: Chronic atrial fibrillation[ICD10: I48.2] Diagnosis: Localized edema[ICD10: R60.0] Diagnosis: Other specified cardiac arrhythmias[ICD10: I49.8] Carolyne Brian MD, [facility] CPT-4: 63514 02/19/2018 ([id number]) 33561 EST. 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 PATIENT, LEVEL IV Diagnosis: Essential (primary) hypertension[ICD10: I10] Diagnosis: Mixed hyperlipidemia[ICD10: E78.2] Diagnosis: Chronic atrial fibrillation[ICD10: I48.2] Carolyne Brian MD [facility] CPT-4: 15798 05/15/2017 ([id number]) 96506 EST. 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 PATIENT, LEVEL III Diagnosis: Essential (primary) hypertension[ICD10: I10] Diagnosis: Chronic atrial fibrillation[ICD10: I48.2] [facility]yne [facility] MD [facility] CPT-4: 94969 01/31/2017 ([id number]) 64494 EST. PATIENT, LEVEL IV Diagnosis: Essential (primary) hypertension[ICD10: I10] Diagnosis: Chronic atrial fibrillation[ICD10: I48.2] [facility] MD [facility] CPT-4: 41291 01/01/2017 ([id number]) 68180 EST. PATIENT, LEVEL IV Diagnosis: Essential (primary) hypertension[ICD10: I10] Diagnosis: Chronic pain syndrome[ICD10: G89.4] Diagnosis: Generalized anxiety disorder[ICD10: F41.1] [facility] MD [facility] CPT-4: 45516 08/08/2016 [id number]) 12692 EST. PATIENT, LEVEL IV Diagnosis: Essential (primary) hypertension[ICD10: I10] Diagnosis: Mixed hyperlipidemia[ICD10: E78.2] Diagnosis: Chronic pain syndrome[ICD10: G89.4] Diagnosis: Generalized anxiety disorder[ICD10: F41.1] [facility] CPT-4: 82774 04/18/2016 ([id number]) 81121 EST. PATIENT, LEVEL IV Diagnosis: Essential (primary) hypertension[ICD10: I10] Diagnosis: Mixed hyperlipidemia[ICD10: E78.2] Diagnosis: Myalgia[ICD10: M79.1] Diagnosis: Cough[ICD10: R05] [facility] CPT-4: 59687 10/19/2015 ([id number]) OFFICE VISIT, NEW - LEVEL 4 Diagnosis: ESSENTIAL HYPERTENSION[ICD9: 401.9] Diagnosis: HYPERLIPIDEMIA[ICD9: 272.4] [facility] CPT- 4: 71734 12/08/2014 Plan of Care Planned Activity Notes Codes Status Date App[facility]ment: [phone] [facility] ([facility] min) Moderate 04/08/2018 Appointment: Injection [...] elevation. 03/20/2018 Appointment: Carolyne Brian WPtel: [phone] [facility] (15 min) Moderate 03/20/2018 Patient Education: Patient Medication Summary Completed 03/20/2018 Patient Education: Hypertension Completed 03/20/2018 [facility]ment: [facility] [phone] [facility] (15 min) Moderate 03/11/2018 Visit Plan: [...] time as his . 02/19/2018 App[facility]ment: [facility] [phone] [facility] (15 min) Moderate 02/19/2018 Patient Education: [...] of over-medication. 12/18/2017 App[facility]ment: [facility] [phone] [facility] (15 min) Moderate 12/18/2017 Patient Education: [...] medication. 05/15/2017 App[facility]ment: [facility] [phone] [facility] [place] (15 min) Moderate 05/15/2017 Patient [...] eliquis today 01/31/2017 Appointment: Carolyne Brian [facility]Ptel[facility] [place] (15 min) Moderate 01/31/2017 Patient [...] would like to have this done at [facility] in [place]. Continue with Eliquis , rate controlling medication. 01/01/2017 App[facility]ment: [facility] [phone] [facility] [place] (15 min) Moderate 01/01/2017 Patient Education: Patient Medication Summary Completed 01/01/2017 Patient Education: Obesity Completed 01/01/2017 Patient Education: Hypertension Completed 01/01/2017 [facility]ment: [facility] [phone] [facility] (30 min) Complex 12/24/2016 Visit Plan: [...] alprazolam 08/08/2016 [facility]ment: [facility] [phone] [facility] (15 min) Moderate 08/08/2016 Patient Education: [...] refilled alprazolam 04/18/2016 Appointment: Carolyne Brian WPtel: [facility] (15 min) Moderate 04/18/2016 Patient Education: Patient Medication Summary Completed 04/18/2016 Patient Education: Obesity Completed 04/18/2016 Patient Education: Hypertension Completed 04/18/2016 Appointment: Injection 03/14/2016 Patient Education: Patient Medication Summary Completed 03/14/2016 Appointment: Keara Brown WPtel: [facility] [address] - Annual Wellness Visit 11/17/2015 Visit [...] min) Complex 08/30/2015 Appointment: Carolyne Brian WPtel: [facility] [address] (15 min) Moderate 04/13/2015 Visit Plan: [...] medications. 12/08/2014 Appointment: [facility] [phone] [facility] [place] ([place] New Patient 12/08/2014 Patient [...] your kids help you get on the [employer] website for Eliquis and they may send [...] your kids help you get on the [employer] website for Eliquis and they may send [...] would like to have this done at [facility] in [place]. Continue with Eliquis, rate controlling medication. . [...]
--- OUTSIDE RECORDS SUMMARY | 2018-07-24 16:51 | XMS REPORT | CCD ---
Author Author [facility]yne Brian Organization [facility] Address [address] [place] [address] Phone Care Team Providers Care Flight Coordinator Name Role Phone PP Unavailable CCM Unavailable Summary Purpose Interface Exchange Insurance Providers Payer name Policy type / Coverage type Covered alliance party ID Effective Begin Date Effective End Date 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 Marital status Unknown [place] 08/08/2016 Number of children Unknown 2 12/08/[address]: 0305550 Former smoker quit 1990 12/08/[address]: 418820599 Never drinks alcohol 12/08/2014 Allergies, Adverse Reactions, [...] Cardizem CD 180 mg capsule,extended release RxNorm: 036669 1 Capsule(s) PO daily 03/20/2018 10/15/2018 Active Eliquis 2.5 mg tablet RxNorm: 7420364 1 Tablet(s) PO BID 201704/16/2018 Active alprazolam 0.5 mg tablet RxNorm: 708060 Tablet(s) TAKE 1 TABLET BY MOUTH EVERY 8 HOURS NEEDED FOR ANXIETY OR INSOMNIA 02/20/2018 05/10/2018 Active Eliquis 2.5 mg tablet RxNorm: 9587073 1 TABLET(S) PO BID 201701/15/2019 Active losartan 100 mg tablet RxNorm: 102652 1/2 Tablet(s) 02/19/2018 02/13/2019 Active Cardizem CD 120 mg capsule,extended release RxNorm: 165036 1 Capsule(s) PO daily 02/19/2018 03/19/2018 Inactive nystatin 100,000 unit/gram topical cream RxNorm: 185816 APPLY TO THE SKIN THREE TIMES DAILY NEEDED FOR RASH Gram(s) TOP 12/23/2017 No Stop Date Active losartan 100 mg tablet RxNorm: 235886 TAKE 1 TABLET BY MOUTH EVERY DAY 11/05/2017 02/18/2018 Inactive alprazolam 0.5 mg tablet RxNorm: 982446 Tablet(s) TAKE 1 TABLET BY MOUTH EVERY 8 HOURS NEEDED FOR ANXIETY OR INSOMNIA 10/09/2017 12/26/2017 Inactive tramadol 50 mg tablet RxNorm: 470790 Tablet(s) TAKE 1 TABLET BY MOUTH FOUR TIMES DAILY NEEDED 09/17/2017 11/21/2017 Inactive Lipitor 40 mg tablet RxNorm: 679101 TAKE 1/2 TABLET BY MOUTH ONCE DAILY 07/30/2017 04/25/2018 Active tramadol 50 mg tablet RxNorm: 603259 Tablet(s) TAKE 1 TABLET BY MOUTH FOUR TIMES DAILY NEEDED 07/12/2017 08/23/2017 Inactive alprazolam 0.5 mg tablet RxNorm: 842152 TAKE 1 TABLET BY MOUTH EVERY 8 HOURS NEEDED FOR ANXIETY OR INSOMNIA 05/13/2017 12/17/2017 Inactive tramadol 50 mg tablet RxNorm: 004432 TAKE 1 TABLET BY MOUTH FOUR TIMES DAILY NEEDED 05/06/2017 09/16/2017 Inactive losartan 100 mg tablet RxNorm: 266444 TAKE 1 TABLET BY MOUTH EVERY DAY 04/09/2017 11/04/2017 Inactive betamethasone dipropionate 0.05 % topical ointment RxNorm: 703383 1 Application TOP BID 03/12/2017 03/11/2017 Inactive betamethasone dipropionate 0.05 % topical ointment RxNorm: 140788 1 Application TOP BID 03/12/2017 03/21/2017 Inactive alprazolam 0.5 mg tablet RxNorm: 336445 Tablet(s) TAKE 1 TABLET BY MOUTH EVERY 6 HOURS NEEDED FOR ANXIETY 02/20/201709/2016 Inactive tramadol 50 mg tablet RxNorm: 306590 1 Tablet(s) PO QID as needed 02/20/2017 04/29/2017 Inactive Eliquis 2.5 mg tablet RxNorm: 7611067 1 Tablet(s) PO BID 201601/25/2018 Inactive Eliquis 2.5 mg tablet RxNorm: 8540224 1 Tablet(s) PO BID 201601/30/2017 Inactive meclizine 12.5 mg tablet RxNorm: 851522 1 Tablet(s) PO Q6 as needed 01/01/2017 01/30/2017 Inactive alprazolam 0.5 mg tablet RxNorm: 557445 TAKE 1 TABLET BY MOUTH EVERY 6 HOURS NEEDED FOR ANXIETY 11/08/2016 11/19/2016 Inactive Lipitor 40 mg tablet RxNorm: 522562 TAKE 1/2 TABLET BY MOUTH ONCE DAILY 10/29/2016 10/28/2016 Inactive Lipitor 40 mg tablet RxNorm: 362384 TAKE 1/2 TABLET BY MOUTH ONCE DAILY 10/29/2016 12/17/2017 Inactive nystatin 100,000 unit/gram topical powder RxNorm: 668503 1 APPLICATION TOP TID NEEDED TO AFFECTED AREA 10/19/20162016 Inactive nystatin 100,000 unit/gram topical powder RxNorm: 225724 1 Application TOP TID as needed to affected area 10/17/20162016 Inactive nystatin 100,000 unit/gram topical powder RxNorm: 937461 1 Application TOP TID as needed to affected area 10/17/20162016 Inactive losartan 100 mg tablet RxNorm: 481849 TAKE 1 TABLET BY MOUTH EVERY DAY 09/06/2016 04/03/2017 Inactive Nitrostat 0.4 mg sublingual tablet RxNorm: 380199 1 Tablet(s) SL q 30 min PRN for chest pain max 3 in 2 hours 08/09/2016 No Stop Date Active Nitrostat 0.4 mg sublingual tablet RxNorm: 981749 1 Tablet(s) SL q 30 min PRN for chest pain max 3 in 2 hours 08/08/201606/2016 Inactive tramadol 50 mg tablet RxNorm: 840593 1 Tablet(s) PO QID as needed 08/08/2016 10/13/2016 Inactive Nitrostat 0.4 mg sublingual tablet RxNorm: 716551 1 Tablet(s) SL q 30 min PRN for chest pain max 3 in 2 hours 08/03/2016 Inactive losartan 100 mg tablet RxNorm: 896912 TAKE 1 TABLET BY MOUTH EVERY DAY 05/14/2016 09/05/2016 Inactive alprazolam 0.5 mg tablet RxNorm: 182536 1 Tablet(s) PO daily and q 6 hours prn anxiety 03/07/2016 11/08/2016 Inactive losartan 100 mg tablet RxNorm: 666557 1 Tablet(s) PO daily 04/201605/13/2016 Inactive Lipitor 40 mg tablet RxNorm: 407880 1/2 Tablet(s) PO daily 04/201610/28/2016 Inactive alprazolam 0.5 mg tablet RxNorm: 955965 1 Tablet(s) PO daily and q 6 hours prn anxiety 10/19/2015 02/19/2017 Inactive lisinopril 40 mg tablet RxNorm: 194337 1 Tablet(s) PO daily 10/18/2015 Inactive alprazolam 0.5 mg tablet RxNorm: 095246 1 Tablet(s) PO daily 10/18/2015 Inactive tramadol 50 mg tablet RxNorm: 885309 1 Tablet(s) PO QID as needed 04/20/2015 08/07/2016 Inactive tramadol 50 mg tablet RxNorm: 433552 1 Tablet(s) PO QID as needed 02/17/2015 04/19/2015 Inactive alprazolam 0.5 mg tablet RxNorm: 509653 1 Tablet(s) PO daily 07/11/2015 Inactive tramadol 50 mg tablet RxNorm: 786604 1 Tablet(s) PO QID as needed 01/05/2015 02/16/2015 Inactive tramadol 50 mg tablet RxNorm: 830138 2 Tablet(s) PO daily 201401/04/2015 Inactive aspirin 81 mg tablet RxNorm: 425860 1 Tablet(s) PO daily No Start Date Active Centrum Silver tablet RxNorm: oral No Start Date Active coenzyme Q10 200 mg capsule RxNorm: 616693 1 Capsule(s) PO daily No Start Date Active Fish Oil 360 mg-1,200 mg capsule RxNorm: 619250 2 Capsule(s) PO daily No Start Date Active Nitrostat 0.4 mg sublingual tablet RxNorm: 596880 1 Tablet(s) SL q 30 min PRN for chest pain max 3 in 2 hours No Start Date 08/02/2016 Inactive lisinopril 40 mg tablet RxNorm: 980049 1 Tablet(s) PO daily No Start Date 09/07/2015 Inactive meclizine 12.5 mg tablet RxNorm: 782108 1 Tablet(s) PO Q6 No Start Date 12/31/2016 Inactive alprazolam 0.5 mg tablet RxNorm: 469693 1/2 Tablet(s) PO daily No Start Date 02/02/2015 Inactive Ecotrin Low Strength 81 mg tablet,enteric coated RxNorm: 5838658 1 Tablet(s) PO daily No Start Date 01/30/2017 Inactive acetaminophen 650 mg tablet RxNorm: 758350 2 Tablet(s) PO BID No Start Date 05/14/2017 Inactive nystatin 100,000 unit/gram topical cream RxNorm: 394733 APPLY TO THE SKIN THREE TIMES DAILY NEEDED FOR RASH Gram(s) TOP No Start Date 12/22/2017 Inactive tramadol 50 mg tablet RxNorm: 677240 2 Tablet(s) PO daily No Start Date 01/03/2015 Inactive Eliquis 2.5 mg tablet RxNorm: 8419877 1 Tablet(s) PO daily No Start Date 12/31/2016 Inactive Lipitor 40 mg tablet RxNorm: 957643 1 Tablet(s) PO daily No Start Date 10/18/2015 Inactive Medication Administered No Medication Administered data Immunizations Vaccine Codes Date Status Influenza CVX: 141 03/12/2017 completed Influenza CVX: [...] 28.5 pg 05/16/2017 Cbc With Differential Ord2 Dyer% 9.1 % 05/16/2017 Cbc With Differential Ord2 [...] 2.96 K/ul 05/16/2017 Cbc With Differential Ord2 Dyer ABS# 0.8 K/ul 05/16/2017 Cbc With Differential Ord2 Eos ABS# 0.3 K/ul 05/16/2017 Cbc With Differential Ord2 Baso ABS# 0.0 K/ul 05/16/2017 Comp Metabolic Edj045 NA 140 mEq/L 05/16/2017 Comp Metabolic Kbj754 K 4.6 mEq/L 05/16/2017 Comp Metabolic Shi617 CL 106 mEq/L 05/16/2017 Comp Metabolic Ycb645 CO2 29.0 mEq/L 05/16/2017 Comp Metabolic Ifg329 ANION GAP 10 05/16/2017 Comp Metabolic Dfr573 GLUCOSE 119 mg/dL 05/16/2017 Comp Metabolic Nqz500 Creat 1.1 mg/dL 05/16/2017 Comp Metabolic Klp704 eGFR 66 ml/min/1.73m2 05/16/2017 Comp Metabolic Orf456 BUN 23 mg/dL 05/16/2017 Comp Metabolic Woa650 B/C Ratio 20.5 Ratio 05/16/2017 Comp Metabolic Gwd046 CALCIUM 9.5 mg/dL 05/16/2017 Comp Metabolic Dva395 ALK PHOS 104 U/L 05/16/2017 Comp Metabolic Ivq408 AST(SGOT) 25 U/L 05/16/2017 Comp Metabolic Xpx305 ALT(SGPT) 16 U/L 05/16/2017 Comp Metabolic Tev741 BILI T 0.5 mg/dL 05/16/2017 Comp Metabolic Epe033 ALBUMIN 4.2 g/dL 05/16/2017 Comp Metabolic Nrv990 TPRO 7.1 g/dL 05/16/2017 Comp Metabolic Iyi339 GLOB 2.9 g/dL 05/16/2017 Comp Metabolic Iui647 A/G Ratio 1.5 Ratio 05/16/2017 Comp Metabolic Epl487 Osmo 284 mOsmo 05/16/2017 Comp Metabolic Mez939 NA 139 mEq/L 10/17/2015 Comp Metabolic Lde196 K 5.1 mEq/L 10/17/2015 Comp Metabolic Obs134 CL 109 mEq/L 10/17/2015 Comp Metabolic Yir358 CO2 23.0 mEq/L 10/17/2015 Comp Metabolic Fes873 ANION GAP 12 10/17/2015 Comp Metabolic Pyv002 GLUCOSE 103 mg/dL 10/17/2015 Comp Metabolic Yil138 Creat 1.2 mg/dL 10/17/2015 Comp Metabolic Mwk436 eGFR 62 ml/min/1.73m2 10/17/2015 Comp Metabolic Dvs845 BUN 30 mg/dL 10/17/2015 Comp Metabolic Vvs911 B/C Ratio 25.4 Ratio 10/17/2015 Comp Metabolic Wrm692 CALCIUM 8.9 mg/dL 10/17/2015 Comp Metabolic Otq815 ALK PHOS 71 U/L 10/17/2015 Comp Metabolic Jxl366 AST(SGOT) 21 U/L 10/17/2015 Comp Metabolic Hko303 ALT(SGPT) 18 U/L 10/17/2015 Comp Metabolic Zdj684 BILI T 0.3 mg/dL 10/17/2015 Comp Metabolic Cjp911 ALBUMIN 4.2 g/dL 10/17/2015 Comp Metabolic Nef201 TPRO 6.7 g/dL 10/17/2015 Comp Metabolic Wwo562 GLOB 2.6 g/dL 10/17/2015 Comp Metabolic Vrd593 A/G Ratio 1.6 Ratio 10/17/2015 Comp Metabolic Lpp996 Osmo 284 mOsmo 10/17/2015 Cbc With Differential [...] 29.0 pg 10/17/2015 Cbc With Differential Ord2 Dyer% 7.0 % 10/17/2015 Cbc With Differential Ord2 [...] 2.21 K/ul 10/17/2015 Cbc With Differential Ord2 Dyer ABS# 0.5 K/ul 10/17/2015 Cbc With Differential [...] FLU VACC PRSV FREE INC ANTIG CPT-4: 59690 03/31/2018 ADMIN INFLUENZA VIRUS VAC CPT-4: G0008 03/12/2017 FLU VACC PRSV FREE INC ANTIG CPT-4: 54173 03/12/2017 PRESCRIP TRANSMIT VIA ERX SY CPT-4: G8553 01/31/2017 PRESCRIP TRANSMIT VIA ERX SY CPT-4: G8553 01/01/2017 PRESCRIP TRANSMIT VIA ERX SY CPT-4: G8553 08/08/2016 ADMIN INFLUENZA VIRUS VAC CPT-4: G0008 03/14/2016 FLU VACC 4 KRANTHI 3 YRS PLUS IM Formatting Model/CDA Sections, Assigned to/Fiordaliza Tadeo CT: [id number] CPT-4: 62996Snomelv 03/14/2016 Vital Signs Date Vital 03/20/2018 Blood Pressure 1: 146/76 Code : 8480-6 BMI: 46.7 Code : 10075-0 Heart Rate 1 : 107 bpm Height: 5' SpO2: 98% Weight: 239 lbs 02/19/2018 Blood Pressure 1: 116/60 Code : 8480-6 BMI: 46.9 Code : 95112-8 Heart Rate 1 : 113 bpm Height: 5' SpO2: 96% Weight: 240 lbs 12/18/2017 Blood Pressure 1: 110/66 Code : 8480-6 BMI: 46.5 Code : 83819-5 Heart Rate 1 : 89 bpm Height: 5' SpO2: 98% Weight: 238 lbs 05/15/2017 Blood Pressure 1: 126/78 Code : 8480-6 BMI: 44.9 Code : 21607-4 Heart Rate 1 : 76 bpm Height: 5' SpO2: 98% Weight: 230 lbs 03/12/2017 Blood Pressure 1: 132/72 Code : 8480-6 BMI: 44.9 Code : 93533-2 Heart Rate 1 : 88 bpm Height: 5' SpO2: 96% Weight: 230 lbs 01/31/2017 Blood Pressure 1: 128/68 Code : 8480-6 BMI: 44.7 Code : 18192-5 Heart Rate 1 : 90 bpm Height: 5' SpO2: 96% Weight: 229 lbs 01/01/2017 Blood Pressure 1: 138/88 Code : 8480-6 BMI: 44.1 Code : 20483-6 Heart Rate 1 : 89 bpm Height: 5' SpO2: 93% Weight: 226 lbs 08/08/2016 Blood Pressure 1: 130/78 Code : 8480-6 BMI: 45.1 Code : 39391-3 Heart Rate 1 : 97 bpm Height: 5' SpO2: 97% Weight: 231 lbs 04/18/2016 Blood Pressure 1: 128/62 Code : 8480-6 BMI: 44.3 Code : 71113-4 Heart Rate 1 : 94 bpm Height: 5' SpO2: 98% Weight: 227 lbs 10/19/2015 Blood Pressure 1: 128/70 Code : 8480-6 BMI: 44.7 Code : 77865-5 Heart Rate 1 : 76 bpm Height: 5' SpO2: 97% Weight: 229 lbs 12/08/2014 Blood Pressure 1: 132/68 Code : 8480-6 BMI: 42.6 Code : 01411-8 Heart Rate 1 : 80 bpm Height: [...] data Encounters Encounter Performer Location Codes Date ([id number]) [id number] EST. PATIENT, LEVEL IV Diagnosis: Chronic atrial fibrillation[ICD10: I48.2] Diagnosis: Essential (primary) hypertension[ICD10: I10] Diagnosis: Localized edema[ICD10: R60.0] Carolyne Brian MD, [facility] CPT- 4: 86173 03/20/2018 [id number]) 99022 EST. PATIENT, LEVEL IV Diagnosis: Chronic atrial fibrillation[ICD10: I48.2] Diagnosis: Localized edema[ICD10: R60.0] Diagnosis: Other specified cardiac arrhythmias[ICD10: I49.8] Carolyne Brian MD, [facility] CPT-4: 49139 02/19/2018 [id number]) 04106 EST. 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 PATIENT, LEVEL IV Diagnosis: Essential (primary) hypertension[ICD10: I10] Diagnosis: Mixed hyperlipidemia[ICD10: E78.2] Diagnosis: Chronic atrial fibrillation[ICD10: I48.2] Carolyne Brian MD [facility] CPT-4: 62890 05/15/2017 ([id number]) 41721 EST. 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 PATIENT, LEVEL III Diagnosis: Essential (primary) hypertension[ICD10: I10] Diagnosis: Chronic atrial fibrillation[ICD10: I48.2] Carolyne Brian MD [facility] CPT-4: 38934 01/31/2017 [id number]) 92189 EST. PATIENT, LEVEL IV Diagnosis: Essential (primary) hypertension[ICD10: I10] Diagnosis: Chronic atrial fibrillation[ICD10: I48.2] Carolyne Brian MD [facility] CPT-4: 03571 01/01/2017 [id number] 70639 EST. PATIENT, LEVEL IV Diagnosis: Essential (primary) hypertension[ICD10: I10] Diagnosis: Chronic pain syndrome[ICD10: G89.4] Diagnosis: Generalized anxiety disorder[ICD10: F41.1] Carolyne Brian MD [facility] CPT-4: 03425 08/08/2016 ([id number] EST. PATIENT, LEVEL IV Diagnosis: Essential (primary) hypertension[ICD10: I10] Diagnosis: Mixed hyperlipidemia[ICD10: E78.2] Diagnosis: Chronic pain syndrome[ICD10: G89.4] Diagnosis: Generalized anxiety disorder[ICD10: F41.1] Carolyne Brian MD, [facility] CPT-4: 30792 04/18/2016 ([id number]) 76598 EST. PATIENT, LEVEL IV Diagnosis: Essential (primary) hypertension[ICD10: I10] Diagnosis: Mixed hyperlipidemia[ICD10: E78.2] Diagnosis: Myalgia[ICD10: M79.1] Diagnosis: Cough[ICD10: R05] [facility] CPT-4: 39026 10/19/2015 ([id number]) OFFICE VISIT, NEW - LEVEL 4 Diagnosis: ESSENTIAL HYPERTENSION[ICD9: 401.9] Diagnosis: HYPERLIPIDEMIA[ICD9: 272.4] [facility] CPT- 4: 44875 12/08/2014 Plan of Care Planned Activity Notes Codes Status Date Patient Education: Patient Medication Summary Completed 03/31/2018 [...] and elevation. 03/20/2018 Appointment: Carolyne Brian WPtel: [facility]5 [facility] (15 min) Moderate 03/20/2018 Patient Education: Patient Medication Summary Completed 03/20/2018 Patient Education: Hypertension Completed 03/20/2018 Appointment: Carolyne Brian WPtel: [address] [place], [place] [phone] (15 min) Moderate 03/11/2018 Visit Plan: Atrial [...] his . 02/19/2018 Appointment: Carolyne Brian WPtel: [facility] [place] (15 min) Moderate 02/19/2018 Patient Education: Patient [...] of over-medication. 12/18/2017 Appointment: Carolyne Brian WPtel: [facility]7 [facility] (15 min) Moderate 12/18/2017 Patient Education: Patient [...] medication. 05/15/2017 Appointment: Carolyne Brian WPtel: [phone] [facility] (15 min) Moderate 05/15/2017 Patient Education: Patient [...] today 01/31/2017 Appointment: [facility] [phone] [facility] [place] (15 min) Moderate 01/31/2017 Patient Education: [...] like to have this done at [facility] in [place]. Continue with Eliquis , rate controlling medication. 01/01/2017 Appointment: [facility] Brian [facility] [phone] [facility] [place] [place] (15 min) Moderate 01/01/2017 Patient Education: Patient Medication Summary Completed 01/01/2017 Patient Education: Obesity Completed 01/01/2017 Patient Education: Hypertension Completed 01/01/2017 Appointment: [phone] [facility] [place] (30 min) Complex 12/24/2016 Visit Plan: [...] refilled alprazolam 08/08/2016 Appointment: Carolyne Brian WPtel: [phone] [facility] (15 min) Moderate 08/08/2016 Patient Education: Patient [...] alprazolam 04/18/2016 Appointment: Carolyne Brian WPtel: [phone] [facility] (15 min) Moderate 04/18/2016 Patient Education: Patient Medication Summary Completed 04/18/2016 Patient Education: Obesity Completed 04/18/2016 Patient Education: Hypertension Completed 04/18/2016 Appointment: Injection 03/14/2016 Patient Education: Patient Medication Summary Completed 03/14/2016 Appointment: Keara Brown WPtel: [phone] [facility] [place] [address] - Annual Wellness Visit 11/17/2015 Visit Plan: [...] Complex 08/30/2015 Appointment: Carolyne Brian WPtel: [phone] [facility] (15 min) Moderate 04/13/2015 Visit Plan: Hypertension [...] medications. 12/08/2014 Appointment: [facility] Brian [facility]el[phone] [facility] [place] ([place] New Patient 12/08/2014 Patient Education: [...] your kids help you get on the [employer] website for Eliquis and they may send [...] your kids help you get on the [employer] website for Eliquis and they may send [...] like to have this done at [facility] in [place]. Continue with Eliquis, rate controlling medication. . [...]
--- OUTSIDE RECORDS SUMMARY | 2018-07-24 16:53 | XMS REPORT | CCD ---
Author Author [facility]yne Brian Organization [facility] Address [address] [place] [address] Phone Care Team Providers Care Guest Services Manager Name Role Phone PP Unavailable CCM Unavailable Summary Purpose Interface Exchange Insurance Providers Payer name Policy type / Coverage type Covered democrat ID Effective Begin Date Effective End Date [facility] Medicare Part B [id number] Unknown WPS Medicare Part B Medicare Part B [id number] 2016 Unknown Family history Father Diagnosis Age At Onset Heart Attack Unknown Son Diagnosis Age At Onset Alcoholism Unknown Social History Social History Element Codes Description Effective Dates Employment Unknown 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 Marital status Unknown [place] 08/08/2016 Number of children Unknown 2 12/08/[address]: 5267015 Former smoker quit 1990 12/08/[address]: 896362138 Never drinks alcohol 12/08/2014 Allergies, Adverse Reactions, Alerts Substance Reaction Codes Entered Date Inactivated Date Status FERNA[employer] cough Unknown 10/19/2015 No Inactive Date Active Past Medical History Illness Codes Condition Status Onset Date Resolved Date Chronic atrial fibrillation ICD-9: 427.31 ICD-10: I48.2 Active 01/01/2017 Unknown Essential (primary) hypertension ICD-9: 401.9 ICD-10: I10 Active 12/07/2014 Unknown Mixed hyperlipidemia ICD-9: 272.4 ICD-10: E78.2 Active 12/07/2014 Unknown Encounter for immunization ICD-9: V04.81 ICD-10: Z23 Active 03/13/2016 Unknown 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 ICD-10: I65.23 Active 03/12/2017 Unknown Rash and other nonspecific skin eruption ICD-9: 782.1 ICD-10: R21 Active 03/12/2017 Unknown Chronic pain syndrome ICD-9: 338.4 ICD-10: G89.4 Active 04/17/2016 Unknown Generalized anxiety disorder ICD-9: 308.0 ICD-10: [...] hypertension ICD-9: 401.9 ICD-10: I10 12/07/2014 Active Mixed hyperlipidemia ICD-9: 272.4 ICD-10: E78.2 12/07/2014 Active Encounter for immunization ICD-9: V04.81 ICD-10: Z23 03/13/2016 Active 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 ICD-10: I65.23 03/12/2017 Active Rash and other nonspecific skin eruption ICD-9: 782.1 ICD-10: R21 03/12/2017 Active Chronic pain syndrome ICD-9: 338.4 ICD-10: G89.4 04/17/2016 Active Generalized anxiety disorder ICD-9: 308.0 ICD-10: F41.1 04/17/2016 Active Cough ICD-9: 786.2 ICD-10: R05 10/18/2015 Active Myalgia ICD-9: 729.1 ICD-10: M79.1 10/18/2015 Active Hyperlipidemia Unknown 12/08/2014 Active Hypertension Unknown 12/08/2014 Active ESSENTIAL HYPERTENSION ICD-9: 401.9 12/07/2014 Active HYPERLIPIDEMIA ICD-9: 272.4 12/07/2014 Active Medications Medication Codes Instructions Start Date Stop Date Status Fill Instructions alprazolam 0.5 mg tablet RxNorm: 203895 TAKE 1 TABLET BY MOUTH EVERY 8 HOURS NEEDED FOR ANXIETY OR INSOMNIA 05/13/2017 07/31/2017 Active tramadol 50 mg tablet RxNorm: 934212 TAKE 1 TABLET BY MOUTH FOUR TIMES DAILY NEEDED 05/06/2017 06/18/2017 Inactive losartan 100 mg tablet RxNorm: 234606 TAKE 1 TABLET BY MOUTH EVERY DAY 04/09/2017 11/04/2017 Active betamethasone dipropionate 0.05 % topical ointment RxNorm: 978392 1 Application TOP BID 03/12/2017 03/11/2017 Inactive betamethasone dipropionate 0.05 % topical ointment RxNorm: 800434 1 Application TOP BID 03/12/2017 03/21/2017 Inactive alprazolam 0.5 mg tablet RxNorm: 016133 Tablet(s) TAKE 1 TABLET BY MOUTH EVERY 6 HOURS NEEDED FOR ANXIETY 02/20/201709/2016 Inactive tramadol 50 mg tablet RxNorm: 725894 1 Tablet(s) PO QID as needed 02/20/2017 04/29/2017 Inactive Eliquis 2.5 mg tablet RxNorm: 5434174 1 Tablet(s) PO BID 201601/25/2018 Active Eliquis 2.5 mg tablet RxNorm: 0960066 1 Tablet(s) PO BID 201601/30/2017 Inactive meclizine 12.5 mg tablet RxNorm: 365151 1 Tablet(s) PO Q6 as needed 01/01/2017 01/30/2017 Inactive alprazolam 0.5 mg tablet RxNorm: 441258 TAKE 1 TABLET BY MOUTH EVERY 6 HOURS NEEDED FOR ANXIETY 11/08/2016 11/19/2016 Inactive Lipitor 40 mg tablet RxNorm: 865817 TAKE 1/2 TABLET BY MOUTH ONCE DAILY 10/29/2016 07/25/2017 Active Lipitor 40 mg tablet RxNorm: 621681 TAKE 1/2 TABLET BY MOUTH ONCE DAILY 10/29/2016 10/28/2016 Inactive nystatin 100,000 unit/gram topical powder RxNorm: 270032 1 APPLICATION TOP TID NEEDED TO AFFECTED AREA 10/19/20162016 Inactive nystatin 100,000 unit/gram topical powder RxNorm: 474627 1 Application TOP TID as needed to affected area 10/17/20162016 Inactive nystatin 100,000 unit/gram topical powder RxNorm: 658888 1 Application TOP TID as needed to affected area 10/17/20162016 Inactive losartan 100 mg tablet RxNorm: 481942 TAKE 1 TABLET BY MOUTH EVERY DAY 09/06/2016 04/03/2017 Inactive Nitrostat 0.4 mg sublingual tablet RxNorm: 096865 1 Tablet(s) SL q 30 min PRN for chest pain max 3 in 2 hours 08/09/2016 No Stop Date Active Nitrostat 0.4 mg sublingual tablet RxNorm: 984183 1 Tablet(s) SL q 30 min PRN for chest pain max 3 in 2 hours 08/08/201606/2016 Inactive tramadol 50 mg tablet RxNorm: 848250 1 Tablet(s) PO QID as needed 08/08/2016 10/13/2016 Inactive Nitrostat 0.4 mg sublingual tablet RxNorm: 155223 1 Tablet(s) SL q 30 min PRN for chest pain max 3 in 2 hours 08/03/2016 Inactive losartan 100 mg tablet RxNorm: 027795 TAKE 1 TABLET BY MOUTH EVERY DAY 05/14/2016 09/05/2016 Inactive alprazolam 0.5 mg tablet RxNorm: 973076 1 Tablet(s) PO daily and q 6 hours prn anxiety 03/07/2016 11/08/2016 Inactive losartan 100 mg tablet RxNorm: 683017 1 Tablet(s) PO daily 04/201605/13/2016 Inactive Lipitor 40 mg tablet RxNorm: 996707 1/2 Tablet(s) PO daily 04/201610/28/2016 Inactive alprazolam 0.5 mg tablet RxNorm: 132312 1 Tablet(s) PO daily and q 6 hours prn anxiety 10/19/2015 02/19/2017 Inactive lisinopril 40 mg tablet RxNorm: 066101 1 Tablet(s) PO daily 10/18/2015 Inactive alprazolam 0.5 mg tablet RxNorm: 620858 1 Tablet(s) PO daily 10/18/2015 Inactive tramadol 50 mg tablet RxNorm: 810661 1 Tablet(s) PO QID as needed 04/20/2015 08/07/2016 Inactive tramadol 50 mg tablet RxNorm: 250344 1 Tablet(s) PO QID as needed 02/17/2015 04/19/2015 Inactive alprazolam 0.5 mg tablet RxNorm: 124755 1 Tablet(s) PO daily 07/11/2015 Inactive tramadol 50 mg tablet RxNorm: 493594 1 Tablet(s) PO QID as needed 01/05/2015 02/16/2015 Inactive tramadol 50 mg tablet RxNorm: 408930 2 Tablet(s) PO daily 201401/04/2015 Inactive aspirin 81 mg tablet RxNorm: 894419 1 Tablet(s) PO daily No Start Date Active Centrum Silver tablet RxNorm: oral No Start Date Active coenzyme Q10 200 mg capsule RxNorm: 617479 1 Capsule(s) PO daily No Start Date Active Nitrostat 0.4 mg sublingual tablet RxNorm: 215260 1 Tablet(s) SL q 30 min PRN for chest pain max 3 in 2 hours No Start Date 08/02/2016 Inactive lisinopril 40 mg tablet RxNorm: 975210 1 Tablet(s) PO daily No Start Date 09/07/2015 Inactive meclizine 12.5 mg tablet RxNorm: 651178 1 Tablet(s) PO Q6 No Start Date 12/31/2016 Inactive alprazolam 0.5 mg tablet RxNorm: 100755 1/2 Tablet(s) PO daily No Start Date 02/02/2015 Inactive Ecotrin Low Strength 81 mg tablet,enteric coated RxNorm: 9767466 1 Tablet(s) PO daily No Start Date 01/30/2017 Inactive acetaminophen 650 mg tablet RxNorm: 464732 2 Tablet(s) PO BID No Start Date 05/14/2017 Inactive tramadol 50 mg tablet RxNorm: 557133 2 Tablet(s) PO daily No Start Date 01/03/2015 Inactive Eliquis 2.5 mg tablet RxNorm: 7863891 1 Tablet(s) PO daily No Start Date 12/31/2016 Inactive Lipitor 40 mg tablet RxNorm: 882321 1 Tablet(s) PO daily No Start Date 10/18/2015 Inactive Medication Administered No Medication Administered data Immunizations Vaccine Codes Date Status Influenza CVX: 141 03/12/2017 completed Influenza CVX: 141 03/14/2016 completed Assessments Condition Codes Effective Dates Mixed hyperlipidemia ICD-10: E78.2 ICD-9: 272.4 05/15/2017 Essential (primary) hypertension ICD-10: I10 ICD-9: 401.9 05/15/2017 Chronic atrial fibrillation ICD-10: I48.2 ICD-9: 427.31 05/15/2017 Occlusion and stenosis of bilateral carotid arteries ICD-10 : I65.23 ICD-9: 433.10 03/12/2017 Encounter for immunization ICD-10: Z23 ICD-9: V04.81 03/12/2017 Rash and other nonspecific skin eruption ICD-10: R21 ICD-9: 782.1 03/12/2017 Chronic pain syndrome ICD-10: G89.4 ICD-9: 338.4 08/08/2016 Generalized anxiety disorder ICD-10: F41.1 ICD-9: 308.0 08/08/2016 Cough ICD-10: R05 ICD-9: 786.2 10/19/2015 Myalgia ICD-10: M79.1 ICD-9: 729.1 10/19/2015 ESSENTIAL HYPERTENSION ICD-9: 401.9 12/08 HYPERLIPIDEMIA ICD-9: 272.4 12/08/2014 Reason For Visit Reason For Visit Effective Dates Notes hypertension 05/15/2017 vaccination against influenza 03/12/2017 hypertension [...] 90.4 fl 05/16/2017 Cbc With Differential Ord2 [place]% 9.1 % 05/16/2017 Cbc With Differential Ord2 MCH 28.5 pg 05/16/2017 Cbc With Differential Ord2 MCHC 31.5 pg 05/16/2017 Cbc With Differential Ord2 Eos% 3.5 % 05/16/2017 Cbc With Differential Ord2 PLT 152 K/ul 05/16/2017 Cbc With Differential Ord2 Baso% 0.2 % 05/16/2017 Cbc With Differential Ord2 RDW 14.8 % 05/16/2017 Cbc With Differential Ord2 Neut ABS# 4.74 K/ul 05/16/2017 Cbc With Differential Ord2 Lymph ABS# 2.96 K/ul 05/16/2017 Cbc With Differential Ord2 [place] ABS# 0.8 K/ul 05/16/2017 Cbc With Differential Ord2 Eos ABS# 0.3 K/ul 05/16/2017 Cbc With Differential Ord2 Baso ABS# 0.0 K/ul 05/16/2017 Comp Metabolic Mow620 NA 140 mEq/L 05/16/2017 Comp Metabolic Agr124 K 4.6 mEq/L 05/16/2017 Comp Metabolic Ily836 CL 106 mEq/L 05/16/2017 Comp Metabolic Vlh715 CO2 29.0 mEq/L 05/16/2017 Comp Metabolic Jxd511 ANION GAP 10 05/16/2017 Comp Metabolic Vuh554 GLUCOSE 119 mg/dL 05/16/2017 Comp Metabolic Uts226 Creat 1.1 mg/dL 05/16/2017 Comp Metabolic Kfb359 eGFR 66 ml/min/1.73m2 05/16/2017 Comp Metabolic Xyl186 BUN 23 mg/dL 05/16/2017 Comp Metabolic Qgp016 B/C Ratio 20.5 Ratio 05/16/2017 Comp Metabolic Kvy307 CALCIUM 9.5 mg/dL 05/16/2017 Comp Metabolic Pte240 ALK PHOS 104 U/L 05/16/2017 Comp Metabolic Jjo134 AST(SGOT) 25 U/L 05/16/2017 Comp Metabolic Vjw929 ALT(SGPT) 16 U/L 05/16/2017 Comp Metabolic Arb313 BILI T 0.5 mg/dL 05/16/2017 Comp Metabolic Dro573 ALBUMIN 4.2 g/dL 05/16/2017 Comp Metabolic Bkg355 TPRO 7.1 g/dL 05/16/2017 Comp Metabolic Yhd086 GLOB 2.9 g/dL 05/16/2017 Comp Metabolic Iht691 A/G Ratio 1.5 Ratio 05/16/2017 Comp Metabolic Aea416 Osmo 284 mOsmo 05/16/2017 Comp Metabolic Hjj511 NA 139 mEq/L 10/17/2015 Comp Metabolic Lgm175 K 5.1 mEq/L 10/17/2015 Comp Metabolic Pel858 CL 109 mEq/L 10/17/2015 Comp Metabolic Qto560 CO2 23.0 mEq/L 10/17/2015 Comp Metabolic Yer173 ANION GAP 12 10/17/2015 Comp Metabolic Vvk470 GLUCOSE 103 mg/dL 10/17/2015 Comp Metabolic Qjp101 Creat 1.2 mg/dL 10/17/2015 Comp Metabolic Ksk077 eGFR 62 ml/min/1.73m2 10/17/2015 Comp Metabolic Ulw334 BUN 30 mg/dL 10/17/2015 Comp Metabolic Uov612 B/C Ratio 25.4 Ratio 10/17/2015 Comp Metabolic Dbk446 CALCIUM 8.9 mg/dL 10/17/2015 Comp Metabolic Uyj531 ALK PHOS 71 U/L 10/17/2015 Comp Metabolic Jgu102 AST(SGOT) 21 U/L 10/17/2015 Comp Metabolic Zgr793 ALT(SGPT) 18 U/L 10/17/2015 Comp Metabolic Une776 BILI T 0.3 mg/dL 10/17/2015 Comp Metabolic Mck126 ALBUMIN 4.2 g/dL 10/17/2015 Comp Metabolic Zkn461 TPRO 6.7 g/dL 10/17/2015 Comp Metabolic Qqi120 GLOB 2.6 g/dL 10/17/2015 Comp Metabolic Aox406 A/G Ratio 1.6 Ratio 10/17/2015 Comp Metabolic Wjj519 Osmo 284 mOsmo 10/17/2015 Cbc With Differential [...] 29.0 pg 10/17/2015 Cbc With Differential Ord2 [place]% 7.0 % 10/17/2015 Cbc With Differential Ord2 [...] 2.21 K/ul 10/17/2015 Cbc With Differential Ord2 [place] ABS# 0.5 K/ul 10/17/2015 Cbc With Differential [...] Result Effective Dates Constitutional No recent illness 2016 Constitutional No [...] Date ADMIN INFLUENZA VIRUS VAC CPT-4: G0008 03/12/2017 FLU VACC PRSV FREE INC ANTIG CPT-4: 37882 03/12/2017 PRESCRIP TRANSMIT VIA ERX SY CPT-4: G8553 01/31/2017 PRESCRIP TRANSMIT VIA ERX SY CPT-4: G8553 01/01/2017 PRESCRIP TRANSMIT VIA ERX SY CPT-4: G8553 08/08/2016 ADMIN INFLUENZA VIRUS VAC CPT-4: G0008 03/14/2016 FLU VACC 4 KRANTHI 3 YRS PLUS IM Formatting Model/CDA Sections, Assigned to/Fiordaliza Tadeo CT: [id number] CPT-4: 36534Itrjneq 03/14/2016 Vital Signs Date Vital 05/15/2017 Blood Pressure 1: 126/78 Code : 8480-6 BMI: 44.9 Code : 69315-0 Heart Rate 1 : 76 bpm Height: 5' SpO2: 98% Weight: 230 lbs 03/12/2017 Blood Pressure 1: 132/72 Code : 8480-6 BMI: 44.9 Code : 38762-6 Heart Rate 1 : 88 bpm Height: 5' SpO2: 96% Weight: 230 lbs 01/31/2017 Blood Pressure 1: 128/68 Code : 8480-6 BMI: 44.7 Code : 65706-6 Heart Rate 1 : 90 bpm Height: 5' SpO2: 96% Weight: 229 lbs 01/01/2017 Blood Pressure 1: 138/88 Code : 8480-6 BMI: 44.1 Code : 19925-9 Heart Rate 1 : 89 bpm Height: 5' SpO2: 93% Weight: 226 lbs 08/08/2016 Blood Pressure 1: 130/78 Code : 8480-6 BMI: 45.1 Code : 09376-9 Heart Rate 1 : 97 bpm Height: 5' SpO2: 97% Weight: 231 lbs 04/18/2016 Blood Pressure 1: 128/62 Code : 8480-6 BMI: 44.3 Code : 37005-8 Heart Rate 1 : 94 bpm Height: 5' SpO2: 98% Weight: 227 lbs 10/19/2015 Blood Pressure 1: 128/70 Code : 8480-6 BMI: 44.7 Code : 13103-3 Heart Rate 1 : 76 bpm Height: 5' SpO2: 97% Weight: 229 lbs 12/08/2014 Blood Pressure 1: 132/68 Code : 8480-6 BMI: 42.6 Code : 62592-6 Heart Rate 1 : 80 bpm Height: 5' Weight: 218 lbs Functional Status No Functional Status data History of Present Illness Symptom Name Status Result Effective Date Notes hypertension Quality chronic 05/15/2017 None hypertension Onset [...] data Encounters Encounter Performer Location Codes Date ([id number]) [id number] EST. PATIENT, LEVEL IV Diagnosis: Essential (primary) hypertension[ICD10: I10] Diagnosis: Mixed hyperlipidemia[ICD10: E78.2] Diagnosis: Chronic atrial fibrillation[ICD10: I48.2] [facility]yne [facility] MD [facility] CPT-4: 14183 05/15/2017 ([id number]) 45761 EST. PATIENT, LEVEL IV Diagnosis: Chronic atrial fibrillation[ICD10: I48.2] Diagnosis: Rash and other nonspecific skin eruption[ICD10: R21] Diagnosis: Occlusion and stenosis of bilateral carotid arteries[ICD10: I65.23] Diagnosis: Encounter for immunization[ICD10: Z23] BC Du MD CPT-4: 02398 03/12/2017 ([id number]) 27397 EST. PATIENT, LEVEL III Diagnosis: Essential (primary) hypertension[ICD10: I10] Diagnosis: Chronic atrial fibrillation[ICD10: I48.2] BC Du MD CPT-4: 96180 01/31/2017 ([id number]) 68280 EST. PATIENT, LEVEL IV Diagnosis: Essential (primary) hypertension[ICD10: I10] Diagnosis: Chronic atrial fibrillation[ICD10: I48.2] Carolyne Brian MD [facility] CPT-4: 96075 01/01/2017 ([id number]) 43540 EST. PATIENT, LEVEL IV Diagnosis: Essential (primary) hypertension[ICD10: I10] Diagnosis: Chronic pain syndrome[ICD10: G89.4] Diagnosis: Generalized anxiety disorder[ICD10: F41.1] Carolyne Brian MD [facility] CPT-4: 52494 08/08/2016 [id number]) [id number] EST. PATIENT, LEVEL IV Diagnosis: Essential (primary) hypertension[ICD10: I10] Diagnosis: Mixed hyperlipidemia[ICD10: E78.2] Diagnosis: Chronic pain syndrome[ICD10: G89.4] Diagnosis: Generalized anxiety disorder[ICD10: F41.1] Carolyne Brian MD [facility] CPT-4: 31161 04/18/2016 ([id number]) 05314 EST. PATIENT, LEVEL IV Diagnosis: Essential (primary) hypertension[ICD10: I10] Diagnosis: Mixed hyperlipidemia[ICD10: E78.2] Diagnosis: Myalgia[ICD10: M79.1] Diagnosis: Cough[ICD10: R05] [facility] CPT-4: 57449 10/19/2015 ([id number]) OFFICE VISIT, NEW - LEVEL 4 Diagnosis: ESSENTIAL HYPERTENSION[ICD9: 401.9] Diagnosis: HYPERLIPIDEMIA[ICD9: 272.4] [facility] CPT- 4: 03581 12/08/2014 Plan of Care Planned Activity Notes [...] current medication. 05/15/2017 Appointment: Carolyne Brian [facility]Ptel[facility] (15 min) Moderate 05/15/2017 Patient Education: Patient [...] today 01/31/2017 Appointment: Carolyne Brian WPtel: [phone] [facility] (15 min) Moderate 01/31/2017 Patient Education: [...] would like to have this done at [facility] in [place]. Continue with Eliquis , rate controlling medication. 01/01/2017 Appointment: Carolyne Brian WPtel: [phone] [facility] (15 min) Moderate 01/01/2017 Patient Education: Patient Medication Summary Completed 01/01/2017 Patient Education: Obesity Completed 01/01/2017 Patient Education: Hypertension Completed 01/01/2017 Appointment: Carolyne Brian WPtel: [id number] (30 min) Complex 12/24/2016 Visit Plan: Hypertension [...] refilled alprazolam 08/08/2016 Appointment: Carolyne Brian WPtel: [facility] (15 min) Moderate 08/08/2016 Patient Education: [...] refilled alprazolam 04/18/2016 Appointment: Carolyne Brian WPtel: [facility] (15 min) Moderate 04/18/2016 Patient Education: Patient Medication Summary Completed 04/18/2016 Patient Education: Obesity Completed 04/18/2016 Patient Education: Hypertension Completed 04/18/2016 Appointment: Injection 03/14/2016 Patient Education: Patient Medication Summary Completed 03/14/2016 Appointment: Keara Brown WPtel: [facility] [facility] - Annual Wellness Visit 11/17/2015 Visit [...] min) Complex 08/30/2015 Appointment: Carolyne Brian WPtel: [facility] (15 min) Moderate 04/13/2015 Visit Plan: Hypertension [...] to medications. 12/08/2014 Appointment: Carolyne Brian WPtel: [facility] [place] New Patient 12/08/2014 Patient Education: [...] rate is becoming uncontrolled. Refilled eliquis today . Atrial Fibrillation - pt on chronic anticoagulation and is currently rate controlled. The pt is to have labs done as appropriate to monitor medication levels and is to report if they start to feel as if their heart rate is becoming uncontrolled. hx carotid stenosis - orders for ultrasound Rash on hand - rx for betamethasone cream flu shot today . Hypertension - well controlled - continue [...] would like to have this done at [facility] in [place]. Continue with Eliquis, rate controlling medication. . [...] - Refilled Tramadol. Anxiety - refilled alprazolam do labs the week before next appt [...]
--- OUTSIDE RECORDS SUMMARY | 2018-07-24 16:54 | XMS REPORT | CCD ---
Author Author [facility]yne [facility] Organization [facility] Address [address] [place] [address] Phone Care Team Providers Care Train Station Server Name Role Phone PP Unavailable CCM Unavailable Summary Purpose Interface Exchange Insurance Providers Payer name Policy type / Coverage type Covered alliance party ID Effective Begin Date Effective End Date [facility] Medicare Part B [id number] Unknown WPS Medicare Part B Medicare Part B [id number] 2016 Unknown Family history Father Diagnosis Age At Onset Heart Attack Unknown Son Diagnosis Age At Onset Alcoholism Unknown Social History Social History Element Codes Description Effective Dates Employment Unknown 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 Marital status Unknown [place] 08/08/2016 Number of children Unknown 2 12/08/[address]: 0748079 Former smoker quit 1990 12/08/[address]: 025910045 Never drinks alcohol 12/08/2014 Allergies, Adverse Reactions, [...] Fill Instructions tramadol 50 mg tablet RxNorm: 713535 Tablet(s) TAKE 1 TABLET BY MOUTH FOUR TIMES DAILY NEEDED 07/12/2017 08/24/2017 Active alprazolam 0.5 mg tablet RxNorm: 190343 TAKE 1 TABLET BY MOUTH EVERY 8 HOURS NEEDED FOR ANXIETY OR INSOMNIA 05/13/2017 07/31/2017 Active tramadol 50 mg tablet RxNorm: 225455 TAKE 1 TABLET BY MOUTH FOUR TIMES DAILY NEEDED 05/06/2017 06/17/2017 Inactive losartan 100 mg tablet RxNorm: 618063 TAKE 1 TABLET BY MOUTH EVERY DAY 04/09/2017 11/04/2017 Active betamethasone dipropionate 0.05 % topical ointment RxNorm: 703164 1 Application TOP BID 03/12/2017 03/11/2017 Inactive betamethasone dipropionate 0.05 % topical ointment RxNorm: 658776 1 Application TOP BID 03/12/2017 03/21/2017 Inactive alprazolam 0.5 mg tablet RxNorm: 079542 Tablet(s) TAKE 1 TABLET BY MOUTH EVERY 6 HOURS NEEDED FOR ANXIETY 02/20/201709/2016 Inactive tramadol 50 mg tablet RxNorm: 082095 1 Tablet(s) PO QID as needed 02/20/2017 04/29/2017 Inactive Eliquis 2.5 mg tablet RxNorm: 5129402 1 Tablet(s) PO BID 201601/25/2018 Active Eliquis 2.5 mg tablet RxNorm: 7926286 1 Tablet(s) PO BID 201601/30/2017 Inactive meclizine 12.5 mg tablet RxNorm: 526942 1 Tablet(s) PO Q6 as needed 01/01/2017 01/30/2017 Inactive alprazolam 0.5 mg tablet RxNorm: 102284 TAKE 1 TABLET BY MOUTH EVERY 6 HOURS NEEDED FOR ANXIETY 11/08/2016 11/19/2016 Inactive Lipitor 40 mg tablet RxNorm: 602547 TAKE 1/2 TABLET BY MOUTH ONCE DAILY 10/29/2016 07/25/2017 Active Lipitor 40 mg tablet RxNorm: 215785 TAKE 1/2 TABLET BY MOUTH ONCE DAILY 10/29/2016 10/28/2016 Inactive nystatin 100,000 unit/gram topical powder RxNorm: 126145 1 APPLICATION TOP TID NEEDED TO AFFECTED AREA 10/19/20162016 Inactive nystatin 100,000 unit/gram topical powder RxNorm: 726402 1 Application TOP TID as needed to affected area 10/17/20162016 Inactive nystatin 100,000 unit/gram topical powder RxNorm: 401842 1 Application TOP TID as needed to affected area 10/17/20162016 Inactive losartan 100 mg tablet RxNorm: 493993 TAKE 1 TABLET BY MOUTH EVERY DAY 09/06/2016 04/03/2017 Inactive Nitrostat 0.4 mg sublingual tablet RxNorm: 866575 1 Tablet(s) SL q 30 min PRN for chest pain max 3 in 2 hours 08/09/2016 No Stop Date Active Nitrostat 0.4 mg sublingual tablet RxNorm: 568193 1 Tablet(s) SL q 30 min PRN for chest pain max 3 in 2 hours 08/08/201606/2016 Inactive tramadol 50 mg tablet RxNorm: 738958 1 Tablet(s) PO QID as needed 08/08/2016 10/13/2016 Inactive Nitrostat 0.4 mg sublingual tablet RxNorm: 038281 1 Tablet(s) SL q 30 min PRN for chest pain max 3 in 2 hours 08/03/2016 Inactive losartan 100 mg tablet RxNorm: 045019 TAKE 1 TABLET BY MOUTH EVERY DAY 05/14/2016 09/05/2016 Inactive alprazolam 0.5 mg tablet RxNorm: 676357 1 Tablet(s) PO daily and q 6 hours prn anxiety 03/07/2016 11/08/2016 Inactive losartan 100 mg tablet RxNorm: 816860 1 Tablet(s) PO daily 04/201605/13/2016 Inactive Lipitor 40 mg tablet RxNorm: 800939 1/2 Tablet(s) PO daily 04/201610/28/2016 Inactive alprazolam 0.5 mg tablet RxNorm: 040397 1 Tablet(s) PO daily and q 6 hours prn anxiety 10/19/2015 02/19/2017 Inactive lisinopril 40 mg tablet RxNorm: 744422 1 Tablet(s) PO daily 10/18/2015 Inactive alprazolam 0.5 mg tablet RxNorm: 017486 1 Tablet(s) PO daily 10/18/2015 Inactive tramadol 50 mg tablet RxNorm: 213740 1 Tablet(s) PO QID as needed 04/20/2015 08/07/2016 Inactive tramadol 50 mg tablet RxNorm: 369075 1 Tablet(s) PO QID as needed 02/17/2015 04/19/2015 Inactive alprazolam 0.5 mg tablet RxNorm: 077129 1 Tablet(s) PO daily 07/11/2015 Inactive tramadol 50 mg tablet RxNorm: 868019 1 Tablet(s) PO QID as needed 01/05/2015 02/16/2015 Inactive tramadol 50 mg tablet RxNorm: 088227 2 Tablet(s) PO daily 201401/04/2015 Inactive aspirin 81 mg tablet RxNorm: 992674 1 Tablet(s) PO daily No Start Date Active Centrum Silver tablet RxNorm: oral No Start Date Active coenzyme Q10 200 mg capsule RxNorm: 286773 1 Capsule(s) PO daily No Start Date Active Nitrostat 0.4 mg sublingual tablet RxNorm: 684843 1 Tablet(s) SL q 30 min PRN for chest pain max 3 in 2 hours No Start Date 08/02/2016 Inactive lisinopril 40 mg tablet RxNorm: 634039 1 Tablet(s) PO daily No Start Date 09/07/2015 Inactive meclizine 12.5 mg tablet RxNorm: 140374 1 Tablet(s) PO Q6 No Start Date 12/31/2016 Inactive alprazolam 0.5 mg tablet RxNorm: 019688 1/2 Tablet(s) PO daily No Start Date 02/02/2015 Inactive Ecotrin Low Strength 81 mg tablet,enteric coated RxNorm: 1668728 1 Tablet(s) PO daily No Start Date 01/30/2017 Inactive acetaminophen 650 mg tablet RxNorm: 862994 2 Tablet(s) PO BID No Start Date 05/14/2017 Inactive tramadol 50 mg tablet RxNorm: 784117 2 Tablet(s) PO daily No Start Date 01/03/2015 Inactive Eliquis 2.5 mg tablet RxNorm: 0973875 1 Tablet(s) PO daily No Start Date 12/31/2016 Inactive Lipitor 40 mg tablet RxNorm: 387911 1 Tablet(s) PO daily No Start Date [...] 90.4 fl 05/16/2017 Cbc With Differential Ord2 [place]% 9.1 % 05/16/2017 Cbc With Differential Ord2 [...] 2.96 K/ul 05/16/2017 Cbc With Differential Ord2 [place] ABS# 0.8 K/ul 05/16/2017 Cbc With Differential Ord2 Eos ABS# 0.3 K/ul 05/16/2017 Cbc With Differential Ord2 Baso ABS# 0.0 K/ul 05/16/2017 Comp Metabolic Swm893 NA 140 mEq/L 05/16/2017 Comp Metabolic Ymb254 K 4.6 mEq/L 05/16/2017 Comp Metabolic Kqv630 CL 106 mEq/L 05/16/2017 Comp Metabolic Uia609 CO2 29.0 mEq/L 05/16/2017 Comp Metabolic Smb177 ANION GAP 10 05/16/2017 Comp Metabolic Nob759 GLUCOSE 119 mg/dL 05/16/2017 Comp Metabolic Sme679 Creat 1.1 mg/dL 05/16/2017 Comp Metabolic Ona390 eGFR 66 ml/min/1.73m2 05/16/2017 Comp Metabolic Hnz964 BUN 23 mg/dL 05/16/2017 Comp Metabolic Frj415 B/C Ratio 20.5 Ratio 05/16/2017 Comp Metabolic Kbz306 CALCIUM 9.5 mg/dL 05/16/2017 Comp Metabolic Gsw974 ALK PHOS 104 U/L 05/16/2017 Comp Metabolic Tbj984 AST(SGOT) 25 U/L 05/16/2017 Comp Metabolic Gpl996 ALT(SGPT) 16 U/L 05/16/2017 Comp Metabolic Tim072 BILI T 0.5 mg/dL 05/16/2017 Comp Metabolic Asu354 ALBUMIN 4.2 g/dL 05/16/2017 Comp Metabolic Mfg693 TPRO 7.1 g/dL 05/16/2017 Comp Metabolic Cxt681 GLOB 2.9 g/dL 05/16/2017 Comp Metabolic Abu042 A/G Ratio 1.5 Ratio 05/16/2017 Comp Metabolic Ccv719 Osmo 284 mOsmo 05/16/2017 Comp Metabolic Csi374 NA 139 mEq/L 10/17/2015 Comp Metabolic Lgt628 K 5.1 mEq/L 10/17/2015 Comp Metabolic Qsc285 CL 109 mEq/L 10/17/2015 Comp Metabolic Nfo776 CO2 23.0 mEq/L 10/17/2015 Comp Metabolic Jqp402 ANION GAP 12 10/17/2015 Comp Metabolic Noj429 GLUCOSE 103 mg/dL 10/17/2015 Comp Metabolic Xpm914 Creat 1.2 mg/dL 10/17/2015 Comp Metabolic Fdj670 eGFR 62 ml/min/1.73m2 10/17/2015 Comp Metabolic Khd319 BUN 30 mg/dL 10/17/2015 Comp Metabolic Sco200 B/C Ratio 25.4 Ratio 10/17/2015 Comp Metabolic Ehb424 CALCIUM 8.9 mg/dL 10/17/2015 Comp Metabolic Uev531 ALK PHOS 71 U/L 10/17/2015 Comp Metabolic Hxl681 AST(SGOT) 21 U/L 10/17/2015 Comp Metabolic Tgh109 ALT(SGPT) 18 U/L 10/17/2015 Comp Metabolic Ypn473 BILI T 0.3 mg/dL 10/17/2015 Comp Metabolic Vso216 ALBUMIN 4.2 g/dL 10/17/2015 Comp Metabolic Zyp268 TPRO 6.7 g/dL 10/17/2015 Comp Metabolic Itl820 GLOB 2.6 g/dL 10/17/2015 Comp Metabolic Rfl449 A/G Ratio 1.6 Ratio 10/17/2015 Comp Metabolic Ufe221 Osmo 284 mOsmo 10/17/2015 Cbc With Differential [...] 29.0 pg 10/17/2015 Cbc With Differential Ord2 [place]% 7.0 % 10/17/2015 Cbc With Differential Ord2 [...] 2.21 K/ul 10/17/2015 Cbc With Differential Ord2 [place] ABS# 0.5 K/ul 10/17/2015 Cbc With Differential [...] FLU VACC PRSV FREE INC ANTIG CPT-4: 93947 03/12/2017 PRESCRIP TRANSMIT VIA ERX SY CPT-4: G8553 01/31/2017 PRESCRIP TRANSMIT VIA ERX SY CPT-4: G8553 01/01/2017 PRESCRIP TRANSMIT VIA ERX SY CPT-4: G8553 08/08/2016 ADMIN INFLUENZA VIRUS VAC CPT-4: G0008 03/14/2016 FLU VACC 4 KRANTHI 3 YRS PLUS IM Formatting Model/CDA Sections, Assigned to/Fiordaliza Tadeo CT: 31239339 CPT-4: 60565Ylsoadg 03/14/2016 Vital Signs Date Vital 05/15/2017 Blood Pressure 1: 126/78 Code : 8480-6 BMI: 44.9 Code : 80128-7 Heart Rate 1 : 76 bpm Height: 5' SpO2: 98% Weight: 230 lbs 03/12/2017 Blood Pressure 1: 132/72 Code : 8480-6 BMI: 44.9 Code : 96863-5 Heart Rate 1 : 88 bpm Height: 5' SpO2: 96% Weight: 230 lbs 01/31/2017 Blood Pressure 1: 128/68 Code : 8480-6 BMI: 44.7 Code : 85276-0 Heart Rate 1 : 90 bpm Height: 5' SpO2: 96% Weight: 229 lbs 01/01/2017 Blood Pressure 1: 138/88 Code : 8480-6 BMI: 44.1 Code : 32344-3 Heart Rate 1 : 89 bpm Height: 5' SpO2: 93% Weight: 226 lbs 08/08/2016 Blood Pressure 1: 130/78 Code : 8480-6 BMI: 45.1 Code : 04392-6 Heart Rate 1 : 97 bpm Height: 5' SpO2: 97% Weight: 231 lbs 04/18/2016 Blood Pressure 1: 128/62 Code : 8480-6 BMI: 44.3 Code : 67434-5 Heart Rate 1 : 94 bpm Height: 5' SpO2: 98% Weight: 227 lbs 10/19/2015 Blood Pressure 1: 128/70 Code : 8480-6 BMI: 44.7 Code : 98735-6 Heart Rate 1 : 76 bpm Height: 5' SpO2: 97% Weight: 229 lbs 12/08/2014 Blood Pressure 1: 132/68 Code : 8480-6 BMI: 42.6 Code : 26674-6 Heart Rate 1 : 80 bpm Height: [...] data Encounters Encounter Performer Location Codes Date ([id number]) [id number] EST. PATIENT, LEVEL IV Diagnosis: Essential (primary) hypertension[ICD10: I10] Diagnosis: Mixed hyperlipidemia[ICD10: E78.2] Diagnosis: Chronic atrial fibrillation[ICD10: I48.2] Carolyne Brian MD [facility] CPT-4: 70969 05/15/2017 [id number]) [id number] EST. 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 PATIENT, LEVEL III Diagnosis: Essential (primary) hypertension[ICD10: I10] Diagnosis: Chronic atrial fibrillation[ICD10: I48.2] Carolyne Brian MD, [facility] CPT-4: 22504 01/31/2017 [id number]) 34875 EST. PATIENT, LEVEL IV Diagnosis: Essential (primary) hypertension[ICD10: I10] Diagnosis: Chronic atrial fibrillation[ICD10: I48.2] Carolyne Brian MD [facility] CPT-4: 99609 01/01/2017 [id number]) [id number] EST. PATIENT, LEVEL IV Diagnosis: Essential (primary) hypertension[ICD10: I10] Diagnosis: Chronic pain syndrome[ICD10: G89.4] Diagnosis: Generalized anxiety disorder[ICD10: F41.1] Carolyne Brian MD, [facility] CPT-4: 82467 08/08/2016 ([id number]) 26835 EST. PATIENT, LEVEL IV Diagnosis: Essential (primary) hypertension[ICD10: I10] Diagnosis: Mixed hyperlipidemia[ICD10: E78.2] Diagnosis: Chronic pain syndrome[ICD10: G89.4] Diagnosis: Generalized anxiety disorder[ICD10: F41.1] [facility] CPT-4: 16883 04/18/2016 ([id number]) 05738 EST. PATIENT, LEVEL IV Diagnosis: Essential (primary) hypertension[ICD10: I10] Diagnosis: Mixed hyperlipidemia[ICD10: E78.2] Diagnosis: Myalgia[ICD10: M79.1] Diagnosis: Cough[ICD10: R05] [facility] CPT-4: 11328 10/19/2015 ([id number]) OFFICE VISIT, NEW - LEVEL 4 Diagnosis: ESSENTIAL HYPERTENSION[ICD9: 401.9] Diagnosis: HYPERLIPIDEMIA[ICD9: 272.4] [facility] CPT- 4: 52369 12/08/2014 Plan of Care Planned Activity Notes [...] current medication. 05/15/2017 Appointment: Carolyne Brian WPtel: [address] [place], [place] [id number] (15 min) Moderate 05/15/2017 Patient Education: Patient [...] today 01/31/2017 Appointment: Carolyne Brian WPtel: [phone] [facility] (15 min) Moderate 01/31/2017 Patient Education: Patient [...] would like to have this done at [facility] in [place]. Continue with Eliquis , rate controlling medication. 01/01/2017 [phone] [facility] ([facility] min) Moderate 01/01/2017 Patient Education: Patient Medication Summary Completed 01/01/2017 Patient Education: Obesity Completed 01/01/2017 Patient Education: Hypertension Completed 01/01/2017 [facility] [phone] [facility] [place] (30 min) Complex 12/24/2016 Visit Plan: [...] refilled alprazolam 08/08/2016 [facility]ment[facility] [phone] [facility] (15 min) Moderate 08/08/2016 Patient [...] alprazolam 04/18/2016 [facility] [phone] [facility] (15 min) Moderate 04/18/2016 Patient Education: Patient Medication Summary Completed 04/18/2016 Patient Education: Obesity Completed 04/18/2016 Patient Education: Hypertension Completed 04/18/2016 Appointment: Injection 03/14/2016 Patient Education: Patient Medication Summary Completed 03/14/2016 Appointment: Keara Brown WPtel: [phone] [facility] [facility] - Annual Wellness Visit 11/17/2015 Visit Plan: [...] Complex 08/30/2015 Appointment: Carolyne Brian WPtel: [facility] (15 min) Moderate 04/13/2015 Visit Plan: Hypertension [...] to medications. 12/08/2014 Appointment: Carolyne Brian WPtel: [facility] [place] (S) New Patient 12/08/2014 Patient Education: [...] would like to have this done at [facility] in [place]. Continue with Eliquis, rate controlling medication. . [...]
--- OUTSIDE RECORDS SUMMARY | 2018-07-24 16:56 | XMS REPORT | Continuity of Care Document ---
Author Author [facility] Organization [facility] Address Unknown Phone Unavailable Allergies Active Description Code Type Severity Reaction Onset Reported/Identified Relationship to Patient Clinical Status Yes No Known Drug Allergies [id number] Drug Allergy Unknown N/A 12/23/2016 Medications There is no data. Problems Date Dx Coded Attending Type Code Diagnosis Diagnosed By 01/14/2015 Ot 401.9 01/14/2015 Ot 414.00 01/14/2015 Ot 433.10 01/14/2015 Ot 433.30 01/14/2015 Ot 447.72 02/25/2015 Ot 401.9 02/25/2015 Ot 414.00 02/25/2015 Ot 433.10 02/25/2015 Ot 433.30 02/25/2015 Ot 447.72 12/23/2016 DAVID VALERIO MD Ot I48.91 UNSPECIFIED ATRIAL FIBRILLATION 12/23/2016 DAVID VALERIO MD Ot R42 DIZZINESS AND GIDDINESS 12/23/2016 DAVID VALERIO MD Ot Z95.5 PRESENCE OF CORONARY ANGIOPLASTY IMPLANT 12/23/2016 HUBER ANTONIO MD Ot 427.9 CARDIAC DYSRHYTHMIA NOS 12/23/2016 ESE DOTSON, MARTHA Buckley Ot 794.39 ABN CARDIOVASC STUDY NEC 12/23/2016 MARTHA MULLIGAN MD Ot V81.2 SCREEN-CARDIOVASC NEC 12/26/2016 DAVID VALERIO MD Ot I48.91 UNSPECIFIED ATRIAL FIBRILLATION 12/26/2016 DAVID VALERIO MD Ot R42 DIZZINESS AND GIDDINESS 12/26/2016 DAVID VALERIO MD Ot Z95.5 PRESENCE OF CORONARY ANGIOPLASTY IMPLANT 02/21/2017 DAVID VALERIO MD Ot I48.91 UNSPECIFIED ATRIAL FIBRILLATION 02/21/2017 DAVID VALERIO MD Ot R42 DIZZINESS AND GIDDINESS 02/21/2017 DAVID VALERIO MD Ot Z95.5 PRESENCE OF CORONARY ANGIOPLASTY IMPLANT 03/13/2017 HUBER ANTONIO MD Ot 427.9 CARDIAC DYSRHYTHMIA NOS 03/13/2017 ESE DOTSON, MARTHA Buckley Ot 794.39 ABN CARDIOVASC STUDY NEC 03/13/2017 MARTHA MULLIGAN MD Ot V81.2 SCREEN-CARDIOVASC NEC 03/19/2017 HUBER ANTONIO MD Ot 427.9 CARDIAC DYSRHYTHMIA NOS 03/19/2017 ESE DOTSON, MARTHA Buckley Ot 794.39 ABN CARDIOVASC STUDY NEC 03/19/2017 MARTHA MULLIGAN MD Ot V81.2 SCREEN-CARDIOVASC NEC 03/20/2017 TIFFANY JI MD Ot I48.2 CHRONIC ATRIAL FIBRILLATION 03/20/2017 MARGY DOTSON, TIFFANY A Ot I65.23 OCCLUSION AND STENOSIS OF BILATERAL [place] 04/01/2017 HUBER ANTONIO MD Ot 427.9 CARDIAC DYSRHYTHMIA NOS 04/01/2017 MARTHA MULLIGAN MD Ot 794.39 ABN CARDIOVASC STUDY NEC 04/01/2017 MARTHA MULLIGAN MD Ot V81.2 SCREEN-CARDIOVASC NEC 04/01/2017 TIFFANY JI MD A Ot I48.2 CHRONIC ATRIAL FIBRILLATION 04/01/2017 TIFFANY JI MD A Ot I65.23 OCCLUSION AND STENOSIS OF [place]ATERAL [place] 04/05/2017 HUBER ANTONIO MD Ot 427.9 CARDIAC DYSRHYTHMIA NOS 04/05/2017 MARTHA MULLIGAN MD Ot 794.39 ABN CARDIOVASC STUDY NEC 04/05/2017 MARTHA MULLIGAN MD Ot V81.2 SCREEN-CARDIOVASC NEC 04/05/2017 TIFFANY JI MD A Ot I48.2 CHRONIC ATRIAL FIBRILLATION 04/05/2017 TIFFANY JI MD A Ot I65.23 OCCLUSION AND STENOSIS OF [place] 04/10/2017 TIFFANY JI MD A Ot I48.2 CHRONIC ATRIAL FIBRILLATION 04/10/2017 TIFFANY JI MD A Ot I65.23 OCCLUSION AND STENOSIS OF [place]AL [place] 05/11/2018 HUBER ANTONIO MD Ot 427.9 CARDIAC DYSRHYTHMIA NOS 05/11/2018 MARTHA MULLIGAN MD Ot 794.39 ABN CARDIOVASC STUDY NEC 05/11/2018 MARTHA MULLIGAN MD Ot V81.2 SCREEN-CARDIOVASC NEC 05/11/2018 TIFFANY JI MD A Ot I48.2 CHRONIC ATRIAL FIBRILLATION 05/11/2018 TIFFANY JI MD Ot I65.23 OCCLUSION AND STENOSIS OF [place] 05/15/2018 TIFFANY JI MD Ot E11.9 TYPE 2 DIABETES MELLITUS WITHOUT COMPLIC 05/15/2018 TIFFANY JI MD Ot E78.00 PURE HYPERCHOLESTEROLEMIA, UNSPECIFIED 05/15/2018 TIFFANY JI MD Ot 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 HYPERTENSIVE HEART DISEASE WITH HEART FA 05/15/2018 TIFFANY JI MD Ot I25.10 ATHSCL HEART DISEASE OF [place] CORONARY 05/15/2018 TIFFANY JI MD Ot I25.2 OLD MYOCARDIAL INFARCTION 05/15/2018 TIFFANY JI MD Ot I45.10 UNSPECIFIED RIGHT BUNDLE-BRANCH BLOCK 05/15/2018 TIFFANY JI MD Ot I48.2 CHRONIC ATRIAL FIBRILLATION 05/15/2018 TIFFANY JI MD Ot I50.21 ACUTE SYSTOLIC (CONGESTIVE) HEART FAILUR 05/15/2018 TIFFANY IJ MD Ot Z95.1 PRESENCE OF AORTOCORONARY BYPASS GRAFT 05/16/2018 TIFFANY JI MD Ot E11.9 TYPE 2 DIABETES MELLITUS WITHOUT COMPLIC 05/16/2018 TIFFANY JI MD Ot E78.00 PURE HYPERCHOLESTEROLEMIA, UNSPECIFIED 05/16/2018 TIFFANY JI MD Ot I11.0 HYPERTENSIVE HEART DISEASE WITH HEART FA 05/16/2018 TIFFANY JI MD Ot I25.10 ATHSCL HEART DISEASE OF [place] CORONARY 05/16/2018 TIFFANY JI MD Ot I25.2 OLD MYOCARDIAL INFARCTION 05/16/2018 TIFFANY JI MD Ot I45.10 UNSPECIFIED RIGHT BUNDLE-BRANCH BLOCK 05/16/2018 TIFFANY JI MD Ot I48.2 CHRONIC ATRIAL FIBRILLATION 05/16/2018 TIFFANY JI MD Ot I50.21 ACUTE SYSTOLIC (CONGESTIVE) HEART FAILUR 05/16/2018 TIFFANY JI MD Ot Z95.1 PRESENCE OF AORTOCORONARY BYPASS GRAFT 05/16/2018 TIFFANY JI MD Ot E11.9 TYPE 2 DIABETES MELLITUS WITHOUT COMPLIC 05/16/2018 TIFFANY JI MD Ot E78.00 PURE HYPERCHOLESTEROLEMIA, UNSPECIFIED 05/16/2018 MARGY MD, TIFFANY A Ot I11.0 HYPERTENSIVE HEART DISEASE WITH HEART FA 05/16/2018 TIFFANY JI MD Ot I25.10 ATHSCL HEART DISEASE OF [place] CORONARY 05/16/2018 TIFFANY JI MD Ot I25.2 OLD MYOCARDIAL INFARCTION 05/16/2018 TIFFANY JI MD Ot I45.10 UNSPECIFIED RIGHT BUNDLE-BRANCH BLOCK 05/16/2018 TIFFANY JI MD Ot I48.2 CHRONIC ATRIAL FIBRILLATION 05/16/2018 TIFFANY JI MD Ot I50.21 ACUTE SYSTOLIC (CONGESTIVE) HEART FAILUR 05/16/2018 TIFFANY JI MD Ot Z95.1 PRESENCE OF AORTOCORONARY BYPASS GRAFT 05/17/2018 TIFFANY JI MD Ot E11.9 TYPE 2 DIABETES MELLITUS WITHOUT COMPLIC 05/17/2018 TIFFANY JI MD Ot E78.00 PURE HYPERCHOLESTEROLEMIA, UNSPECIFIED 05/17/2018 TIFFANY JI MD Ot I11.0 HYPERTENSIVE HEART DISEASE WITH HEART FA 05/17/2018 TIFFANY JI MD Ot I25.10 ATHSCL HEART DISEASE OF [place] CORONARY 05/17/2018 TIFFANY JI MD Ot I25.2 OLD MYOCARDIAL INFARCTION 05/17/2018 TIFFANY JI MD Ot I45.10 UNSPECIFIED RIGHT BUNDLE-BRANCH BLOCK 05/17/2018 TIFFANY JI MD Ot I48.2 CHRONIC ATRIAL FIBRILLATION 05/17/2018 TIFFANY JI MD Ot I50.21 ACUTE SYSTOLIC (CONGESTIVE) HEART FAILUR 05/17/2018 TIFFANY JI MD Ot Z95.1 PRESENCE OF AORTOCORONARY BYPASS GRAFT 05/18/2018 TIFFANY JI MD Ot E11.9 TYPE 2 DIABETES MELLITUS WITHOUT COMPLIC 05/18/2018 TIFFANY JI MD Ot E78.00 PURE HYPERCHOLESTEROLEMIA, UNSPECIFIED 05/18/2018 TIFFANY JI MD Ot I11.0 HYPERTENSIVE HEART DISEASE WITH HEART FA 05/18/2018 TIFFANY JI MD Ot I25.10 ATHSCL HEART DISEASE OF [place] CORONARY 05/18/2018 TIFFANY JI MD Ot I25.2 OLD MYOCARDIAL INFARCTION 05/18/2018 TIFFANY JI MD Ot I45.10 UNSPECIFIED RIGHT BUNDLE-BRANCH BLOCK 05/18/2018 TIFFANY JI MD Ot I48.2 CHRONIC ATRIAL FIBRILLATION 05/18/2018 TIFFANY JI MD Ot I50.21 ACUTE SYSTOLIC (CONGESTIVE) HEART FAILUR 05/18/2018 TIFFANY JI MD Ot Z95.1 PRESENCE OF AORTOCORONARY BYPASS GRAFT 05/18/2018 TIFFANY JI MD Ot E11.9 TYPE 2 DIABETES MELLITUS WITHOUT COMPLIC 05/18/2018 TIFFANY JI MD Ot E78.00 PURE HYPERCHOLESTEROLEMIA, UNSPECIFIED 05/18/2018 TIFFANY JI MD Ot I11.0 HYPERTENSIVE HEART DISEASE WITH HEART FA 05/18/2018 TIFFANY JI MD Ot I25.10 ATHSCL HEART DISEASE OF [place] CORONARY 05/18/2018 TIFFANY JI MD Ot I25.2 OLD MYOCARDIAL INFARCTION 05/18/2018 TIFFANY JI MD Ot I45.10 UNSPECIFIED RIGHT BUNDLE-BRANCH BLOCK 05/18/2018 TIFFANY JI MD Ot I48.2 CHRONIC ATRIAL FIBRILLATION 05/18/2018 TIFFANY JI MD Ot I50.21 ACUTE SYSTOLIC (CONGESTIVE) HEART FAILUR 05/18/2018 TIFFANY JI MD Ot Z95.1 PRESENCE OF AORTOCORONARY BYPASS GRAFT 05/19/2018 TIFFANY JI MD Ot E11.9 TYPE 2 DIABETES MELLITUS WITHOUT COMPLIC 05/19/2018 TIFFANY JI MD Ot E78.00 PURE HYPERCHOLESTEROLEMIA, UNSPECIFIED 05/19/2018 TIFFANY JI MD Ot I11.0 HYPERTENSIVE HEART DISEASE WITH HEART FA 05/19/2018 TIFFANY JI MD Ot I25.10 ATHSCL HEART DISEASE OF [place] CORONARY 05/19/2018 TIFFANY JI MD Ot I25.2 OLD MYOCARDIAL INFARCTION 05/19/2018 TIFFANY JI MD Ot I45.10 UNSPECIFIED RIGHT BUNDLE-BRANCH BLOCK 05/19/2018 TIFFANY JI MD Ot I48.2 CHRONIC ATRIAL FIBRILLATION 05/19/2018 TIFFANY JI MD Ot I50.21 ACUTE SYSTOLIC (CONGESTIVE) HEART FAILUR 05/19/2018 TIFFANY JI MD Ot Z95.1 PRESENCE OF AORTOCORONARY BYPASS GRAFT 05/19/2018 TIFFANY JI MD Ot E11.9 TYPE 2 DIABETES MELLITUS WITHOUT COMPLIC 05/19/2018 TIFFANY JI MD Ot E78.00 PURE HYPERCHOLESTEROLEMIA, UNSPECIFIED 05/19/2018 TIFFANY JI MD Ot I11.0 HYPERTENSIVE HEART DISEASE WITH HEART FA 05/19/2018 TIFFANY JI MD Ot I25.10 ATHSCL HEART DISEASE OF [place] CORONARY 05/19/2018 TIFFANY JI MD Ot I25.2 OLD MYOCARDIAL INFARCTION 05/19/2018 TIFFANY JI MD Ot I45.10 UNSPECIFIED RIGHT BUNDLE-BRANCH BLOCK 05/19/2018 TIFFANY JI MD Ot I48.2 CHRONIC ATRIAL FIBRILLATION 05/19/2018 TIFFANY JI MD Ot I50.21 ACUTE SYSTOLIC (CONGESTIVE) HEART FAILUR 05/19/2018 TIFFANY JI MD Ot Z95.1 PRESENCE OF AORTOCORONARY BYPASS GRAFT 05/20/2018 TIFFANY JI MD Ot E11.9 TYPE 2 DIABETES MELLITUS WITHOUT COMPLIC 05/20/2018 TIFFANY JI MD Ot E78.00 PURE HYPERCHOLESTEROLEMIA, UNSPECIFIED 05/20/2018 TIFFANY IJ MD Ot I11.0 HYPERTENSIVE HEART DISEASE WITH HEART FA 05/20/2018 TIFFANY JI MD Ot I25.10 ATHSCL HEART DISEASE OF [place] CORONARY 05/20/2018 TIFFANY JI MD Ot I25.2 OLD MYOCARDIAL INFARCTION 05/20/2018 TIFFANY JI MD Ot I45.10 UNSPECIFIED RIGHT BUNDLE-BRANCH BLOCK 05/20/2018 TIFFANY JI MD Ot I48.2 CHRONIC ATRIAL FIBRILLATION 05/20/2018 TIFFANY JI MD Ot I50.21 ACUTE SYSTOLIC (CONGESTIVE) HEART FAILUR 05/20/2018 TIFFANY JI MD Ot Z95.1 PRESENCE OF AORTOCORONARY BYPASS GRAFT 05/20/2018 TIFFANY JI MD Ot E11.9 TYPE 2 DIABETES MELLITUS WITHOUT COMPLIC 05/20/2018 TIFFANY JI MD Ot E78.00 PURE HYPERCHOLESTEROLEMIA, UNSPECIFIED 05/20/2018 TIFFANY JI MD Ot I11.0 HYPERTENSIVE HEART DISEASE WITH HEART FA 05/20/2018 TIFFANY JI MD Ot I25.10 ATHSCL HEART DISEASE OF [place] CORONARY 05/20/2018 TIFFANY JI MD Ot I25.2 OLD MYOCARDIAL INFARCTION 05/20/2018 TIFFANY JI MD Ot I45.10 UNSPECIFIED RIGHT BUNDLE-BRANCH BLOCK 05/20/2018 TIFFANY JI MD Ot I48.2 CHRONIC ATRIAL FIBRILLATION 05/20/2018 TIFFANY JI MD Ot I50.21 ACUTE SYSTOLIC (CONGESTIVE) HEART FAILUR 05/20/2018 TIFFANY JI MD Ot Z95.1 PRESENCE OF AORTOCORONARY BYPASS GRAFT 05/21/2018 TIFFANY JI MD Ot E11.9 TYPE 2 DIABETES MELLITUS WITHOUT COMPLIC 05/21/2018 TIFFANY JI MD Ot E78.00 PURE HYPERCHOLESTEROLEMIA, UNSPECIFIED 05/21/2018 TIFFANY JI MD, Ot 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 HYPERTENSIVE HEART DISEASE WITH HEART FA 05/21/2018 TIFFANY JI MD, Ot I25.10 ATHSCL HEART DISEASE OF [place] CORONARY 05/21/2018 TIFFANY JI MD, Ot I25.2 OLD MYOCARDIAL INFARCTION 05/21/2018 TIFFANY JI MD, Ot I45.10 UNSPECIFIED RIGHT BUNDLE-BRANCH BLOCK 05/21/2018 TIFFANY JI MD, Ot I48.2 CHRONIC ATRIAL FIBRILLATION 05/21/2018 TIFFANY JI MD Ot I50.21 ACUTE SYSTOLIC (CONGESTIVE) HEART FAILUR 05/21/2018 TIFFANY JI MD Ot Z95.1 PRESENCE OF AORTOCORONARY BYPASS GRAFT 05/21/2018 TIFFANY JI MD Ot D50.0 IRON 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 05/21/2018 TIFFANY JI MD Ot D63.1 ANEMIA IN CHRONIC KIDNEY DISEASE 05/21/2018 TIFFANY JI MD Ot E11.9 TYPE 2 DIABETES MELLITUS WITHOUT COMPLIC 05/21/2018 TIFFANY JI MD Ot E66.2 MORBID (SEVERE) OBESITY WITH ALVEOLAR HY 05/21/2018 TIFFANY JI MD Ot E78.5 HYPERLIPIDEMIA, UNSPECIFIED 05/21/2018 TIFFANY JI MD Ot E83.42 HYPOMAGNESEMIA 05/21/2018 TIFFANY JI MD Ot I08.1 RHEUMATIC DISORDERS OF BOTH MITRAL AND T 05/21/2018 TIFFANY JI MD Ot I13.0 HYP HRT CHR KDNY DIS W HRT FAIL AND ST 05/21/2018 TIFFANY JI MD, Ot I25.10 ATHSCL HEART DISEASE OF [place] CORONARY 05/21/2018 TIFFANY JI MD, Ot I27.20 PULMONARY HYPERTENSION, UNSPECIFIED 05/21/2018 TIFFANY JI MD Ot I45.10 UNSPECIFIED RIGHT BUNDLE-BRANCH BLOCK 05/21/2018 TIFFANY JI MD, Ot I48.2 CHRONIC ATRIAL FIBRILLATION 05/21/2018 TIFFANY JI MD Ot I50.21 ACUTE SYSTOLIC (CONGESTIVE) HEART FAILUR 05/21/2018 TIFFANY JI MD, Ot J18.9 PNEUMONIA, UNSPECIFIED ORGANISM 05/21/2018 TIFFANY JI MD, Ot J44.0 CHRONIC OBSTRUCTIVE PULMON DISEASE W ACU 05/21/2018 TIFFANY JI MD, Ot J44.1 CHRONIC OBSTRUCTIVE PULMONARY DISEASE W 05/21/2018 TIFFANY JI MD, Ot J90 PLEURAL EFFUSION, NOT ELSEWHERE CLASSIFI 05/21/2018 TIFFANY JI MD, Ot J96.20 ACUTE AND CHR RESP FAILURE, UNSP W HYPOX 05/21/2018 TIFFANY JI MD Ot K21.0 GASTRO-ESOPHAGEAL REFLUX DISEASE WITH ES 05/21/2018 TIFFANY JI MD Ot K29.70 GASTRITIS, UNSPECIFIED, WITHOUT BLEEDING 05/21/2018 TIFFANY JI MD, Ot K44.9 DIAPHRAGMATIC HERNIA WITHOUT OBSTRUCTION 05/21/2018 TIFFANY JI MD, Ot K57.30 DVRTCLOS OF LG INT W/O PERFORATION OR AB 05/21/2018 TIFFANY JI MD Ot K92.2 GASTROINTESTINAL HEMORRHAGE, UNSPECIFIED 05/21/2018 TIFFANY JI MD Ot N17.9 ACUTE KIDNEY FAILURE, UNSPECIFIED 05/21/2018 TIFFANY JI MD, Ot N18.9 CHRONIC KIDNEY DISEASE, UNSPECIFIED 05/21/2018 TIFFANY JI MD Ot Z68.34 BODY MASS INDEX (BMI) 34.0-34.9, ADULT 05/21/2018 TIFFANY JI MD Ot Z87.11 PERSONAL HISTORY OF PEPTIC ULCER DISEASE 05/21/2018 TIFFANY JI MD, Ot Z87.891 PERSONAL HISTORY OF NICOTINE DEPENDENCE 05/21/2018 TIFFANY JI MD Ot Z95.1 PRESENCE OF AORTOCORONARY BYPASS GRAFT 05/21/2018 TIFFANY JI MD Ot Z95.2 PRESENCE OF PROSTHETIC HEART VALVE 05/22/2018 TIFFANY JI MD Ot E11.9 TYPE 2 DIABETES MELLITUS WITHOUT COMPLIC 05/22/2018 TIFFANY JI MD Ot E78.00 PURE HYPERCHOLESTEROLEMIA, UNSPECIFIED 05/22/2018 TIFFANY JI MD Ot 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 HYPERTENSIVE HEART DISEASE WITH HEART FA 05/22/2018 TIFFANY JI MD Ot I25.10 ATHSCL HEART DISEASE OF [place] CORONARY 05/22/2018 TIFFANY JI MD Ot I25.2 OLD MYOCARDIAL INFARCTION 05/22/2018 TIFFANY JI MD Ot I45.10 UNSPECIFIED RIGHT BUNDLE-BRANCH BLOCK 05/22/2018 TIFFANY JI MD Ot I48.2 CHRONIC ATRIAL FIBRILLATION 05/22/2018 TIFFANY JI MD Ot I50.21 ACUTE SYSTOLIC (CONGESTIVE) HEART FAILUR 05/22/2018 TIFFANY JI MD Ot Z95.1 PRESENCE OF AORTOCORONARY BYPASS GRAFT 05/22/2018 TIFFANY JI MD Ot E11.9 TYPE 2 DIABETES MELLITUS WITHOUT COMPLIC 05/22/2018 TIFFANY JI MD Ot E78.00 PURE HYPERCHOLESTEROLEMIA, UNSPECIFIED 05/22/2018 TIFFANY JI MD Ot I11.0 HYPERTENSIVE HEART DISEASE WITH HEART FA 05/22/2018 TIFFANY JI MD Ot I25.10 ATHSCL HEART DISEASE OF [place] CORONARY 05/22/2018 TIFFANY JI MD Ot I25.2 OLD MYOCARDIAL INFARCTION 05/22/2018 TIFFANY JI MD Ot I45.10 UNSPECIFIED RIGHT BUNDLE-BRANCH BLOCK 05/22/2018 TIFFANY JI MD Ot I48.2 CHRONIC ATRIAL FIBRILLATION 05/22/2018 TIFFANY JI MD Ot I50.21 ACUTE SYSTOLIC (CONGESTIVE) HEART FAILUR 05/22/2018 TIFFANY JI MD Ot Z95.1 PRESENCE OF AORTOCORONARY BYPASS GRAFT 05/22/2018 TIFFANY JI MD Ot E11.9 TYPE 2 DIABETES MELLITUS WITHOUT COMPLIC 05/22/2018 TIFFANY JI MD Ot E78.00 PURE HYPERCHOLESTEROLEMIA, UNSPECIFIED 05/22/2018 TIFFANY JI MD Ot I11.0 HYPERTENSIVE HEART DISEASE WITH HEART FA 05/22/2018 TIFFANY JI MD Ot I25.10 ATHSCL HEART DISEASE OF [place] CORONARY 05/22/2018 TIFFANY JI MD Ot I25.2 OLD MYOCARDIAL INFARCTION 05/22/2018 TIFFANY JI MD Ot I45.10 UNSPECIFIED RIGHT BUNDLE-BRANCH BLOCK 05/22/2018 TIFFANY JI MD Ot I48.2 CHRONIC ATRIAL FIBRILLATION 05/22/2018 TIFFANY JI MD Ot I50.21 ACUTE SYSTOLIC (CONGESTIVE) HEART FAILUR 05/22/2018 TIFFANY JI MD Ot Z95.1 PRESENCE OF AORTOCORONARY BYPASS GRAFT 05/22/2018 TIFFANY JI MD Ot E11.9 TYPE 2 DIABETES MELLITUS WITHOUT COMPLIC 05/22/2018 TIFFANY JI MD Ot E78.00 PURE HYPERCHOLESTEROLEMIA, UNSPECIFIED 05/22/2018 TIFFANY JI MD Ot I11.0 HYPERTENSIVE HEART DISEASE WITH HEART FA 05/22/2018 TIFFANY JI MD Ot I25.10 ATHSCL HEART DISEASE OF [place] CORONARY 05/22/2018 TIFFANY JI MD Ot I25.2 OLD MYOCARDIAL INFARCTION 05/22/2018 TIFFANY JI MD Ot I45.10 UNSPECIFIED RIGHT BUNDLE-BRANCH BLOCK 05/22/2018 TIFFANY JI MD Ot I48.2 CHRONIC ATRIAL FIBRILLATION 05/22/2018 TIFFANY JI MD Ot I50.21 ACUTE SYSTOLIC (CONGESTIVE) HEART FAILUR 05/22/2018 TIFFANY JI MD Ot Z95.1 PRESENCE OF AORTOCORONARY BYPASS GRAFT 05/22/2018 TIFFANY JI MD Ot E11.9 TYPE 2 DIABETES MELLITUS WITHOUT COMPLIC 05/22/2018 TIFFANY JI MD Ot E78.00 PURE HYPERCHOLESTEROLEMIA, UNSPECIFIED 05/22/2018 TIFFANY JI MD Ot I11.0 HYPERTENSIVE HEART DISEASE WITH HEART FA 05/22/2018 TIFFANY JI MD Ot I25.10 ATHSCL HEART DISEASE OF [place] CORONARY 05/22/2018 TIFFANY JI MD Ot I25.2 OLD MYOCARDIAL INFARCTION 05/22/2018 TIFFANY JI MD Ot I45.10 UNSPECIFIED RIGHT BUNDLE-BRANCH BLOCK 05/22/2018 TIFFANY JI MD Ot I48.2 CHRONIC ATRIAL FIBRILLATION 05/22/2018 MARGY DOTSON, TIFFANY Pope Ot I50.21 ACUTE SYSTOLIC (CONGESTIVE) HEART FAILUR 05/22/2018 MARGY DOTSON, TIFFANY Pope Ot Z95.1 PRESENCE OF AORTOCORONARY BYPASS GRAFT 07/10/2018 FERDINAND MINA Ot 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 HYPERTENSIVE HEART DISEASE WITH HEART FA 07/10/2018 FERDINAND MINA Ot I27.20 PULMONARY HYPERTENSION, UNSPECIFIED 07/10/2018 FERDINAND MINA Ot I45.10 UNSPECIFIED RIGHT BUNDLE-BRANCH BLOCK 07/10/2018 FERDINAND MINA Ot I48.2 CHRONIC ATRIAL FIBRILLATION 07/10/2018 FERDINAND MINA Ot 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 Procedures Code Description Performed By Performed On [id number] EXCISION OF STOMACH, PYLORUS, VIA OPENIN 05/20/2018 [id number] INSPECTION OF LOWER INTESTINAL TRACT, EN 05/20/2018 Results Test Result Range Complete blood count (CBC) with automated white blood cell (WBC) differential - 12/23/16 16:40 Blood leukocytes automated count (number/volume) 10.4 10*3/uL 4.3-11.0 Blood erythrocytes automated count (number/volume) 4.24 10*6/uL 4.35-5.85 Venous blood hemoglobin measurement (mass/volume) 11.7 g/dL 13.3-17.7 Blood hematocrit (volume fraction) 37 % 40-54 Automated erythrocyte mean corpuscular volume 87 [foz_us] 80-99 Automated erythrocyte mean corpuscular hemoglobin (mass per erythrocyte) 28 pg 25-34 Automated erythrocyte mean corpuscular hemoglobin concentration measurement ( mass/volume) 32 g/dL 32-36 Automated erythrocyte distribution width ratio 13.7 % 10.0-14.5 Automated blood platelet count (count/volume) 143 10*3/uL 130-400 Automated blood platelet mean volume measurement 10.7 [foz_us] 7.4-10.4 Automated blood neutrophils/100 leukocytes 77 % 42-75 Automated blood lymphocytes/100 leukocytes 17 % 12-44 Blood monocytes/100 leukocytes 6 % 0-12 Automated blood eosinophils/100 leukocytes 0 % 0-10 Automated blood basophils/100 leukocytes 0 % 0-10 Blood neutrophils automated count (number/volume) 8.0 10*3 1.8-7.8 Blood lymphocytes automated count (number/volume) 1.8 10*3 1.0-4.0 Blood monocytes automated count (number/volume) 0.6 10*3 0.0-1.0 Automated eosinophil count 0.0 10*3/uL 0.0-0.3 Automated blood basophil count (count/volume) 0.0 10*3/uL 0.0-0.1 Comprehensive metabolic panel - 12/23/16 16:40 Serum or plasma sodium measurement (moles/volume) 139 mmol/L 135-145 Serum or plasma potassium measurement (moles/volume) 4.5 mmol/L 3.6-5.0 Serum or plasma chloride measurement (moles/volume) 105 mmol/L 98-107 Carbon dioxide 23 mmol/L 21-32 Serum or plasma anion gap determination (moles/volume) 11 mmol/L 5-14 Serum or plasma urea nitrogen measurement (mass/volume) 19 mg/dL 7-18 Serum or plasma creatinine measurement (mass/volume) 0.96 mg/dL 0.60-1.30 Serum or plasma urea nitrogen/creatinine mass ratio 20 NRG Serum or plasma creatinine measurement with calculation of estimated glomerular filtration rate > NRG Serum or plasma glucose measurement (mass/volume) 154 mg/dL 70-105 Serum or plasma calcium measurement (mass/volume) 9.6 mg/dL 8.5-10.1 Serum or plasma total bilirubin measurement (mass/volume) 0.6 mg/dL 0.1-1.0 Serum or plasma alkaline phosphatase measurement (enzymatic activity/volume) 102 U/L 40-136 Serum or plasma aspartate aminotransferase measurement (enzymatic activity/ volume) 21 U/L 5-34 Serum or plasma alanine aminotransferase measurement (enzymatic activity/volume ) 18 U/L 0-55 Serum or plasma protein measurement (mass/volume) 7.3 g/dL 6.4-8.2 Serum or plasma albumin measurement (mass/volume) 3.9 g/dL 3.2-4.5 Serum or plasma troponin i.cardiac measurement (mass/volume) - 12/23/16 16:40 Serum or plasma troponin i.cardiac measurement (mass/volume) < ng/ mL <0.30 Complete urinalysis with reflex to culture - 12/23/16 17:01 Urine color determination YELLOW NRG Urine clarity determination CLEAR NRG Urine pH measurement by test strip 6.5 5-9 Specific gravity of urine by test strip 1.010 1.016- 1.022 Urine protein assay by test strip, semi-quantitative 3+ NEGATIVE Urine glucose detection by automated test strip NEGATIVE NEGATIVE Erythrocytes detection in urine sediment by light microscopy NEGATIVE NEGATIVE Urine ketones detection by automated test strip NEGATIVE NEGATIVE Urine nitrite detection by test strip NEGATIVE NEGATIVE Urine total bilirubin detection by test strip NEGATIVE NEGATIVE Urine urobilinogen measurement by automated test strip (mass/volume) NORMAL NORMAL Urine leukocyte esterase detection by dipstick NEGATIVE NEGATIVE Automated urine sediment erythrocyte count by microscopy (number/high power field) [HPF] NRG Automated urine sediment leukocyte count by microscopy (number/high power field ) [HPF] NRG Bacteria detection in urine sediment by light microscopy NEGATIVE NRG Crystals detection in urine sediment by light microscopy NONE NRG Casts detection in urine sediment by light microscopy NONE NRG Mucus detection in urine sediment by light microscopy NEGATIVE NRG Complete urinalysis with reflex to culture NO NRG Complete blood count (CBC) with automated white blood cell (WBC) differential - 05/11/18 14:50 Blood leukocytes automated count (number/volume) 9.6 10*3/uL 4.3-11.0 Blood erythrocytes automated count (number/volume) 3.79 10*6/uL 4.35-5.85 Venous blood hemoglobin measurement (mass/volume) 8.9 g/dL 13.3-17.7 Blood hematocrit (volume fraction) 31 % 40-54 Automated erythrocyte mean corpuscular volume 82 [foz_us] 80-99 Automated erythrocyte mean corpuscular hemoglobin (mass per erythrocyte) 23 pg 25-34 Automated erythrocyte mean corpuscular hemoglobin concentration measurement ( mass/volume) 29 g/dL 32-36 Automated erythrocyte distribution width ratio 18.3 % 10.0-14.5 Automated blood platelet count (count/volume) 200 10*3/uL 130-400 Automated blood platelet mean volume measurement 10.7 [foz_us] 7.4-10.4 Automated blood neutrophils/100 leukocytes 69 % 42-75 Automated blood lymphocytes/100 leukocytes 18 % 12-44 Blood monocytes/100 leukocytes 10 % 0-12 Automated blood eosinophils/100 leukocytes 2 % 0-10 Automated blood basophils/100 leukocytes 0 % 0-10 Blood neutrophils automated count (number/volume) 6.6 10*3 1.8-7.8 Blood lymphocytes automated count (number/volume) 1.7 10*3 1.0-4.0 Blood monocytes automated count (number/volume) 1.0 10*3 0.0-1.0 Automated eosinophil count 0.2 10*3/uL 0.0-0.3 Automated blood basophil count (count/volume) 0.0 10*3/uL 0.0-0.1 PT panel in platelet poor plasma by coagulation assay - 05/11/18 14:50 Prothrombin time (PT) in platelet poor plasma by coagulation assay 17.1 s 12.2-14.7 INR in platelet poor plasma or blood by coagulation assay 1.4 0.8-1.4 Activated partial thromboplastin time (aPTT) in platelet poor plasma bycoagulation assay - 05/11/18 14:50 Activated partial thromboplastin time (aPTT) in platelet poor plasma bycoagulation assay 29 s 24-35 Comprehensive metabolic panel - 05/11/18 14:50 Serum or plasma sodium measurement (moles/volume) 139 mmol/L 135-145 Serum or plasma potassium measurement (moles/volume) 5.9 mmol/L 3.6-5.0 Serum or plasma chloride measurement (moles/volume) 105 mmol/L 98-107 Carbon dioxide 23 mmol/L 21-32 Serum or plasma anion gap determination (moles/volume) 11 mmol/L 5-14 Serum or plasma urea nitrogen measurement (mass/volume) 34 mg/dL 7-18 Serum or plasma creatinine measurement (mass/volume) 1.44 mg/dL 0.60-1.30 Serum or plasma urea nitrogen/creatinine mass ratio 24 NRG Serum or plasma creatinine measurement with calculation of estimated glomerular filtration rate 46 NRG Serum or plasma glucose measurement (mass/volume) 171 mg/dL 70-105 Serum or plasma calcium measurement (mass/volume) 9.2 mg/dL 8.5-10.1 Serum or plasma total bilirubin measurement (mass/volume) 0.4 mg/dL 0.1-1.0 Serum or plasma alkaline phosphatase measurement (enzymatic activity/volume) 128 U/L 40-136 Serum or plasma aspartate aminotransferase measurement (enzymatic activity/ volume) 40 U/L 5-34 Serum or plasma alanine aminotransferase measurement (enzymatic activity/volume ) 18 U/L 0-55 Serum or plasma protein measurement (mass/volume) 7.2 g/dL 6.4-8.2 Serum or plasma albumin measurement (mass/volume) 3.6 g/dL 3.2-4.5 CALCIUM CORRECTED 9.5 mg/dL 8.5-10.1 Magnesium - 05/11/18 14:50 Magnesium 2.4 mg/dL 1.8-2.4 Serum or plasma troponin i.cardiac measurement (mass/volume) - 05/11/18 14:50 Serum or plasma troponin i.cardiac measurement (mass/volume) < ng/ mL <0.30 Myoglobin, serum - 05/11/18 14:50 Myoglobin, serum 97.0 ng/mL 10.0-92.0 Serum or plasma lithium measurement (moles/volume) - 05/11/18 14:50 BNP level 369.6 pg/mL <100.0 Complete blood count (CBC) with automated white blood cell (WBC) differential - 05/12/18 03:11 Blood leukocytes automated count (number/volume) 12.8 10*3/uL 4.3-11.0 Blood erythrocytes automated count (number/volume) 4.11 10*6/uL 4.35-5.85 Venous blood hemoglobin measurement (mass/volume) 9.7 g/dL 13.3-17.7 Blood hematocrit (volume fraction) 34 % 40-54 Automated erythrocyte mean corpuscular volume 82 [foz_us] 80-99 Automated erythrocyte mean corpuscular hemoglobin (mass per erythrocyte) 24 pg 25-34 Automated erythrocyte mean corpuscular hemoglobin concentration measurement ( mass/volume) 29 g/dL 32-36 Automated erythrocyte distribution width ratio 17.8 % 10.0-14.5 Automated blood platelet count (count/volume) 204 10*3/uL 130-400 Automated blood platelet mean volume measurement 10.6 [foz_us] 7.4-10.4 Automated blood neutrophils/100 leukocytes 71 % 42-75 Automated blood lymphocytes/100 leukocytes 18 % 12-44 Blood monocytes/100 leukocytes 9 % 0-12 Automated blood eosinophils/100 leukocytes 2 % 0-10 Automated blood basophils/100 leukocytes 0 % 0-10 Blood neutrophils automated count (number/volume) 9.1 10*3 1.8-7.8 Blood lymphocytes automated count (number/volume) 2.3 10*3 1.0-4.0 Blood monocytes automated count (number/volume) 1.1 10*3 0.0-1.0 Automated eosinophil count 0.3 10*3/uL 0.0-0.3 Automated blood basophil count (count/volume) 0.0 10*3/uL 0.0-0.1 Comprehensive metabolic panel - 05/12/18 03:11 Serum or plasma sodium measurement (moles/volume) 141 mmol/L 135-145 Serum or plasma potassium measurement (moles/volume) 5.4 mmol/L 3.6-5.0 Serum or plasma chloride measurement (moles/volume) 105 mmol/L 98-107 Carbon dioxide 24 mmol/L 21-32 Serum or plasma anion gap determination (moles/volume) 12 mmol/L 5-14 Serum or plasma urea nitrogen measurement (mass/volume) 34 mg/dL 7-18 Serum or plasma creatinine measurement (mass/volume) 1.36 mg/dL 0.60-1.30 Serum or plasma urea nitrogen/creatinine mass ratio 25 NRG Serum or plasma creatinine measurement with calculation of estimated glomerular filtration rate 50 NRG Serum or plasma glucose measurement (mass/volume) 111 mg/dL 70-105 Serum or plasma calcium measurement (mass/volume) 9.6 mg/dL 8.5-10.1 Serum or plasma total bilirubin measurement (mass/volume) 0.5 mg/dL 0.1-1.0 Serum or plasma alkaline phosphatase measurement (enzymatic activity/volume) 140 U/L 40-136 Serum or plasma aspartate aminotransferase measurement (enzymatic activity/ volume) 26 U/L 5-34 Serum or plasma alanine aminotransferase measurement (enzymatic activity/volume ) 17 U/L 0-55 Serum or plasma protein measurement (mass/volume) 7.2 g/dL 6.4-8.2 Serum or plasma albumin measurement (mass/volume) 3.9 g/dL 3.2-4.5 CALCIUM CORRECTED 9.7 mg/dL 8.5-10.1 Lipid 1996 panel - 05/12/18 03:11 Serum or plasma triglyceride measurement (mass/volume) 93 mg/dL <150 Serum or plasma cholesterol measurement (mass/volume) 96 mg/dL < 200 Serum or plasma cholesterol in HDL measurement (mass/volume) 30 mg/ dL 40-60 Cholesterol in LDL [mass/volume] in serum or plasma by direct assay 48 mg/dL 1-129 Serum or plasma cholesterol in VLDL measurement (mass/volume) 19 mg/ dL 5-40 Serum or plasma lithium measurement (moles/volume) - 05/12/18 03:11 BNP level 374.5 pg/mL <100.0 Serum or plasma troponin i.cardiac measurement (mass/volume) - 05/12/18 03:11 Serum or plasma troponin i.cardiac measurement (mass/volume) < ng/ mL <0.30 Arterial blood gas measurement - 05/12/18 18:50 Blood pCO2 58 mm[Hg] 35-45 Blood pO2 110 mm[Hg] 79-93 Arterial blood bicarbonate measurement (moles/volume) 30 mmol/L 23-27 Arterial blood base excess by calculation 3.7 mmol/L -2.5 -2.5 Arterial blood oxygen saturation measurement 99 % 94-100 * Inhaled oxygen flow rate 4L NRG Arterial blood pH measurement with patient temperature correction 7.32 7.37-7.43 Arterial blood carbon dioxide, total measurement (moles/volume) 31.3 mmol/L 21.0-31.0 Body site LEFT RADIAL NRG Assessment of wrist artery patency prior to arterial puncture POSITIVE NRG Setting of ventilation mode NO NRG Measurement of body temperature 97.1 NRG Arterial blood gas measurement - 05/12/18 20:31 Blood pCO2 55 mm[Hg] 35-45 Blood pO2 94 mm[Hg] 79-93 Arterial blood bicarbonate measurement (moles/volume) 30 mmol/L 23-27 Arterial blood base excess by calculation 5.2 mmol/L -2.5 -2.5 Arterial blood oxygen saturation measurement 98 % 94-100 * Inhaled oxygen flow rate 30% NRG Arterial blood pH measurement with patient temperature correction 7.36 7.37-7.43 Arterial blood carbon dioxide, total measurement (moles/volume) 32.0 mmol/L 21.0-31.0 Body site LEFT RADIAL NRG Assessment of wrist artery patency prior to arterial puncture YES- POS NRG Setting of ventilation mode NO NRG Measurement of body temperature 98.4 NRG Complete blood count (CBC) with automated white blood cell (WBC) differential - 05/13/18 04:40 Blood leukocytes automated count (number/volume) 12.8 10*3/uL 4.3-11.0 Blood erythrocytes automated count (number/volume) 3.89 10*6/uL 4.35-5.85 Venous blood hemoglobin measurement (mass/volume) 9.2 g/dL 13.3-17.7 Blood hematocrit (volume fraction) 31 % 40-54 Automated erythrocyte mean corpuscular volume 81 [foz_us] 80-99 Automated erythrocyte mean corpuscular hemoglobin (mass per erythrocyte) 24 pg 25-34 Automated erythrocyte mean corpuscular hemoglobin concentration measurement ( mass/volume) 29 g/dL 32-36 Automated erythrocyte distribution width ratio 17.6 % 10.0-14.5 Automated blood platelet count (count/volume) 202 10*3/uL 130-400 Automated blood platelet mean volume measurement 10.8 [foz_us] 7.4-10.4 Automated blood neutrophils/100 leukocytes 76 % 42-75 Automated blood lymphocytes/100 leukocytes 13 % 12-44 Blood monocytes/100 leukocytes 10 % 0-12 Automated blood eosinophils/100 leukocytes 1 % 0-10 Automated blood basophils/100 leukocytes 0 % 0-10 Blood neutrophils automated count (number/volume) 9.7 10*3 1.8-7.8 Blood lymphocytes automated count (number/volume) 1.7 10*3 1.0-4.0 Blood monocytes automated count (number/volume) 1.3 10*3 0.0-1.0 Automated eosinophil count 0.1 10*3/uL 0.0-0.3 Automated blood basophil count (count/volume) 0.0 10*3/uL 0.0-0.1 Whole blood basic metabolic panel - 05/13/18 04:40 Serum or plasma sodium measurement (moles/volume) 143 mmol/L 135-145 Serum or plasma potassium measurement (moles/volume) 4.8 mmol/L 3.6-5.0 Serum or plasma chloride measurement (moles/volume) 102 mmol/L 98-107 Carbon dioxide 28 mmol/L 21-32 Serum or plasma anion gap determination (moles/volume) 13 mmol/L 5-14 Serum or plasma urea nitrogen measurement (mass/volume) 38 mg/dL 7-18 Serum or plasma creatinine measurement (mass/volume) 1.15 mg/dL 0.60-1.30 Serum or plasma urea nitrogen/creatinine mass ratio 33 NRG Serum or plasma creatinine measurement with calculation of estimated glomerular filtration rate 60 NRG Serum or plasma glucose measurement (mass/volume) 126 mg/dL 70-105 Serum or plasma calcium measurement (mass/volume) 9.7 mg/dL 8.5-10.1 Serum or plasma phosphate measurement (mass/volume) - 05/13/18 04:40 Serum or plasma phosphate measurement (mass/volume) 3.9 mg/dL 2.3-4.7 Magnesium - 05/13/18 04:40 Magnesium 1.8 mg/dL 1.8-2.4 Arterial blood gas measurement - 05/13/18 06:00 Blood pCO2 55 mm[Hg] 35-45 Blood pO2 82 mm[Hg] 79-93 Arterial blood bicarbonate measurement (moles/volume) 32 mmol/L 23-27 Arterial blood base excess by calculation 6.9 mmol/L -2.5 -2.5 Arterial blood oxygen saturation measurement 96 % 94-100 * Inhaled oxygen flow rate 30% NRG Arterial blood pH measurement with patient temperature correction 7.38 7.37-7.43 Arterial blood carbon dioxide, total measurement (moles/volume) 33.6 mmol/L 21.0-31.0 Body site RIGHT RADIAL NRG Assessment of wrist artery patency prior to arterial puncture YES- POS NRG Setting of ventilation mode NO NRG Measurement of body temperature 98.5 NRG Blood lactic acid measurement (moles/volume) - 05/13/18 08:10 Blood lactic acid measurement (moles/volume) 1.09 mmol/L 0.50-2.00 Bacterial blood culture - 05/13/18 08:10 Bacterial blood culture NG NRG Bacterial blood culture - 05/13/18 08:20 Bacterial blood culture NG NRG Complete urinalysis with reflex to culture - 05/13/18 08:27 Urine color determination YELLOW NRG Urine clarity determination VERY CLOUDY NRG Urine pH measurement by test strip 7 5-9 Specific gravity of urine by test strip 1.010 1.016- 1.022 Urine protein assay by test strip, semi-quantitative 2+ NEGATIVE Urine glucose detection by automated test strip NEGATIVE NEGATIVE Erythrocytes detection in urine sediment by light microscopy 5+ NEGATIVE Urine ketones detection by automated test strip NEGATIVE NEGATIVE Urine nitrite detection by test strip NEGATIVE NEGATIVE Urine total bilirubin detection by test strip NEGATIVE NEGATIVE Urine urobilinogen measurement by automated test strip (mass/volume) NORMAL NORMAL Urine leukocyte esterase detection by dipstick 1+ NEGATIVE Automated urine sediment erythrocyte count by microscopy (number/high power field) TNTC NRG Automated urine sediment leukocyte count by microscopy (number/high power field ) [HPF] NRG Bacteria detection in urine sediment by light microscopy TRACE NRG Squamous epithelial cells detection in urine sediment by light microscopy 0-2 NRG Crystals detection in urine sediment by light microscopy NONE NRG Casts detection in urine sediment by light microscopy NONE NRG Mucus detection in urine sediment by light microscopy NEGATIVE NRG Complete urinalysis with reflex to culture YES NRG Urine Legionella pneumophila antigen assay - 05/13/18 08:27 Urine Legionella pneumophila antigen assay Negative NRG Bacterial urine culture - 05/13/18 08:27 Bacterial urine culture NG NRG Streptococcus pneumoniae antigen detection - 05/13/18 08:27 Streptococcus pneumoniae antigen detection Negative NRG Arterial blood gas measurement - 05/13/18 18:36 Blood pCO2 52 mm[Hg] 35-45 Blood pO2 80 mm[Hg] 79-93 Arterial blood bicarbonate measurement (moles/volume) 34 mmol/L 23-27 Arterial blood base excess by calculation 9.6 mmol/L -2.5 -2.5 Arterial blood oxygen saturation measurement 96 % 94-100 * Inhaled oxygen flow rate 30% NRG Arterial blood pH measurement with patient temperature correction 7.43 7.37-7.43 Arterial blood carbon dioxide, total measurement (moles/volume) 35.7 mmol/L 21.0-31.0 Body site LT RAD NRG Assessment of wrist artery patency prior to arterial puncture YES- POS NRG Setting of ventilation mode NO NRG Measurement of body temperature 99.6 NRG Capillary blood glucose measurement by glucometer (mass/volume) - 05/13/18 21: 27 Capillary blood glucose measurement by glucometer (mass/volume) 124 mg/dL 70-110 Arterial blood gas measurement - 05/13/18 21:59 Blood pCO2 60 mm[Hg] 35-45 Blood pO2 25 mm[Hg] 79-93 Arterial blood bicarbonate measurement (moles/volume) 36 mmol/L 23-27 Arterial blood base excess by calculation 10.3 mmol/L - 2.5-2.5 Arterial blood oxygen saturation measurement 33 % 94-100 * Inhaled oxygen flow rate 30% NRG Arterial blood pH measurement with patient temperature correction 7.39 7.37-7.43 Arterial blood carbon dioxide, total measurement (moles/volume) 37.6 mmol/L 21.0-31.0 Body site LEFT RADIAL NRG Assessment of wrist artery patency prior to arterial puncture YES- POS NRG Setting of ventilation mode NO NRG Measurement of body temperature 97.6 NRG Complete blood count (CBC) with automated white blood cell (WBC) differential - 05/14/18 04:30 Blood leukocytes automated count (number/volume) 9.0 10*3/uL 4.3-11.0 Blood erythrocytes automated count (number/volume) 3.50 10*6/uL 4.35-5.85 Venous blood hemoglobin measurement (mass/volume) 8.2 g/dL 13.3-17.7 Blood hematocrit (volume fraction) 28 % 40-54 Automated erythrocyte mean corpuscular volume 80 [foz_us] 80-99 Automated erythrocyte mean corpuscular hemoglobin (mass per erythrocyte) 23 pg 25-34 Automated erythrocyte mean corpuscular hemoglobin concentration measurement ( mass/volume) 29 g/dL 32-36 Automated erythrocyte distribution width ratio 17.3 % 10.0-14.5 Automated blood platelet count (count/volume) 138 10*3/uL 130-400 Automated blood platelet mean volume measurement 11.0 [foz_us] 7.4-10.4 Automated blood neutrophils/100 leukocytes 75 % 42-75 Automated blood lymphocytes/100 leukocytes 15 % 12-44 Blood monocytes/100 leukocytes 9 % 0-12 Automated blood eosinophils/100 leukocytes 1 % 0-10 Automated blood basophils/100 leukocytes 0 % 0-10 Blood neutrophils automated count (number/volume) 6.8 10*3 1.8-7.8 Blood lymphocytes automated count (number/volume) 1.4 10*3 1.0-4.0 Blood monocytes automated count (number/volume) 0.8 10*3 0.0-1.0 Automated eosinophil count 0.1 10*3/uL 0.0-0.3 Automated blood basophil count (count/volume) 0.0 10*3/uL 0.0-0.1 Whole blood basic metabolic panel - 05/14/18 04:30 Serum or plasma sodium measurement (moles/volume) 142 mmol/L 135-145 Serum or plasma potassium measurement (moles/volume) 4.4 mmol/L 3.6-5.0 Serum or plasma chloride measurement (moles/volume) 100 mmol/L 98-107 Carbon dioxide 30 mmol/L 21-32 Serum or plasma anion gap determination (moles/volume) 12 mmol/L 5-14 Serum or plasma urea nitrogen measurement (mass/volume) 42 mg/dL 7-18 Serum or plasma creatinine measurement (mass/volume) 1.37 mg/dL 0.60-1.30 Serum or plasma urea nitrogen/creatinine mass ratio 31 NRG Serum or plasma creatinine measurement with calculation of estimated glomerular filtration rate 49 NRG Serum or plasma glucose measurement (mass/volume) 146 mg/dL 70-105 Serum or plasma calcium measurement (mass/volume) 9.0 mg/dL 8.5-10.1 Serum or plasma phosphate measurement (mass/volume) - 05/14/18 04:30 Serum or plasma phosphate measurement (mass/volume) 4.7 mg/dL 2.3-4.7 Magnesium - 05/14/18 04:30 Magnesium 1.6 mg/dL 1.8-2.4 Arterial blood gas measurement - 05/14/18 13:04 Blood pCO2 47 mm[Hg] 35-45 Blood pO2 71 mm[Hg] 79-93 Arterial blood bicarbonate measurement (moles/volume) 34 mmol/L 23-27 Arterial blood base excess by calculation 9.7 mmol/L -2.5 -2.5 Arterial blood oxygen saturation measurement 95 % 94-100 * Inhaled oxygen flow rate 30% BIPAP NRG Arterial blood pH measurement with patient temperature correction 7.47 7.37-7.43 Arterial blood carbon dioxide, total measurement (moles/volume) 35.3 mmol/L 21.0-31.0 Body site L RADIAL NRG Assessment of wrist artery patency prior to arterial puncture YES- POS NRG Setting of ventilation mode NO NRG Measurement of body temperature 98.6 NRG Complete blood count (CBC) with automated white blood cell (WBC) differential - 05/15/18 03:25 Blood leukocytes automated count (number/volume) 11.0 10*3/uL 4.3-11.0 Blood erythrocytes automated count (number/volume) 3.54 10*6/uL 4.35-5.85 Venous blood hemoglobin measurement (mass/volume) 8.3 g/dL 13.3-17.7 Blood hematocrit (volume fraction) 28 % 40-54 Automated erythrocyte mean corpuscular volume 79 [foz_us] 80-99 Automated erythrocyte mean corpuscular hemoglobin (mass per erythrocyte) 23 pg 25-34 Automated erythrocyte mean corpuscular hemoglobin concentration measurement ( mass/volume) 30 g/dL 32-36 Automated erythrocyte distribution width ratio 17.8 % 10.0-14.5 Automated blood platelet count (count/volume) 179 10*3/uL 130-400 Automated blood platelet mean volume measurement 11.0 [foz_us] 7.4-10.4 Automated blood neutrophils/100 leukocytes 77 % 42-75 Automated blood lymphocytes/100 leukocytes 11 % 12-44 Blood monocytes/100 leukocytes 11 % 0-12 Automated blood eosinophils/100 leukocytes 1 % 0-10 Automated blood basophils/100 leukocytes 0 % 0-10 Blood neutrophils automated count (number/volume) 8.5 10*3 1.8-7.8 Blood lymphocytes automated count (number/volume) 1.2 10*3 1.0-4.0 Blood monocytes automated count (number/volume) 1.2 10*3 0.0-1.0 Automated eosinophil count 0.1 10*3/uL 0.0-0.3 Automated blood basophil count (count/volume) 0.0 10*3/uL 0.0-0.1 Whole blood basic metabolic panel - 05/15/18 03:25 Serum or plasma sodium measurement (moles/volume) 143 mmol/L 135-145 Serum or plasma potassium measurement (moles/volume) 4.5 mmol/L 3.6-5.0 Serum or plasma chloride measurement (moles/volume) 101 mmol/L 98-107 Carbon dioxide 27 mmol/L 21-32 Serum or plasma anion gap determination (moles/volume) 15 mmol/L 5-14 Serum or plasma urea nitrogen measurement (mass/volume) 43 mg/dL 7-18 Serum or plasma creatinine measurement (mass/volume) 1.37 mg/dL 0.60-1.30 Serum or plasma urea nitrogen/creatinine mass ratio 31 NRG Serum or plasma creatinine measurement with calculation of estimated glomerular filtration rate 49 NRG Serum or plasma glucose measurement (mass/volume) 136 mg/dL 70-105 Serum or plasma calcium measurement (mass/volume) 9.1 mg/dL 8.5-10.1 Serum or plasma phosphate measurement (mass/volume) - 05/15/18 03:25 Serum or plasma phosphate measurement (mass/volume) 3.2 mg/dL 2.3-4.7 Magnesium - 05/15/18 03:25 Magnesium 2.4 mg/dL 1.8-2.4 Complete blood count (CBC) with automated white blood cell (WBC) differential - 05/16/18 03:47 Blood leukocytes automated count (number/volume) 12.0 10*3/uL 4.3-11.0 Blood erythrocytes automated count (number/volume) 3.55 10*6/uL 4.35-5.85 Venous blood hemoglobin measurement (mass/volume) 8.3 g/dL 13.3-17.7 Blood hematocrit (volume fraction) 28 % 40-54 Automated erythrocyte mean corpuscular volume 80 [foz_us] 80-99 Automated erythrocyte mean corpuscular hemoglobin (mass per erythrocyte) 23 pg 25-34 Automated erythrocyte mean corpuscular hemoglobin concentration measurement ( mass/volume) 29 g/dL 32-36 Automated erythrocyte distribution width ratio 17.7 % 10.0-14.5 Automated blood platelet count (count/volume) 161 10*3/uL 130-400 Automated blood platelet mean volume measurement 11.1 [foz_us] 7.4-10.4 Automated blood neutrophils/100 leukocytes 72 % 42-75 Automated blood lymphocytes/100 leukocytes 15 % 12-44 Blood monocytes/100 leukocytes 12 % 0-12 Automated blood eosinophils/100 leukocytes 1 % 0-10 Automated blood basophils/100 leukocytes 0 % 0-10 Blood neutrophils automated count (number/volume) 8.6 10*3 1.8-7.8 Blood lymphocytes automated count (number/volume) 1.8 10*3 1.0-4.0 Blood monocytes automated count (number/volume) 1.4 10*3 0.0-1.0 Automated eosinophil count 0.1 10*3/uL 0.0-0.3 Automated blood basophil count (count/volume) 0.0 10*3/uL 0.0-0.1 Whole blood basic metabolic panel - 05/16/18 03:47 Serum or plasma sodium measurement (moles/volume) 140 mmol/L 135-145 Serum or plasma potassium measurement (moles/volume) 4.5 mmol/L 3.6-5.0 Serum or plasma chloride measurement (moles/volume) 101 mmol/L 98-107 Carbon dioxide 25 mmol/L 21-32 Serum or plasma anion gap determination (moles/volume) 14 mmol/L 5-14 Serum or plasma urea nitrogen measurement (mass/volume) 41 mg/dL 7-18 Serum or plasma creatinine measurement (mass/volume) 1.36 mg/dL 0.60-1.30 Serum or plasma urea nitrogen/creatinine mass ratio 30 NRG Serum or plasma creatinine measurement with calculation of estimated glomerular filtration rate 50 NRG Serum or plasma glucose measurement (mass/volume) 132 mg/dL 70-105 Serum or plasma calcium measurement (mass/volume) 9.2 mg/dL 8.5-10.1 Serum or plasma phosphate measurement (mass/volume) - 05/16/18 03:47 Serum or plasma phosphate measurement (mass/volume) 4.0 mg/dL 2.3-4.7 Magnesium - 05/16/18 03:47 Magnesium 2.1 mg/dL 1.8-2.4 Serum iron and total iron binding capacity panel - 05/16/18 03:47 Serum or plasma iron measurement (mass/volume) 20 % 40- 180 Total iron binding capacity and transferrin saturation measurement 5 % 15-50 Iron binding capacity [mass/volume] in serum or plasma 372 % 280-380 UIBC (unsaturated iron binding capacity) 352 % 55-450 Serum or plasma ferritin measurement (mass/volume) 64.2 % 32.0-356.0 Complete blood count (CBC) with automated white blood cell (WBC) differential - 05/17/18 05:25 Blood leukocytes automated count (number/volume) 10.3 10*3/uL 4.3-11.0 Blood erythrocytes automated count (number/volume) 3.03 10*6/uL 4.35-5.85 Venous blood hemoglobin measurement (mass/volume) 7.0 g/dL 13.3-17.7 Blood hematocrit (volume fraction) 24 % 40-54 Automated erythrocyte mean corpuscular volume 79 [foz_us] 80-99 Automated erythrocyte mean corpuscular hemoglobin (mass per erythrocyte) 23 pg 25-34 Automated erythrocyte mean corpuscular hemoglobin concentration measurement ( mass/volume) 29 g/dL 32-36 Automated erythrocyte distribution width ratio 17.8 % 10.0-14.5 Automated blood platelet count (count/volume) 171 10*3/uL 130-400 Automated blood platelet mean volume measurement 11.2 [foz_us] 7.4-10.4 Automated blood neutrophils/100 leukocytes 72 % 42-75 Automated blood lymphocytes/100 leukocytes 17 % 12-44 Blood monocytes/100 leukocytes 10 % 0-12 Automated blood eosinophils/100 leukocytes 1 % 0-10 Automated blood basophils/100 leukocytes 0 % 0-10 Blood neutrophils automated count (number/volume) 7.4 10*3 1.8-7.8 Blood lymphocytes automated count (number/volume) 1.7 10*3 1.0-4.0 Blood monocytes automated count (number/volume) 1.1 10*3 0.0-1.0 Automated eosinophil count 0.1 10*3/uL 0.0-0.3 Automated blood basophil count (count/volume) 0.0 10*3/uL 0.0-0.1 Whole blood basic metabolic panel - 05/17/18 05:25 Serum or plasma sodium measurement (moles/volume) 139 mmol/L 135-145 Serum or plasma potassium measurement (moles/volume) 4.3 mmol/L 3.6-5.0 Serum or plasma chloride measurement (moles/volume) 100 mmol/L 98-107 Carbon dioxide 25 mmol/L 21-32 Serum or plasma anion gap determination (moles/volume) 14 mmol/L 5-14 Serum or plasma urea nitrogen measurement (mass/volume) 61 mg/dL 7-18 Serum or plasma creatinine measurement (mass/volume) 1.63 mg/dL 0.60-1.30 Serum or plasma urea nitrogen/creatinine mass ratio 37 NRG Serum or plasma creatinine measurement with calculation of estimated glomerular filtration rate 40 NRG Serum or plasma glucose measurement (mass/volume) 136 mg/dL 70-105 Serum or plasma calcium measurement (mass/volume) 9.1 mg/dL 8.5-10.1 Complete blood count (CBC) with automated white blood cell (WBC) differential - 05/18/18 05:30 Blood leukocytes automated count (number/volume) 12.1 10*3/uL 4.3-11.0 Blood erythrocytes automated count (number/volume) 2.45 10*6/uL 4.35-5.85 Venous blood hemoglobin measurement (mass/volume) 5.8 g/dL 13.3-17.7 Blood hematocrit (volume fraction) 20 % 40-54 Automated erythrocyte mean corpuscular volume 82 [foz_us] 80-99 Automated erythrocyte mean corpuscular hemoglobin (mass per erythrocyte) 24 pg 25-34 Automated erythrocyte mean corpuscular hemoglobin concentration measurement ( mass/volume) 29 g/dL 32-36 Automated erythrocyte distribution width ratio 18.3 % 10.0-14.5 Automated blood platelet count (count/volume) 161 10*3/uL 130-400 Automated blood platelet mean volume measurement 11.9 [foz_us] 7.4-10.4 Automated blood neutrophils/100 leukocytes 78 % 42-75 Automated blood lymphocytes/100 leukocytes 12 % 12-44 Blood monocytes/100 leukocytes 9 % 0-12 Automated blood eosinophils/100 leukocytes 1 % 0-10 Automated blood basophils/100 leukocytes 0 % 0-10 Blood neutrophils automated count (number/volume) 9.5 10*3 1.8-7.8 Blood lymphocytes automated count (number/volume) 1.4 10*3 1.0-4.0 Blood monocytes automated count (number/volume) 1.1 10*3 0.0-1.0 Automated eosinophil count 0.1 10*3/uL 0.0-0.3 Automated blood basophil count (count/volume) 0.0 10*3/uL 0.0-0.1 Whole blood basic metabolic panel - 05/18/18 06:25 Serum or plasma sodium measurement (moles/volume) 138 mmol/L 135-145 Serum or plasma potassium measurement (moles/volume) 3.9 mmol/L 3.6-5.0 Serum or plasma chloride measurement (moles/volume) 100 mmol/L 98-107 Carbon dioxide 26 mmol/L 21-32 Serum or plasma anion gap determination (moles/volume) 12 mmol/L 5-14 Serum or plasma urea nitrogen measurement (mass/volume) 77 mg/dL 7-18 Serum or plasma creatinine measurement (mass/volume) 1.53 mg/dL 0.60-1.30 Serum or plasma urea nitrogen/creatinine mass ratio 50 NRG Serum or plasma creatinine measurement with calculation of estimated glomerular filtration rate 43 NRG Serum or plasma glucose measurement (mass/volume) 146 mg/dL 70-105 Serum or plasma calcium measurement (mass/volume) 9.0 mg/dL 8.5-10.1 RED CELLS LEUKO REDUCED AS1 - 05/18/18 07:00 RED CELLS LEUKO REDUCED AS1 TRANSFUSED 05/18/18 1110 NRG Blood type T Indirect antibody screen panel - 05/18/18 07:00 ABO+Rh group ABP NR Transfusion band number [id number] [facility] Blood group antibody screen NEGATIVE NR Stool occult blood screen - 05/18/18 12:04 Stool gastrointestinal hemoglobin detection POSITIVE NEGATIVE Whole blood hemoglobin and hematocrit panel - 05/18/18 16:40 Venous blood hemoglobin measurement (mass/volume) 8.4 g/dL 13.3-17.7 Blood hematocrit (volume fraction) 27 % 40-54 Complete blood count (CBC) with automated white blood cell (WBC) differential - 05/19/18 06:40 Blood leukocytes automated count (number/volume) 13.5 10*3/uL 4.3-11.0 Blood erythrocytes automated count (number/volume) 3.06 10*6/uL 4.35-5.85 Venous blood hemoglobin measurement (mass/volume) 8.0 g/dL 13.3-17.7 Blood hematocrit (volume fraction) 25 % 40-54 Automated erythrocyte mean corpuscular volume 82 [foz_us] 80-99 Automated erythrocyte mean corpuscular hemoglobin (mass per erythrocyte) 26 pg 25-34 Automated erythrocyte mean corpuscular hemoglobin concentration measurement ( mass/volume) 32 g/dL 32-36 Automated erythrocyte distribution width ratio 17.1 % 10.0-14.5 Automated blood platelet count (count/volume) 203 10*3/uL 130-400 Automated blood platelet mean volume measurement 10.0 [foz_us] 7.4-10.4 Automated blood neutrophils/100 leukocytes 73 % 42-75 Automated blood lymphocytes/100 leukocytes 16 % 12-44 Blood monocytes/100 leukocytes 9 % 0-12 Automated blood eosinophils/100 leukocytes 2 % 0-10 Automated blood basophils/100 leukocytes 0 % 0-10 Blood neutrophils automated count (number/volume) 9.8 10*3 1.8-7.8 Blood lymphocytes automated count (number/volume) 2.2 10*3 1.0-4.0 Blood monocytes automated count (number/volume) 1.2 10*3 0.0-1.0 Automated eosinophil count 0.2 10*3/uL 0.0-0.3 Automated blood basophil count (count/volume) 0.0 10*3/uL 0.0-0.1 Whole blood basic metabolic panel - 12/10/18 06:40 Serum or plasma sodium measurement (moles/volume) 141 mmol/L 135-145 Serum or plasma potassium measurement (moles/volume) 3.3 mmol/L 3.6-5.0 Serum or plasma chloride measurement (moles/volume) 103 mmol/L 98-107 Carbon dioxide 27 mmol/L 21-32 Serum or plasma anion gap determination (moles/volume) 11 mmol/L 5-14 Serum or plasma urea nitrogen measurement (mass/volume) 61 mg/dL 7-18 Serum or plasma creatinine measurement (mass/volume) 1.29 mg/dL 0.60-1.30 Serum or plasma urea nitrogen/creatinine mass ratio 47 NRG Serum or plasma creatinine measurement with calculation of estimated glomerular filtration rate 53 NRG Serum or plasma glucose measurement (mass/volume) 118 mg/dL 70-105 Serum or plasma calcium measurement (mass/volume) 9.1 mg/dL 8.5-10.1 Complete blood count (CBC) with automated white blood cell (WBC) differential - 05/20/18 05:55 Blood leukocytes automated count (number/volume) 9.8 10*3/uL 4.3-11.0 Blood erythrocytes automated count (number/volume) 2.93 10*6/uL 4.35-5.85 Venous blood hemoglobin measurement (mass/volume) 7.6 g/dL 13.3-17.7 Blood hematocrit (volume fraction) 25 % 40-54 Automated erythrocyte mean corpuscular volume 84 [foz_us] 80-99 Automated erythrocyte mean corpuscular hemoglobin (mass per erythrocyte) 26 pg 25-34 Automated erythrocyte mean corpuscular hemoglobin concentration measurement ( mass/volume) 31 g/dL 32-36 Automated erythrocyte distribution width ratio 17.3 % 10.0-14.5 Automated blood platelet count (count/volume) 186 10*3/uL 130-400 Automated blood platelet mean volume measurement 10.7 [foz_us] 7.4-10.4 Automated blood neutrophils/100 leukocytes 68 % 42-75 Automated blood lymphocytes/100 leukocytes 21 % 12-44 Blood monocytes/100 leukocytes 10 % 0-12 Automated blood eosinophils/100 leukocytes 2 % 0-10 Automated blood basophils/100 leukocytes 0 % 0-10 Blood neutrophils automated count (number/volume) 6.7 10*3 1.8-7.8 Blood lymphocytes automated count (number/volume) 2.0 10*3 1.0-4.0 Blood monocytes automated count (number/volume) 1.0 10*3 0.0-1.0 Automated eosinophil count 0.2 10*3/uL 0.0-0.3 Automated blood basophil count (count/volume) 0.0 10*3/uL 0.0-0.1 Whole blood basic metabolic panel - 05/20/18 05:55 Serum or plasma sodium measurement (moles/volume) 141 mmol/L 135-145 Serum or plasma potassium measurement (moles/volume) 3.1 mmol/L 3.6-5.0 Serum or plasma chloride measurement (moles/volume) 102 mmol/L 98-107 Carbon dioxide 25 mmol/L 21-32 Serum or plasma anion gap determination (moles/volume) 14 mmol/L 5-14 Serum or plasma urea nitrogen measurement (mass/volume) 49 mg/dL 7-18 Serum or plasma creatinine measurement (mass/volume) 1.25 mg/dL 0.60-1.30 Serum or plasma urea nitrogen/creatinine mass ratio 39 NRG Serum or plasma creatinine measurement with calculation of estimated glomerular filtration rate 55 NRG Serum or plasma glucose measurement (mass/volume) 112 mg/dL 70-105 Serum or plasma calcium measurement (mass/volume) 9.0 mg/dL 8.5-10.1 Complete blood count (CBC) with automated white blood cell (WBC) differential - 05/21/18 03:25 Blood leukocytes automated count (number/volume) 11.6 10*3/uL 4.3-11.0 Blood erythrocytes automated count (number/volume) 3.19 10*6/uL 4.35-5.85 Venous blood hemoglobin measurement (mass/volume) 8.4 g/dL 13.3-17.7 Blood hematocrit (volume fraction) 27 % 40-54 Automated erythrocyte mean corpuscular volume 86 [foz_us] 80-99 Automated erythrocyte mean corpuscular hemoglobin (mass per erythrocyte) 26 pg 25-34 Automated erythrocyte mean corpuscular hemoglobin concentration measurement ( mass/volume) 31 g/dL 32-36 Automated erythrocyte distribution width ratio 19.2 % 10.0-14.5 Automated blood platelet count (count/volume) 236 10*3/uL 130-400 Automated blood platelet mean volume measurement 10.6 [foz_us] 7.4-10.4 Automated blood neutrophils/100 leukocytes 69 % 42-75 Automated blood lymphocytes/100 leukocytes 21 % 12-44 Blood monocytes/100 leukocytes 8 % 0-12 Automated blood eosinophils/100 leukocytes 1 % 0-10 Automated blood basophils/100 leukocytes 0 % 0-10 Blood neutrophils automated count (number/volume) 8.0 10*3 1.8-7.8 Blood lymphocytes automated count (number/volume) 2.5 10*3 1.0-4.0 Blood monocytes automated count (number/volume) 0.9 10*3 0.0-1.0 Automated eosinophil count 0.2 10*3/uL 0.0-0.3 Automated blood basophil count (count/volume) 0.0 10*3/uL 0.0-0.1 Whole blood basic metabolic panel - 05/21/18 03:25 Serum or plasma sodium measurement (moles/volume) 142 mmol/L 135-145 Serum or plasma potassium measurement (moles/volume) 3.1 mmol/L 3.6-5.0 Serum or plasma chloride measurement (moles/volume) 99 mmol/L 98-107 Carbon dioxide 28 mmol/L 21-32 Serum or plasma anion gap determination (moles/volume) 15 mmol/L 5-14 Serum or plasma urea nitrogen measurement (mass/volume) 38 mg/dL 7-18 Serum or plasma creatinine measurement (mass/volume) 1.31 mg/dL 0.60-1.30 Serum or plasma urea nitrogen/creatinine mass ratio 29 NRG Serum or plasma creatinine measurement with calculation of estimated glomerular filtration rate 52 NRG Serum or plasma glucose measurement (mass/volume) 94 mg/dL 70-105 Serum or plasma calcium measurement (mass/volume) 9.3 mg/dL 8.5-10.1 Complete blood count (CBC) with automated white blood cell (WBC) differential - 07/24/18 15:36 Blood leukocytes automated count (number/volume) 12.4 10*3/uL 4.3-11.0 Blood erythrocytes automated count (number/volume) 2.82 10*6/uL 4.35-5.85 Venous blood hemoglobin measurement (mass/volume) 6.8 g/dL 13.3-17.7 Blood hematocrit (volume fraction) 23 % 40-54 Automated erythrocyte mean corpuscular volume 81 [foz_us] 80-99 Automated erythrocyte mean corpuscular hemoglobin (mass per erythrocyte) 24 pg 25-34 Automated erythrocyte mean corpuscular hemoglobin concentration measurement ( mass/volume) 30 g/dL 32-36 Automated erythrocyte distribution width ratio 16.4 % 10.0-14.5 Automated blood platelet count (count/volume) 257 10*3/uL 130-400 Automated blood platelet mean volume measurement 11.1 [foz_us] 7.4-10.4 Automated blood neutrophils/100 leukocytes 71 % 42-75 Automated blood lymphocytes/100 leukocytes 20 % 12-44 Blood monocytes/100 leukocytes 9 % 0-12 Automated blood eosinophils/100 leukocytes 1 % 0-10 Automated blood basophils/100 leukocytes 0 % 0-10 Blood neutrophils automated count (number/volume) 8.7 10*3 1.8-7.8 Blood lymphocytes automated count (number/volume) 2.5 10*3 1.0-4.0 Blood monocytes automated count (number/volume) 1.1 10*3 0.0-1.0 Automated eosinophil count 0.1 10*3/uL 0.0-0.3 Automated blood basophil count (count/volume) 0.0 10*3/uL 0.0-0.1 PT panel in platelet poor plasma by coagulation assay - 07/24/18 15:36 Prothrombin time (PT) in platelet poor plasma by coagulation assay 28.9 s 12.2-14.7 INR in platelet poor plasma or blood by coagulation assay 2.7 0.8-1.4 Comprehensive metabolic panel - 07/24/18 15:36 Serum or plasma sodium measurement (moles/volume) 132 mmol/L 135-145 Serum or plasma potassium measurement (moles/volume) 4.2 mmol/L 3.6-5.0 Serum or plasma chloride measurement (moles/volume) 95 mmol/L 98-107 Carbon dioxide 28 mmol/L 21-32 Serum or plasma anion gap determination (moles/volume) 9 mmol/L 5-14 Serum or plasma urea nitrogen measurement (mass/volume) 35 mg/dL 7-18 Serum or plasma creatinine measurement (mass/volume) 2.03 mg/dL 0.60-1.30 Serum or plasma urea nitrogen/creatinine mass ratio 17 NRG Serum or plasma creatinine measurement with calculation of estimated glomerular filtration rate 31 NRG Serum or plasma glucose measurement (mass/volume) 198 mg/dL 70-105 Serum or plasma calcium measurement (mass/volume) 9.4 mg/dL 8.5-10.1 Serum or plasma total bilirubin measurement (mass/volume) 0.7 mg/dL 0.1-1.0 Serum or plasma alkaline phosphatase measurement (enzymatic activity/volume) 103 U/L 40-136 Serum or plasma aspartate aminotransferase measurement (enzymatic activity/ volume) 24 U/L 5-34 Serum or plasma alanine aminotransferase measurement (enzymatic activity/volume ) 11 U/L 0-55 Serum or plasma protein measurement (mass/volume) 7.1 g/dL 6.4-8.2 Serum or plasma albumin measurement (mass/volume) 3.7 g/dL 3.2-4.5 CALCIUM CORRECTED 9.6 mg/dL 8.5-10.1 Magnesium - 07/24/18 15:36 Magnesium 1.9 mg/dL 1.8-2.4 Serum or plasma troponin i.cardiac measurement (mass/volume) - 07/24/18 15:36 Serum or plasma troponin i.cardiac measurement (mass/volume) < ng/ mL <0.028 Serum or plasma lithium measurement (moles/volume) - 07/24/18 15:36 BNP level 752.5 pg/mL <100.0 Encounters ACCT No. Visit Date/Time Discharge Status Pt. Type Provider Facility Loc./Unit Complaint [id number] 07/09/2018 11:47:00 07/09/2018 23:59:59 CLS Outpatient FERDINAND MINA [facility] CARD AF,CHF [id number] 05/12/2018 19:07:00 05/21/2018 13:30:00 DIS Inpatient TIFFANY JI MD [facility] 4TH CHF, FLUID OVERLOAD [id number] 03/19/2017 14:58:00 03/19/2017 23:59:59 CLS Outpatient TIFFANY JI MD [facility] RAD AFIB,HX OF CAROTID STENOSIS [id number] 03/13/2017 16:15:00 03/13/2017 23:59:59 CLS Preadmit TIFFANY JI MD [facility] CARD AFIB,HX OF CAROTID STENOSIS [id number] 12/23/2016 16:15:00 12/23/2016 18:00:00 DIS Emergency TEODORO DOTSON, DAVID Dior [facility] ER LOSING BALANCE/NAUSEA [id number] 07/06/2013 08:36:00 07/06/2013 23:59:59 CLS Outpatient ESE DOTSON, MARTHA Buckley [facility] RAD CAD,HTN,AAA [id number] 07/01/2013 12:37:00 07/01/2013 23:59:59 CLS Outpatient MARISELA DOTSON, HUBER Kumari [facility] CARD IRREGULAR HEARTRATE [id number] 07/24/2018 16:00:00 Document Registration [id number] 07/05/2010 07:42:00 Document Registration [id number] 03/12/2017 14:19:09 03/12/2017 23:59:59 CLS Outpatient
[2018-07-24 17:51] LABS: BILIRUBIN,URINE NEGATIVE (NEGATIVE); CLARITY,URINE CLEAR; COLOR,URINE YELLOW; GLUCOSE, URINE (UA) NEGATIVE (NEGATIVE); KETONES,URINE NEGATIVE (NEGATIVE); LEUKOCYTE ESTERASE ,URINE NEGATIVE (NEGATIVE); NITRITE,URINE NEGATIVE (NEGATIVE); PH,URINE 5 (5-9); PROTEIN,URINE 1+ (NEGATIVE); UROBILINOGEN,URINE NORMAL (NORMAL)
[2018-07-24 17:58] LABS: BACTERIA,URINE NEGATIVE /HPF; WBC,URINE 0-2 /HPF
[2018-07-24] MEDS ORDERED: NS IV 1000 ML 1,000 ML ONE (18:14)
[2018-07-24] MEDS ORDERED: NS IV 500 ML 500 ML IV SCH ×2 (18:15→19:15)
--- NOTE | 2018-07-24 19:02 | Diagnostic Imaging Report ---
INDICATION: Shortness of breath. COMPARISON: 05/16/2018. EXAMINATION: Single view of the chest was obtained. FINDINGS: Portable chest again shows cardiomegaly with median sternotomy changes. There are small bilateral pleural effusions. The upper lungs are clear. Pulmonary vasculature is normal. IMPRESSION: Cardiomegaly with a persistent small basilar effusion. There does not appear to be pulmonary venous congestion at this time. Dictated by: Dictated on workstation # [id number]
[2018-07-24] MEDS ORDERED: NS IV 1000 ML 1,000 ML IV SCH (19:15)
[2018-07-24] MEDS ORDERED: CATHETER FLUSH 10 ML SYR IV PRN (19:15)
[2018-07-24] MEDS ORDERED: FUROSEMIDE 40 MG/4 ML INJ (LASIX) IV NR (19:15)
--- NOTE | 2018-07-24 20:05 | CONSULTATION REPORT ---
DATE OF SERVICE: 07/24/2018 HISTORY OF PRESENT ILLNESS: Carolyne Brian MD. HISTORY OF PRESENT ILLNESS: The patient is an 87-year-old male, known to us. He presented to the Emergency Department with increasing shortness of breath for the past 3 days. He does have a history of atrial fibrillation as well as congestive heart failure. He was admitted on 05/12/2018 for an exacerbation of CHF as well as pneumonia and was discharged home on 05/21/2018. During that hospital admission, he was also found to be anemic and also found to have heme positive stools. An EGD and colonoscopy were performed on 05/20/2018. Findings included a reflux esophagitis, stage II; moderate size hiatal hernia, 3 to 4 cm in size as well as the mild gastritis. There was chronic stage II external and internal hemorrhoids identified as well as a moderate sigmoid diverticulosis. Remainder of the colon and rectum were normal. There were no polyps or any neoplasms identified as well as no active bleeding sources. On this admission, again, he felt fatigued and the laboratory work did show that he was anemic with a hemoglobin of 6.4. He also does have an elevated INR of 2.4. PAST MEDICAL HISTORY: Atrial fibrillation, coronary artery disease, hypertension, hyperlipidemia, congestive heart failure, and history of pneumonia. PAST SURGICAL HISTORY: Coronary artery bypass grafting x2 vessels in 1993. ALLERGIES: No known drug allergies. MEDICATIONS: Alprazolam 0.5 mg b.i.d. p.r.n., atorvastatin 40 mg daily, diltiazem 240 mg daily, furosemide 40 mg b.i.d., metoprolol 25 mg daily, MiraLax p.r.n., potassium 20 mEq daily, ranitidine 150 mg b.i.d., and tramadol 50 mg p.r.n. SOCIAL HISTORY: Previous smoker, quit in 1989. Negative alcohol. FAMILY HISTORY: Noncontributory. REVIEW OF SYSTEMS: Well-nourished male, currently in no acute distress. He is experiencing exertional shortness of breath; however, not at rest on supplemental oxygen. He does not report any episodes of nausea, no vomiting; however, he does have some issues with heartburn and reflux with epigastric burning sensation. He also did notice dark tarry stools in the past few days as well. He does not report any red blood per rectum. No fever or chills, no recent inadvertent weight loss. All other review of systems is negative. PHYSICAL EXAMINATION: VITAL SIGNS: Temperature is 97.6, blood pressure 139/69, pulse 75, respirations 20, and pulse ox 98% on room air. CHEST: Scattered rales, rhonchi and expiratory wheezes bilaterally. HEART: Regular, no murmurs. EXTREMITIES: Bilateral lower extremity edema +1/3, negative Homans sign. HEENT: No scleral icterus. NECK: No cervical lymphadenopathy. ABDOMEN: Soft, nontender, and nondistended. LABORATORY DATA: WBC is 12.4, hemoglobin 6.8, hematocrit 23, and platelets 257. BUN is 35, creatinine 2.03. ASSESSMENT AND PLAN: An 87-year-old male with a recurrent anemia with what appears to be an upper gastrointestinal source. Nothing significant was identified on the previous EGD. However, in lieu of his recent recurrent anemia and dark tarry stools, we will proceed with another EGD. If this does not yield anything, then we will proceed with a tagged RBC scan if this is available by nuclear medicine. We will continue with medical management for now with fluid and blood resuscitation as well as IV PPI on a b.i.d. basis. Job ID: [id number] DocumentID: [id number] Dictated Date: 07/24/2018 19:46:31 [employer] Supervisor Date: 07/24/2018 20:04:26 Dictated By: REGI BEDOLLA MD
[2018-07-24] MEDS ORDERED: RT-ALBUTEROL/IPRATROPIUM 3 ML (DUONEB) VIAL INH PRN (21:15)
[2018-07-24] MEDS: PANTOPRAZOLE 40 MG (PROTONIX) VIAL IV SCH (21:53)
[2018-07-25] VITALS: BP 128/62
[2018-07-25 00:01] VITALS: BP 128/62
[2018-07-25 03:15] VITALS: BP 121/71
[2018-07-25 04:00] VITALS: BP 121/52
[2018-07-25 05:24] LABS: BASOPHILS % (AUTO) 0 % (0-10); EOSINOPHILS # (AUTO) 0.1 10^3/uL (0.0-0.3); EOSINOPHILS % (AUTO) 2 % (0-10); HEMATOCRIT 28 % (40-54); LYMPHOCYTES # (AUTO) 1.8 X 10^3 (1.0-4.0); LYMPHOCYTES % (AUTO) 20 % (12-44); MEAN CORPUSCULAR HEMOGLOBIN 26 PG (25-34); MEAN CORPUSCULAR HGB CONC 31 G/DL (32-36); MEAN CORPUSCULAR VOLUME 82 FL (80-99); MEAN PLATELET VOLUME 10.6 FL (7.4-10.4); MONOCYTES # (AUTO) 0.9 X 10^3 (0.0-1.0); MONOCYTES % (AUTO) 10 % (0-12); NEUTROPHILS # (AUTO) 6.2 X 10^3 (1.8-7.8); NEUTROPHILS % (AUTO) 68 % (42-75); PLATELET COUNT 170 10^3/uL (130-400); WHITE BLOOD COUNT 9.1 10^3/uL (4.3-11.0)
[2018-07-25 05:26] LABS: HEMOGLOBIN 8.7 G/DL (13.3-17.7)
[2018-07-25 05:46] LABS: ALBUMIN 3.3 GM/DL (3.2-4.5); BILIRUBIN,TOTAL 1.1 MG/DL (0.1-1.0); CREATININE SERUM 1.76 MG/DL (0.60-1.30); TOTAL PROTEIN 6.4 GM/DL (6.4-8.2)
[2018-07-25] MEDS ORDERED: RT-ALBUTEROL/IPRATROPIUM 3 ML (DUONEB) VIAL INH SCH (08:00)
[2018-07-25] MEDS: PANTOPRAZOLE 40 MG (PROTONIX) VIAL IV SCH (08:23)
--- NOTE | 2018-07-25 09:58 | Conscious Sedation/ASA ---
Conscious Sedation Pre-Proced Time 09:45 ASA Score 2 For ASA 3 and 4: Consider anesthesia and medical clearance. Also, for patients with a history of failed moderate sedation consider anesthesia. Airway Lungs Heart ASA score ASA 1: a normal healthy patient ASA 2: a patient with a mild systemic disease (mid diabetes, controlled hypertension, obesity ASA 3: a patient with a severe systemic disease that limits activity (angina , COPD, prior Myocardial infarction) ASA 4: a patient with an incapacitating disease that is a constant threat to life (CHF, renal failure) ASA 5: a moribund patient not expected to survive 24 hrs. (ruptured aneurysm) ASA 6: a declared brain- patient whose organs are being harvested. For emergent operations, add the letter E after the classification Mallampati Classification Grade 2 Sedation Plan Analgesia, Amnesia, Plan communicated to team members, Discussed options with patient/fam, Discussed risks with patient/fam The patient is an appropriate candidate to undergo the planned procedure, sedation, and anesthesia. The patient immediately re-assessed prior to indication. REGI BEDOLLA MD Jul 25, 2018 09:58
--- NOTE | 2018-07-25 09:59 | Progress Note-Pre Operative ---
Pre-Operative Progress Note H&P Reviewed The H&P was reviewed, patient examined and no changes noted. Date Seen by Provider: Jul 25, 2018 Time Seen by Provider: 09:45 Date H&P Reviewed: Jul 25, 2018 Time H&P Reviewed: 09:45 Pre-Operative Diagnosis: dark tarry stools, sx anemia REGI BEDOLLA MD Jul 25, 2018 09:59
[2018-07-25] MEDS ORDERED: PANT40TA3 PO ×2 (10:08)
[2018-07-25] MEDS ORDERED: POTA-51 PO ×2 (10:08)
[2018-07-25] MEDS ORDERED: POLY17PO6 PO ×2 (10:08)
[2018-07-25] MEDS ORDERED: FURO40TA4 PO ×4 (10:08)
[2018-07-25] MEDS ORDERED: NITR0.4T42 SL ×2 (10:08)
[2018-07-25] MEDS ORDERED: METO-387 PO ×2 (10:08)
[2018-07-25] MEDS ORDERED: DILT240C53 PO ×2 (10:08)
[2018-07-25] MEDS ORDERED: RIVA20TA PO ×2 (10:08)
[2018-07-25] MEDS ORDERED: OMEG-109 PO ×2 (10:08)
--- NOTE | 2018-07-25 10:09 | NUR ---
WENT OVER THE EXT MED HX WITH THE PATIENT, HE VERIFIED HOW HE TAKES EACH MEDICATION. HE FILLED ZANTAC RECENTLY HOWEVER HE STATES THIS WAS STOPPED WHEN HE WAS STARTED ON THE PROTONIX.
--- NOTE | 2018-07-25 10:21 | History & Physicial ---
History of Present Illness History of Present Illness Reason for visit/HPI THIS SERVES A SHORT STAY SUMMARY MR. FONTENOT IS AN 87 Y/O MALE WHO IS WELL KNOWN TO ME FROM CLINIC. HE PRESENTED TO THE EMERGENCY DEPARTMENT WITH SEVERE FATIGUE, WEAKNESS, AND SHORTNESS OF BREATH. HE WAS FOUND TO HAVE DARK COLORED STOOLS AND HAS HISTORY OF A GI BLEED, HIS LABS REVEALED A HEMOGLOBIN OF 6.8 AND IT WAS DETERMINED THAT THE PT NEEDED ADMISSION TO THE HOSPITAL FOR BLOOD TRANSFUSION AND GI EVALUATION BY SURGICAL TEAM. THIS MORNING THE PATIENT STATES THAT HE FEELS BACK TO NORMAL AFTER HIS BLOOD TRANSFUSION. HE DENIES CHEST PAIN, SHORTNESS OF BREATH, DIZZINESS, ABDOMINAL PAIN. HE THINKS THAT HIS BLOOD LOSS IS DUE TO HAVING CONSTIPATION SEVERAL DAYS A WEEK AND HAVING SOME BLOOD LOSS FROM HIS CONSTIPATION. Date of Admission Jul 24, 2018 at 16:13 Date Seen by a Provider: Jul 25, 2018 Time Seen by a Provider: 10:21 I consulted on this patient on 07/25/18 10:20 Attending Physician Tiffany Brian MD Admitting Physician Tiffany Brian MD Consult DR. BEDOLLA Allergies and Home Medications Allergies Coded Allergies: No Known Drug Allergies (Unverified , 12/23/16) Home Medications Acetaminophen 325 Mg Tablet, 650 MG PO BID, (Reported) TAKES 2 (325MG) TABLETS Alprazolam 0.5 Mg Tablet, 0.5 MG PO BID PRN for ANXIETY, (Reported) Alprazolam 0.5 Mg Tablet, 0.5 MG PO HS, (Reported) Atorvastatin Calcium 40 Mg Tablet, 20 MG PO HS, (Reported) TAKES 1/2 (40MG) TABLET Diltiazem HCl 240 Mg Cap.er.24h, 240 MG PO DAILY, (Reported) Furosemide 40 Mg Tablet, 40 MG PO DAILY, (Reported) Furosemide 40 Mg Tablet, 20 MG PO 1400, (Reported) TAKES 1/2 (40MG) TABLET Metoprolol Succinate 25 Mg Tab.er.24h, 25 MG PO DAILY, (Reported) Multivit-Min/FA/Lycopene/Lut 1 Each Tablet, 1 TAB PO DAILY, (Reported) Nitroglycerin 0.4 Mg Tab.subl, 0.4 MG SL UD PRN for CHEST PAIN, (Reported) Nystatin 15 Gm Cream..g., TOP TID PRN for RASH, (Reported) [place]-3 Fatty Acids/Fish Oil 1 Each Capsule, 2,400 MG PO DAILY, (Reported) TAKES 2 (1200MG) CAPSULES Pantoprazole Sodium 40 Mg Tablet.dr, 40 MG PO HS, (Reported) Polyethylene Glycol 3350 17 Gm Powd.pack, 17 GM PO DAILY PRN for CONSTIPATION- 2ND LINE, (Reported) Potassium Chloride 20 Meq Tablet.er, 20 MEQ PO DAILY, (Reported) Rivaroxaban 10 Mg Tablet, 10 MG PO DAILY Prescribed by: TIFFANY BRIAN on 07/25/18 153 Tramadol HCl 50 Mg Tablet, 50 MG PO Q6H PRN for PAIN-MODERATE, (Reported) Patient Home Medication List Home Medication List Reviewed: Yes Past Ctymkxd-[id number]-Urfaav Hx Patient Social History Marrital Status: Employed/Student: retired Alcohol Use: Denies Use Recreational Drug Use: No Smoking Status: Former Smoker 2nd Hand Smoke Exposure: No Physical Abuse Screen: No Sexual Abuse: No Recent Foreign Travel: No Contact w/other who traveled: No Recent Hopitalizations: No Recent Infectious Disease Expo: No Immunizations Up To Date Tetanus Booster (TDap): Unknown Pediatric: No Date of Pneumonia Vaccine: Mar 23, 1995 Date of Influenza Vaccine: Mar 10, 2018 Seasonal Allergies Seasonal Allergies: No Surgeries Yes CABG Respiratory No Currently Using CPAP: No Currently Using BIPAP: No Cardiovascular Yes Atrial Fibrillation, Heart Attack, High Cholesterol, Hypertension Neurological No Reproductive System Sexually Transmitted Disease: No HIV/AIDS: No Genitourinary No Gastrointestinal No Musculoskeletal No Endocrine History of Endocrine Disorders: No HEENT History of HEENT Disorders: No Cancer No Psychosocial History of Psychiatric Problem: No Integumentary History of Skin or Integumenta: No Blood Transfusions History of Blood Disorders: No Adverse Reaction to a Blood Tr: No Reviewed Nursing Assessment Reviewed/Agree w Nursing PMH: Yes Family Medical History Significant Family History: Heart Disease, Hypertension Family Hx: Myocardial infarction (FATHER) Review of Systems Constitutional: No chills, No fever; weakness EENTM: No throat pain Respiratory: No cough; dyspnea on exertion; No short of breath, No wheezing Cardiovascular: No chest pain; edema; No palpitations Gastrointestinal: No abdominal pain; constipation; No melena, No nausea, No vomiting Genitourinary: no symptoms reported Musculoskeletal: no symptoms reported Skin: No lesions Psychiatric/Neurological: Denies Anxiety, Denies Depressed; Weakness All Other Systems Reviewed Negative Unless Noted: Yes Physical Exam Vital Signs Vital Signs - First Documented 07/24/18 07/24/18 15:24 20:34 Temp 97.0 Pulse 95 Resp 20 B/P (MAP) 162/68 (99) Pulse Ox 100 O2 Delivery Room Air FiO2 21 Capillary Refill : Less Than 3 Seconds Height, Weight, BMI Height: 5'6.00" Weight: 212lbs. 0.0oz. 96.279478dr; 34.2 BMI Method:Stated General Appearance: No Apparent Distress, WD/WN Eyes: Bilateral Eye Normal Inspection, Bilateral Eye PERRL, Bilateral Eye EOMI HEENT: PERRL/EOMI, Pharynx Normal Neck: Full Range of Motion, Supple Respiratory: Chest Non Tender, Lungs Clear, Normal Breath Sounds Cardiovascular: Regular Rate, Rhythm, Normal Peripheral Pulses, Other (2+ PITTING EDEMA) Gastrointestinal: Normal Bowel Sounds, Non Tender, Soft Rectal: Deferred Back: Normal Inspection, No Vertebral Tenderness Extremity: Normal Capillary Refill, No Calf Tenderness, Pedal Edema Neurologic/Psychiatric: Alert, Oriented x3, No Motor/Sensory Deficits, Normal Mood/Affect, accounts payable lead II-XII Norm as Tested Skin: Normal Color, Warm/Dry Lymphatic: No Adenopathy Assessment/Plan Assessment and Plan UPPER GI BLEEDING ACUTE BLOOD LOSS ANEMIA HYPERTENSION ACUTE ON CHRONIC RENAL FAILURE CHRONIC ATRIAL FIBRILLATION EDEMA GASTRITIS UPPER GI BLEEDING WITH ACUTE BLOOD LOSS ANEMIA - SEE 'S OPERATIVE NOTE - WITH NO ACUTE SOURCE OF GROSS GI BLEEDING - THE LIKLEY SOURCE IS FROM THE CHRONIC GASTRITIS AND GERD WHILE ON HIS CHRONIC ANTICOAGULATION. WE WILL THEREFORE DECREASE THE DOSES OF XARELTO ON DISCHARGE HE HAS RENAL IMPAIRMENT AND CHRONIC BLOOD LOSS ANEMIA. HYPERTENSION - RESUME HOME REGIMEN. ACUTE ON CHRONIC RENAL FAILURE - DECREASE DOSE OF XARELTO - MONITOR RENAL FUNCTION OUTPATIENT. CHRONIC ATRIAL FIBRILLATION - PT ON CARDIZEM AND XARELTO - DUE TO HIS RENAL FUNCTION AND CHRONIC BLEEDING - DECREASE DOSE OF XARELTO FROM 20MG TO 10MG DAILY. EDEMA - ON LASIX - CONTINUE WITH REGIMEN GASTRITIS - PROTONIX 40MG DAILY. Admission Diagnosis UPPER GI BLEEDING ACUTE BLOOD LOSS ANEMIA HYPERTENSION ACUTE ON CHRONIC RENAL FAILURE CHRONIC ATRIAL FIBRILLATION EDEMA GASTRITIS Admission Status: Observation Clinical Quality Measures DVT/VTE Risk/Contraindication: Risk Factor Score Per Nursin RFS Level Per Nursing on Admit: 3=High TIFFANY BRIAN MD Jul 25, 2018 10:21
--- NOTE | 2018-07-25 12:45 | NUR ---
pt left floor w/ endo staff.
[2018-07-25] MEDS ORDERED: NS IV 500 ML 500 ML ONE (12:59)
[2018-07-25] MEDS ORDERED: fentaNYL INJECTION 100 MCG/2 ML AMP ONE (13:11)
[2018-07-25] MEDS ORDERED: HURRICAINE EXT TUBE (BENZOCAINE) ONE (13:11)
[2018-07-25] MEDS ORDERED: MIDAZOLAM 2 MG/2 ML (VERSED) VIAL ONE ×3 (13:11→14:30)
[2018-07-25] MEDS ORDERED: fentaNYL INJECTION 100 MCG/2 ML AMP IVP ONE ×2 (13:15→15:30)
[2018-07-25] MEDS ORDERED: MIDAZOLAM 2 MG/2 ML (VERSED) VIAL IVP ONE (13:15)
[2018-07-25] MEDS ORDERED: NS IV 500 ML 500 ML IV SCH (13:15)
[2018-07-25] MEDS ORDERED: HURRICAINE EXT TUBE (BENZOCAINE) XX ONE (13:15)
[2018-07-25] MEDS ORDERED: LIDOCAINE JELLY 2% 6 ML SYRINGE ONE (13:18)
[2018-07-25] MEDS ORDERED: LIDOCAINE JELLY 2% 6 ML SYRINGE TOP ONE (13:30)
--- NOTE | 2018-07-25 15:05 | Progress Note-Post Operative ---
Post-Operative Progess Note Surgeon (s)/Chargemaster Specialist (s) Surgeon REGI BEDOLLA MD Chargemaster Specialist: none Pre-Operative Diagnosis dark tarry stools, sx anemia Post-Operative Diagnosis reflux esophagitis(stage 2), small HH(1.5cm), mild-moderate gastritis. no active or chronic bleeding source. Procedure & Operative Findings Date of Procedure 07/25/18 Procedure Performed/Findings EGD with bx. Anesthesia Type cs Estimated Blood Loss Estimated blood loss (mL): minimal Specimens/Packing Specimens Removed ge jxn, antrum REGI BEDOLLA MD Jul 25, 2018 15:05
--- NOTE | 2018-07-25 15:10 | NUR ---
pt back from endo. pt to stay overnight to monitor labs per dr don.
--- NOTE | 2018-07-25 15:12 | Discharge Inst-Surgical ---
D/C Lap Instructions-KIDO New, Converted, or Re-Newed RX: RX on Chart Follow Up PRN Activity as tolerated continue protonix daily High Fiber Diet 25g or more per day Avoid Alcohol, Caffeine, Spicy [place] and Acid foods. Drink 64 fluid oz or more of fluids per day. Symptoms to Report: Fever over 101 degree F, Nausea/Vomiting If any problems/questions: Contact your physician or go to Emergency Room REGI BEDOLLA MD Jul 25, 2018 15:12
--- NOTE | 2018-07-25 15:20 | NUR ---
pt wanting to leave [facility], dr don contacted. d/c orders received.
[2018-07-25 15:22] VITALS: BP 129/59
[2018-07-25] MEDS ORDERED: MIDAZOLAM 2 MG/2 ML (VERSED) VIAL IM ONE ×2 (15:30→15:45)
[2018-07-25] MEDS ORDERED: RIVA10TA PO ×2 (15:32)
--- NOTE | 2018-07-25 16:00 | NUR ---
ADALBERTO FONTENOT JR demonstrates understanding of discharge instructions and accurately returns instructions upon questioning. Copy of Post-Discharge Instructions and Medication Discharge Instructions given to pt. ADALBERTO FONTENOT JR is able to manage continuing needs after discharge. Patients belongings returned to pt. Skin dry and intact; no breakdown noted. Patient discharged from [facility]- on 07/25/18 at 1600. ADALBERTO FONTENOT JR left floor via wc, accompanied by staff/son.
--- NOTE | 2018-07-28 06:41 | OPERATIVE REPORT ---
DATE OF SERVICE: 07/25/2018 PRIMARY CARE PHYSICIAN: Carolyne Brian MD. PREOPERATIVE DIAGNOSIS: Anemia with history of dark tarry stools. POSTOPERATIVE DIAGNOSES: Reflux esophagitis stage II and small hiatal hernia approximately 1.5 cm in size. FINDINGS: Mild to moderate gastritis. Pylorus and duodenum appeared normal. There were no ulcerations or any signs of active bleeding that would account for his anemia. DISPOSITION: The patient tolerated the procedure well. INDICATIONS: The patient is an 87-year-old male known to us. He initially presented with weakness and shortness of breath as well as exacerbation of CHF. He was found to be anemic on that admission and underwent an EGD and colonoscopy. There was no active bleeding source identified on either the EGD or colonoscopy and he was given blood, which was stable. He was started on an anticoagulant at that time for atrial fibrillation. He continues to require Xarelto for his atrial fibrillation. He states that he does have some issues with constipation; however, no red blood per rectum. For the past 3 days, he has noticed exertional shortness of breath and fatigue. He was seen in the emergency department. He had labs drawn and was found to be anemic with a hemoglobin of 6.4. He reports again some mild episodes of gastroesophageal reflux disease as well as acid ingestion; however, not severe. He does take ranitidine at home. It was explained to him due to the characteristics of the blood and anemia, we will proceed with an EGD for he did have a colonoscopy within the past six weeks. DESCRIPTION OF PROCEDURE: The patient was brought to the endoscopy suite and laid in the left lateral decubitus position. After adequate IV pain and sedative medications and conscious sedation anesthesia, the mouthpiece was applied. Endoscope was placed in the mouth, visualizing the pharynx and hypopharyngeal region. Vocal cords, epiglottis and vallecula were identified and appeared to be normal. The endoscope was gently intubated. The esophageal opening and esophagus was insufflated. The endoscope was then advanced to the first, second and third portion of the esophagus at the level of the GE junction and a reflux esophagitis stage II identified. There were no ulcers or strictures or any bleeding sites identified in this region. A biopsy was taken with forceps with visualization of good hemostasis. The endoscope was then advanced into the stomach and endoscope retroflexed visualizing a small hiatal hernia approximately 1.5 cm in size. This was previously detected as well. There was a mild to moderate gastritis. There were no formal ulcerations, polyps or any chronic or active bleeding identified. A biopsy was taken of the stomach antrum to rule out H. pylori with visualization of good hemostasis. The endoscope was then advanced to the pylorus and first and second portion of the duodenum, which appeared normal with no distal obstructions as well as no ulcerations or any bleeding sources. The endoscope was then slowly withdrawn while taking a second look and suctioning the residual air with no additional findings. The patient tolerated the procedure well. We are unsure of the etiology of his anemia and this may be multifactorial. He does state again that he does have constipation and may notice a small amount of red blood on the toilet paper; however, he states that this is very small amounts. There is a potential for a small bowel source of the bleeding including an AV malformation and our recommendation if he does become anemic despite continued medical management, is to proceed with either a capsule endoscopy versus a nuclear imaging tagged red blood cell scan. For now, we will start him on Protonix 40 mg daily and recommend the necessary lifestyle and diet accommodation including small and more frequent meals, avoidance of eating at night as well as head elevation while lying supine. He also needs to avoid caffeinated beverages, spicy, greasy and acidic foods. He may be discharged to home as well from a surgical standpoint. Job ID: [id number] DocumentID: [id number] Dictated Date: 07/25/2018 14:58:12 [employer] Date: 07/25/2018 15:11:23 Dictated By: REGI BEDOLLA MD
--- NOTE | 2018-07-29 12:26 | Physician Query-Final Dx ---
ZULMA LAWLER 07/29/18 1226: Final Diagnosis Give Final Diagnosis Please give Final Diagnosis TIFFANY JI MD 07/29/18 1917: Final Diagnosis Give Final Diagnosis gastritis with acute blood loss anemia ZULMA LAWLER Jul 29, 2018 12:26 TIFFANY JI MD Jul 29, 2018 19:17
== END 2018-07-25 16:00 | disposition home or self-care (01) | DRG 378 ==
LOC: EDUNIT# 15:20 → ER 15:22 → ICU 16:13
PROVIDERS: ADMIT Family Medicine; ATTEND Family Medicine
PROC: 0DB48ZZ Excision of Esophagogastric Junction, Via Natural or Artificial Opening Endoscopic (ICD-10-PCS; 2018-07-25)
PROC: 0DB78ZZ Excision of Stomach, Pylorus, Via Natural or Artificial Opening Endoscopic (ICD-10-PCS; principal; 2018-07-25 13:00)
DX: K29.51 Unspecified chronic gastritis with bleeding (principal); D62 Acute posthemorrhagic anemia; N17.9 Acute kidney failure, unspecified; D63.1 Anemia in chronic kidney disease; I13.0 Hypertensive heart and chronic kidney disease with heart failure and stage 1 through stage 4 chronic kidney disease, or unspecified chronic kidney disease; N18.9 Chronic kidney disease, unspecified; I50.9 Heart failure, unspecified; R60.0 Localized edema; K21.0 Gastro-esophageal reflux disease with esophagitis; K44.9 Diaphragmatic hernia without obstruction or gangrene; I48.2 Chronic atrial fibrillation; E78.00 Pure hypercholesterolemia, unspecified; R53.83 Other fatigue; I25.2 Old myocardial infarction; Z79.01 Long term (current) use of anticoagulants; Z87.891 Personal history of nicotine dependence; Z95.1 Presence of aortocoronary bypass graft
CPT/HCPCS: 36415; 71045; 80053; 81000; 83605; 83735; 83880; 84484; 85025; 85610; 86850; 86900; 86901; 86920; 87040; 93005; 94640

== ENCOUNTER → 2018-07-26 | Outpatient (CLI) | payer MEDICARE ==
[~2018-07-26] MED LIST changes: +DILT240C53 PO; +NITR0.4T42 SL; +OMEG-109 PO; +PANT40TA3 PO; +POLY17PO6 PO; +RIVA10TA PO; +RIVA20TA PO
[2018-07-26 11:23] LABS: HEMOGLOBIN 8.8 G/DL (13.3-17.7); MEAN PLATELET VOLUME 10.1 FL (7.4-10.4); RED CELL DISTRIBUTION WIDTH 16.6 % (10.0-14.5); WHITE BLOOD COUNT 8.9 10^3/uL (4.3-11.0)
== END ==
LOC: LABNPT 11:18
PROVIDERS: ATTEND Family Medicine
DX: N18.9 Chronic kidney disease, unspecified (principal); D63.1 Anemia in chronic kidney disease
CPT/HCPCS: 85027

== ENCOUNTER → 2018-08-14 | Outpatient (CLI) | payer MEDICARE ==
[2018-08-14 14:40] LABS: HEMOGLOBIN 8.4 G/DL (13.3-17.7); MEAN PLATELET VOLUME 9.6 FL (7.4-10.4); RED CELL DISTRIBUTION WIDTH 16.8 % (10.0-14.5); WHITE BLOOD COUNT 7.6 10^3/uL (4.3-11.0)
[2018-08-14 14:57] LABS: CALCIUM 9.6 MG/DL (8.5-10.1); CREATININE SERUM 1.64 MG/DL (0.60-1.30); POTASSIUM 3.9 MMOL/L (3.6-5.0)
== END ==
LOC: LAB 14:22
PROVIDERS: ATTEND Family Medicine
DX: D50.0 Iron deficiency anemia secondary to blood loss (chronic) (principal)
CPT/HCPCS: 36415; 80048; 85027

== ENCOUNTER 2018-10-08 12:46 | Outpatient (RCR) | payer MEDICARE ==
[2018-10-01 13:10] VITALS: BP 164/77
[2018-10-01] MEDS: FERRIC CARBOXYMALTOSE INJ 750 MG in NS (IVPB) 250 ML IV SCH (13:47)
[~2018-10-08] VITALS: Ht 167.6 cm; Wt 96.2 kg
[~2018-10-08 12:46] MED LIST changes: +RIVA10T PO; -RIVA10TA PO; -RIVA20TA PO; +RIVA20TA2 PO
[2018-10-08 12:47] VITALS: BP 145/42
[2018-10-08] MEDS: FERRIC CARBOXYMALTOSE INJ 750 MG in NS (IVPB) 250 ML IV SCH (13:08)
== END 2018-10-08 13:34 | disposition home or self-care (01) ==
LOC: SDC 12:46
PROVIDERS: ATTEND Family Medicine
DX: D50.0 Iron deficiency anemia secondary to blood loss (chronic) (principal)
CPT/HCPCS: 96365

== ENCOUNTER → 2019-02-24 | Outpatient (CLI) | payer MEDICARE ==
--- NOTE | 2019-02-24 15:14 | Diagnostic Imaging Report ---
INDICATION: Pneumonia. TIME OF EXAM: 3:04 p.m. COMPARISON: Correlation is made with prior chest from 07/24/2018. FINDINGS: Changes of median sternotomy and CABG are noted. The lungs are clear. Pulmonary vascularity is normal. No effusion or pneumothorax is seen. IMPRESSION: No acute cardiopulmonary process is detected. Dictated by: Dictated on workstation # [id number]
== END ==
LOC: RAD 14:51
PROVIDERS: ATTEND Nurse Practitioner Family
DX: J18.9 Pneumonia, unspecified organism (principal); J30.9 Allergic rhinitis, unspecified; I48.91 Unspecified atrial fibrillation; I34.0 Nonrheumatic mitral (valve) insufficiency; I50.9 Heart failure, unspecified; J44.9 Chronic obstructive pulmonary disease, unspecified; I27.20 Pulmonary hypertension, unspecified; G47.10 Hypersomnia, unspecified; Z98.890 Other specified postprocedural states; Z95.1 Presence of aortocoronary bypass graft
CPT/HCPCS: 71046

== ENCOUNTER 2019-08-31 11:55 | Outpatient (RCR) | payer MEDICARE ==
[2019-08-24] MEDS: FERRIC CARBOXYMALTOSE INJ 750 MG in NS (IVPB) 250 ML IV SCH (12:04)
[2019-08-24 12:09] VITALS: BP 136/67
[~2019-08-31] VITALS: Ht 170 cm; Wt 104.5 kg
[~2019-08-31 11:55] MED LIST changes: +DILT240C92 PO; -DILT240C97 PO; -METO-387 PO; +MTP25TSR PO; -TRAM50TA2 PO; +TRM50T PO
[2019-08-31 12:00] VITALS: BP 162/75
[2019-08-31] MEDS: FERRIC CARBOXYMALTOSE INJ 750 MG in NS (IVPB) 250 ML IV SCH (12:17)
== END 2019-08-31 12:40 | disposition home or self-care (01) ==
LOC: SDC 11:55
PROVIDERS: ATTEND Nurse Practitioner Family
DX: D50.0 Iron deficiency anemia secondary to blood loss (chronic) (principal); Z79.01 Long term (current) use of anticoagulants
CPT/HCPCS: 96365

== ENCOUNTER → 2019-12-31 | Outpatient (CLI) | payer MEDICARE | LOC: CARD 12:25 | PROVIDERS: ATTEND Internal Medicine Cardiovascular Disease | DX: I08.1 Rheumatic disorders of both mitral and tricuspid valves (principal); I48.91 Unspecified atrial fibrillation; I50.32 Chronic diastolic (congestive) heart failure | CPT/HCPCS: 93306 ==

== ENCOUNTER 2020-01-08 12:22 | Outpatient (RCR) | payer MEDICARE ==
[2020-01-01] MEDS: FERRIC CARBOXYMALTOSE INJ 750 MG in NS (IVPB) 250 ML IV SCH (12:20)
[2020-01-01 12:50] VITALS: BP 165/63
[2020-01-08 12:23] VITALS: BP 143/81
[2020-01-08] MEDS: FERRIC CARBOXYMALTOSE INJ 750 MG in NS (IVPB) 250 ML IV SCH (12:34)
== END 2020-01-08 13:00 | disposition home or self-care (01) ==
LOC: SDC 12:22
PROVIDERS: ATTEND Nurse Practitioner Family
DX: D50.9 Iron deficiency anemia, unspecified (principal)
CPT/HCPCS: 96365

== ENCOUNTER → 2020-02-03 | Outpatient (CLI) | payer MEDICARE ==
[~2020-02-03] VITALS: Ht 167 cm; Wt 102.0 kg
[~2020-02-03] MED LIST changes: +CATHETER FLUSH 10 ML SYR IV PRN; +REGADENOSON 0.4 MG/5 ML SYR (LEXISCAN) IV ONE
[2020-02-03 09:27] VITALS: BP 153/73
--- NOTE | 2020-02-03 14:17 | Cardiology Stress Test Report ---
Stress Test Report Date of Procedure/Referring: Date of Procedure: Feb 03, 2020 PCP Patricia Zaidi Admitting Physician Carolyne Brian MD Indications: Hypertension, abnormal EKG Baseline Heart Rate: 75 Baseline Blood Pressure: Blood Pressure Systolic: 153 Blood Pressure Diastolic: 73 Baseline Vitals Vital Signs Date Time Temp Pulse Resp B/P (MAP) Pulse Ox O2 Delivery O2 Flow Rate FiO2 02/03/20 09:27 81 153/73 (99) 90 Baseline EKG: Baseline EKG: atrial fibrillation, right bundle branch block Summary After explaining the procedure to the patient, he signed a consent and then brought to the stress nuclear laboratory. Patient received 0.4 mg Lexiscan for stress test, ECG, heart rate and blood pressure were monitored continuously. Resting and stress dose of radio tracer were injected, imaging was acquired and reviewed in short axis, horizontal long axis and vertical long axis views. TID: 1.01 SSS: 6 SDS: 6 EF: 53 1. Patient tolerated Lexiscan well 2. Baseline atrial fibrillation persisted during test 3. Right bundle branch block persisted during test 4. Diaphragmatic attenuation with decreased uptake involving the inferior wall and inferoseptum with mild reversibility, could be secondary to diaphragmatic attenuation 5. Normal left ventricular size with mild hypokinesia at the anterior wall and anterior septum, gated images are unreliable due to underlying atrial fi brillation, EF 53 percent PAVEL BATISTA MD Feb 03, 2020 14:17
== END ==
LOC: CARD 08:19
PROVIDERS: ATTEND Physician Assistant
DX: I45.10 Unspecified right bundle-branch block (principal); I27.20 Pulmonary hypertension, unspecified; I48.91 Unspecified atrial fibrillation; J98.6 Disorders of diaphragm; I10 Essential (primary) hypertension
CPT/HCPCS: 78452; 93017; A9502

== ENCOUNTER 2020-03-16 12:16 | Outpatient (CLI) | payer MEDICARE ==
[~2020-03-16 12:16] MED LIST changes: -CATHETER FLUSH 10 ML SYR IV PRN; -PANT40TA3 PO; +PANT40TA52 PO; -REGADENOSON 0.4 MG/5 ML SYR (LEXISCAN) IV ONE
== END 2020-03-16 12:41 | disposition home or self-care (01) ==
LOC: SLEEP 12:16
PROVIDERS: ATTEND Internal Medicine Cardiovascular Disease
DX: G47.33 Obstructive sleep apnea (adult) (pediatric) (principal); I49.9 Cardiac arrhythmia, unspecified; I25.10 Atherosclerotic heart disease of native coronary artery without angina pectoris; I50.9 Heart failure, unspecified; I48.91 Unspecified atrial fibrillation; D50.0 Iron deficiency anemia secondary to blood loss (chronic); D50.9 Iron deficiency anemia, unspecified; J44.9 Chronic obstructive pulmonary disease, unspecified; I45.10 Unspecified right bundle-branch block; E78.5 Hyperlipidemia, unspecified; I65.29 Occlusion and stenosis of unspecified carotid artery; I11.0 Hypertensive heart disease with heart failure; Z95.5 Presence of coronary angioplasty implant and graft